=== PATIENT | female | born 1960 | race Caucasian/White ===

== ENCOUNTER 2020-03-12 07:46 | Inpatient (IN) | payer MEDICARE, MEDICAID, SELFPAY ==
[2020-03-12 07:52] VITALS: BP 150/82; PULSE 88; RESP 20; TEMP 37.2; O2SAT 95; BMI 36.9
--- NOTE | 2020-03-12 08:11 | ECG_ITS ---
Test Reason : SOB Blood Pressure : / mmHG Vent. Rate : 088 BPM Atrial Rate : 088 BPM P-R Int : 124 ms QRS Dur : 078 ms QT Int : 388 ms P-R-T Axes : 073 013 034 degrees QTc Int : 469 ms Normal sinus rhythm Normal ECG When compared with ECG of 09-MAR-2019 10:46, No significant change was found Referred By: Ria Acevedo Electronically Signed By:ALEIDA GILLETTE MD
--- NOTE | 2020-03-12 08:29 | XR_ITS ---
EXAMINATION: XR CHEST CLINICAL INFORMATION: SOB and COPD. Suspicious for new onset CHF COMPARISON: None TECHNIQUE: Frontal view of the chest was obtained. FINDINGS: Lungs are somewhat expanded with prominent parahilar interstitial/vascular markings new since the previous CT chest exam 04/10/2019. There is platelike atelectasis in the lingula. The heart size and pulmonary vascularity is normal. There is moderate spondylosis dorsal spine. No lytic process. XR/XR chest 1V IMPRESSION: Increased bilateral parahilar interstitial/vascular markings most suggestive of mild CHF.
[2020-03-12 08:33] LABS: MANUAL DIFF FLAG NO
--- NOTE | 2020-03-12 08:33 | ED.GENADULT ---
HPI - General Adult General Chief complaint: Dyspnea Stated complaint: swollen legs, sob Time Seen by Provider: 03/12/20 08:15 Source: patient Mode of arrival: ambulatory Limitations: no limitations History of Present Illness HPI narrative: Patient comes to the emergency room complaining of worsening shortness of breath for 4 months, increased leg swelling bilaterally for about 4 months. Patient denies chest pain. Patient states she was recently seen by her promotions assistant, states her COPD is at baseline. Patient complaining of bilateral lower extremity pain, states her skin is very tight and hurting her legs. Over the last 4-6 months, patient states that she has been unable to go shopping, or do any activities that requires exertion because she gets short of breath, no chest pain. Patient states over the last year, she has gained approximately 60 lb, patient believes it is secondary to using prednisone. Last dose of prednisone was approximately 6 months ago per patient. Related Data Home Medications Medication Instructions Recorded Confirmed amlodipine 10 mg tablet 10 mg PO DAILY 02/13/20 buprenorphine 8 mg-naloxone 2 mg 0 film SUBLINGUAL 02/13/20 sublingual film buspirone 10 mg tablet mg PO 02/13/20 duloxetine 60 mg capsule,delayed mg PO 02/13/20 release famotidine 20 mg tablet mg PO 02/13/20 fluticasone propionate 50 INTRANASAL 02/13/20 mcg/actuation nasal spray,suspension furosemide 40 mg tablet 40 mg PO DAILY 02/13/20 gabapentin 300 mg capsule mg PO 02/13/20 levalbuterol tartrate 45 INHALATION 02/13/20 mcg/actuation aerosol inhaler levothyroxine 25 mcg tablet 25 mcg PO DAILY 02/13/20 losartan 25 mg tablet 25 mg PO DAILY 02/13/20 omeprazole 40 mg capsule,delayed 40 mg PO DAILY 02/13/20 release tizanidine 4 mg tablet 4 mg PO BID 02/13/20 fluticasone 500 mcg-salmeterol 50 1 inh INHALATION BID 03/09/20 03/09/20 mcg/dose blistr powdr for inhalation Previous Rx's Medication Instructions Recorded montelukast 10 mg tablet 10 mg PO DAILY 90 Days #90 tab 03/04/20 miscellaneous medical supply 1 ea MISCELLANEOUS DAILY 99 Days 03/11/20 #1 ea Allergies Allergy/AdvReac Type Severity Reaction Status Date / Time doxycycline [Doxycycline] Allergy Intermediate RASH, Verified 03/09/20 11:23 vomiting Review of Systems Review of Systems: Constitutional : Complaining of 60 lb weight gain in 1 year, No Fever, No Chills, No Night Sweats, No Fatigue, No Malaise ENT/Mouth : No Hearing loss, No Ear Pain, No Nasal Congestion, No Sinus Pain, No Hoarseness, No sore throat, No Rhinorrhea, No Swallowing Difficulty Eyes: No Eye Pain, No Swelling, No Redness, No Foreign Body, No Discharge, No Vision Changes Cardiovascular : No Chest Pain, complaining of shortness of breath with exertion, worsening orthopnea over the last few weeks, worsening lower extremity edema over the last 4 months Respiratory : chronic cough, no increased sputum production, chronic wheezing Gastrointestinal : No Nausea, No Vomiting, No Diarrhea, No Constipation, No abdominal Pain, No Hematochezia, No Melena Genitourinary : no irregular bleeding, No Dysuria, No Urinary Frequency, No Hematuria, No Urinary Incontinence, No Urgency, No Flank Pain, No Urinary Flow Changes, No Hesitancy Musculoskeletal : No joint pain, No Myalgias, No Joint Swelling Skin : No Skin Lesions, No rash, complaining increased skin tightness around the legs Neuro : No Weakness, No Numbness, No Paresthesias, No Loss of Consciousness, No Dizziness, No Headache Psych : No Anxiety/Panic, No Depression, No SI/HI/AH/VH, No Social Issues, Heme/Lymph: No Bruising, No Bleeding,No Lymphadenopathy Endocrine : No Polyuria, No Polydipsia, No Temperature Intolerance [facility] Past Medical History Medical History Anxiety COPD (chronic obstructive pulmonary disease) Depression Hepatitis C Heroin abuse Hypothyroidism Obesity (BMI 30-39.9) Smoker Social History Social History Smoking Status: Current every day smoker Tobacco Type: Cigarette Packs Per Day: 1 Cigarettes Per Day: 20.0 Years Smoked: 47 Second Hand Smoke Exposure: No Use of substances other than those prescribed or required for medical reasons: No Advance Directives: No Advance Directives Information Provided: No Physical Exam Vital Signs: Vital Signs: Vital Signs Temp Pulse Resp BP Pulse Ox 03/12/20 09:56 153/71 H 03/12/20 09:20 98.4 F 89 12 103/63 95 03/12/20 07:52 99.0 F 88 20 150/82 H 95 Body Mass Index 36.9 Appearance: Alert. Oriented X3. No acute distress. Eyes: Pupils equal, round and reactive to light. ENT: Pharynx normal. Neck: Normal inspection. Neck supple. No lymph nodes noted. No crepitus CVS: Normal heart rate and rhythm. Pulses normal. Normal S1 and S2 Respiratory: no respiratory distress, seems mildly short of breath, oxygen saturation 95% on room air Abdomen: Soft and nontender. No rigidity. No distention. good BS x4 Skin: Skin warm and dry. Normal skin color. Normal skin turgor. Extremities: +2 bilateral lower extremity edema, No Rash Neuro: Oriented X 3. No motor deficit. No sensory deficit. Moving all extermities. No slurred speech. Course Course Course Narrative: patient states that to her knowledge she does not have congestive heart failure. I asked patient to walk around the ED, her oxygen saturation dropped to 8889 while walking, patient became very short of breath and diaphoretic. Patient recuperated as she go to bed. I discussed with the hospitalist the patient's presentation and labs/ imaging, patient admitted for new onset CHF. Medical Decision Making Lab Data Result diagrams: 03/12/20 08:22 03/12/20 08:59 Labs: Lab Results 03/12/20 03/12/20 03/12/20 Range/Units 08:22 08:22 08:22 WBC 5.3 (4.8-10.8) X10*3/uL RBC 3.45 L (4.20-5.50) X10*6/uL Hgb 9.9 L (12.0-16.0) g/dl Hct 31.1 L (37-47) % MCV 90.1 (80-98) fL MCH 28.7 (27.0-33.0) pg MCHC 31.8 (31.0-35.0) g/dl RDW 16.9 H (11.0-16.0) % Plt Count 143 L (160-400) X10*3/uL MPV 11.1 (9.4-12.3) fL Immature Gran % (Auto) 0.4 (0.0-0.4) % Neut % (Auto) 63.8 (45-73) % Lymph % (Auto) 14.4 L (20-40) % [place] % (Auto) 16.6 H (2-11) % Eos % (Auto) 4.0 (0-4) % Baso % (Auto) 0.8 (0-2) % Lymph # (Auto) 0.8 L (1.2-4.9) X10*3/uL [place] # (Auto) 0.9 (0.1-1.2) X10*3/uL Eos # (Auto) 0.2 (0.0-0.4) X10*3/uL Baso # (Auto) 0.0 (0.0-0.2) X10*3/uL Abs Immat Gran (auto) 0.02 (0.00-0.03) X10*3/uL Absolute Neuts (auto) 3.4 (2.0-8.3) X10*3/uL Absolute Nucleated RBC 0.000 (0.0-0.012) X10*3/uL Nucleated RBC % (auto) 0.0 (0.0-0.2) /100WBC Hold Blue Top SEE NOTE Sodium Potassium Chloride Carbon Dioxide Anion Gap BUN Creatinine Estim Creat Clear Calc Estimated GFR Random Glucose Lactic Acid (0.5-2.0) mmol/L Calcium Total Bilirubin (0.0-1.0) mg/dL Direct Bilirubin (0.0-0.5) mg/dL AST (5-31) U/L ALT (0-31) U/L Alkaline Phosphatase (39-117) U/L Troponin I High Sens < 3.5 (<3.5-17.0) ng/L B-Natriuretic Peptide 59 (<100) pg/mL Total Protein (6.5-8.0) g/dL Albumin (3.5-5.0) g/dL 03/12/20 03/12/20 03/12/20 Range/Units 08:23 08:59 09:01 WBC (4.8-10.8) X10*3/uL RBC (4.20-5.50) X10*6/uL Hgb (12.0-16.0) g/dl Hct (37-47) % MCV (80-98) fL MCH (27.0-33.0) pg MCHC (31.0-35.0) g/dl RDW (11.0-16.0) % Plt Count (160-400) X10*3/uL MPV (9.4-12.3) fL Immature Gran % (Auto) (0.0-0.4) % Neut % (Auto) (45-73) % Lymph % (Auto) (20-40) % [place] % (Auto) (2-11) % Eos % (Auto) (0-4) % Baso % (Auto) (0-2) % Lymph # (Auto) (1.2-4.9) X10*3/uL [place] # (Auto) (0.1-1.2) X10*3/uL Eos # (Auto) (0.0-0.4) X10*3/uL Baso # (Auto) (0.0-0.2) X10*3/uL Abs Immat Gran (auto) (0.00-0.03) X10*3/uL Absolute Neuts (auto) (2.0-8.3) X10*3/uL Absolute Nucleated RBC (0.0-0.012) X10*3/uL Nucleated RBC % (auto) (0.0-0.2) /100WBC Hold Blue Top Sodium Cancelled 135 Potassium Cancelled 3.8 Chloride Cancelled 98 Carbon Dioxide Cancelled 29 Anion Gap Cancelled 12 BUN Cancelled 12 Creatinine Cancelled 0.63 Estim Creat Clear Calc Cancelled 100.0 Estimated GFR Cancelled > 60 Random Glucose Cancelled 115 Lactic Acid 1.1 (0.5-2.0) mmol/L Calcium Cancelled 8.0 L Total Bilirubin 0.7 (0.0-1.0) mg/dL Direct Bilirubin 0.4 (0.0-0.5) mg/dL AST 69 H (5-31) U/L ALT 29 (0-31) U/L Alkaline Phosphatase 155 H (39-117) U/L Troponin I High Sens (<3.5-17.0) ng/L B-Natriuretic Peptide (<100) pg/mL Total Protein 7.2 (6.5-8.0) g/dL Albumin 3.5 (3.5-5.0) g/dL Imaging Data Chest x-ray: Radiologist's impression: Lungs are somewhat expanded with prominent parahilar interstitial/vascular markings new since the previous CT chest exam 04/10/2019. There is platelike atelectasis in the lingula. The heart size and pulmonary vascularity is normal. There is moderate spondylosis dorsal spine. No lytic process. ECG Data Attestation: I personally reviewed and interpreted this ECG as follows: ( sinus rhythm, heart rate 88, no ST segment depressions or elevations, no T-wave inversions, QTC 469) Discharge Plan Discharge Clinical Impression: Congestive heart failure Qualifiers: Heart failure type: unspecified Heart failure chronicity: acute Qualified Code(s): I50.9 - Heart failure, unspecified Patient Disposition: Admitted As Inpatient Prescriptions: No Action montelukast 10 mg tablet 10 mg PO DAILY 90 Days Qty: 90 RF: 0 miscellaneous medical supply Misc 1 ea miscellaneous DAILY 99 Days Qty: 1 RF: 0 fluticasone propion-salmeterol [Advair Diskus] 500-50 mcg/dose blister with device 1 inh inhalation BID RF: 0 buprenorphine-naloxone 8-2 mg film 0 film sublingual RF: 0 fluticasone propionate 50 mcg/actuation spray,suspension intranasal RF: 0 amlodipine 10 mg tablet 10 mg PO DAILY RF: 0 famotidine 20 mg tablet PO RF: 0 levothyroxine 25 mcg tablet 25 mcg PO DAILY RF: 0 omeprazole 40 mg capsule,delayed release(DR/EC) 40 mg PO DAILY RF: 0 tizanidine 4 mg tablet 4 mg PO BID RF: 0 gabapentin 300 mg capsule PO RF: 0 duloxetine 60 mg capsule,delayed release(DR/EC) PO RF: 0 buspirone 10 mg tablet PO RF: 0 levalbuterol tartrate 45 mcg/actuation HFA aerosol inhaler inhalation RF: 0 losartan 25 mg tablet 25 mg PO DAILY RF: 0 furosemide 40 mg tablet 40 mg PO DAILY RF: 0
[2020-03-12 08:42] LABS: Basophils Percent Auto 0.8 % (0-2); Eosinophils Absolute Auto 0.2 X10*3/uL (0.0-0.4); Hematocrit 31.1 % (37-47); Hemoglobin 9.9 g/dl (12.0-16.0); Imm Gran Abs Auto 0.02 X10*3/uL (0.00-0.03); Imm Gran Pct Auto 0.4 % (0.0-0.4); Lymphocytes Absolute Auto 0.8 X10*3/uL (1.2-4.9); Lymphocytes Percent Auto 14.4 % (20-40); Mean Corpuscular HGB Conc 31.8 g/dl (31.0-35.0); Mean Corpuscular Hemoglobin 28.7 pg (27.0-33.0); Mean Corpuscular Volume 90.1 fL (80-98); Mean Platelet Volume 11.1 fL (9.4-12.3); Monocytes Absolute Auto 0.9 X10*3/uL (0.1-1.2); Monocytes Percent Auto 16.6 % (2-11); Neutrophils Absolute Auto 3.4 X10*3/uL (2.0-8.3); Neutrophils Percent Auto 63.8 % (45-73); Platelet Count 143 X10*3/uL (160-400); Red Blood Count 3.45 X10*6/uL (4.20-5.50); Red Cell Distribution Width 16.9 % (11.0-16.0); White Blood Count 5.3 X10*3/uL (4.8-10.8)
[2020-03-12 09:01] LABS: B Type Natriuretic Peptide 59 pg/mL (<100); Troponin-I High Sensitivity < 3.5 ng/L (<3.5-17.0)
[2020-03-12 09:20] VITALS: BP 103/63; PULSE 89; RESP 12; TEMP 36.9; O2SAT 95
[2020-03-12 09:43] LABS: Lactic Acid 1.1 mmol/L (0.5-2.0)
[2020-03-12 09:45] LABS: Alanine Aminotransferase 29 U/L (0-31); Albumin Level 3.5 g/dL (3.5-5.0); Alkaline Phosphatase 155 U/L (39-117); Anion Gap 12 (12-20); Aspartate Amino Transferase 69 U/L (5-31); Bilirubin Direct 0.4 mg/dL (0.0-0.5); Bilirubin Total 0.7 mg/dL (0.0-1.0); Blood Urea Nitrogen 12 mg/dL (9-16); Carbon Dioxide 29 mmol/L (22-29); Chloride 98 mmol/L (96-108); Estimated Glomerular Filt Rate > 60; Glucose Random 115 mg/dL (60-115); Potassium 3.8 mmol/l (3.3-5.1); Sodium 135 mmol/L (135-145); Total Protein 7.2 g/dL (6.5-8.0)
[2020-03-12 09:56] VITALS: BP 153/71
--- NOTE | 2020-03-12 09:56 | PC.NURSE ---
pt ambulated in [place] with RN. pt o2 dropped to 89% while ambulating on room air. MD aware and discussed admission with patient.
[2020-03-12] MEDS: Furosemide 40 MG/4 ML VIAL IVPUSH ×2 (10:00→18:24)
[2020-03-12 10:06] LABS: TSH reflex Free T4 2.24 mIU/mL (0.32-4.0)
[2020-03-12 10:12] LABS: Glucose Urine UA NEG (NEG); Leukocyte Esterase Urine NEG (NEG); Nitrite Urine NEG (NEG); PH 6.5 (5.0-8.0); Urine Blood NEG (NEG); Urine Ketones NEG (NEG); Urine Protein NEG (NEG-TRACE)
[2020-03-12 10:14] LABS: Appearance Urine CLEAR; Color Urine YELLOW
[2020-03-12 10:39] LABS: Amphetamine Screen Urine Not Detected (Not Detect); Barbiturates, Urine Not Detected (Not Detect); Benzodiazepines Screen Urine Not Detected (Not Detect); Cannabinoid Screen Urine Not Detected (Not Detect); Cocaine Screen Urine Not Detected (Not Detect); Opiate Screen Urine Not Detected (Not Detect); Phencyclidine Screen Urine Not Detected (Not Detect)
[2020-03-12 10:47] VITALS: BP 141/59; PULSE 76; RESP 12; TEMP 37.1
[2020-03-12 10:56] LABS: SARS COV2 PCR INHOUSE NEGATIVE (Negative)
--- NOTE | 2020-03-12 13:14 | PM.IMHP ---
History of Present Illness Date of Service: 03/12/20 <ITZEL Hernandez - Last Filed: 03/12/20 13:52> Chief Complaint: shortness of breath <ITZEL Hernandez - Last Filed: 03/12/20 13:52> this is a 59-year-old female with a history of COPD/asthma, ? interstitial lung disease who presents to the emergency department with shortness of breath. Patient reports progressive dyspnea with exertion over the past few months. She also reports increased or lower extremity edema which has been going on for several months. She has been taking Lasix since at least May for the same. She has mild intermittent cough which she reports is chronic. She denies any associated fever or chills. her shortness of breath seems to be worse with exertion and when lying flat. She denies having a diagnosis of heart failure. In the emergency department her troponin and BNP were both unremarkable chest x-ray showed possible interstitial edema. She was afebrile with no white count and chest x-ray showed with no evidence of pneumonia. while in the emergency department from her oxygen saturation dropped to 88% with ambulation. she was given a dose of IV Lasix due and the decision was made to admit her for further management of dyspnea. <ITZEL Hernandez - Last Filed: 03/12/20 13:52> Review of Systems Review of Systems: Yes all other systems are reviewed and are negative <ITZEL Hernandez Last Filed: 03/12/20 13:52> Cardiovascular: Cardiovascular: Denies chest pain, Reports leg edema, Denies palpitations and Reports dyspnea on exertion <ITZEL Hernandez Last Filed: 03/12/20 13:52> Respiratory: Respiratory: Reports dyspnea on exertion <ITZEL Hernandez Last Filed: 03/12/20 13:52> Gastrointestinal: Gastrointestinal: Denies abdominal pain, Denies diarrhea, Denies nausea and Denies vomiting <ITZEL Hernandez Last Filed: 03/12/20 13:52> Endocrine: Endocrine: Denies palpitations <ITZEL Hernandez Last Filed: 03/12/20 13:52> [facility] Medical History: Medical History Anxiety Asthma COPD (chronic obstructive pulmonary disease) Depression Hepatitis C Heroin abuse HTN (hypertension) Hypothyroidism Myofascial pain syndrome Obesity (BMI 30-39.9) Obstructive sleep apnea Smoker <ITZEL Hernandez - Last Filed: 03/12/20 13:52> Functional capacity: independent ambulation <ITZEL Hernandez - Last Filed: 03/12/20 13:52> Pertinent family history: mother had a history of lung cancer father had history of esophageal cancer <ITZEL Hernandez - Last Filed: 03/12/20 13:52> Social History: Social History (Updated 03/12/20 @ 13:24 by ITZEL Hernandez) Household Members: Other Household Members Other:: lives alone Housing: House Do you presently have visiting nurse or other home services: No Alcohol intake: current Alcohol intake frequency: 3 or more drinks per day Alcohol type: beer and hard liquor Smoking Status: Current every day smoker Tobacco Type: Cigarette Packs Per Day: 1 Cigarettes Per Day: 20.0 Years Smoked: 47 Smoked in Last 30 Days: Yes Patient Interested in Nicotine Replacement: Yes Patient Given Instructions on How to Stop Smoking: Yes Date Education Initiated: 03/12/20 Second Hand Smoke Exposure: No Use of substances other than those prescribed or required for medical reasons: No Substance Use Type: Heroin Substance Use Type Other:: clean for 30 years. Takes suboxone. Currently Displaying Signs/Symptoms of Drug Intoxication Withdrawal: No Other Past Substance Use Problem:: h/o opiate abuse, on suboxone for 15 years Any prior treatment program specific to substance use: Yes (suboxone) Have you been hit, kicked, punched, or otherwise hurt by someone within the past year? If so, by whom?: No Do you feel safe in your current relationship?: No Is there a partner from a previous relationship who is making you feel unsafe now?: No Are you made to feel afraid or neglected: No Advance Directives: No Advance Directives Information Provided: No Advance Directives on File: No Do you have thoughts of harming others: None Do you have a plan to hurt others: No Plan Recently lost weight without trying: No <ITZEL Hernandez - Last Filed: 03/12/20 13:52> Meds Allergies/Adverse reactions: Allergies Allergy/AdvReac Type Severity Reaction Status Date / Time doxycycline [Doxycycline] Allergy Intermediate RASH, Verified 03/09/20 11:23 vomiting <ITZEL Hernandez - Last Filed: 03/12/20 13:52> Home medications: Home Medications Medication Instructions Recorded Confirmed Type amlodipine 10 mg tablet 10 mg PO DAILY 02/13/20 03/12/20 History buprenorphine 8 mg-naloxone 2 mg 2 film SUBLINGUAL DAILY 02/13/20 03/12/20 History sublingual film buspirone 10 mg tablet 10 mg PO TID 02/13/20 03/12/20 History duloxetine 60 mg capsule,delayed 120 mg PO DAILY 02/13/20 03/12/20 History release famotidine 20 mg tablet 20 mg PO DAILY 02/13/20 03/12/20 History furosemide 40 mg tablet 40 mg PO DAILY 02/13/20 03/12/20 History gabapentin 300 mg capsule 300 mg PO BID 02/13/20 03/12/20 History levothyroxine 25 mcg tablet 25 mcg PO DAILY 02/13/20 03/12/20 History losartan 25 mg tablet 25 mg PO DAILY 02/13/20 03/12/20 History omeprazole 40 mg capsule,delayed 40 mg PO DAILY 02/13/20 03/12/20 History release tizanidine 4 mg tablet 4 mg PO BID PRN 02/13/20 03/12/20 History fluticasone 500 mcg-salmeterol 50 1 inh INHALATION BID 03/09/20 03/12/20 History mcg/dose blistr powdr for inhalation fluticasone propionate [Flonase] 1 spray INTRANASAL DAILY 03/12/20 03/12/20 History levalbuterol tartrate [Xopenex HFA] 1 puff INHALATION Q4H PRN 03/12/20 03/12/20 History mirtazapine 15 mg PO BEDTIME 03/12/20 03/12/20 History montelukast 10 mg PO BEDTIME 03/12/20 03/12/20 History <ITZEL Hernandez - Last Filed: 03/12/20 13:52> Physical Exam Vital Signs and Narrative: Vital Signs: Last Vital Signs Temp 98.8 F 03/12/20 10:47 Pulse 76 03/12/20 10:47 Resp 12 03/12/20 10:47 BP 141/59 H 03/12/20 10:47 Pulse Ox 95 03/12/20 09:20 Body Mass Index 36.9 <ITZEL Hernandez - Last Filed: 03/12/20 13:52> Const: Nutritional Appearance: well nourished <ITZEL Hernandez - Last Filed: 03/12/20 13:52> Orientation/consciousness: patient oriented x3 <ITZEL Hernandez - Last Filed: 03/12/20 13:52> HENMT: Head: Yes normocephalic and Yes atraumatic <ITZEL Hernandez - Last Filed: 03/12/20 13:52> Eyes: Sclerae: sclerae normal <ITZEL Hernandez - Last Filed: 03/12/20 13:52> Chest: Chest palpation & inspection: normal inspection of the chest <ITZEL Hernandez - Last Filed: 03/12/20 13:52> Resp: Effort & Inspection: decreased respiratory effort <ITZEL Hernandez - Last Filed: 03/12/20 13:52> Auscultation: clear to auscultation bilaterally <ITZEL Hernandez - Last Filed: 03/12/20 13:52> Cardio: Rate: regular rate <ITZEL Hernandez - Last Filed: 03/12/20 13:52> Rhythm: regular rhythm <ITZEL Hernandez - Last Filed: 03/12/20 13:52> GI: Palpation (GI): Soft to palpation and nontender <ITZEL Hernandez - Last Filed: 03/12/20 13:52> Skin: General skin exam: no rashes or lesions noted <ITZEL Hernandez - Last Filed: 03/12/20 13:52> Neuro: General: patient oriented x3 <ITZEL Hernandez - Last Filed: 03/12/20 13:52> Cranial nerves: Yes CN's II-XII intact bilaterally and Yes Bilaterally intact EOM present <ITZEL Hernandez - Last Filed: 03/12/20 13:52> Extrem: General: Yes normal to inspection and Yes pedal edema <ITZEL Hernandez - Last Filed: 03/12/20 13:52> Results Labs Labs: Laboratory Tests 03/12/20 03/12/20 03/12/20 08:22 08:22 08:22 WBC 5.3 RBC 3.45 L Hgb 9.9 L Hct 31.1 L MCV 90.1 MCH 28.7 MCHC 31.8 RDW 16.9 H Plt Count 143 L MPV 11.1 Immature Gran % (Auto) 0.4 Neut % (Auto) 63.8 Lymph % (Auto) 14.4 L [place] % (Auto) 16.6 H Eos % (Auto) 4.0 Baso % (Auto) 0.8 Lymph # (Auto) 0.8 L [place] # (Auto) 0.9 Eos # (Auto) 0.2 Baso # (Auto) 0.0 Abs Immat Gran (auto) 0.02 Absolute Neuts (auto) 3.4 Absolute Nucleated RBC 0.000 Nucleated RBC % (auto) 0.0 Hold Blue Top SEE NOTE Sodium Potassium Chloride Carbon Dioxide Anion Gap BUN Creatinine Estim Creat Clear Calc Estimated GFR Random Glucose Lactic Acid Calcium Total Bilirubin Direct Bilirubin AST ALT Alkaline Phosphatase Troponin I High Sens < 3.5 B-Natriuretic Peptide 59 Total Protein Albumin TSH Urine Color Urine Appearance Urine pH Ur Specific [place] Urine Protein Urine Glucose (UA) Urine Ketones Urine Blood Urine Nitrite Ur Leukocyte Esterase Urine Opiates Screen Ur Barbiturates Screen Ur Phencyclidine Scrn Ur Amphetamines Screen U Benzodiazepines Scrn Urine Cocaine Screen U Marijuana (THC) Screen Coronavirus (PCR) 03/12/20 03/12/20 03/12/20 08:23 08:59 08:59 WBC RBC Hgb Hct MCV MCH MCHC RDW Plt Count MPV Immature Gran % (Auto) Neut % (Auto) Lymph % (Auto) [place] % (Auto) Eos % (Auto) Baso % (Auto) Lymph # (Auto) [place] # (Auto) Eos # (Auto) Baso # (Auto) Abs Immat Gran (auto) Absolute Neuts (auto) Absolute Nucleated RBC Nucleated RBC % (auto) Hold Blue Top Sodium Cancelled 135 Potassium Cancelled 3.8 Chloride Cancelled 98 Carbon Dioxide Cancelled 29 Anion Gap Cancelled 12 BUN Cancelled 12 Creatinine Cancelled 0.63 Estim Creat Clear Calc Cancelled 100.0 Estimated GFR Cancelled > 60 Random Glucose Cancelled 115 Lactic Acid Calcium Cancelled 8.0 L Total Bilirubin 0.7 Direct Bilirubin 0.4 AST 69 H ALT 29 Alkaline Phosphatase 155 H Troponin I High Sens B-Natriuretic Peptide Total Protein 7.2 Albumin 3.5 TSH 2.24 Urine Color Urine Appearance Urine pH Ur Specific [place] Urine Protein Urine Glucose (UA) Urine Ketones Urine Blood Urine Nitrite Ur Leukocyte Esterase Urine Opiates Screen Ur Barbiturates Screen Ur Phencyclidine Scrn Ur Amphetamines Screen U Benzodiazepines Scrn Urine Cocaine Screen U Marijuana (THC) Screen Coronavirus (PCR) 03/12/20 03/12/20 03/12/20 09:01 09:24 10:04 WBC RBC Hgb Hct MCV MCH MCHC RDW Plt Count MPV Immature Gran % (Auto) Neut % (Auto) Lymph % (Auto) [place] % (Auto) Eos % (Auto) Baso % (Auto) Lymph # (Auto) [place] # (Auto) Eos # (Auto) Baso # (Auto) Abs Immat Gran (auto) Absolute Neuts (auto) Absolute Nucleated RBC Nucleated RBC % (auto) Hold Blue Top Sodium Potassium Chloride Carbon Dioxide Anion Gap BUN Creatinine Estim Creat Clear Calc Estimated GFR Random Glucose Lactic Acid 1.1 Calcium Total Bilirubin Direct Bilirubin AST ALT Alkaline Phosphatase Troponin I High Sens B-Natriuretic Peptide Total Protein Albumin TSH Urine Color YELLOW Urine Appearance CLEAR Urine pH 6.5 Ur Specific [place] 1.020 Urine Protein NEG Urine Glucose (UA) NEG Urine Ketones NEG Urine Blood NEG Urine Nitrite NEG Ur Leukocyte Esterase NEG Urine Opiates Screen Ur Barbiturates Screen Ur Phencyclidine Scrn Ur Amphetamines Screen U Benzodiazepines Scrn Urine Cocaine Screen U Marijuana (THC) Screen Coronavirus (PCR) NEGATIVE 03/12/20 10:04 WBC RBC Hgb Hct MCV MCH MCHC RDW Plt Count MPV Immature Gran % (Auto) Neut % (Auto) Lymph % (Auto) [place] % (Auto) Eos % (Auto) Baso % (Auto) Lymph # (Auto) [place] # (Auto) Eos # (Auto) Baso # (Auto) Abs Immat Gran (auto) Absolute Neuts (auto) Absolute Nucleated RBC Nucleated RBC % (auto) Hold Blue Top Sodium Potassium Chloride Carbon Dioxide Anion Gap BUN Creatinine Estim Creat Clear Calc Estimated GFR Random Glucose Lactic Acid Calcium Total Bilirubin Direct Bilirubin AST ALT Alkaline Phosphatase Troponin I High Sens B-Natriuretic Peptide Total Protein Albumin TSH Urine Color Urine Appearance Urine pH Ur Specific [place] Urine Protein Urine Glucose (UA) Urine Ketones Urine Blood Urine Nitrite Ur Leukocyte Esterase Urine Opiates Screen Not Detected Ur Barbiturates Screen Not Detected Ur Phencyclidine Scrn Not Detected Ur Amphetamines Screen Not Detected U Benzodiazepines Scrn Not Detected Urine Cocaine Screen Not Detected U Marijuana (THC) Screen Not Detected Coronavirus (PCR) <ITZEL Hernandez - Last Filed: 03/12/20 13:52> Assessment and Plan (1) Dyspnea: Status: Acute <ITZEL Hernandez - Last Filed: 03/12/20 13:52> this is a 67-year-old female with multiple medical problems who presents to the emergency department with worsening shortness of breath acute respiratory failure with hypoxia/dyspnea oxygen saturation dropped to 88% with ambulation likely multifactorial r/t COPD/asthma, ?ILD, obesity, KEV and possible new onset CHF -will continue gentle diuresis, obtain echo -consult pulmonology, consider chest CT -continue supplemental O2 alcohol dependence no evidence of alcohol withdrawal at this time - start phenobarbital - tele monitoring - check magnesium - thiamine, folate supplementation tobacco dependence smoking cessation advised - NRT history of opiate abuse - continue Suboxone anemia -check iron studies, b12, folate - trend CBC thrombocytopenia -trend CBC Mild transaminitis r/t HCV/obesity KEV - continue 2 L oxygen at night HTN - continue Norvasc, losartan hypothyroidism - continue hypothyroidism depression - continue Cymbalta myofascial pain syndrome - continue gabapentin, tizanidine GERD - continue omeprazole, famotidine obesity BMI 36.9 likely contributing to respiratory symptoms. reports 60 lb weight gain over the past 2 years weight loss was discussed and encouraged DVT prophylaxis- Lovenox code status- full code this case was discussed with Dr. Desouza <ITZEL Hernandez - Last Filed: 03/12/20 13:52>
[2020-03-12 14:01] LABS: Iron 46 mcg/dL (30-160); Percent Iron Saturation 10 % (15-50); Total Iron Binding Capacity 477 mcg/dL (228-428); Unsaturated Iron Binding 431 ug/dL
[2020-03-12 14:21] LABS: Ferritin 33 ng/mL (10-250)
[2020-03-12] MEDS: Nicotine 14 MG PATCH.TD24 TRANSDERMA (14:29)
[2020-03-12] MEDS: PHENobarbitaL sodium 130 MG/ML VIAL 160 MG IM (14:30)
[2020-03-12 14:43] LABS: Folate 9.5 ng/mL (> or = 4.0); Vitamin B12 244 pg/mL (200-900)
[2020-03-12] MEDS: Flu Vacc QS2020-21(6mos up)/PF 0.5 ML SYRINGE IM (15:07)
[2020-03-12] MEDS: Enoxaparin Sodium 40 MG/0.4 ML SYRINGE SUBCUT (15:07)
[2020-03-12 15:40] VITALS: BP 164/80; PULSE 92; RESP 20; TEMP 36.4; O2SAT 95
[2020-03-12] MEDS: 0.9 % Sodium Chloride Flush 3 ML SYRINGE IVFLUSH (16:17)
[2020-03-12] MEDS: busPIRone HCl 10 MG TABLET PO ×2 (16:17→20:37)
[2020-03-12 17:30] VITALS: BP 174/89; PULSE 89
[2020-03-12] MEDS: PHENobarbitaL sodium 130 MG/ML VIAL 120 MG IM ×2 (17:38→20:35)
--- NOTE | 2020-03-12 18:05 | P.EN_ITS ---
Event Note Event Note: patient seen examined case discussed with APC 59-year-old female with past medical history of COPD/ asthma question interstitial lung disease presented with symptoms of shortness of breath progressing over last couple months with worsening lower extremity edema patient denies any associated fever chills has chronic intermittent dry cough, patient with no prior history of heart failure in the emergency room BNP was unremarkable chest x-ray was concerning for fluid overload patient in the ER was noted to have hypoxia with finger oximetry 88% with ambulation patient is now being admitted for further treatment of her progressive shortness of breath. 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 Thao.
[2020-03-12] MEDS: TiZANidine HCL 4 MG TABLET PO (20:37)
[2020-03-12] MEDS: Montelukast Sodium 10 MG TABLET PO (20:37)
[2020-03-12] MEDS: Mirtazapine 15 MG TABLET PO (20:37)
[2020-03-12] MEDS: Gabapentin 300 MG CAPSULE PO (20:37)
[2020-03-13] VITALS (8 sets, daily range): BP systolic 100–142; BP diastolic 57–77; PULSE 73–84; RESP 18–20; TEMP 36.1–36.9; O2SAT 94–99; BMI 36.9
[2020-03-13] MEDS: 0.9 % Sodium Chloride Flush 3 ML SYRINGE IVFLUSH ×3 (00:04→16:26)
[2020-03-13 06:37] LABS: Imm Gran Abs Auto 0.01 X10*3/uL (0.00-0.03); Imm Gran Pct Auto 0.2 % (0.0-0.4); MANUAL DIFF FLAG SCAN; Mean Platelet Volume 11.2 fL (9.4-12.3); Monocytes Absolute Auto 0.7 X10*3/uL (0.1-1.2); PLT CLUMP 1; SCAN SMEAR FLAG 1
[2020-03-13 06:39] LABS: Basophils Percent Auto 0.9 % (0-2); Eosinophils Absolute Auto 0.2 X10*3/uL (0.0-0.4); Eosinophils Percent Auto 5.3 % (0-4); Hematocrit 31.9 % (37-47); Hemoglobin 10.1 g/dl (12.0-16.0); Lymphocytes Absolute Auto 0.7 X10*3/uL (1.2-4.9); Lymphocytes Percent Auto 16.2 % (20-40); Mean Corpuscular HGB Conc 31.7 g/dl (31.0-35.0); Mean Corpuscular Hemoglobin 28.6 pg (27.0-33.0); Mean Corpuscular Volume 90.4 fL (80-98); Monocytes Percent Auto 16.2 % (2-11); Neutrophils Absolute Auto 2.6 X10*3/uL (2.0-8.3); Neutrophils Percent Auto 61.2 % (45-73); Platelet Count 126 X10*3/uL (160-400); Red Blood Count 3.53 X10*6/uL (4.20-5.50); Red Cell Distribution Width 16.8 % (11.0-16.0); White Blood Count 4.3 X10*3/uL (4.8-10.8)
[2020-03-13 06:57] LABS: Alanine Aminotransferase 27 U/L (0-31); Albumin Level 3.5 g/dL (3.5-5.0); Alkaline Phosphatase 149 U/L (39-117); Anion Gap 13 (12-20); Aspartate Amino Transferase 66 U/L (5-31); Bilirubin Direct 0.5 mg/dL (0.0-0.5); Bilirubin Total 1.2 mg/dL (0.0-1.0); Blood Urea Nitrogen 12 mg/dL (9-16); Carbon Dioxide 31 mmol/L (22-29); Chloride 97 mmol/L (96-108); Creatinine Clr Calc Pharmacy 98.4; Estimated Glomerular Filt Rate > 60; Glucose Random 113 mg/dL (60-115); Potassium 3.7 mmol/l (3.3-5.1); Sodium 137 mmol/L (135-145); Total Protein 7.4 g/dL (6.5-8.0)
[2020-03-13 07:09] LABS: SLIDE REVIEW VERIFIED
[2020-03-13] MEDS: Fluticasone/Vilanterol 200/25 BLST.W.DEV 1 PUFF INHALE (07:44)
[2020-03-13] MEDS: Nicotine 14 MG PATCH.TD24 TRANSDERMA (08:19)
[2020-03-13] MEDS: Buprenorphine/Naloxone 8/2 mg FILM 2 FILM SUBLINGUAL (08:20)
[2020-03-13] MEDS: DULoxetine HCl 30 MG CAPSULE.DR 120 MG PO (08:20)
[2020-03-13] MEDS: Losartan Potassium 25 MG TABLET PO (08:21)
[2020-03-13] MEDS: Levothyroxine Sodium 25 MCG TABLET PO (08:21)
[2020-03-13] MEDS: Famotidine 20 MG TABLET PO (08:21)
[2020-03-13] MEDS: amLODIPine Besylate 5 MG TABLET PO (08:21)
[2020-03-13] MEDS: Omeprazole 40 MG CAPSULE.DR PO (08:21)
[2020-03-13] MEDS: Thiamine HCL 100 MG TABLET PO (08:22)
[2020-03-13] MEDS: busPIRone HCl 10 MG TABLET PO ×3 (08:22→21:30)
[2020-03-13] MEDS: Gabapentin 300 MG CAPSULE PO ×2 (08:22→21:30)
[2020-03-13] MEDS: Folic Acid 1 MG TABLET PO (08:22)
[2020-03-13] MEDS: PHENobarbitaL 15 MG TABLET 45 MG PO ×2 (08:22→21:30)
[2020-03-13] MEDS: Fluticasone Propionate Nasal 16 GM SPRAY 1 SPRAY NOSTRIL-B (08:22)
--- NOTE | 2020-03-13 09:55 | PM.EVENT ---
Event Note Event Note: This patient is well-known to me and was seen in the office only 4 days ago. I have seen her today evaluated the lap findings and chest x-ray and talked to her in detail. Full note is dictated. Impression: Long-time smoker COPD.with Chronic Resp. failure CHF , sec to Cor-Pulmonale . Recc : Treat with Breo-200 one inh daily , Duo Neb UDs qid , O2 to keep O2 sat above 90 % . ABGs on room air Cardiac Eval. Echo , cont. diuresis . Smoking cessation .
--- NOTE | 2020-03-13 10:11 | HO.PM.IMPN ---
Subjective Subjective Date of Service: 03/13/20 Interval History: reports improvement in breathing, Although has only ambulated to the bathroom. Still with significant leg edema. Review of Systems Review of Systems: Yes all other systems are reviewed and are negative Constitutional Constitutional: Denies chills and Denies fever(s) Cardiovascular Cardiovascular: Denies chest pain Gastrointestinal Gastrointestinal: Denies abdominal pain Physical Exam Vital Signs: Vital Signs: Vital Signs Temp Pulse Resp BP Pulse Ox 03/13/20 08:00 98.3 F 80 20 137/73 94 03/13/20 04:00 98.4 F 83 18 130/66 94 03/13/20 00:00 97.5 F 80 18 112/57 L 96 03/12/20 17:30 89 174/89 H 03/12/20 15:40 97.6 F 92 20 164/80 H 95 03/12/20 10:47 98.8 F 76 12 141/59 H Body Mass Index 36.9 Const: Nutritional Appearance: well nourished and obese Orientation/consciousness: patient oriented x3 HENMT: Head: Yes normocephalic and Yes atraumatic Eyes: Sclerae: sclerae normal Chest: Chest palpation & inspection: normal inspection of the chest Resp: Effort & Inspection: normal respiratory effort and no respiratory distress Auscultation: clear to auscultation bilaterally Cardio: Rate: regular rate Rhythm: regular rhythm GI: Palpation (GI): Soft to palpation and nontender Skin: General skin exam: no rashes or lesions noted Neuro: General: patient oriented x3 Cranial nerves: Yes CN's II-XII intact bilaterally and Yes Bilaterally intact EOM present Extrem: Right lower extremity: edema Left lower extremity: edema Objective Data Current Medications Generic Name Dose Route Start Last Admin Trade Name Freq PRN Reason Stop Dose Admin Acetaminophen 650 mg 03/12/20 14:21 Acetaminophen 325 Mg Tablet PO Q6H PRN Pain, Mild (Pain Scale 1-3) Albuterol Sulfate 2.5 mg 03/12/20 14:21 Albuterol Sulfate (0.083%) 2.5 Mg/3 Ml Vial.Neb INHALE RQ4H PRN Shortness of Breath Amlodipine Besylate 5 mg 03/13/20 09:00 03/13/20 08:21 Amlodipine Besylate 5 Mg Tablet PO 5 mg DAILY SERG Administration Protocol Buprenorphine/Naloxone 2 film 03/13/20 09:00 03/13/20 08:20 Buprenorphine/Naloxone 8/2 Mg Film SUBLINGUAL 2 film DAILY SERG Administration Buspirone HCl 10 mg 03/12/20 15:00 03/13/20 08:22 Buspirone Hcl 10 Mg Tablet PO 10 mg TID SERG Administration Docusate Sodium 100 mg 03/12/20 14:21 Docusate Sodium 100 Mg Capsule PO DAILY PRN Constipation Duloxetine HCl 120 mg 03/13/20 09:00 03/13/20 08:20 Duloxetine Hcl 30 Mg Capsule.Dr PO 120 mg DAILY SERG Administration Enoxaparin Sodium 40 mg 03/12/20 15:00 03/12/20 15:07 Enoxaparin Sodium 40 Mg/0.4 Ml Syringe SUBCUT 40 mg Q24H SERG Administration Famotidine 20 mg 03/13/20 09:00 03/13/20 08:21 Famotidine 20 Mg Tablet PO 20 mg DAILY SERG Administration Fluticasone Propionate 1 spray 03/13/20 09:00 03/13/20 08:22 Fluticasone Propionate Nasal 16 Gm [place] NOSTRIL-B 1 spray DAILY SERG Administration Fluticasone/Vilanterol 1 puff 03/13/20 08:00 03/13/20 07:44 Fluticasone/Vilanterol 200/25 Blst.W.Dev INHALE 1 puff RDAILY SERG Administration Folic Acid 1 mg 03/13/20 09:00 03/13/20 08:22 Folic Acid 1 Mg Tablet PO 1 mg DAILY SERG Administration Furosemide 40 mg 03/13/20 08:00 Furosemide 40 Mg/4 Ml Vial IVPUSH 0800,1400 SERG Protocol Gabapentin 300 mg 03/12/20 21:00 03/13/20 08:22 Gabapentin 300 Mg Capsule PO 300 mg BID SERG Administration Levothyroxine Sodium 25 mcg 03/13/20 09:00 03/13/20 08:21 Levothyroxine Sodium 25 Mcg Tablet PO 25 mcg DAILY SERG Administration Losartan Potassium 25 mg 03/13/20 09:00 03/13/20 08:21 Losartan Potassium 25 Mg Tablet PO 25 mg DAILY SERG Administration Protocol Medication 1 each 03/13/20 09:00 No Benzodiazepines MISCELLANE DAILY SERG Mirtazapine 15 mg 03/12/20 21:00 03/12/20 20:37 Mirtazapine 15 Mg Tablet PO 15 mg BEDTIME SERG Administration Montelukast Sodium 10 mg 03/12/20 21:00 03/12/20 20:37 Montelukast Sodium 10 Mg Tablet PO 10 mg BEDTIME SERG Administration Nicotine 14 mg 03/12/20 13:35 03/13/20 08:19 Nicotine 14 Mg Patch.Td24 TRANSDERMA 14 mg DAILY SERG Administration Omeprazole 40 mg 03/13/20 09:00 03/13/20 08:21 Omeprazole 40 Mg Capsule.Dr PO 40 mg DAILY SERG Administration Ondansetron HCl 4 mg 03/12/20 14:21 Ondansetron Hcl 4 Mg/2 Ml Vial IVPUSH Q8H PRN Nausea and Vomiting Pharmacy Consult 1 each 03/12/20 10:54 Consult Rx Perform Med Rec MISCELLANE ONCE PRN Consult order Phenobarbital 45 mg 03/13/20 09:00 03/13/20 08:22 Phenobarbital 15 Mg Tablet PO 03/14/20 21:01 45 mg BID SERG Administration Protocol Phenobarbital 30 mg 03/15/20 09:00 Phenobarbital 30 Mg Tablet PO 03/16/20 21:01 BID SERG Protocol Phenobarbital 30 mg 03/17/20 09:00 Phenobarbital 30 Mg Tablet PO 03/18/20 09:01 DAILY SERG Protocol Sodium Chloride 3 ml 03/12/20 16:00 03/13/20 00:04 0.9 % Sodium Chloride Flush 3 Ml Syringe IVFLUSH 3 ml QSHIFT SERG Administration Thiamine HCl 100 mg 03/13/20 09:00 03/13/20 08:22 Thiamine Hcl 100 Mg Tablet PO 100 mg DAILY SERG Administration Tizanidine HCl 4 mg 03/12/20 14:21 03/12/20 20:37 Tizanidine Hcl 4 Mg Tablet PO 4 mg BID PRN Administration Spasms Labs CBC & Chem 7: 03/13/20 05:23 03/13/20 05:23 Assessment and Plan (1) Dyspnea: Status: Acute Assessment and Plan: this is a 67-year-old female with multiple medical problems who presents to the emergency department with worsening shortness of breath acute respiratory failure with hypoxia/dyspnea oxygen saturation dropped to 88% with ambulation likely multifactorial r/t COPD/asthma, ?ILD, obesity, KEV and possible new onset CHF -will continue gentle diuresis, echo pending -pulonary consult pending -continue supplemental O2 alcohol dependence no evidence of alcohol withdrawal - continue phenobarbital - tele monitoring - mag wnl - thiamine, folate supplementation tobacco dependence smoking cessation advised - NRT history of opiate abuse - continue Suboxone anemia -H/H stable. B12, folate wnl. c/w iron Deficiency - start iron supplementation - outpatient GI workup thrombocytopenia -trend CBC Mild transaminitis r/t HCV/obesity KEV - continue 2 L oxygen at night HTN. BP controlled. - continue Norvasc, losartan hypothyroidism - continue hypothyroidism depression - continue Cymbalta myofascial pain syndrome - continue gabapentin, tizanidine GERD - continue omeprazole, famotidine obesity BMI 36.9 weight loss was discussed and encouraged DVT prophylaxis- Lovenox code status- full code this case was discussed with Dr. Desouza
--- NOTE | 2020-03-13 10:59 | MHC.CM.PN ---
CM met with patient at the bedside who reports she is independent, has home O2 from [facility] and lives alone. Patient does have a HCP brother Gab [phone], requested a copy. Discussed discharge plan, home no services. States her girl friend Sirena will provide transport. CM will continue to follow patient for discharge needs.
[2020-03-13 11:46] LABS: Pt Ventilation O2% 2 L
[2020-03-13 11:56] LABS: ABG PCO2 45 mmhg (32-45); Base Excess ABG 4.2; HCO3 ABG 29 mmol/l (22-26); Oxygen Saturation ABG 95.9 %; PO2 ABG 84 mmhg (83-108); pH ABG 7.43 (7.35-7.45)
[2020-03-13 11:57] LABS: Blood Gas Serial # 5414
[2020-03-13] MEDS: Enoxaparin Sodium 40 MG/0.4 ML SYRINGE SUBCUT (13:14)
[2020-03-13] MEDS: Furosemide 40 MG/4 ML VIAL IVPUSH (13:14)
[2020-03-13] MEDS: Acetaminophen 325 MG TABLET 650 MG PO (13:22)
--- NOTE | 2020-03-13 14:21 | CA_ITS ---
Transthoracic Echocardiogram Patient (Last, First, Middle): Amelia Tran J Gender: Female Date of : 1960 Age: 59 Procedure Date: 03/13/2020 Procedure Type: Transthoracic Echocardiogram Location: [facility] [place] Height: 157.48 cm Weight: 91.06 kg BSA: 1.91 m2 Heart Rate: bpm BP: 112 / 57 mmHg Toe Former: ДМИТРИЙ Melendez MD: Lissa ROBBINS Nursing Staff Development Coordinator: Iglesia Garces MD Symptoms: dyspnea Study Quality: Fair ECG Rhythm: Sinus Conclusions: - 1. Normal LV systolic and diastolic function noted on this study 2. Normal cardiac valvular Doppler 3. Normal measured RV systolic pressure 4. No gross pericardial effusion Findings Procedure Information Contrast agent, definity, is being given per protocol without apparent complications. Left Ventricle Normal left ventricular size, thickness, and systolic function. The visually estimated ejection fraction is between 60-65%. Diastolic function is normal for age. Right Ventricle Normal right ventricular cavity size and systolic function. Atria The left atrium is likely dilated. Interatrial shunt cannot be excluded. The right atrium was not well visualized. Aortic Valve The aortic valve was not well visualized. There is no aortic valve stenosis. There is no aortic valve regurgitation. Mitral Valve Likely normal mitral valve structure and function. There is trace mitral valve regurgitation. There is no mitral valve stenosis. Pulmonic Valve The pulmonic valve was not well visualized. Tricuspid Valve Likely normal tricuspid valve structure and function. There is mild tricuspid valve regurgitation. The right ventricular systolic pressure is normal. The right ventricular systolic pressure is 31 mmHg. There is no evidence of pulmonary hypertension. Great Vessels All visible segments of the aorta are normal in size. The pulmonary artery was not well visualized. Venous The inferior vena cava is normal in size and collapses greater than 50% with inspiration. Pericardium/Pleural There is no evidence of pericardial effusion. Prior Study Comparison Changes noted compared to prior study dated: 10/09/2018. RV systolic pressure measured to be within normal limits on this study Measurements 2D Linear Measurements RVIDd: 3.29 RVIDd Index: 1.72 IVSd: 1.06 0.6-0.9/0.6-1.0 cm LVIDd: 5.22 3.9-5.3/4.2-5.9 cm LVIDd Index: 2.73 2.4-3.2/2.2-3.1 cm/m2 LVIDs: 3.17 2.0-3.6 cm LVPWd: 1.06 0.7-1.1 cm Ao Root: 2.30 2.1-3.5 cm LA Diam: 4.10 2.7-3.8/3.0-4.0 cm LAIDs Index: 2.15 1.5-2.3 cm/m2 LV Mass: 263.34 67-162/88-224 g LV Mass Index: 137.87 43-95/49-115 g/m2 LVOT Diam: 2.00 3.0+(-)1.3 cm 2D Systolic Function EF 4C: 53.20 >55% EF 2C: 76.90 >55% EF BiP: 65.30 >55% Mitral Valve MV Pk E: 1.07 MV PK A: 0.73 MV Decel Time: 187.00 E/A: 1.50 E'Lateral: 7.74 E'Medial: 6.29 E/E' Med: 17.00 E/E' Lat: 13.80 Aortic Valve AoV Pk Jonnie: 1.97 AoV Mn Jonnie: 1.30 AoV VTI: 0.38 AoV Pk Grad: 16.00 Aov Mn Grad: 8.00 GLORIA Cont.VTI: 2.10 LVOT LVOT Pk Jonnie: 1.37 LVOT Mn Jonnie: 0.92 LVOT VTI: 0.26 LVOT Pk Grad: 8.00 LVOT Mn Grad: 4.00 LVOT Diam: 2.00 LVOT Area: 3.14 Diastolic Function MV Pk E: 1.07 MV Pk A: 0.73 E/A: 1.50 E'Medial: 6.29 E/E' Med: 17.00 E' Laterial: 7.74 E/E' Lat: 13.80 Tricuspid Valve TR Pk Jonnie: 2.65 TR Pk Grad: 28.00 RA Press: 3.00 RVSP: 31.00 Great Vessels Aorta Ao Root-2D: 2.30 2.0-3.7 cm Ao Asc: 2.70 2.1-3.4 cm Ao Arch: 2.70 Updated in Other Vendor System with Status of Final Iglesia Garces MD electronically signed on 03/13/2020 4:21:08 PM with status of Final
[2020-03-13] MEDS: Ferrous Sulfate 324 MG TABLET.DR PO (16:25)
--- NOTE | 2020-03-13 17:17 | CONS_ITS ---
DATE OF SERVICE: 03/13/2020 HISTORY OF PRESENT ILLNESS: This patient is a 59-year-old female, a long-time smoker and long history of chronic obstructive pulmonary disease. She was seen by me in the office only 4 days ago with increased shortness of breath. She had no sign of any respiratory infection. She has had no sick contacts recently. In spite of her COPD, she has continued to smoke 1 pack a day. In the office, she was noted to have lot of fluid retention with weight gaining and from the pulmonary point of view, she was felt to be as stable as expected. She was advised to continue diuresis with Lasix 40 mg a day and continue to use Advair 500/50 b.i.d. along with montelukast 10 mg daily and albuterol 2 puffs q.4 hours p.r.n. PAST MEDICAL HISTORY: Includes advanced chronic obstructive pulmonary disease and continued smoking. She also has hypothyroidism, hypertension, GERD symptoms, and chronic anxiety and pain syndrome. The patient has past history of opioid abuse. Currently, she is on Suboxone. REVIEW OF SYSTEMS: As included in the history and physical. Mainly, she has the respiratory symptoms of getting short of breath on minimal effort with intermittent cough. She denies chest pain or palpitations. She has GERD symptoms, which are under control. No abdominal pain. She has had increasing amount of leg edema in the past several weeks. PHYSICAL EXAMINATION: GENERAL: 59-year-old female, is moderately obese with a round face, seems to have a puffy face. EAR, NOSE, THROAT: Examination not remarkable. NECK: No visible jugular venous distention. Trachea in midline. CHEST: Chest wall is obese. Percussion note resonant. Breath sounds are distant and no audible wheezes or crepitations are heard. CARDIAC: Sounds are distant. PMI not palpable. No murmur or gallop. ABDOMEN: Moderately obese and protuberant. Bowel sounds are normal. EXTREMITIES: 2+ pitting edema is noted. LABORATORY DATA: Her CBC shows white cell count 4.3, hemoglobin 10.1, hematocrit is 31.9. Blood gas not performed. Electrolytes show pCO2 of 31, sodium and potassium are normal. Chest x-ray shows small lung volumes with increased bilateral perihilar interstitial vascular markings suggesting mild congestive heart failure. IMPRESSION: Chronic obstructive pulmonary disease, severe, but stable. The patient may have had ongoing low-grade hypoxemia, especially at night. Congestive heart failure, probably due to right-sided failure as part of cor pulmonale. Hypothyroidism, treated. Active smoker. RECOMMENDATIONS: Continue her regular medical regimen including Advair 500/50 one inhalation b.i.d., which may be replaced with Breo 200 mg 1 inhalation daily. Diuresis to decrease the fluid overload. Check the thyroid function status. Arterial blood gases 1 time to make sure that she does not have CO2 retention. She may need a cardiac evaluation with echocardiogram. She is instructed to do deep breathing exercises. Thank you very much for asking me to see this patient. I will be glad to follow her along with you. ADDITIONAL NOTE: The patient definitely needs to stop smoking and she should be started on nicotine patch with appropriate education. MD KEYONNA Lugo/KYLEE / [phone]
--- NOTE | 2020-03-13 18:23 | MHC.CARE ---
CARE Team meets with patient after receiving a consult, siting that pt is struggling with alcohol use. Pt is sitting up in bed, watching TV when CARE Team social science instructor enters the room. She is pleasant and well engaged. She reports drinking approx three beers daily. She identifies that she would like to cut back on her alcohol consumption, lose weight, and stop smoking. CARE Team supports pt is setting realistic goals, and explored a number of harm reduction strategies with pt. CARE Team utilizes principals of motivational interviewing during this assessment; pt appears motivated to make changes at this time. Pt reported a hx of heroin use when she was in her 30s which she was able to overcome. Pt identifies that quitting smoking is harder then quitting heroin. She reports that she has a therapist at [facility], as well as a psychiatrist. She reports that she takes medications as prescribed, and identified being diagnosed with some form of anxiety and depression. Pt reports that she has been speaking with her long time therapist about harm reduction and smoking cessation for some time now. She identifies that she has tried acupuncture in the past, but this was not effective. She identifies having trouble breathing while during everyday tasks, such as grocery shopping. Pt historically has participated in mindfulness groups, and some of these skills are reviewed with pt. PHP program is discussed with pt, but she does not feel that this is a good fit at this time. CARE Team offers to provide additional resources for smoking cessation treatment, however, pt identifies that she would like to continue working on this with her therapist. CARE Team is happy to return and provide more support and/or resources as needed, please reconsult.
[2020-03-13] MEDS: Docusate Sodium 100 MG CAPSULE PO (21:30)
[2020-03-13] MEDS: Mirtazapine 15 MG TABLET PO (21:30)
[2020-03-13] MEDS: Montelukast Sodium 10 MG TABLET PO (21:30)
[2020-03-13] MEDS: TiZANidine HCL 4 MG TABLET PO (21:30)
[2020-03-14] MEDS: 0.9 % Sodium Chloride Flush 3 ML SYRINGE IVFLUSH ×2 (00:57→08:52)
[2020-03-14 03:23] VITALS: BP 117/61; PULSE 67; RESP 22; TEMP 36.1; O2SAT 97
[2020-03-14] MEDS: Fluticasone/Vilanterol 200/25 BLST.W.DEV 1 PUFF INHALE (07:38)
[2020-03-14 07:56] VITALS: BP 132/62; PULSE 82; RESP 18; TEMP 36.2; O2SAT 93
[2020-03-14] MEDS: Nicotine 14 MG PATCH.TD24 TRANSDERMA (08:49)
[2020-03-14] MEDS: Buprenorphine/Naloxone 8/2 mg FILM 2 FILM SUBLINGUAL (08:49)
[2020-03-14] MEDS: PHENobarbitaL 15 MG TABLET 45 MG PO (08:49)
[2020-03-14 08:50] VITALS: BP 132/62; PULSE 82
[2020-03-14] MEDS: Losartan Potassium 25 MG TABLET PO (08:50)
[2020-03-14] MEDS: DULoxetine HCl 30 MG CAPSULE.DR 120 MG PO (08:50)
[2020-03-14] MEDS: Ferrous Sulfate 324 MG TABLET.DR PO (08:51)
[2020-03-14] MEDS: Levothyroxine Sodium 25 MCG TABLET PO (08:51)
[2020-03-14] MEDS: busPIRone HCl 10 MG TABLET PO (08:51)
[2020-03-14] MEDS: Folic Acid 1 MG TABLET PO (08:51)
[2020-03-14] MEDS: Omeprazole 40 MG CAPSULE.DR PO (08:51)
[2020-03-14] MEDS: Gabapentin 300 MG CAPSULE PO (08:51)
[2020-03-14] MEDS: Thiamine HCL 100 MG TABLET PO (08:52)
[2020-03-14] MEDS: Famotidine 20 MG TABLET PO (08:52)
[2020-03-14 08:54] VITALS: BP 132/62; PULSE 82
[2020-03-14] MEDS: amLODIPine Besylate 5 MG TABLET PO (08:54)
[2020-03-14] MEDS: Furosemide 40 MG/4 ML VIAL IVPUSH (08:54)
--- NOTE | 2020-03-14 11:16 | P.PNPL_ITS ---
Subjective Subjective Interval history: pulmonary F U . patient , clams to be less SOB , Does not feel as bloated as before . anxious to go home today. slept well at night. has had no fever or chills. she is diuresing slowly. does not have any urge to smoke at this time and promises that she is not going to smoke at home. Objective Data Labs CBC & Chem 7: 03/13/20 05:23 03/13/20 05:23 Labs: Laboratory Results - last 24 hr 03/13/20 11:35 ABG pH 7.43 ABG pCO2 45 ABG pO2 84 ABG HCO3 29 H ABG O2 Saturation 95.9 ABG Base Excess 4.2 Oxygen Given 2 L Microbiology Microbiology Results: Microbiology 03/12/20 09:01 Blood - Venous Blood Culture - Preliminary No growth after 48 hours. 03/12/20 09:02 Blood - Venous Blood Culture - Preliminary No growth after 24 hours. Review of Systems Constitutional: Denies body ache(s), Denies chills, Reports fatigue, Reports fever(s) and Denies headache(s) Eyes: Denies blurry vision, Denies irritation, Denies itchy eyes and Denies loss of vision Denies dysphagia, Denies vertigo, Denies headache(s), Denies epistaxis, Denies nasal congestion, Denies nasal discharge, Denies nasal obstruction and Denies si nus pain Cardiovascular: Denies chest pain, Denies rapid heart rate, Denies irregular heart rhythm, Reports dyspnea on exertion and Denies slow heart rate Respiratory: Reports as per HPI and Reports dyspnea on exertion Gastrointestinal: Denies bloating, Denies change in bowel habits, Denies change in stool character, Denies dysphagia, Denies heartburn, Denies nausea and Denies vomiting Genitourinary: Reports difficulty voiding and Reports urinary incontinence Musculoskeletal: Denies abnormal gait, Reports back pain, Reports myalgias, Reports arthralgias, Reports muscle weakness and Reports stiffness Denies abnormal gait, Denies vertigo, Denies headache(s), Denies loss of vision, Denies memory loss, Denies restless legs and Denies tremor(s) Psychiatric: Denies anxiety, Denies depression, Denies difficulty concentrating, Denies irritability, Denies memory loss and Denies mood swings Endocrine: Reports no additional endocrine complaints and Reports fatigue Hematologic/Lymphatic: Reports no additional hematologic/lymphatic complaints Allergic/Immunologic: Reports no additional allergic/immunologic complaints and Denies itchy eyes Physical Exam Vital Signs: Vital Signs: Vital Signs Temp Pulse Resp BP Pulse Ox 03/14/20 08:54 82 132/62 03/14/20 08:50 82 132/62 03/14/20 07:56 97.1 F 82 18 132/62 93 03/14/20 03:23 97 F 67 22 H 117/61 97 03/13/20 23:37 98 F 73 18 100/62 99 03/13/20 20:14 98 F 81 18 138/60 98 03/13/20 15:52 97.0 F 80 20 142/62 H 98 03/13/20 11:28 98.3 F 84 20 140/77 H 96 Body Mass Index 36.9 Const: General: comfortable, no acute distress, alert and awake Orientation/consciousness: patient oriented x3 HENMT: Head: Yes normal to inspection General nose exam: No nasal polyps present and No nasal discharge present Face and sinus: Yes sinuses nontender Mouth: oropharynx normal Throat: Yes posterior oropharynx normal Eyes: General: appearance normal, both eyes and all related structures Neck: Neck: Yes normal visual inspection, Yes no lymphadenopathy, Yes trachea midline and Yes no JVD Thyroid: Thyroid normal Chest: Chest palpation & inspection: normal inspection of the chest Resp: Other: Breath sounds are distant on both sides, decreased over the basilar areas, no wheezes crepitations or rhonchi are heard. Cardio: Palpation: normal PMI (not palpable) Rate: regular rate Rhythm: regular rhythm Heart sounds: no gallops and no murmurs Peripheral pulses: Peripheral pulses 2+ throughout GI: Palpation (GI): Soft to palpation, nontender, No hepatosplenomegaly present and no masses Auscultation: normal bowel sounds Back/Spine/Pelvis: Thoracic/Lumbar Spine: thoracic and lumbar spine normal to inspection Skin: General skin exam: no rashes or lesions noted Neuro: General: patient oriented x3 and no focal motor deficits Cranial nerves: Yes CN's II-XII intact bilaterally Extrem: General: Yes normal to inspection, Yes no calf tenderness, Yes edema (1+ edema of legs present) and Yes venous stasis dermatitis Psych: Speech and movement: Normal speech and movement present Assessment and Plan Assessment and plan (1) Dyspnea: Problem details: Her increased dyspnea was secondary to mild congestive heart failure on top of COPD, it is partially improved at this time. Status: Acute (2) Congestive heart failure: Problem details: she would need to have complete evaluation with echocardiogram which can be done as outpatient, she has features of cor pulmonale, currently improving with gentle diuresis. Status: Acute (3) Obesity (BMI 30-39.9): Problem details: will continue to talk to her about diet and exercise as outpatient Status: Acute (4) Smoker: Problem details: she is the advised to quit completely, continue nicotine patch 14 mg daily Status: Acute (5) COPD (chronic obstructive pulmonary disease): Problem details: will continue her regular treatment for COPD which includes Advair 500-51 inhalation b.i.d. albuterol HFA 2 puffs q.4 hours p.r.n. montelukast 10 mg daily she has been on oxygen 2 L/minute for nocturnal hypoxemia, this will continue but she may also use oxygen p.r.n. during the daytime Status: Acute Time Spent With Patient Time: Total time spent is greater than 50% in coordination of care (as documented) at patient's floor/unit and/or counseling patient: Time with patient: 15 - 24 minutes
--- NOTE | 2020-03-14 11:50 | P.CONCA_ITS ---
History of Present Illness History of Present Illness Date of Consult: March 14, 2020 Requesting physician: Beryl Desouza Consult reason: shortness of breath Chief complaint: Dyspnea Narrative: Thank you for inviting us on consultation for Amelia for shortness of breath and possible CHF. She is 59-year-old woman with prior history of advanced COPD requiring home oxygen at nighttime as well as interstitial lung di sease possibly, obesity and continued smoking. She also is hypertensive. No prior clear diagnosis of congestive heart failure as per her, however 2 years ago she had elevated BNP. She is admitted this time with progressive shortness of breath as well as leg edema for the last 10 months. She has been on oral diuretic with Lasix. She had more progressive below knee edema with the last few weeks with exertional shortness of breath. She denies any clear orthopnea, PND. She uses oxygen at nighttime. She had no associated chest discomfort. She came to the hospital. Her initial BNP was within normal limits, however she responded to Lasix therapy with improvement in leg edema and her symptoms. She is not walking the hallways without significant trouble breathing. Echocardiogram done during this hospitalization showed normal biventricular function did not show any significant elevation of right atrial pressure, however this was performed after diuresis. Her BNP has remained within normal limits. She was seen by Pulmonary. Review of Systems Constitutional: Constitutional: Denies chills, Denies fever(s), Denies headache(s), Denies poor appetite and Denies weight gain Eyes: Eyes: Denies loss of vision and Denies other visual disturbances ENT: Denies vertigo and Denies headache(s) Cardiovascular: Cardiovascular: Denies chest pain, Denies chest pain with activity, Denies rapid heart rate, Denies claudication, Reports dyspnea on exertion and Denies orthopnea Respiratory: Respiratory: Denies change in phlegm color, Reports cough, Denies excessive phlegm production and Reports dyspnea on exertion Gastrointestinal: Gastrointestinal: Denies abdominal pain, Denies diarrhea, Denies nausea and Denies vomiting Musculoskeletal: Musculoskeletal: Denies abnormal gait Neurologic: Denies abnormal gait, Denies vertigo, Denies headache(s), Denies loss of vision, Denies memory loss, Denies restless legs and Denies tremor(s) Psychiatric: Psychiatric: Denies memory loss Hematologic/Lymphatic: Hematologic/Lymphatic: Reports no additional hematologic/lymphatic complaints Allergic/Immunologic: Allergic/Immunologic: Reports no additional allergic/immunologic complaints PMFSH Past Medical History Medical History Anxiety Asthma COPD (chronic obstructive pulmonary disease) Depression Hepatitis C Heroin abuse HTN (hypertension) Hypothyroidism Myofascial pain syndrome Obesity (BMI 30-39.9) Obstructive sleep apnea Smoker Functional capacity: independent ambulation Social History Social History Household Members: Other Household Members Other:: lives alone Housing: House Do you presently have visiting nurse or other home services: No Alcohol intake: current Alcohol intake frequency: 3 or more drinks per day Alcohol type: beer and hard liquor Smoking Status: Current every day smoker Tobacco Type: Cigarette Packs Per Day: 1 Cigarettes Per Day: 20.0 Years Smoked: 47 Smoked in Last 30 Days: Yes Patient Interested in Nicotine Replacement: Yes Patient Given Instructions on How to Stop Smoking: Yes Date Education Initiated: 03/12/20 Second Hand Smoke Exposure: No Use of substances other than those prescribed or required for medical reasons: No Substance Use Type: Heroin Substance Use Type Other:: clean for 30 years. Takes suboxone. Currently Displaying Signs/Symptoms of Drug Intoxication Withdrawal: No Other Past Substance Use Problem:: h/o opiate abuse, on suboxone for 15 years Any prior treatment program specific to substance use: Yes (suboxone) Have you been hit, kicked, punched, or otherwise hurt by someone within the past year? If so, by whom?: No Do you feel safe in your current relationship?: No Is there a partner from a previous relationship who is making you feel unsafe now?: No Are you made to feel afraid or neglected: No Advance Directives: No Advance Directives Information Provided: No Advance Directives on File: No Do you have thoughts of harming others: None Do you have a plan to hurt others: No Plan Recently lost weight without trying: No service: No Current occupational status: disabled Meds Allergies Allergy/AdvReac Type Severity Reaction Status Date / Time doxycycline [Doxycycline] Allergy Intermediate RASH, Verified 03/09/20 11:23 vomiting Home Medications Medication Instructions Recorded Confirmed Type amlodipine 10 mg tablet 10 mg PO DAILY 02/13/20 03/12/20 History buprenorphine 8 mg-naloxone 2 mg 2 film SUBLINGUAL DAILY 02/13/20 03/12/20 History sublingual film buspirone 10 mg tablet 10 mg PO TID 10/01/20 10/29/20 History duloxetine 60 mg capsule,delayed 120 mg PO DAILY 02/13/20 03/12/20 History release famotidine 20 mg tablet 20 mg PO DAILY 02/13/20 03/12/20 History furosemide 40 mg tablet 40 mg PO DAILY 02/13/20 03/12/20 History gabapentin 300 mg capsule 300 mg PO BID 02/13/20 03/12/20 History levothyroxine 25 mcg tablet 25 mcg PO DAILY 02/13/20 03/12/20 History losartan 25 mg tablet 25 mg PO DAILY 02/13/20 03/12/20 History omeprazole 40 mg capsule,delayed 40 mg PO DAILY 02/13/20 03/12/20 History release tizanidine 4 mg tablet 4 mg PO BID PRN 02/13/20 03/12/20 History fluticasone 500 mcg-salmeterol 50 1 inh INHALATION BID 03/09/20 03/12/20 History mcg/dose blistr powdr for inhalation fluticasone propionate [Flonase] 1 spray INTRANASAL DAILY 03/12/20 03/12/20 History levalbuterol tartrate [Xopenex HFA] 1 puff INHALATION Q4H PRN 03/12/20 03/12/20 History mirtazapine 15 mg PO BEDTIME 03/12/20 03/12/20 History montelukast 10 mg PO BEDTIME 03/12/20 03/12/20 History Physical Exam Vital Signs: Vital Signs: Vital Signs Temp Pulse Resp BP Pulse Ox 03/14/20 08:54 82 132/62 03/14/20 08:50 82 132/62 03/14/20 07:56 97.1 F 82 18 132/62 93 03/14/20 03:23 97 F 67 22 H 117/61 97 03/13/20 23:37 98 F 73 18 100/62 99 03/13/20 20:14 98 F 81 18 138/60 98 03/13/20 15:52 97.0 F 80 20 142/62 H 98 Body Mass Index 36.9 Const: General: cooperative, no acute distress and alert Nutritional Appearance: obese Orientation/consciousness: patient oriented x3 Limitati ons: no limitations HENMT: Head: Yes normocephalic and Yes atraumatic Eyes: General: appearance normal, both eyes and all related structures Neck: Neck: Yes trachea midline and Yes no JVD Chest: Chest palpation & inspection: normal inspection of the chest Resp: Effort & Inspection: normal respiratory effort Auscultation: no crackles, no rales, no wheezes and diminished lung sounds Cardio: Jugular venous distension: no JVD Rate: regular rate Heart sounds: S1 normal heart sound present and S2 normal heart sound present GI: Auscultation: normal bowel sounds Skin: General skin exam: no rashes or lesions noted, elasticity normal and turgor normal Neuro: General: patient oriented x3 and no focal motor deficits Extrem: General: Yes edema ( Below knee, mild bilaterally) Psych: Appearance: grossly normal Results Labs and Meds Result diagrams: 03/13/20 05:23 03/13/20 05:23 Lab results: Laboratory Results - last 24 hr 03/13/20 11:35 ABG pH 7.43 ABG pCO2 45 ABG pO2 84 ABG HCO3 29 H ABG O2 Saturation 95.9 ABG Base Excess 4.2 echocardiogram Conclusions: - 1. Normal LV systolic and diastolic function noted on this study 2. Normal cardiac valvular Doppler 3. Normal measured RV systolic pressure 4. No gross pericardial effusion EKG shows normal sinus rhythm with normal EKG Laboratory Tests 03/09/19 03/12/20 10:42 08:22 B-Natriuretic Peptide 93 59 Assessment and Plan (1) Dyspnea: Problem details: Her increased dyspnea was secondary to mild congestive heart failure on top of COPD, it is partially improved at this time. Status: Acute recently increasing shortness of breath and exertion with increased leg edema is all the suggestive of right heart failure, her echocardiogram does not suggest any significant RV enlargement or evidence of pulmonary hypertension. She did respond to diuretic regimen with IV Lasix. Her breathing also has improved as per her. Her not sure if this is related to change in pulmonary th erapy as well. BNP has remained within normal limits again suggesting that overall syndrome is questionable for congestive heart failure. Progressive pulmonary parenchymal disease given her continued smoking cannot be entirely ruled out. She has been seen by Pulmonary and recommended using oxygen at home with activity including her nighttime oxygen therapy. Continue pulmonary therapy aggressively. Given that she was not responding to oral Lasix therapy as outpatient with progressive leg edema agree with switching to Bumex 1 mg daily. Also cutting down her Norvasc therapy to improve leg edema can be considered. In the long run continue participate in aggressive weight loss program. Given her multiple risk factors, stress test can be also considered to rule out ischemia as a cause of her dyspnea on exertion. Will follow as outpatient (2) COPD (chronic obstructive pulmonary disease): Problem details: will continue her regular treatment for COPD which includes Advair 500-51 inhalation b.i.d. albuterol HFA 2 puffs q.4 hours p.r.n. montelukast 10 mg daily she has been on oxygen 2 L/minute for nocturnal hypoxemia, this will continue but she may also use oxygen p.r.n. during the daytime Status: Acute (3) Obesity (BMI 30-39.9): Problem details: will continue to talk to her about diet and exercise as outpatient Status: Acute
[2020-03-14 11:52] LABS: Anion Gap 12 (12-20); Blood Urea Nitrogen 12 mg/dL (9-16); Calcium 8.2 mg/dL (8.4-10.2); Carbon Dioxide 32 mmol/L (22-29); Chloride 97 mmol/L (96-108); Estimated Glomerular Filt Rate > 60; Glucose Random 113 mg/dL (60-115); Potassium 3.6 mmol/l (3.3-5.1); Sodium 137 mmol/L (135-145)
[2020-03-14 12:00] VITALS: BP 144/58; PULSE 84; RESP 20; TEMP 36.2; O2SAT 94
--- NOTE | 2020-03-14 12:38 | PM.DS ---
DS: Providers Provider Date of admission: 03/12/20 11:58 Primary care physician: REGINA Chambers Consults: 03/12/20 14:21 Consult to Physician Routine Consulting Provider: Alexandra Thao Reason for consultation: dyspnea Has provider been notified: No 03/12/20 14:46 Consult Respiratory Therapy Routine Reason for consultation: smoker 03/13/20 14:43 Consult to Cardiology Routine Consulting Provider: Iglesia Garces Reason for consultation: chf Has provider been notified: No 03/13/20 15:21 Consult to Care Team Routine Comment: Reason for consultation: etoh DS: Diagnosis Discharge Diagnosis (1) Dyspnea: Status: Acute Problem details: Her increased dyspnea was secondary to mild congestive heart failure on top of COPD, it is partially improved at this time. (2) COPD (chronic obstructive pulmonary disease): Status: Acute Problem details: will continue her regular treatment for COPD which includes Advair 500-51 inhalation b.i.d. albuterol HFA 2 puffs q.4 hours p.r.n. montelukast 10 mg daily she has been on oxygen 2 L/minute for nocturnal hypoxemia, this will continue but she may also use oxygen p.r.n. during the daytime (3) Obesity (BMI 30-39.9): Status: Acute Problem details: will continue to talk to her about diet and exercise as outpatient DS: Summary Hospital Course Hospital Course: Chief Complaint: Shortness of breath 59-year-old female with a history of COPD/asthma, ? interstitial lung disease who presents to the emergency department with shortness of breath. Patient reports progressive dyspnea with exertion over the past few months. She also reports increased or lower extremity edema which has been going on for several months. She has been taking Lasix since at least May for the same. She has mild intermittent cough which she reports is chronic. She denies any associated fever or chills. her shortness of breath seems to be worse with exertion and when lying flat. She denies having a diagnosis of heart failure. In the emergency department her troponin and BNP were both unremarkable chest x-ray showed possible interstitial edema. She was afebrile with no white count and chest x-ray showed with no evidence of pneumonia. while in the emergency department from her oxygen saturation dropped to 88% with ambulation. she was given a dose of IV Lasix due and the decision was made to admit her for further management of dyspnea. Hospital course 67-year-old female patient with past medical history significant for tobacco dependence, alcohol dependence history of opiate abuse on Suboxone history of COPD presented to [facility] due to shortness of breath and diagnosed to have acute hypoxic respiratory failure patient treated with IV Lasix with concern for right-sided heart failure patient responded well with the arm diuretic treatment her oxygenation improved currently she is on room air with finger oximetry 93-94 % however echocardiogram revealed preserved EF as well as no evidence of right-sided heart failure had BNP is in normal range likely patient hypoxia was multifactorial with underlying COPD worsening with continued smoking history of alcohol use in likely hypoxia playing a role patient has been strongly recommended to abstain from smoking lose weight exercise and also to get back on alcohol consumption since patient responded well to diuretics Dr. Ramírez suggest patient to be discharged home on Bumex will follow BMP in 1 week time patient has been instructed to continue home inhalers and to have outpatient follow-up with Cardiology, pulmonology and primary care physician her dose of Norvasc has been reduced to 5 mg since a high dose of Norvasc might also be contributing to leg edema. also anemia might be playing a role patient placed on iron and recommended to have outpatient follow-up with primary care physician for further workup for cause of anemia. Tobacco use disorder patient is being discharged home on nicotine Alcohol dependence patient treated with phenobarb protocol and has been recommended to completely abstain from drinking iron deficiency anemia patient is being discharged home on iron suppllement. hypothyroidism stable TSH continue Synthroid obesity weight reduction recommended Time Spent with Patient Time attestation: Total time spent providing and/or coordinating discharge services: Physical Exam Vital Signs: Vital Signs: Vital Signs Temp Pulse Resp BP Pulse Ox 03/14/20 08:54 82 132/62 03/14/20 08:50 82 132/62 03/14/20 07:56 97.1 F 82 18 132/62 93 03/14/20 03:23 97 F 67 22 H 117/61 97 03/13/20 23:37 98 F 73 18 100/62 99 03/13/20 20:14 98 F 81 18 138/60 98 03/13/20 15:52 97.0 F 80 20 142/62 H 98 Body Mass Index 36.9 General patient resting comfortably in no acute distress. Neck is supple no JVD. CVS regular rate rhythm, Respiratory lungs clear to auscultation, no respiratory distress, no wheeze, no rhonchi. Gastrointestinal abdomen soft, nontender, bowel sounds audible, no guarding , no rigidity. Extremities b/l pitting edema. Neuro nonfocal patient moving all 4 extremity speech clear. Skin no rash DS: Data Data Completed and Pending Labs on day of discharge: Labs from last 24 hours 03/14/20 10:49 Sodium 137 Potassium 3.6 Chloride 97 Carbon Dioxide 32 H Anion Gap 12 BUN 12 Creatinine 0.67 Estim Creat Clear Calc 94.0 Estimated GFR > 60 Random Glucose 113 Calcium 8.2 L Preliminary micro results at discharge 03/12/20 09:02 Blood Culture - Preliminary Blood - Venous No growth after 48 hours. 03/12/20 09:01 Blood Culture - Preliminary Blood - Venous No growth after 48 hours. Discharge Plan Discharge Patient Disposition: Home, Self-Care Referrals: James Pompa FNP-KATI [Primary Care Provider] - Discharge Medications: New nicotine 14 mg/24 hr Patch 24 Hour 14 mg transdermal DAILY Qty: 28 RF: 0 amlodipine 5 mg Tablet 5 mg PO DAILY Qty: 30 RF: 0 bumetanide 1 mg Tablet 1 mg PO DAILY Qty: 30 RF: 0 Continued miscellaneous medical supply Misc 1 ea miscellaneous DAILY 99 Days Qty: 1 RF: 0 mirtazapine 15 mg Tablet 15 mg PO BEDTIME RF: 0 levalbuterol tartrate [Xopenex HFA] 45 mcg/actuation Hfa Aerosol Inhaler 1 puff INHALATION Q4H PRN (Reason: Shortness Of Breath) RF: 0 montelukast 10 mg tablet 10 mg PO BEDTIME RF: 0 fluticasone propionate 50 mcg/actuation [place],Suspension 1 spray INTRANASAL DAILY RF: 0 fluticasone propion-salmeterol [Advair Diskus] 500-50 mcg/dose blister with device 1 inh inhalation BID RF: 0 buprenorphine-naloxone 8-2 mg film 2 film sublingual DAILY RF: 0 famotidine 20 mg tablet 20 mg PO DAILY RF: 0 levothyroxine 25 mcg tablet 25 mcg PO DAILY RF: 0 omeprazole 40 mg capsule,delayed release(DR/EC) 40 mg PO DAILY RF: 0 tizanidine 4 mg tablet 4 mg PO BID PRN (Reason: Spasms) RF: 0 gabapentin 300 mg capsule 300 mg PO BID RF: 0 duloxetine 60 mg capsule,delayed release(DR/EC) 120 mg PO DAILY RF: 0 buspirone 10 mg tablet 10 mg PO TID RF: 0 losartan 25 mg tablet 25 mg PO DAILY RF: 0 Discontinued amlodipine 10 mg tablet 10 mg PO DAILY RF: 0 furosemide 40 mg tablet 40 mg PO DAILY RF: 0 Diet: low fat, low cholesterol Activity on Discharge: As tolerated Other Ambulatory Orders: Basic Metabolic Panel (Routine) Timeframe: 1 Week Facility: [facility] - Location: Laboratory Ordered By: Beryl Desouza Visit Report Forms: Patient Portal Discharge page Care Plan Goals: outpatient follow-up with primary care physician, pulmonology , Cardiology and check BMP next week Health Concerns: strongly advised to abstain from smoking and alcohol, recommended weight reduction. Plan of Treatment: Take medications as prescribed and follow-up with Dr. Thao, Dr. Ramírez and PCP
== END 2020-03-14 14:25 | disposition home or self-care (01) | DRG 291 ==
LOC: HO.ED 10:06 → HO.IMC 12:31
PROVIDERS: Internal Medicine; Physician Assistant Medical; Admitting Provider Hospitalist; Emergency Provider Emergency Medicine; PCP Nurse Practitioner Family; Visit Provider Hospitalist
DX: I50.811 Acute right heart failure (principal); J96.21 Acute and chronic respiratory failure with hypoxia; F11.20 Opioid dependence, uncomplicated; J44.9 Chronic obstructive pulmonary disease, unspecified; F41.9 Anxiety disorder, unspecified; F32.9 Major depressive disorder, single episode, unspecified; F17.210 Nicotine dependence, cigarettes, uncomplicated; Z71.6 Tobacco abuse counseling; G47.33 Obstructive sleep apnea (adult) (pediatric); Z23 Encounter for immunization; Z20.828 Contact with and (suspected) exposure to other viral communicable diseases; E03.9 Hypothyroidism, unspecified; E66.9 Obesity, unspecified; Z68.36 Body mass index [BMI] 36.0-36.9, adult; F10.20 Alcohol dependence, uncomplicated; D64.9 Anemia, unspecified; I27.81 Cor pulmonale (chronic); K21.9 Gastro-esophageal reflux disease without esophagitis; D69.6 Thrombocytopenia, unspecified; R74.01 Elevation of levels of liver transaminase levels; M79.18 Myalgia, other site; Z99.81 Dependence on supplemental oxygen; Z79.51 Long term (current) use of inhaled steroids; Z79.890 Hormone replacement therapy; Z79.899 Other long term (current) drug therapy
CPT/HCPCS: 36415; 36600; 71045; 80048; 80076; 80307; 81003; 82607; 82728; 82746; 82803; 83540; 83605; 83735; 83880; 84443; 84484; 85025; 87040; 87635; 90686; 93005; 93306; 96374; 99213; 99285; J0574; J1650; J1940; J2560; Q9957

== ENCOUNTER 2020-03-30 08:29 | Emergency (ER) | payer MEDICARE, MEDICAID, SELFPAY ==
--- NOTE | 2020-03-30 08:31 | ED.ABDPAIN ---
HPI - Abdominal Pain General Chief Complaint: General Medical Stated Complaint: lower quad pain Time Seen by Provider: 03/30/20 08:31 Source: patient Mode of arrival: other (wheel chair was due for stress test today but given lower abdominal pain test canceled) Limitations: no limitations History of Present Illness MD elicited complaint: abdominal pain Onset (ago): day(s) (2) Pain Consistency: constant Location: RUQ and R flank Severity: moderate Quality: aching Radiation: none Migration to: no migration Exacerbating factors: movement Relieving factors: nothing Associated symptoms: denies other symptoms Related Data Home Medications Medication Instructions Recorded Confirmed buprenorphine 8 mg-naloxone 2 mg 2 film SUBLINGUAL DAILY 02/13/20 03/12/20 sublingual film buspirone 10 mg tablet 10 mg PO TID 02/13/20 03/12/20 duloxetine 60 mg capsule,delayed 120 mg PO DAILY 02/13/20 03/12/20 release levothyroxine 25 mcg tablet 25 mcg PO DAILY 02/13/20 03/12/20 losartan 25 mg tablet 25 mg PO DAILY 02/13/20 03/12/20 omeprazole 40 mg capsule,delayed 40 mg PO DAILY 02/13/20 03/12/20 release fluticasone 500 mcg-salmeterol 50 1 inh INHALATION BID 03/09/20 03/12/20 mcg/dose blistr powdr for inhalation fluticasone propionate 1 spray INTRANASAL DAILY 03/12/20 03/12/20 mirtazapine 15 mg PO BEDTIME 03/12/20 03/12/20 montelukast 10 mg PO BEDTIME 03/12/20 03/12/20 Previous Rx's Medication Instructions Recorded miscellaneous medical supply 1 ea MISCELLANEOUS DAILY 99 Days 03/11/20 #1 ea amlodipine 5 mg PO DAILY #30 tab 03/14/20 bumetanide 1 mg PO DAILY #30 tab 03/14/20 ferrous sulfate 324 mg PO BIDWM #60 tab 03/14/20 nicotine 14 mg TRANSDERMAL DAILY #28 ea 03/14/20 famotidine 20 mg tablet 20 mg PO BEDTIME 30 Days #30 tab 03/19/20 gabapentin 300 mg capsule 300 mg PO BID 30 Days #60 cap 03/19/20 ibuprofen 600 mg tablet 600 mg PO Q8H PRN 30 Days #90 tab 03/19/20 levalbuterol tartrate 45 1 puff INHALATION Q4H PRN 30 Days 03/19/20 mcg/actuation aerosol inhaler #15 g tizanidine 4 mg tablet 4 mg PO BID PRN 30 Days #60 tab 03/19/20 albuterol sulfate 2.5 mg INHALATION Q4H PRN #180 ml 03/30/20 azithromycin [Zithromax Z-El] See Rx Instructions .ROUTE 03/30/20 .COMPLEX #6 tab hydrocodone-homatropine 5 ml PO Q6H PRN #60 ml 03/30/20 nystatin 100,000 unit/mL oral 5 ml PO TID #180 ml 03/30/20 suspension prednisone 40 mg PO DAILY 5 Days #10 tab 03/30/20 Allergies Allergy/AdvReac Type Severity Reaction Status Date / Time doxycycline [Doxycycline] Allergy Intermediate RASH, Verified 03/09/20 11:23 vomiting Review of Systems Review of Systems Constitutional : No Weight loss, No Fever, No Chills ENT/Mouth : No sore throat, No Rhinorrhea Eyes: No Swelling, No Redness Cardiovascular : No Chest Pain, No SOB, NoEdema, Pos R rib pain Respiratory : pos chronic Cough, No Sputum, No Wheezing Gastrointestinal : no Nausea, no Vomiting,no Diarrhea, positive abdominal Pain, No Hematochezia, No Melena Genitourinary : No Dysuria, No Urinary Frequency, No Hematuria, No Urgency Musculoskeletal : No joint pain, No Myalgias, No Joint Swelling Skin : No Skin Lesions, No rash Neuro : No Weakness, No Numbness, No Dizziness, No Headache Psych : No Anxiety/Panic, No Depression Heme/Lymph: No Bruising, No Lymphadenopathy Endocrine : No Polyuria, No Polydipsia All other systems reviewed and are negative. Physical Exam Vital Signs: Vital Signs: Last Vital Signs Temp 98.1 F 03/30/20 11:24 Pulse 79 03/30/20 12:23 Resp 20 03/30/20 11:24 BP 145/73 H 03/30/20 11:24 Pulse Ox 89 L 03/30/20 11:24 Body Mass Index 34.7 Appearance: Alert. Oriented X3. No acute distress. Eyes: Pupils equal, round and reactive to light. ENT: Pharynx normal. Neck: Normal inspection. Neck supple. CVS: Normal heart rate and rhythm. Pulses normal. Chest: R anterior lower rib ttp Respiratory: No respiratory distress. Breath sounds diminished throughout. Abdomen: Soft and mild RUQ ttp, no rebound or guarding Skin: Skin warm and dry. Normal skin color. Normal skin turgor. Extremities: No lower extremity edema. No calf ttp Neuro: Oriented X 3. No motor deficit. No sensory deficit. Course Course Course Narrative: ddimer elevated PE study ordered at this time possible infection suspected lactic acid and cultures ordered pending COVID swab 1130AM negative COVID feels much better after repeat neb, states she feels fine and would prefer to go home, reliable, feels much better MDM - Abdominal Pain MDM Narrative Medical decision making narrative: 59 yo female with hx of COPD multiple medical problems was due for outpatient stress test today canceled due to complaints or RUQ and R rib pain worse with cough at this time will need labs, ddimer, EKG, troponin possible CT scan of chest and abdomen depending on ddimer, seems mostly MSK in nature, neb ordered as well Lab Data Result diagrams: 03/30/20 09:00 03/30/20 09:00 Labs: Lab Results 03/30/20 03/30/20 03/30/20 Range/Units 09:00 09:00 09:00 WBC 6.1 (4.8-10.8) X10*3/uL RBC 3.67 L (4.20-5.50) X10*6/uL Hgb 11.0 L (12.0-16.0) g/dl Hct 34.3 L (37-47) % MCV 93.5 (80-98) fL MCH 30.0 (27.0-33.0) pg MCHC 32.1 (31.0-35.0) g/dl RDW 18.6 H (11.0-16.0) % Plt Count 142 L (160-400) X10*3/uL MPV 10.6 (9.4-12.3) fL Immature Gran % (Auto) 0.5 H (0.0-0.4) % Neut % (Auto) 67.5 (45-73) % Lymph % (Auto) 15.9 L (20-40) % [place] % (Auto) 12.9 H (2-11) % Eos % (Auto) 2.5 (0-4) % Baso % (Auto) 0.7 (0-2) % Lymph # (Auto) 1.0 L (1.2-4.9) X10*3/uL [place] # (Auto) 0.8 (0.1-1.2) X10*3/uL Eos # (Auto) 0.2 (0.0-0.4) X10*3/uL Baso # (Auto) 0.0 (0.0-0.2) X10*3/uL Abs Immat Gran (auto) 0.03 (0.00-0.03) X10*3/uL Absolute Neuts (auto) 4.1 (2.0-8.3) X10*3/uL Absolute Nucleated RBC 0.000 (0.0-0.012) X10*3/uL Nucleated RBC % (auto) 0.0 (0.0-0.2) /100WBC D-Dimer 1389 NG/ML Sodium 136 (135-145) mmol/L Potassium 4.1 (3.3-5.1) mmol/l Chloride 99 (96-108) mmol/L Carbon Dioxide 30 H (22-29) mmol/L Anion Gap 11 L (12-20) BUN 9 (9-16) mg/dL Creatinine 0.65 (0.5-1.4) mg/dL Estim Creat Clear Calc 93.8 Estimated GFR > 60 Random Glucose 134 H (60-115) mg/dL Calcium 8.4 (8.4-10.2) mg/dL Magnesium (1.6-2.6) mg/dL Total Bilirubin (0.0-1.0) mg/dL Direct Bilirubin (0.0-0.5) mg/dL AST (5-31) U/L ALT (0-31) U/L Alkaline Phosphatase (39-117) U/L Troponin I High Sens (<3.5-17.0) ng/L Total Protein (6.5-8.0) g/dL Albumin (3.5-5.0) g/dL Lipase (8-78) U/L Urine Color Urine Appearance Urine pH (5.0-8.0) Ur Specific [place] (1.005-1.025) Urine Protein (NEG-TRACE) MG/DL Urine Glucose (UA) (NEG) MG/DL Urine Ketones (NEG) MG/DL Urine Blood (NEG) Urine Nitrite (NEG) Ur Leukocyte Esterase (NEG) Coronavirus (PCR) (Negative) Influenza Type A (PCR) (Negative) Influenza Type B (PCR) (Negative) RSV RNA Qual (PCR) (Negative) 03/30/20 03/30/20 03/30/20 Range/Units 09:00 09:00 11:18 WBC (4.8-10.8) X10*3/uL RBC (4.20-5.50) X10*6/uL Hgb (12.0-16.0) g/dl Hct (37-47) % MCV (80-98) fL MCH (27.0-33.0) pg MCHC (31.0-35.0) g/dl RDW (11.0-16.0) % Plt Count (160-400) X10*3/uL MPV (9.4-12.3) fL Immature Gran % (Auto) (0.0-0.4) % Neut % (Auto) (45-73) % Lymph % (Auto) (20-40) % [place] % (Auto) (2-11) % Eos % (Auto) (0-4) % Baso % (Auto) (0-2) % Lymph # (Auto) (1.2-4.9) X10*3/uL [place] # (Auto) (0.1-1.2) X10*3/uL Eos # (Auto) (0.0-0.4) X10*3/uL Baso # (Auto) (0.0-0.2) X10*3/uL Abs Immat Gran (auto) (0.00-0.03) X10*3/uL Absolute Neuts (auto) (2.0-8.3) X10*3/uL Absolute Nucleated RBC (0.0-0.012) X10*3/uL Nucleated RBC % (auto) (0.0-0.2) /100WBC D-Dimer NG/ML Sodium (135-145) mmol/L Potassium (3.3-5.1) mmol/l Chloride (96-108) mmol/L Carbon Dioxide (22-29) mmol/L Anion Gap (12-20) BUN (9-16) mg/dL Creatinine (0.5-1.4) mg/dL Estim Creat Clear Calc Estimated GFR Random Glucose (60-115) mg/dL Calcium (8.4-10.2) mg/dL Magnesium 1.9 (1.6-2.6) mg/dL Total Bilirubin 0.9 (0.0-1.0) mg/dL Direct Bilirubin 0.6 H (0.0-0.5) mg/dL AST 46 H (5-31) U/L ALT 26 (0-31) U/L Alkaline Phosphatase 139 H (39-117) U/L Troponin I High Sens < 3.5 (<3.5-17.0) ng/L Total Protein 7.5 (6.5-8.0) g/dL Albumin 3.5 (3.5-5.0) g/dL Lipase 35 (8-78) U/L Urine Color Urine Appearance Urine pH (5.0-8.0) Ur Specific [place] (1.005-1.025) Urine Protein (NEG-TRACE) MG/DL Urine Glucose (UA) (NEG) MG/DL Urine Ketones (NEG) MG/DL Urine Blood (NEG) Urine Nitrite (NEG) Ur Leukocyte Esterase (NEG) Coronavirus (PCR) NEGATIVE (Negative) Influenza Type A (PCR) NEGATIVE (Negative) Influenza Type B (PCR) NEGATIVE (Negative) RSV RNA Qual (PCR) NEGATIVE (Negative) 03/30/20 Range/Units 11:23 WBC (4.8-10.8) X10*3/uL RBC (4.20-5.50) X10*6/uL Hgb (12.0-16.0) g/dl Hct (37-47) % MCV (80-98) fL MCH (27.0-33.0) pg MCHC (31.0-35.0) g/dl RDW (11.0-16.0) % Plt Count (160-400) X10*3/uL MPV (9.4-12.3) fL Immature Gran % (Auto) (0.0-0.4) % Neut % (Auto) (45-73) % Lymph % (Auto) (20-40) % [place] % (Auto) (2-11) % Eos % (Auto) (0-4) % Baso % (Auto) (0-2) % Lymph # (Auto) (1.2-4.9) X10*3/uL [place] # (Auto) (0.1-1.2) X10*3/uL Eos # (Auto) (0.0-0.4) X10*3/uL Baso # (Auto) (0.0-0.2) X10*3/uL Abs Immat Gran (auto) (0.00-0.03) X10*3/uL Absolute Neuts (auto) (2.0-8.3) X10*3/uL Absolute Nucleated RBC (0.0-0.012) X10*3/uL Nucleated RBC % (auto) (0.0-0.2) /100WBC D-Dimer NG/ML Sodium (135-145) mmol/L Potassium (3.3-5.1) mmol/l Chloride (96-108) mmol/L Carbon Dioxide (22-29) mmol/L Anion Gap (12-20) BUN (9-16) mg/dL Creatinine (0.5-1.4) mg/dL Estim Creat Clear Calc Estimated GFR Random Glucose (60-115) mg/dL Calcium (8.4-10.2) mg/dL Magnesium (1.6-2.6) mg/dL Total Bilirubin (0.0-1.0) mg/dL Direct Bilirubin (0.0-0.5) mg/dL AST (5-31) U/L ALT (0-31) U/L Alkaline Phosphatase (39-117) U/L Troponin I High Sens (<3.5-17.0) ng/L Total Protein (6.5-8.0) g/dL Albumin (3.5-5.0) g/dL Lipase (8-78) U/L Urine Color YELLOW Urine Appearance HAZY Urine pH 6.5 (5.0-8.0) Ur Specific [place] 1.025 (1.005-1.025) Urine Protein NEG (NEG-TRACE) MG/DL Urine Glucose (UA) NEG (NEG) MG/DL Urine Ketones NEG (NEG) MG/DL Urine Blood NEG (NEG) Urine Nitrite NEG (NEG) Ur Leukocyte Esterase NEG (NEG) Coronavirus (PCR) (Negative) Influenza Type A (PCR) (Negative) Influenza Type B (PCR) (Negative) RSV RNA Qual (PCR) (Negative) ECG Data Attestation: I personally reviewed and interpreted this ECG as follows: ECG interpretation date: 03/30/20 ECG interpretation time: 08:56 Interpretation: Rate: 74 Rhythm: NSR [place]: left Normal P waves. Normal BERTHA. Normal QRS complex. ST T wave : normal qTC:normal prior studies: no acute ischemia The study has been interpreted contemporaneously by me. . Discharge Plan Discharge Clinical Impression: Bronchitis COPD (chronic obstructive pulmonary disease) Qualifiers: COPD type: COPD with acute exacerbation Qualified Code(s): J44.1 - Chronic obstructive pulmonary disease with (acute) exacerbation Patient Disposition: Home, Self-Care Instructions: COPD (Chronic Obstructive Pulmonary Disease) (ED), Chronic Bronchitis (ED) Additional Instructions: return to ED for any worsening symptoms or concerns Prescriptions: New hydrocodone-homatropine 5-1.5 mg/5 mL (5 mL) syrup 5 ml PO Q6H PRN (Reason: cough) Qty: 60 RF: 0 prednisone 20 mg tablet 40 mg PO DAILY 5 Days Qty: 10 RF: 0 azithromycin [Zithromax Z-El] 250 mg tablet See Rx Instructions .ROUTE .COMPLEX Qty: 6 RF: 0 No Action miscellaneous medical supply Misc 1 ea miscellaneous DAILY 99 Days Qty: 1 RF: 0 famotidine 20 mg tablet 20 mg PO BEDTIME 30 Days Qty: 30 RF: 3 tizanidine 4 mg tablet 4 mg PO BID PRN (Reason: Spasms) 30 Days Qty: 60 RF: 1 levalbuterol tartrate [Xopenex HFA] 45 mcg/actuation HFA aerosol inhaler 1 puff INHALATION Q4H PRN (Reason: Shortness Of Breath) 30 Days Qty: 15 RF: 1 gabapentin 300 mg capsule 300 mg PO BID 30 Days Qty: 60 RF: 1 ibuprofen 600 mg tablet 600 mg PO Q8H PRN (Reason: pain) 30 Days Qty: 90 RF: 0 albuterol sulfate 2.5 mg /3 mL (0.083 %) solution for nebulization 2.5 mg inhalation Q4H PRN (Reason: shortness of breath or wheezing) Qty: 180 RF: 3 nystatin 100,000 unit/mL suspension 5 ml PO TID Qty: 180 RF: 0 mirtazapine 15 mg Tablet 15 mg PO BEDTIME RF: 0 montelukast 10 mg tablet 10 mg PO BEDTIME RF: 0 fluticasone propionate 50 mcg/actuation [place],Suspension 1 spray INTRANASAL DAILY RF: 0 nicotine 14 mg/24 hr Patch 24 Hour 14 mg transdermal DAILY Qty: 28 RF: 0 amlodipine 5 mg Tablet 5 mg PO DAILY Qty: 30 RF: 0 bumetanide 1 mg Tablet 1 mg PO DAILY Qty: 30 RF: 0 ferrous sulfate 324 mg (65 mg iron) Tablet,Delayed Release (Dr/Ec) 324 mg PO BIDWM Qty: 60 RF: 0 fluticasone propion-salmeterol [Advair Diskus] 500-50 mcg/dose blister with device 1 inh inhalation BID RF: 0 buprenorphine-naloxone 8-2 mg film 2 film sublingual DAILY RF: 0 levothyroxine 25 mcg tablet 25 mcg PO DAILY RF: 0 omeprazole 40 mg capsule,delayed release(DR/EC) 40 mg PO DAILY RF: 0 duloxetine 60 mg capsule,delayed release(DR/EC) 120 mg PO DAILY RF: 0 buspirone 10 mg tablet 10 mg PO TID RF: 0 losartan 25 mg tablet 25 mg PO DAILY RF: 0 Referrals: James Pompa FNP- [Primary Care Provider] - 2 days (if not better) [facility] Past Medical History Attestation statement: The following information was validated with the patient. Medical History Anxiety Asthma COPD (chronic obstructive pulmonary disease) Depression Hepatitis C Heroin abuse HTN (hypertension) Hypothyroidism Myofascial pain syndrome Obesity (BMI 30-39.9) Obstructive sleep apnea Smoker Family History Family History (Updated 03/27/20 @ 08:30 by REBECCA MartinsA, OFFICE MESSENGER HELPER) Father CVD (cardiovascular disease) Mother Lung cancer Social History Social History Household Members: Other Housing: House Alcohol intake: current Alcohol intake frequency: 0-2 drinks per day Alcohol type: beer Smoking Status: Current every day smoker Tobacco Type: Cigarette Packs Per Day: 1 Cigarettes Per Day: 20.0 Years Smoked: 47 Second Hand Smoke Exposure: No Use of substances other than those prescribed or required for medical reasons: No Substance Use Type: Heroin Advance Directives: No Advance Directives Information Provided: Yes service: No Current occupational status: disabled
[2020-03-30 08:44] VITALS: BP 157/87; PULSE 80; RESP 20; TEMP 36.8; O2SAT 94; BMI 34.7
--- NOTE | 2020-03-30 08:47 | ECG_ITS ---
Test Reason : ABD PAIN Blood Pressure : / mmHG Vent. Rate : 074 BPM Atrial Rate : 074 BPM P-R Int : 126 ms QRS Dur : 082 ms QT Int : 398 ms P-R-T Axes : 018 -04 005 degrees QTc Int : 441 ms Normal sinus rhythm with sinus arrhythmia Normal ECG When compared with ECG of 12-MAR-2020 08:26, No significant change was found Referred By: Azalea Pedroza Electronically Signed By:ALEIDA GILLETTE MD
[2020-03-30] MEDS: Albuterol Sulfate (0.083%) 2.5 MG/3 ML VIAL.NEB INHALE ×2 (09:04→12:22)
[2020-03-30] MEDS: Morphine Sulfate 4 MG/ML CARTRIDGE IVPUSH (09:09)
[2020-03-30] MEDS: ondansetron HCL 4 MG/2 ML VIAL IVPUSH (09:09)
[2020-03-30 09:10] LABS: Basophils Percent Auto 0.7 % (0-2); Eosinophils Absolute Auto 0.2 X10*3/uL (0.0-0.4); Eosinophils Percent Auto 2.5 % (0-4); Hematocrit 34.3 % (37-47); Imm Gran Abs Auto 0.03 X10*3/uL (0.00-0.03); Imm Gran Pct Auto 0.5 % (0.0-0.4); Lymphocytes Percent Auto 15.9 % (20-40); MANUAL DIFF FLAG NO; Mean Corpuscular HGB Conc 32.1 g/dl (31.0-35.0); Mean Corpuscular Volume 93.5 fL (80-98); Mean Platelet Volume 10.6 fL (9.4-12.3); Monocytes Absolute Auto 0.8 X10*3/uL (0.1-1.2); Monocytes Percent Auto 12.9 % (2-11); Neutrophils Absolute Auto 4.1 X10*3/uL (2.0-8.3); Neutrophils Percent Auto 67.5 % (45-73); Platelet Count 142 X10*3/uL (160-400); Red Blood Count 3.67 X10*6/uL (4.20-5.50); Red Cell Distribution Width 18.6 % (11.0-16.0); White Blood Count 6.1 X10*3/uL (4.8-10.8)
--- NOTE | 2020-03-30 09:11 | PC.NURSE ---
pt medicated per md orders pt alert and oriented, skin pwd, respirations even and unlabored, pt reports right sided rib pain worse with cough/movement. pt is a smoker, ls clear but does have a course cough, denies chest pain/sob
[2020-03-30 09:28] LABS: D Dimer 1389 NG/ML
[2020-03-30 09:34] LABS: Anion Gap 11 (12-20); Blood Urea Nitrogen 9 mg/dL (9-16); Calcium 8.4 mg/dL (8.4-10.2); Carbon Dioxide 30 mmol/L (22-29); Chloride 99 mmol/L (96-108); Creatinine Clr Calc Pharmacy 93.8; Estimated Glomerular Filt Rate > 60; Glucose Random 134 mg/dL (60-115); Potassium 4.1 mmol/l (3.3-5.1); Sodium 136 mmol/L (135-145)
[2020-03-30 09:35] LABS: Alanine Aminotransferase 26 U/L (0-31); Albumin Level 3.5 g/dL (3.5-5.0); Alkaline Phosphatase 139 U/L (39-117); Aspartate Amino Transferase 46 U/L (5-31); Bilirubin Direct 0.6 mg/dL (0.0-0.5); Bilirubin Total 0.9 mg/dL (0.0-1.0); Lipase 35 U/L (8-78); Magnesium 1.9 mg/dL (1.6-2.6); Total Protein 7.5 g/dL (6.5-8.0)
--- NOTE | 2020-03-30 09:36 | CT_ITS ---
EXAMINATION: CT ANGIOGRAM OF THE CHEST WITH AND WITHOUT CONTRAST (CT PULMONARY ANGIOGRAM FOR PE) CLINICAL INFORMATION: Right-sided abdominal pain. Elevated d-dimer. COMPARISON: CT from 04/10/2019. TECHNIQUE: Prior to contrast administration, noncontrast localization images were obtained. Subsequently, multidetector volumetric imaging was performed from the thoracic inlet to below the diaphragms following the administration of 65 mLOmnipaque 350 intravenous contrast. No contrast reaction reported Sagittal, coronal, and MIP oblique sagittal reformatted images were obtained on the CT workstation, uploaded to PACS, and reviewed. This CT examination was performed using dose optimization techniques as appropriate, variously including the following: *Automated exposure control *Adjustment of mA and/or kV according to patient size (this includes techniques or standardized protocols for targeted exams where dose is matched to indication/reason for exam; i.e. extremities or head) *Use of iterative reconstruction technique Total exam dose-length product 384 mGy-cm FINDINGS: QUALITY OF STUDY/CONTRAST BOLUS: Satisfactory. PULMONARY ARTERIES: No central or segmental pulmonary emboli. THORACIC AORTA: No aneurysm or dissection. LUNG: The central airways are patent. There is mild centrilobular and paraseptal emphysema. Patchy groundglass opacity in the right upper lobe suprahilar region. There is minimal bibasilar lower lobe consolidation with air bronchograms. This has somewhat bandlike appearance in the right lower lobe. Linear atelectasis of the lingula. Of note, the previous left upper lobe pulmonary nodule is no longer visualized. There are no new pulmonary nodules seen. PLEURA: No pleural effusion or pneumothorax. MEDIASTINUM: Normal heart size. No pericardial effusion. Mildly prominent mediastinal lymph nodes are again noted, similar to prior.. No evidence of septal bowing or right heart strain. CHEST WALL/AXILLA: No axillary or internal mammary lymphadenopathy. OSSEOUS STRUCTURES: No acute or suspicious osseous abnormality. Degenerative changes noted in the spine. UPPER ABDOMEN: Unremarkable. No reflux of contrast into the hepatic veins to suggest elevated right heart pressures. CT/CT angio chest PE protocol IMPRESSION: 1. No pulmonary embolism. 2. Mild emphysema. Right upper lobe groundglass opacities are noted which could be infectious or inflammatory. Additional bilateral lower lobe consolidation with air bronchograms. This appearance favors atelectasis, although pneumonia is possible. VTE: negative
[2020-03-30 09:43] LABS: Troponin-I High Sensitivity < 3.5 ng/L (<3.5-17.0)
--- NOTE | 2020-03-30 10:09 | PC.NURSE ---
pt reports feeling a little better pain at 5/10 at this time back from ct
[2020-03-30] MEDS: iohexoL 350 MG/ML 100 ML INFUS..BTL 65 ML IV (10:23)
[2020-03-30 11:24] VITALS: BP 145/73; PULSE 86; RESP 20; TEMP 36.7; O2SAT 89
--- NOTE | 2020-03-30 11:25 | PC.NURSE ---
pt was ambulating around the room, after exertion sating at 89-91% ON ROOM AIR AT THIS TIME, PT STATES FEELING BETTER AFTER THE BREATHING TREATMENT
[2020-03-30 11:47] LABS: Glucose Urine UA NEG (NEG); Leukocyte Esterase Urine NEG (NEG); Nitrite Urine NEG (NEG); PH 6.5 (5.0-8.0); Specific Gravity - Urine 1.025 (1.005-1.025); Urine Blood NEG (NEG); Urine Ketones NEG (NEG); Urine Protein NEG (NEG-TRACE)
[2020-03-30 11:49] LABS: Appearance Urine HAZY; Color Urine YELLOW; UACC Culture Trigger NO
[2020-03-30 12:00] VITALS: BP 149/83; PULSE 80; RESP 20
[2020-03-30 12:15] LABS: Influenza A PCR NEGATIVE (Negative); Influenza B PCR NEGATIVE (Negative); Resp Syncy Virus RNA Qual PCR NEGATIVE (Negative); SARS COV2 PCR INHOUSE NEGATIVE (Negative)
[2020-03-30] MEDS: methylPREDNISolone Sod Succ/PF 125 MG/2 ML VIAL IVPUSH (12:17)
[2020-03-30 12:23] VITALS: PULSE 79; O2SAT 97
[2020-03-30 13:02] VITALS: PULSE 97; RESP 18; O2SAT 95
--- NOTE | 2020-03-30 13:16 | PC.NURSE ---
Physician aware that blood cultures and lactic were not drawn as well as antibiotics not administered, plan remains for patient to be discharged r/t covid negative and maintaining o2 sat at 95% on room air
== END 2020-03-30 13:10 | disposition home or self-care (01) ==
PROVIDERS: Emergency Provider Emergency Medicine; PCP Nurse Practitioner Family
DX: J20.9 Acute bronchitis, unspecified (principal); J44.0 Chronic obstructive pulmonary disease with (acute) lower respiratory infection; R10.32 Left lower quadrant pain; I10 Essential (primary) hypertension; F17.210 Nicotine dependence, cigarettes, uncomplicated; F11.90 Opioid use, unspecified, uncomplicated; Z20.828 Contact with and (suspected) exposure to other viral communicable diseases; Z71.6 Tobacco abuse counseling
CPT/HCPCS: 0241U; 36415; 71275; 80048; 80076; 81003; 83690; 83735; 84484; 85025; 85379; 93005; 94640; 96365; 96375; 99284; J2270; J2405; J2930; Q9967

== ENCOUNTER 2020-04-14 08:57 | Outpatient (REF) | payer MEDICARE, MEDICAID, SELFPAY | END 2020-04-14 08:58 | disposition home or self-care (01) | LOC: HO.CT 08:57 | PROVIDERS: Visit Provider Physician Assistant Medical | DX: Z12.2 Encounter for screening for malignant neoplasm of respiratory organs (principal); F17.210 Nicotine dependence, cigarettes, uncomplicated; J44.1 Chronic obstructive pulmonary disease with (acute) exacerbation; E66.9 Obesity, unspecified; I50.9 Heart failure, unspecified; R06.00 Dyspnea, unspecified | CPT/HCPCS: 99212 ==

== ENCOUNTER → 2020-04-15 13:13 | Outpatient (BNVA) | payer MEDICARE, MEDICAID, SELFPAY | PROVIDERS: PCP Nurse Practitioner Family; Visit Provider Internal Medicine Cardiovascular Disease | DX: I50.9 Heart failure, unspecified (principal); R06.00 Dyspnea, unspecified | CPT/HCPCS: 99202 ==

== ENCOUNTER → 2020-04-16 07:56 | Outpatient (REF) | payer MEDICARE, MEDICAID, SELFPAY ==
--- NOTE | 2020-04-16 | NM_ITS ---
Myocardial perfusion study Indication: Heart failure to evaluate for myocardial ischemia Technique: The patient was brought in for a Lexiscan perfusion study on 04/16/2020. Patient performed low-level exercise and was injected 0.4 mg of Lexiscan intravenously. Within a minute of injection, 30 mCi of sestamibi was given intravenously. Images were obtained using the SPECT gamma camera interlaced with the gating device. Images were obtained in supine position. Resting perfusion study was performed on 04/20/2020. Patient was administered 30 mCi of sestamibi intravenously at rest. Images were then obtained in supine position. Images obtained with and without CT attenuation. Total DLP 88 mGy-cm. Images were processed with the software and compared side to side in short axis, horizontal long axis and vertical long axis views. Findings: The stress perfusion study showed both attenuated and not attenuated images show mildly reduced uptake in the apex of the LV myocardium There is suggestion of left ventricle hypertrophy.. The gated study shows normal LV systolic function with calculated LVEF of 57%. LV cavity is normal in size. The gated study shows normal systolic wall thickening and contraction of segments. Resting study shows both attenuated and not attenuated images show moderately reduced uptake in the apex of the LV myocardium. Gating at rest reveals normal systolic wall motion with ejection fraction at 67%. The findings are consistent with normal myocardial perfusion. NM/NM camila perf SPECT rest & str Impression: 1. Myocardial perfusion imaging study shows normal myocardial perfusion 2. Gated LVEF is 57% 3. Transient ischemic dilatation not present EKG is nondiagnostic for ischemia
--- NOTE | 2020-04-16 10:00 | CA_ITS ---
Acquisition Time: 2020-04-16 08:09:13 Total Exercise Time: 00:02:00 Test Indications: Dyspnea Medications: SUBOXONE NICOTINE PATCH AMLODIPINE BUMETANIDE XOPENEX LEVOTHYROXINE OMEPRAZOLE Protocol: LEXISCAN Max HR: 100 BPM 62% of Pred: 160 BPM Max BP: 126/068 mmHG Max Work Load: 1.0 METS Pharmacological stress test using Lexiscan while sitting and kicking her feet. Pt tolerated well, denies any anginal sx. EKG without arrhythmias, non-diagnostic for ischemia. Nuclear images to follow. Normotensive response to test. Test reviewed with Dr. Garces. Referred By: Iglesia Garces Overread By: Carmina Nash
== END ==
LOC: HO.CARD 07:56
PROVIDERS: Visit Provider Internal Medicine Cardiovascular Disease
DX: I50.9 Heart failure, unspecified (principal); R06.00 Dyspnea, unspecified; J44.9 Chronic obstructive pulmonary disease, unspecified
CPT/HCPCS: 78452; 93017; A9500; J0280; J2785

== ENCOUNTER → 2020-06-08 12:23 | Outpatient (BNVA) | payer MEDICARE, MEDICAID, SELFPAY | PROVIDERS: PCP Nurse Practitioner Family; Visit Provider Physician Assistant | DX: M17.11 Unilateral primary osteoarthritis, right knee (principal); F17.200 Nicotine dependence, unspecified, uncomplicated | CPT/HCPCS: 20610; 99212; J1040 ==

== ENCOUNTER → 2020-07-16 10:02 | Outpatient (BNVA) | payer MEDICARE, MEDICAID, SELFPAY | PROVIDERS: PCP Nurse Practitioner Family; Visit Provider Internal Medicine Cardiovascular Disease | DX: R06.00 Dyspnea, unspecified (principal); I50.9 Heart failure, unspecified; J44.1 Chronic obstructive pulmonary disease with (acute) exacerbation | CPT/HCPCS: 99212 ==

== ENCOUNTER → 2020-07-29 09:32 | Outpatient (BNVA) | payer MEDICARE, MEDICAID, SELFPAY | PROVIDERS: PCP Nurse Practitioner Family; Visit Provider Internal Medicine Gastroenterology | DX: K21.9 Gastro-esophageal reflux disease without esophagitis (principal); E66.9 Obesity, unspecified; J44.1 Chronic obstructive pulmonary disease with (acute) exacerbation; F10.10 Alcohol abuse, uncomplicated | CPT/HCPCS: Q3014 ==

== ENCOUNTER 2020-08-01 13:33 | Emergency (ER) | payer MEDICARE, MEDICAID, SELFPAY ==
[2020-08-01] VITALS (7 sets, daily range): BP systolic 134–168; BP diastolic 71–94; PULSE 89–104; RESP 14–20; TEMP 36.9–37.3; O2SAT 93–100; BMI 35.7
--- NOTE | ~2020-08-01 | XR_ITS ---
EXAMINATION: XR CHEST CLINICAL INFORMATION: Patient with shortness of breath, abdominal pain COMPARISON: Chest radiograph from 03/12/2020 TECHNIQUE: Frontal view of the chest was obtained. FINDINGS: Bilateral low lung volumes. Mild prominence of the pulmonary vasculature. Bibasilar atelectasis. There is no pneumothorax. The trachea is midline. The cardiac mediastinal silhouette is stable. There is no pleural effusions. Osseous structures are intact. Soft tissues are unremarkable. XR/XR chest 1V IMPRESSION: 1. Bilateral low lung volumes. 2. Mild prominence of the pulmonary vasculature. 3. Bibasilar atelectasis.
--- NOTE | ~2020-08-01 | CT_ITS ---
EXAMINATION: CT ABDOMEN AND PELVIS WITH CONTRAST CLINICAL INFORMATION: Right flank pain. Shortness of breath. COMPARISON: Most recent CT abdomen/pelvis dated 02/05/2019. TECHNIQUE: Multidetector volumetric images were obtained from the superior aspect of the liver through the pubic symphysis following administration 85 mL of Omnipaque 350 intravenous contrast. Sagittal and coronal reformatted images were obtained on the technologist's workstation. Oral Contrast: No. This CT examination was performed using dose optimization techniques as appropriate, variously including the following: *Automated exposure control. *Adjustment of mA and/or kV according to patient size (this includes techniques or standardized protocols for targeted exams where dose is matched to indication/reason for exam; i.e. extremities or head). *Use of iterative reconstruction technique. DLP: 704.04 mGy-cm FINDINGS: LUNG BASES: Evaluate on the concurrent CTA chest. LIVER, GALLBLADDER, AND BILIARY TREE: Hepatomegaly with diffuse hepatic parenchymal hypoattenuation is redemonstrated. There is slightly lobular hepatic contour, increased when compared to the prior examination and consistent with cirrhosis. No discrete hepatic parenchymal lesion. No intrahepatic or extrahepatic biliary ductal dilatation. No cholelithiasis. No significant gallbladder wall thickening or inflammatory change. PANCREAS: Atrophic. SPLEEN: Enlarged measuring up to 16.4 cm in greatest axial dimension, increased when compared to the prior examination (previously 11.1 cm). No splenic parenchymal lesion. ADRENAL GLANDS: Unremarkable. KIDNEYS AND URETERS: The kidneys are normal in size, shape, and attenuation. No hydronephrosis, hydroureter, or calculi seen. Right lower pole renal hypodensity, unchanged and likely representing a cyst. No new renal parenchymal lesion. No perinephric stranding. BLADDER: Unremarkable. GASTROINTESTINAL TRACT: No bowel wall thickening or associated inflammatory change. No small or large bowel obstruction. Unremarkable appendix. PERITONEAL CAVITY: Trace perihepatic and right upper quadrant ascites extending into the right paracolic gutter, new when compared to the prior CT. No intra-abdominal free air. No intra-abdominal mass or organized fluid collection/abscess formation. ABDOMINAL WALL: No significant hernia is appreciated. LYMPH NODES: Mildly prominent central mesenteric lymph nodes, mildly increased in size when compared to the prior examination. The largest is interposed between the abdominal aorta and IVC measuring 1.1 x 1.4 cm (previously 0.6 x 0.9 cm). VASCULAR: No abdominal aortic dilatation or dissection. Scattered atherosclerotic calcifications. PELVIC VISCERA: Redemonstration of a calcified fibroid. OSSEOUS STRUCTURES: Unremarkable. CT/CT abdomen pelvis w con IMPRESSION: 1. Mild hepatomegaly, slightly increased when compared to the prior examination. Increasing lobular contour of the liver, consistent with cirrhosis. Minimal perihepatic and right paracolic gutter ascites, new when compared to the prior examination. No focal hepatic parenchymal lesion or biliary ductal dilatation. 2. Splenomegaly, new when compared to the prior examination. No splenic parenchymal lesion. 3. No hydronephrosis or nephrolithiasis. Stable right renal cysts. Unremarkable urinary bladder. 4. Mildly prominent central mesenteric lymph nodes, new/increased when compared to the prior examination.
--- NOTE | ~2020-08-01 | CT_ITS ---
EXAMINATION: CT ANGIOGRAM CHEST WITH AND WITHOUT CONTRAST (CT PULMONARY ANGIOGRAM FOR PE) CLINICAL INFORMATION: Shortness of breath. Question pulmonary embolism. COMPARISON: Chest radiograph done earlier the same day. CTA chest dated 03/30/2020. TECHNIQUE: Prior to contrast administration, noncontrast localization images were obtained. Subsequently, multidetector volumetric imaging was performed from the thoracic inlet to below the diaphragms following the administration of 85 mL Omnipaque 350 intravenous contrast. No contrast reaction reported. Sagittal, coronal, and MIP oblique sagittal reformatted images were obtained on the CT workstation, uploaded to PACS, and reviewed. This CT examination was performed using dose optimization techniques as appropriate, variously including the following: *Automated exposure control. *Adjustment of mA and/or kV according to patient size (this includes techniques or standardized protocols for targeted exams where dose is matched to indication/reason for exam; i.e. extremities or head). *Use of iterative reconstruction technique. Total exam dose-length product 355.40 mGy-cm. FINDINGS: QUALITY OF STUDY/CONTRAST BOLUS: Satisfactory. PULMONARY ARTERIES: No central or segmental pulmonary emboli. THORACIC AORTA: No aneurysm or dissection. LUNG: Mild emphysematous changes are redemonstrated. Mild bibasilar dependent atelectatic changes. Previously seen bibasilar airspace opacities have slightly decreased when compared to the prior examination with residual ground-glass airspace opacity in the posterior right lung base. No new or increasing airspace consolidation. No large pulmonary mass or significant pulmonary nodule. The central airways are patent. PLEURA: No pleural effusion or pneumothorax. MEDIASTINUM: Normal heart size. No pericardial effusion. Prominent superior mediastinal lymph nodes, significantly within the precarinal region are unchanged. No new or increasing lymphadenopathy. No evidence of septal bowing or right heart strain. CHEST WALL/AXILLA: No axillary or internal mammary lymphadenopathy. OSSEOUS STRUCTURES: No acute or suspicious osseous abnormality. UPPER ABDOMEN: The liver is again noted to be enlarged and hypodense with lobular contour, consistent with cirrhosis. Upper abdominal structures better evaluated on the concurrent CT abdomen/pelvis. No reflux of contrast into the hepatic veins to suggest elevated right heart pressures. CT/CT angio chest PE protocol IMPRESSION: 1. No CT angiographic evidence of acute pulmonary embolism. 2. Redemonstration of mild emphysematous changes. Interval decrease in previously seen bibasilar atelectasis versus infiltrates with persistent right lower lobe ground-glass airspace opacities. No new or increasing airspace consolidation. 3. Prominent mediastinal lymph nodes, unchanged when compared to the prior examination. No new or increasing lymphadenopathy. VTE: Negative.
--- NOTE | 2020-08-01 14:12 | ECG_ITS ---
Test Reason : DIFFICULTY BREATHING Blood Pressure : / mmHG Vent. Rate : 090 BPM Atrial Rate : 090 BPM P-R Int : 120 ms QRS Dur : 082 ms QT Int : 364 ms P-R-T Axes : 072 002 032 degrees QTc Int : 445 ms Normal sinus rhythm Possible Inferior infarct , age undetermined Abnormal ECG When compared with ECG of 30-MAR-2020 08:54, No significant change was found Referred By: Kerri Pedro Electronically Signed By:OH ELY MD
--- NOTE | 2020-08-01 14:35 | ED.GENADULT ---
HPI - General Adult General Chief complaint: Abdominal Pain Stated complaint: abd pain, sob x2days Time Seen by Provider: 08/01/20 14:11 Source: patient and EMS Mode of arrival: EMS Limitations: no limitations History of Present Illness HPI narrative: 59-year-old female with a past medical history of asthma/COPD who uses home O2 oxygen only at night at approximately 2 L, CHF, hypertension, hypothyroidism, obesity, hepatitis-C, heroin abuse, alcohol abuse, anxiety, depression, GERD, chronic lower back pain and osteoarthritis presenting to the ED with complaints of shortness of breath for the past 2 days with associated orthopnea and dyspnea on exertion and productive intermittent cough. Patient also reports right-sided abdominal pain with associated nausea. Reports she is using 2 different inhalers along with nebulizer treatments at home and no symptomatic relief. Reports that at nighttime she has been having to increase her home O2 oxygen a little bit more than usual. Denies any dizziness, changes in vision, vomiting, chest pain, palpitations, diarrhea, constipation, black or bloody stools, vaginal discharge, dysuria, hematuria or any other symptoms complaints or concerns at this time. Denies recent travel or sick contacts that she is aware about. MD complaint: Shortness of breath and abdominal pain Onset (ago): day(s) (Two days worse today) Location: chest and abdomen Radiation: non-radiation Severity: severe Quality: aching Pain Consistency: constant Relieving factors: none Exacerbating factors: movement Associated symptoms: cough, nausea/vomiting and shortness of breath Treatments prior to arrival: other (See above) Related Data Home Medications Medication Instructions Recorded Confirmed buprenorphine 8 mg-naloxone 2 mg 2 film SUBLINGUAL DAILY 02/13/20 07/29/20 sublingual film duloxetine 60 mg capsule,delayed 120 mg PO DAILY 02/13/20 07/29/20 release fluticasone 500 mcg-salmeterol 50 1 inh INHALATION BID 03/09/20 07/29/20 mcg/dose blistr powdr for inhalation mirtazapine 15 mg PO BEDTIME 03/12/20 07/08/20 montelukast 10 mg PO BEDTIME 03/12/20 07/29/20 famotidine 20 mg tablet mg PO 07/08/20 07/29/20 Previous Rx's Medication Instructions Recorded nicotine 14 mg TRANSDERMAL DAILY #28 ea 03/14/20 levalbuterol tartrate 45 1 puff INHALATION Q4H PRN 30 Days 03/19/20 mcg/actuation aerosol inhaler #15 g albuterol sulfate 2.5 mg INHALATION Q4H PRN #180 ml 03/30/20 nystatin 100,000 unit/mL oral 5 ml PO TID #180 ml 03/30/20 suspension amlodipine 5 mg tablet 5 mg PO DAILY #30 tab 04/14/20 ferrous gluconate 324 mg (38 mg 324 mg PO BID #60 tab 04/14/20 iron) tablet bumetanide 1 mg tablet 1 mg PO DIRECTED #90 tab 04/15/20 omeprazole 40 mg capsule,delayed 40 mg PO DAILY #90 cap 05/05/20 release fluticasone propionate 50 1 spray INTRANASAL DAILY #16 g 05/06/20 mcg/actuation nasal spray,suspension levothyroxine 25 mcg tablet 25 mcg PO DAILY 30 Days #30 tab 05/06/20 tizanidine 4 mg tablet 4 mg PO BID PRN 30 Days #60 tab 05/06/20 losartan 25 mg tablet 25 mg PO DAILY #28 tab 06/15/20 gabapentin 300 mg capsule 300 mg PO BID #56 cap 07/28/20 albuterol sulfate 0.63 mg INHALATION QID PRN #75 ml 08/01/20 albuterol sulfate 1 inh INHALATION QID PRN #8.5 g 08/01/20 codeine-guaifenesin [Guaifenesin 5 ml PO Q6H PRN #120 ml 08/01/20 AC] ketorolac 10 mg PO Q8H PRN #10 tab 08/01/20 levofloxacin 750 mg PO DAILY 5 Days #5 tab 08/01/20 ondansetron HCl [Zofran] 4 mg PO Q8H PRN #14 tab 08/01/20 prednisone 40 mg PO DAILY 5 Days #10 tab 08/01/20 Allergies Allergy/AdvReac Type Severity Reaction Status Date / Time doxycycline [Doxycycline] Allergy Intermediate RASH, Verified 08/01/20 13:57 vomiting Review of Systems Review of Systems: Constitutional : No Weight loss, No Fever, No Chills, No Night Sweats, No Fatigue, No Malaise ENT/Mouth : No Hearing loss, No Ear Pain, No Nasal Congestion, No Sinus Pain, No Hoarseness, No sore throat, No Rhinorrhea, No Swallowing Difficulty Eyes: No Eye Pain, No Swelling, No Redness, No Foreign Body, No Discharge, No Vision Changes Cardiovascular : +SOB/SANCHEZ/Orthopnea, No Chest Pain, No Palpitations Respiratory : + Cough, + Sputum, + Wheezing, + Dyspnea Gastrointestinal : + Nausea, + Abdominal pain, No Vomiting, No Diarrhea, No Constipation, No abdominal Pain, No Hematochezia, No Melena Genitourinary : no irregular bleeding, No Dysuria, No Urinary Frequency, No Hematuria, No Urinary Incontinence, No Urgency, No Flank Pain, No Urinary Flow Changes, No Hesitancy Musculoskeletal : + Lower extremity edema, No joint pain, No Myalgias Skin : No Skin Lesions, No rash Neuro : No Weakness, No Numbness, No Paresthesias, No Loss of Consciousness, No Dizziness, No Headache Psych : No Anxiety/Panic, No Depression, No SI/HI/AH/VH, No Social Issues, Heme/Lymph: No Bruising, No Bleeding,No Lymphadenopathy Endocrine : No Polyuria, No Polydipsia, No Temperature Intolerance Yes all other systems are reviewed and are negative [facility] Past Medical History Attestation statement: The following information was validated with the patient. Medical History Alcohol abuse Anxiety Asthma Chronic lower back pain COPD (chronic obstructive pulmonary disease) Depression GERD (gastroesophageal reflux disease) Hepatitis C Heroin abuse HTN (hypertension) Hypothyroidism Myofascial pain syndrome Obesity (BMI 30-39.9) Obstructive sleep apnea Smoker Smoker Surgical History H/O colonoscopy H/O esophagogastroduodenoscopy Family History Family History Father CVD (cardiovascular disease) Mother Lung cancer Social History Social History Household Members: None Housing: House Alcohol intake: current Alcohol intake frequency: 3 or more drinks per day Alcohol type: beer Smoking Status: Current some day smoker Tobacco Type: Cigarette Packs Per Day: 1 Cigarettes Per Day: 20.0 Years Smoked: 47 Smoked in Last 30 Days: Yes Second Hand Smoke Exposure: No Use of substances other than those prescribed or required for medical reasons: No Substance Use Type: Marijuana Advance Directives: No Advance Directives Information Provided: No service: No Current occupational status: disabled Physical Exam Vital Signs: Vital Signs: Last Vital Signs Temp 98.4 F 08/01/20 18: Pulse 94 08/01/20 18:01 Resp 14 08/01/20 18: BP 150/74 H 08/01/20 18:01 Pulse Ox 93 08/01/20 18: Body Mass Index 35.7 vital signs have been reviewed as normal and appeared to be correct. Blood pressure hypertensive at 150/86. Heart rate tachycardic at 98. Respiration rate normal. Temperature normal. Oxygen saturation normal. Appearance: Alert. Oriented X3. No acute distress. Head: Normal external exam. Normocephalic. Eyes: PERRLA. EOMI. Conjunctiva and sclera normal. Eyelids normal. ENT: Pharynx normal. Uvula midline. Moist mucous membranes. No trismus noted. No drooling noted. No muffled voice noted. Neck: Normal inspection. Neck supple. FROM. No adenopathy. No meningeal signs. CVS: Normal heart rate and rhythm. Heart sound normal. No murmurs noted. Pulses normal throughout. Respiratory: No respiratory distress. Painless inspiration. Decreased breath sounds with expiratory wheezing throughout. No rales/rhonchi noted. Chest nontender. No accessory muscle usage noted. Abdomen: Soft and mild tenderness to right abdomen/right flank. Nondistended. No guarding. No rigidity. Bowel sounds normal in all 4 quadrants. No distention noted. No organomegaly noted. No visible injury noted. No rebound tenderness. Negative Rovsing sign. Negative obturator's sign. Negative psoas sign. Negative Ballard sign. Back: No CVA tenderness. Full range of motion noted. Skin: Skin warm and dry. Normal skin color. Normal skin turgor. No rashes/lesions/lacerations noted. Extremities: Bilateral lower extremity with +2 pitting edema. No calf tenderness noted. Extremities exhibit normal range of motion. Extremities nontender. Neuro: Oriented X 3. No motor deficit. No sensory deficit. Reflexes normal. Course Course Course Narrative: 14:10pm - 59-year-old female with a past medical history of asthma/COPD who uses home O2 oxygen only at night at approximately 2 L, CHF, hypertension, hypothyroidism, obesity, hepatitis-C, heroin abuse, alcohol abuse, anxiety, depression, GERD, chronic lower back pain and osteoarthritis presenting to the ED with complaints of shortness of breath, dyspnea on exertion, orthopnea, productive cough and a separate complaint of right-sided abdominal pain with associated nausea for the past 2 days worse today. - on exam patient is alert and oriented x3. Not in any acute distress. Mildly hypertensive at 150/86 and tachycardic at 98 otherwise all other vitals are within normal limits oxygen saturations 95% on room air and patient is afebrile. No trismus or drooling noted. Mild expiratory wheezing and decreased breath sounds noted. No retractions or accessory muscle usage noted. CV RRR. Patient mild tenderness to right abdomen/right flank. Not consistent with acute abdomen. No CVA tenderness noted. Patient with bilateral lower extremity pitting edema. No calf tenderness noted. - Concern for PE vs ACS vs pneumonia vs CHF vs intra-abdominal process vs COVID vs Asthma/COPD exacerbation - Plan: Labs, CT angio chest for PE, CT scan of abdomen pelvis with IV contrast, UA, COVID/RSV/flu swab, EKG, chest x-ray, blood cultures and lactic acid. Provide an hour long breathing treatment, 10 mg of IV Decadron, 30 mg of IV Toradol, 4 mg of Zofran, 2 mg of IV magnesium then re-evaluate. Reevaluation(s) Reevaluation #1: - patient mild baseline anemia similar compared to prior. Mild elevation in total bilirubin at 1.3. Direct bilirubin 0.7. AST 44. Alkaline phosphate 147. Similar compared to prior. BNP 138. Otherwise all other labs are within normal limits. UA within normal limits no evidence of UTI. COVID/RSV/flu negative. - chest x-ray within normal limits no acute processes noted. - EKG normal sinus rhythm with ventricular rate of [address] wave abnormalities no acute ischemic changes noted. Similar compared to prior EKG 03/30/2020. - CT angio chest PE protocol negative for acute pulmonary embolism and revealed Redemonstration of mild emphysematous changes. Interval decrease in previously seen bibasilar atelectasis versus infiltrates with persistent right lower lobe ground-glass airspace opacities. No new or increasing airspace consolidation. And other chronic changes no acute processes noted. - CT scan of abdomen and pelvis with IV contrast revealed mild hepatomegaly, cirrhosis, splenomegaly, renal cyst, and mildly prominent central mesenteric lymph nodes otherwise no other acute processes noted only chronic changes. - I discussed this with the patient and I explained to her that she needs to stop drinking she reports she has been drinking a lot more lately so that she does not need a liver transplant later on she understands that she will follow-up with Dr. Kelley is her GI doctor I gave her a copy of the CT scan results. - at this time will DC home with antibiotics and symptomatic treatment for her COPD/wheezing and instructions to return if any new or worsening symptoms to follow up with her PCP as well. Patient understands agrees with this plan. Time: 18:45 Medical Decision Making Medical Records Medical records reviewed: Yes I reviewed the patient's medical records. Lab Data Lab results reviewed: Yes I reviewed the patient's lab results. Result diagrams: 08/01/20 14:58 08/01/20 14:58 Labs: Lab Results 08/01/20 08/01/20 08/01/20 Range/Units 14:43 14:44 14:45 WBC (4.8-10.8) X10*3/uL RBC (4.20-5.50) X10*6/uL Hgb (12.0-16.0) g/dl Hct (37-47) % MCV (80-98) fL MCH (27.0-33.0) pg MCHC (31.0-35.0) g/dl RDW (11.0-16.0) % Plt Count (160-400) X10*3/uL MPV (9.4-12.3) fL Immature Gran % (Auto) (0.0-0.4) % Neut % (Auto) (45-73) % Lymph % (Auto) (20-40) % [place] % (Auto) (2-11) % Eos % (Auto) (0-4) % Baso % (Auto) (0-2) % Lymph # (Auto) (1.2-4.9) X10*3/uL [place] # (Auto) (0.1-1.2) X10*3/uL Eos # (Auto) (0.0-0.4) X10*3/uL Baso # (Auto) (0.0-0.2) X10*3/uL Abs Immat Gran (auto) (0.00-0.03) X10*3/uL Absolute Neuts (auto) (2.0-8.3) X10*3/uL Absolute Nucleated RBC (0.0-0.012) X10*3/uL Nucleated RBC % (auto) (0.0-0.2) /100WBC Smear Tech's Comments PT (10.8-13.0) SEC INR (0.9-1.1) Sodium Cancelled Potassium Cancelled Chloride Cancelled Carbon Dioxide Cancelled Anion Gap Cancelled BUN Cancelled Creatinine Cancelled Estim Creat Clear Calc Cancelled Estimated GFR Cancelled Random Glucose Cancelled Lactic Acid 1.0 (0.5-2.0) mmol/L Calcium Cancelled Magnesium Cancelled Total Bilirubin Cancelled Direct Bilirubin Cancelled AST Cancelled ALT Cancelled Alkaline Phosphatase Cancelled Troponin I High Sens (<3.5-17.0) ng/L B-Natriuretic Peptide (<100) pg/mL Total Protein Cancelled Albumin Cancelled Lipase (8-78) U/L Urine Color Urine Appearance Urine pH (5.0-8.0) Ur Specific [place] (1.005-1.025) Urine Protein (NEG-TRACE) MG/DL Urine Glucose (UA) (NEG) MG/DL Urine Ketones (NEG) MG/DL Urine Blood (NEG) Urine Nitrite (NEG) Ur Leukocyte Esterase (NEG) Urine RBC (0) /HPF Urine WBC (0-4) /HPF Ur Squamous Epith Cells /LPF Urine Bacteria /LPF Coronavirus (PCR) NEGATIVE (Negative) Influenza Type A (PCR) NEGATIVE (Negative) Influenza Type B (PCR) NEGATIVE (Negative) RSV RNA Qual (PCR) NEGATIVE (Negative) 08/01/20 08/01/20 08/01/20 Range/Units 14:58 14:58 14:58 WBC 5.0 (4.8-10.8) X10*3/uL RBC 3.56 L (4.20-5.50) X10*6/uL Hgb 11.6 L (12.0-16.0) g/dl Hct 34.2 L (37-47) % MCV 96.1 (80-98) fL MCH 32.6 (27.0-33.0) pg MCHC 33.9 (31.0-35.0) g/dl RDW 15.6 (11.0-16.0) % Plt Count 77 L D (160-400) X10*3/uL MPV 10.5 (9.4-12.3) fL Immature Gran % (Auto) 0.6 H (0.0-0.4) % Neut % (Auto) 65.8 (45-73) % Lymph % (Auto) 17.6 L (20-40) % [place] % (Auto) 12.8 H (2-11) % Eos % (Auto) 2.8 (0-4) % Baso % (Auto) 0.4 (0-2) % Lymph # (Auto) 0.9 L (1.2-4.9) X10*3/uL [place] # (Auto) 0.6 (0.1-1.2) X10*3/uL Eos # (Auto) 0.1 (0.0-0.4) X10*3/uL Baso # (Auto) 0.0 (0.0-0.2) X10*3/uL Abs Immat Gran (auto) 0.03 (0.00-0.03) X10*3/uL Absolute Neuts (auto) 3.3 (2.0-8.3) X10*3/uL Absolute Nucleated RBC 0.000 (0.0-0.012) X10*3/uL Nucleated RBC % (auto) 0.0 (0.0-0.2) /100WBC Smear Tech's Comments VERIFIED PT 13.4 H (10.8-13.0) SEC INR 1.1 (0.9-1.1) Sodium Potassium Chloride Carbon Dioxide Anion Gap BUN Creatinine Estim Creat Clear Calc Estimated GFR Random Glucose Lactic Acid (0.5-2.0) mmol/L Calcium Magnesium Total Bilirubin Direct Bilirubin AST ALT Alkaline Phosphatase Troponin I High Sens < 3.5 (<3.5-17.0) ng/L B-Natriuretic Peptide 138 H (<100) pg/mL Total Protein Albumin Lipase (8-78) U/L Urine Color Urine Appearance Urine pH (5.0-8.0) Ur Specific [place] (1.005-1.025) Urine Protein (NEG-TRACE) MG/DL Urine Glucose (UA) (NEG) MG/DL Urine Ketones (NEG) MG/DL Urine Blood (NEG) Urine Nitrite (NEG) Ur Leukocyte Esterase (NEG) Urine RBC (0) /HPF Urine WBC (0-4) /HPF Ur Squamous Epith Cells /LPF Urine Bacteria /LPF Coronavirus (PCR) (Negative) Influenza Type A (PCR) (Negative) Influenza Type B (PCR) (Negative) RSV RNA Qual (PCR) (Negative) 08/01/20 08/01/20 Range/Units 14:58 15:14 WBC (4.8-10.8) X10*3/uL RBC (4.20-5.50) X10*6/uL Hgb (12.0-16.0) g/dl Hct (37-47) % MCV (80-98) fL MCH (27.0-33.0) pg MCHC (31.0-35.0) g/dl RDW (11.0-16.0) % Plt Count (160-400) X10*3/uL MPV (9.4-12.3) fL Immature Gran % (Auto) (0.0-0.4) % Neut % (Auto) (45-73) % Lymph % (Auto) (20-40) % [place] % (Auto) (2-11) % Eos % (Auto) (0-4) % Baso % (Auto) (0-2) % Lymph # (Auto) (1.2-4.9) X10*3/uL [place] # (Auto) (0.1-1.2) X10*3/uL Eos # (Auto) (0.0-0.4) X10*3/uL Baso # (Auto) (0.0-0.2) X10*3/uL Abs Immat Gran (auto) (0.00-0.03) X10*3/uL Absolute Neuts (auto) (2.0-8.3) X10*3/uL Absolute Nucleated RBC (0.0-0.012) X10*3/uL Nucleated RBC % (auto) (0.0-0.2) /100WBC Smear Tech's Comments PT (10.8-13.0) SEC INR (0.9-1.1) Sodium 139 Potassium 3.9 Chloride 104 Carbon Dioxide 27 Anion Gap 12 BUN 9 Creatinine 0.66 Estim Creat Clear Calc 93.8 Estimated GFR > 60 Random Glucose 104 Lactic Acid (0.5-2.0) mmol/L Calcium 8.6 Magnesium 2.0 Total Bilirubin 1.3 H Direct Bilirubin 0.7 H AST 44 H ALT 25 Alkaline Phosphatase 147 H Troponin I High Sens (<3.5-17.0) ng/L B-Natriuretic Peptide (<100) pg/mL Total Protein 7.3 Albumin 3.7 Lipase 25 (8-78) U/L Urine Color YELLOW Urine Appearance CLEAR Urine pH 6.0 (5.0-8.0) Ur Specific [place] 1.020 (1.005-1.025) Urine Protein NEG (NEG-TRACE) MG/DL Urine Glucose (UA) NEG (NEG) MG/DL Urine Ketones NEG (NEG) MG/DL Urine Blood TRACE (NEG) Urine Nitrite NEG (NEG) Ur Leukocyte Esterase NEG (NEG) Urine RBC 0-2 (0) /HPF Urine WBC 0-2 (0-4) /HPF Ur Squamous Epith Cells TRACE /LPF Urine Bacteria NONE /LPF Coronavirus (PCR) (Negative) Influenza Type A (PCR) (Negative) Influenza Type B (PCR) (Negative) RSV RNA Qual (PCR) (Negative) Imaging Data Chest x-ray: Attestation: I personally reviewed and interpreted this imaging study as follows: Radiologist's impression: FINDINGS: Bilateral low lung volumes. Mild prominence of the pulmonary vasculature. Bibasilar atelectasis. There is no pneumothorax. The trachea is midline. The cardiac mediastinal silhouette is stable. There is no pleural effusions. Osseous structures are intact. Soft tissues are unremarkable. XR/XR chest 1V IMPRESSION: 1. Bilateral low lung volumes. 2. Mild prominence of the pulmonary vasculature. 3. Bibasilar atelectasis. CT angio of chest for PE: Attestation: I personally reviewed and interpreted this imaging study as follows: Radiologist's impression: FINDINGS: QUALITY OF STUDY/CONTRAST BOLUS: Satisfactory. PULMONARY ARTERIES: No central or segmental pulmonary emboli. THORACIC AORTA: No aneurysm or dissection. LUNG: Mild emphysematous changes are redemonstrated. Mild bibasilar dependent atelectatic changes. Previously seen bibasilar airspace opacities have slightly decreased when compared to the prior examination with residual ground-glass airspace opacity in the posterior right lung base. No new or increasing airspace consolidation. No large pulmonary mass or significant pulmonary nodule. The central airways are patent. PLEURA: No pleural effusion or pneumothorax. MEDIASTINUM: Normal heart size. No pericardial effusion. Prominent superior mediastinal lymph nodes, significantly within the precarinal region are unchanged. No new or increasing lymphadenopathy. No evidence of septal bowing or right heart strain. CHEST WALL/AXILLA: No axillary or internal mammary lymphadenopathy. OSSEOUS STRUCTURES: No acute or suspicious osseous abnormality. UPPER ABDOMEN: The liver is again noted to be enlarged and hypodense with lobular contour, consistent with cirrhosis. Upper abdominal structures better evaluated on the concurrent CT abdomen/pelvis. No reflux of contrast into the hepatic veins to suggest elevated right heart pressures. CT/CT angio chest PE protocol IMPRESSION: 1. No CT angiographic evidence of acute pulmonary embolism. 2. Redemonstration of mild emphysematous changes. Interval decrease in previously seen bibasilar atelectasis versus infiltrates with persistent right lower lobe ground-glass airspace opacities. No new or increasing airspace consolidation. 3. Prominent mediastinal lymph nodes, unchanged when compared to the prior examination. No new or increasing lymphadenopathy. VTE: Negative. CT scan of abdomen and pelvis with IV contrast: Attestation: I personally reviewed and interpreted this imaging study as follows: Radiologist's impression: FINDINGS: LUNG BASES: Evaluate on the concurrent CTA chest. LIVER, GALLBLADDER, AND BILIARY TREE: Hepatomegaly with diffuse hepatic parenchymal hypoattenuation is redemonstrated. There is slightly lobular hepatic contour, increased when compared to the prior examination and consistent with cirrhosis. No discrete hepatic parenchymal lesion. No intrahepatic or extrahepatic biliary ductal dilatation. No cholelithiasis. No significant gallbladder wall thickening or inflammatory change. PANCREAS: Atrophic. SPLEEN: Enlarged measuring up to 16.4 cm in greatest axial dimension, increased when compared to the prior examination (previously 11.1 cm). No splenic parenchymal lesion. ADRENAL GLANDS: Unremarkable. KIDNEYS AND URETERS: The kidneys are normal in size, shape, and attenuation. No hydronephrosis, hydroureter, or calculi seen. Right lower pole renal hypodensity, unchanged and likely representing a cyst. No new renal parenchymal lesion. No perinephric stranding. BLADDER: Unremarkable. GASTROINTESTINAL TRACT: No bowel wall thickening or associated inflammatory change. No small or large bowel obstruction. Unremarkable appendix. PERITONEAL CAVITY: Trace perihepatic and right upper quadrant ascites extending into the right paracolic gutter, new when compared to the prior CT. No intra-abdominal free air. No intra-abdominal mass or organized fluid collection/abscess formation. ABDOMINAL WALL: No significant hernia is appreciated. LYMPH NODES: Mildly prominent central mesenteric lymph nodes, mildly increased in size when compared to the prior examination. The largest is interposed between the abdominal aorta and IVC measuring 1.1 x 1.4 cm (previously 0.6 x 0.9 cm). VASCULAR: No abdominal aortic dilatation or dissection. Scattered atherosclerotic calcifications. PELVIC VISCERA: Redemonstration of a calcified fibroid. OSSEOUS STRUCTURES: Unremarkable. CT/CT abdomen pelvis w con IMPRESSION: 1. Mild hepatomegaly, slightly increased when compared to the prior examination. Increasing lobular contour of the liver, consistent with cirrhosis. Minimal perihepatic and right paracolic gutter ascites, new when compared to the prior examination. No focal hepatic parenchymal lesion or biliary ductal dilatation. 2. Splenomegaly, new when compared to the prior examination. No splenic parenchymal lesion. 3. No hydronephrosis or nephrolithiasis. Stable right renal cysts. Unremarkable urinary bladder. 4. Mildly prominent central mesenteric lymph nodes, new/increased when compared to the prior examination. ECG Data Attestation: I personally reviewed and interpreted this ECG as follows: Interpretation: Normal sinus rhythm and circular rate of [address] wave abnormalities no acute ischemic changes noted. Similar when compared to prior EKG 03/30/2020 Critical Care Time Critical Care Time Critical Care Time: Yes Total Critical Care Time: 60 Attestation: I personally attest to this time spent taking care of the patient Discharge Plan Discharge Clinical Impression: Bronchitis, COPD (chronic obstructive pulmonary disease), Emphysema of lung, Hepatosplenomegaly, Abdominal ascites Patient Disposition: Home, Self-Care Instructions: Acute Bronchitis (ED), COPD (Chronic Obstructive Pulmonary Disease) (ED), Ascites (ED), Bronchospasm (ED) Prescriptions: New levofloxacin 750 mg tablet 750 mg PO DAILY 5 Days Qty: 5 RF: 0 albuterol sulfate 0.63 mg/3 mL solution for nebulization 0.63 mg inhalation QID PRN (Reason: shortness of breath or wheezing) Qty: 75 RF: 0 albuterol sulfate 90 mcg/actuation HFA aerosol inhaler 1 inh inhalation QID PRN (Reason: shortness of breath or wheezing) Qty: 8.5 RF: 0 prednisone 20 mg tablet 40 mg PO DAILY 5 Days Qty: 10 RF: 0 ketorolac 10 mg tablet 10 mg PO Q8H PRN (Reason: pain) Qty: 10 RF: 0 ondansetron HCl [Zofran] 4 mg tablet 4 mg PO Q8H PRN (Reason: nausea and vomiting) Qty: 14 RF: 0 codeine-guaifenesin [Guaifenesin AC] 10-100 mg/5 mL liquid 5 ml PO Q6H PRN (Reason: cold symptoms) Qty: 120 RF: 0 No Action levalbuterol tartrate [Xopenex HFA] 45 mcg/actuation HFA aerosol inhaler 1 puff INHALATION Q4H PRN (Reason: Shortness Of Breath) 30 Days Qty: 15 RF: 1 albuterol sulfate 2.5 mg /3 mL (0.083 %) solution for nebulization 2.5 mg inhalation Q4H PRN (Reason: shortness of breath or wheezing) Qty: 180 RF: 3 nystatin 100,000 unit/mL suspension 5 ml PO TID Qty: 180 RF: 0 amlodipine 5 mg tablet 5 mg PO DAILY Qty: 30 RF: 3 ferrous gluconate 324 mg (38 mg iron) tablet 324 mg PO BID Qty: 60 RF: 3 omeprazole 40 mg capsule,delayed release(DR/EC) 40 mg PO DAILY Qty: 90 RF: 1 losartan 25 mg tablet 25 mg PO DAILY Qty: 28 RF: 0 gabapentin 300 mg capsule 300 mg PO BID Qty: 56 RF: 3 mirtazapine 15 mg Tablet 15 mg PO BEDTIME RF: 0 montelukast 10 mg tablet 10 mg PO BEDTIME RF: 0 nicotine 14 mg/24 hr Patch 24 Hour 14 mg transdermal DAILY Qty: 28 RF: 0 famotidine 20 mg tablet PO RF: 0 fluticasone propionate 50 mcg/actuation spray,suspension 1 spray intranasal DAILY Qty: 16 RF: 3 levothyroxine 25 mcg tablet 25 mcg PO DAILY 30 Days Qty: 30 RF: 2 tizanidine 4 mg tablet 4 mg PO BID PRN (Reason: Spasms) 30 Days Qty: 60 RF: 1 fluticasone propion-salmeterol [Advair Diskus] 500-50 mcg/dose blister with device 1 inh inhalation BID RF: 0 bumetanide 1 mg tablet 1 mg PO DIRECTED Qty: 90 RF: 3 buprenorphine-naloxone 8-2 mg film 2 film sublingual DAILY RF: 0 duloxetine 60 mg capsule,delayed release(DR/EC) 120 mg PO DAILY RF: 0 Referrals: James Pompa FNP-KATI [Primary Care Provider] - 2 days Chastity Kelley MD [Physician] - 2 days Print Language: Bangladeshi
[2020-08-01 15:07] LABS: MANUAL DIFF FLAG SCAN; PLT CLUMP 1; SCAN SMEAR FLAG 1
[2020-08-01 15:12] LABS: INTERNATIONAL NORM RATIO 1.1 (0.9-1.1); Prothrombin Time 13.4 SEC (10.8-13.0)
[2020-08-01 15:14] LABS: Hemoglobin 11.6 g/dl (12.0-16.0); Imm Gran Abs Auto 0.03 X10*3/uL (0.00-0.03); Imm Gran Pct Auto 0.6 % (0.0-0.4); Mean Corpuscular Volume 96.1 fL (80-98); Red Cell Distribution Width 15.6 % (11.0-16.0)
[2020-08-01 15:16] LABS: Basophils Percent Auto 0.4 % (0-2); Eosinophils Absolute Auto 0.1 X10*3/uL (0.0-0.4); Eosinophils Percent Auto 2.8 % (0-4); Hematocrit 34.2 % (37-47); Lymphocytes Absolute Auto 0.9 X10*3/uL (1.2-4.9); Lymphocytes Percent Auto 17.6 % (20-40); Mean Corpuscular HGB Conc 33.9 g/dl (31.0-35.0); Mean Corpuscular Hemoglobin 32.6 pg (27.0-33.0); Mean Platelet Volume 10.5 fL (9.4-12.3); Monocytes Absolute Auto 0.6 X10*3/uL (0.1-1.2); Monocytes Percent Auto 12.8 % (2-11); Neutrophils Absolute Auto 3.3 X10*3/uL (2.0-8.3); Neutrophils Percent Auto 65.8 % (45-73); Platelet Count 77 X10*3/uL (160-400); Red Blood Count 3.56 X10*6/uL (4.20-5.50)
[2020-08-01 15:25] LABS: Appearance Urine CLEAR; Color Urine YELLOW; Glucose Urine UA NEG (NEG); Leukocyte Esterase Urine NEG (NEG); Nitrite Urine NEG (NEG); Urine Blood TRACE (NEG); Urine Ketones NEG (NEG); Urine Protein NEG (NEG-TRACE)
[2020-08-01 15:36] LABS: SLIDE REVIEW VERIFIED
[2020-08-01] MEDS: Ketorolac Tromethamine 30 MG/ML VIAL IVPUSH (15:37)
[2020-08-01] MEDS: ondansetron HCL 4 MG/2 ML VIAL IVPUSH (15:37)
[2020-08-01] MEDS: Magnesium Sulfate/H2O 2 GM/50 ML PIGGYBACK IV (15:38)
[2020-08-01 15:39] LABS: B Type Natriuretic Peptide 138 pg/mL (<100); Troponin-I High Sensitivity < 3.5 ng/L (<3.5-17.0)
--- NOTE | 2020-08-01 15:51 | PC.NURSE ---
Pt ambulates with steady and lyon gait to bathroom. RT called for updraft. Pending results/ ct
[2020-08-01 15:54] LABS: Influenza A PCR NEGATIVE (Negative); Influenza B PCR NEGATIVE (Negative); Resp Syncy Virus RNA Qual PCR NEGATIVE (Negative); SARS COV2 PCR INHOUSE NEGATIVE (Negative)
[2020-08-01 16:13] LABS: Alanine Aminotransferase 25 U/L (0-31); Albumin Level 3.7 g/dL (3.5-5.0); Alkaline Phosphatase 147 U/L (39-117); Anion Gap 12 (12-20); Aspartate Amino Transferase 44 U/L (5-31); Bilirubin Direct 0.7 mg/dL (0.0-0.5); Bilirubin Total 1.3 mg/dL (0.0-1.0); Blood Urea Nitrogen 9 mg/dL (9-16); Calcium 8.6 mg/dL (8.4-10.2); Carbon Dioxide 27 mmol/L (22-29); Chloride 104 mmol/L (96-108); Creatinine Clr Calc Pharmacy 93.8; Estimated Glomerular Filt Rate > 60; Glucose Random 104 mg/dL (60-115); Lipase 25 U/L (8-78); Potassium 3.9 mmol/L (3.3-5.1); Sodium 139 mmol/L (135-145); Total Protein 7.3 g/dL (6.5-8.0)
[2020-08-01] MEDS: Albuterol Sulfate (0.083%) 2.5 MG/3 ML VIAL.NEB 10 MG INHALE (16:32)
[2020-08-01 17:14] LABS: RBC Urine 0-2 /HPF (0); Squamous Epithelial Cell Urine TRACE /LPF; WBC Urine 0-2 /HPF (0-4)
== END 2020-08-01 19:53 | disposition home or self-care (01) ==
PROVIDERS: Physician Assistant Medical; Emergency Provider Emergency Medicine; PCP Nurse Practitioner Family
DX: J20.9 Acute bronchitis, unspecified (principal); J44.0 Chronic obstructive pulmonary disease with (acute) lower respiratory infection; R18.8 Other ascites; Z99.81 Dependence on supplemental oxygen; Q61.01 Congenital single renal cyst; R16.2 Hepatomegaly with splenomegaly, not elsewhere classified; I11.0 Hypertensive heart disease with heart failure; I50.9 Heart failure, unspecified; F11.10 Opioid abuse, uncomplicated; F10.10 Alcohol abuse, uncomplicated; F12.90 Cannabis use, unspecified, uncomplicated; F41.9 Anxiety disorder, unspecified; F17.210 Nicotine dependence, cigarettes, uncomplicated; Z86.19 Personal history of other infectious and parasitic diseases; Z20.822 Contact with and (suspected) exposure to COVID-19
CPT/HCPCS: 0241U; 36415; 71045; 71275; 74177; 80048; 80076; 81001; 83605; 83690; 83735; 83880; 84484; 85025; 85610; 87040; 93005; 94640; 94644; 94664; 96365; 96366; 96374; 96375; 99284; 99291; J1100; J1885; J2405; J3475; Q9967

== ENCOUNTER → 2020-09-09 09:36 | Outpatient (BNVA) | payer MEDICARE, MEDICAID, SELFPAY | PROVIDERS: PCP Nurse Practitioner Family; Visit Provider Physician Assistant | DX: K74.60 Unspecified cirrhosis of liver (principal); M17.11 Unilateral primary osteoarthritis, right knee; F17.200 Nicotine dependence, unspecified, uncomplicated | CPT/HCPCS: 20610; 99212; J1040 ==

== ENCOUNTER 2020-10-23 18:15 | Emergency (ER) | payer MEDICARE, MEDICAID, SELFPAY ==
--- NOTE | ~2020-10-23 | XR_ITS ---
EXAMINATION: XR RIBS, RIGHT CLINICAL INFORMATION: Fall with right-sided pain and ecchymoses COMPARISON: CT angiogram chest 08/01/2020 TECHNIQUE: Single view chest with 4 additional views right RIBS FINDINGS: Heart size is normal. Some mild emphysematous changes are seen with bibasilar increased reticular nodular markings similar to that which was seen on the recent CT scan. Degenerative changes are present spine. No displaced rib fractures are seen. XR/XR ribs RT min 3V w CXR1V IMPRESSION: No rib fractures are identified. Chronic bibasilar increased markings.
[2020-10-23 18:24] VITALS: BP 135/110; BP 146/93; PULSE 93; PULSE 94; RESP 17; TEMP 36.9; O2SAT 94; O2SAT 95; BMI 32.7
--- NOTE | 2020-10-23 18:31 | ECG_ITS ---
Test Reason : CHEST PAIN Blood Pressure : / mmHG Vent. Rate : 087 BPM Atrial Rate : 087 BPM P-R Int : 130 ms QRS Dur : 076 ms QT Int : 398 ms P-R-T Axes : 056 -07 031 degrees QTc Int : 478 ms Normal sinus rhythm Normal ECG When compared with ECG of 01-AUG-2020 15:21, Borderline criteria for Inferior infarct are no longer Present Referred By: Amrita Wong Electronically Signed By:OH ELY MD
--- NOTE | 2020-10-23 18:34 | ED.CHESTPAIN ---
HPI - Chest Pain General Chief Complaint: Chest Pain Stated Complaint: r sided chest pain Time Seen by Provider: 10/23/20 18:23 Source: patient and EMS Mode of arrival: EMS Limitations: no limitations History of Present Illness HPI narrative: 59-year-old female with a past medical history of asthma/COPD who uses home O2 oxygen only at night at approximately 2 L, CHF, hypertension, hypothyroidism, obesity, hepatitis-C, heroin abuse, alcohol abuse, anxiety, depression, GERD, chronic lower back pain and osteoarthritis presenting to the ED with complaints of shortness of breath for the past 2 days with associated orthopnea and dyspnea on exertion and productive intermittent cough. She tells me that she does have chronic shortness of breath in and a cough but this seems worsen. She is also complaining of some right-sided chest wall pain. She is unsure if she may have fallen as she has been partying recently with her friend who came to visit. She tells me her friend came with a sleeve of nips and so she has been drinking and access the last 4-5 days. She denies any head injury or loss of consciousness. No headache, nausea, vomiting, dizziness. She drinks daily beer and hard alcohol (fireball). Normally ingests 6 drinks per day and her last drink was just prior to arrival. She does smoke cigarettes but denies current substance use. No leg swelling or pain. No weight gain. Related Data Home Medications Medication Instructions Recorded Confirmed buprenorphine 8 mg-naloxone 2 mg 2 film SUBLINGUAL DAILY 02/13/20 08/17/20 sublingual film duloxetine 60 mg capsule,delayed 120 mg PO DAILY 02/13/20 08/17/20 release fluticasone 500 mcg-salmeterol 50 1 inh INHALATION BID 03/09/20 08/17/20 mcg/dose blistr powdr for inhalation mirtazapine 15 mg PO BEDTIME 03/12/20 08/17/20 Previous Rx's Medication Instructions Recorded nicotine 14 mg TRANSDERMAL DAILY #28 ea 03/14/20 albuterol sulfate 2.5 mg INHALATION Q4H PRN #180 ml 03/30/20 amlodipine 5 mg tablet 5 mg PO DAILY #30 tab 04/14/20 ferrous gluconate 324 mg (38 mg 324 mg PO BID #60 tab 04/14/20 iron) tablet bumetanide 1 mg tablet 1 mg PO DIRECTED #90 tab 04/15/20 omeprazole 40 mg capsule,delayed 40 mg PO DAILY #90 cap 05/05/20 release fluticasone propionate 50 1 spray INTRANASAL DAILY #16 g 05/06/20 mcg/actuation nasal spray,suspension gabapentin 300 mg capsule 300 mg PO BID #56 cap 07/28/20 albuterol sulfate 1 inh INHALATION QID PRN #8.5 g 08/01/20 ketorolac 10 mg PO Q8H PRN #10 tab 08/01/20 levofloxacin 750 mg PO DAILY 5 Days #5 tab 08/01/20 tizanidine 4 mg tablet 4 mg PO BID PRN 30 Days #60 tab 08/16/20 levothyroxine 25 mcg tablet 25 mcg PO DAILY #30 tab 08/24/20 albuterol sulfate 2.5 mg INHALATION QID PRN #180 ml 08/25/20 nystatin 100,000 unit/mL oral 5 ml PO TID #120 ml 08/25/20 suspension cholecalciferol (vitamin D3) 50 50 mcg PO DAILY #30 cap 09/10/20 mcg (2,000 unit) capsule levalbuterol tartrate 45 1 puff INHALATION Q4H PRN 30 Days 09/21/20 mcg/actuation aerosol inhaler #15 g famotidine 20 mg tablet 20 mg PO BEDTIME #30 tab 09/22/20 losartan 25 mg tablet 25 mg PO DAILY #28 tab 09/22/20 montelukast 10 mg tablet 10 mg PO BEDTIME 30 Days #30 tab 09/22/20 ondansetron HCl 4 mg tablet 4 mg PO Q8H PRN #14 tab 10/08/20 albuterol sulfate 5 mg INHALATION Q6H PRN #30 ea 10/23/20 prednisone 40 mg PO DAILY #8 tab 10/23/20 Allergies Allergy/AdvReac Type Severity Reaction Status Date / Time doxycycline [Doxycycline] Allergy Intermediate RASH, Verified 08/17/20 11:04 vomiting Review of Systems Review of Systems: Yes all other systems are reviewed and are negative Constitutional: Constitutional: Reports no additional constitutional complaints, Denies body ache(s), Denies chills, Denies fever(s), Denies headache(s) and Denies weakness Eyes: Eyes: Reports no additional eye complaints and Denies change in vision ENT: Reports system reviewed and no additional complaints, except as documented, Denies dizziness, Denies headache(s), Denies nasal congestion, Denies nasal discharge and Denies neck pain Cardiovascular: Cardiovascular: Reports no additional cardiovascular complaints, Reports chest pain, Denies leg edema and Reports dyspnea Respiratory: Respiratory: Reports no additional respiratory complaints, Reports cough and Reports dyspnea Gastrointestinal: Gastrointestinal: Reports no additional gastrointestinal complaints, Denies abdominal pain, Denies diarrhea, Denies nausea and Denies vomiting Genitourinary: Genitourinary: Reports no additional female genitourinary complaints and Denies urinary incontinence Musculoskeletal: Musculoskeletal: Reports no additional musculoskeletal complaints, Denies back pain, Denies arthralgias, Denies joint swelling, Denies neck pain, Denies numbness and Denies tingling Integumentary/Breasts: Skin/Breast: Reports system reviewed and no additional complaints, except as docu and Denies rash Neurologic: Reports system reviewed and no additional complaints, except as documented, Denies Abnormal speech present, Denies dizziness, Denies headache(s), Denies numbness, Denies tingling and Denies weakness PMFSH Past Medical History Attestation statement: The following information was validated with the patient. Source: old records reviewed and nursing notes reviewed Medical History Alcohol abuse Anxiety Asthma Chronic lower back pain COPD (chronic obstructive pulmonary disease) Depression GERD (gastroesophageal reflux disease) Hepatitis C Heroin abuse HTN (hypertension) Hypothyroidism Myofascial pain syndrome Obesity (BMI 30-39.9) Obstructive sleep apnea Smoker Smoker Surgical History H/O colonoscopy H/O esophagogastroduodenoscopy Family History Family History Father CVD (cardiovascular disease) Mother Lung cancer Social History Social History Household Members: None Household Members Other:: lives alone Housing: House Do you presently have visiting nurse or other home services: No Alcohol intake: current Alcohol intake frequency: 3 or more drinks per day Alcohol type: beer and hard liquor Patient Tobacco Use Status: Current everyday Tobacco user Cigarette Packs Per Day: 1 Cigarettes Per Day: 20.0 Years Smoked: 47 Second Hand Smoke Exposure: No Use of substances other than those prescribed or required for medical reasons: No Substance Use Type: Marijuana Advance Directives: No Advance Directives Information Provided: Yes service: No Current occupational status: disabled Physical Exam Vital Signs: Vital Signs: Last Vital Signs Temp 97.4 F 10/23/20 20:00 Pulse 93 10/23/20 20:00 Resp 16 10/23/20 20:00 BP 119/56 L 10/23/20 20:00 Pulse Ox 91 L 10/23/20 20:00 Body Mass Index 32.7 Const: Other: disheveled, +alcohol on breath General: awake Orientation/consciousness: patient oriented x3 Limitations: no limitations HENMT: Head: Yes normal to inspection Ears: hearing grossly normal bilaterally General nose exam: Normal external nose present Face and sinus: Yes normal facial exam Mouth: Normal oral and palatal mucosa present Throat: Yes posterior oropharynx normal Eyes: General: appearance normal, both eyes and all related structures Pupils: Equal, round and reactive pupils present Neck: Neck: Yes normal visual inspection Chest: Other: To the right anterior chest there is a small area of ecchymosis with no crepitus or deformity noted. There is mild tenderness over the site Chest palpation & inspection: normal inspection of the chest Resp: Other: Mild expiratory wheezing, speaking short phrases Effort & Inspection: normal respiratory effort Cardio: Rate: regular rate Rhythm: regular rhythm Peripheral pulses: Peripheral pulses 2+ throughout GI: Inspection: Yes normal to inspection Palpation (GI): Soft to palpation and nontender Auscultation: normal bowel sounds Back/Spine/Pelvis: Thoracic/Lumbar Spine: thoracic and lumbar spine normal to inspection Skin: General skin exam: no rashes or lesions noted Neuro: General: patient oriented x3, moves all extremities and normal sensation to monofilament Cranial nerves: Yes Equal, round and reactive pupils present, Yes Normal facial strength present and Yes Midline tongue present Cognition (Neuro): normal cognition Speech: No Abnormal speech present Motor exam (neuro): 5/5 motor strength present throughout Sensory Exam: Normal double simultaneous stimulation for sensation Extrem: General: Yes normal to inspection, Yes no pedal edema and Yes no calf tenderness Course Course Course Narrative: 59-year-old female with a past medical history of asthma/COPD who uses home O2 oxygen only at night at approximately 2 L, CHF, hypertension, hypothyroidism, obesity, hepatitis-C, heroin abuse, alcohol abuse, anxiety, depression, GERD, chronic lower back pain and osteoarthritis presenting to the ED with complaints of shortness of breath, dyspnea on exertion, orthopnea, productive cough, right sided chest wall pain ?fall x 2-3 days. on exam patient is alert and oriented x3. Mild expiratory wheezing and decreased breath sounds noted. Small area of ecchymosis noted of the right anterior chest wall with no crepitus or deformity. No abdominal pain. No neurological deficits. Patient will require labs, chest x-ray, EKG. 1950-labs are consistent with chronic liver disease and appear to be at baseline per the patient. Her troponin is negative. Her EKG shows no ischemic changes. Her x-ray shows no rib fracture and is consistent with COPD. She is feeling improved after her receiving a DuoNeb here. Ambulated with pulse oximeter to determine disposition. 2030-Patient ambulated with oxygen saturation 91 a 2% with no reports of tachypnea. Patient also this is what her normal oxygen is because of her COPD. She feels well and like to be discharged home. Likely COPD exacerbation. Will give p.o. prednisone and sent home with course. Ambulated with steady gait and she has a sober ride for discharge home. We discussed she needs to stop drinking as she has liver cirrhosis and this will only worsen her diagnosis. Offered detox but declined. Reviewed worrisome signs and symptoms and when to return to the emergency department. Comfortable with discharge home. MDM - Chest Pain MDM Narrative Medical decision making narrative: ACS, CHF exacerbation, COPD exacerbation, rib fracture Less likely ACS with negative troponin and EKG and symptoms greater than 2 days. Less likely CHF with no clinical findings for CHF, negative BNP and chest x-ray which does not support this. Less likely PE with no clinical findings of DVT, no tachycardia or hypoxia with recent negative CTA Medical Records Data Attestation: I reviewed the patient's medical records. Lab Data Attestation: I reviewed the patient's lab results. Result diagrams: 10/23/20 19:03 10/23/20 19:03 Labs: Lab Results 10/23/20 10/23/20 10/23/20 Range/Units 19:03 19:03 19:03 WBC 4.3 L (4.8-10.8) X10*3/uL RBC 3.83 L (4.20-5.50) X10*6/uL Hgb 12.1 (12.0-16.0) g/dl Hct 36.6 L (37-47) % MCV 95.6 (80-98) fL MCH 31.6 (27.0-33.0) pg MCHC 33.1 (31.0-35.0) g/dl RDW 15.1 (11.0-16.0) % Plt Count 103 L D (160-400) X10*3/uL MPV 10.4 (9.4-12.3) fL Immature Gran % (Auto) 0.2 (0.0-0.4) % Neut % (Auto) 60.9 (45-73) % Lymph % (Auto) 24.0 (20-40) % [place] % (Auto) 11.8 H (2-11) % Eos % (Auto) 2.6 (0-4) % Baso % (Auto) 0.5 (0-2) % Lymph # (Auto) 1.0 L (1.2-4.9) X10*3/uL [place] # (Auto) 0.5 (0.1-1.2) X10*3/uL Eos # (Auto) 0.1 (0.0-0.4) X10*3/uL Baso # (Auto) 0.0 (0.0-0.2) X10*3/uL Abs Immat Gran (auto) 0.01 (0.00-0.03) X10*3/uL Absolute Neuts (auto) 2.6 (2.0-8.3) X10*3/uL Absolute Nucleated RBC 0.000 (0.0-0.012) X10*3/uL Nucleated RBC % (auto) 0.0 (0.0-0.2) /100WBC PT 13.2 H (10.8-13.0) SEC INR 1.1 (0.9-1.1) Sodium 142 (135-145) mmol/L Potassium 3.9 (3.3-5.1) mmol/L Chloride 107 (96-108) mmol/L Carbon Dioxide 26 (22-29) mmol/L Anion Gap 13 (12-20) BUN 6 L (9-16) mg/dL Creatinine 0.68 (0.5-1.4) mg/dL Estim Creat Clear Calc 86.8 Estimated GFR > 60 Random Glucose 100 (60-115) mg/dL Calcium 8.5 (8.4-10.2) mg/dL Magnesium 2.0 (1.6-2.6) mg/dL Total Bilirubin 0.6 (0.0-1.0) mg/dL Direct Bilirubin 0.3 (0.0-0.5) mg/dL AST 51 H (5-31) U/L ALT 25 (0-31) U/L Alkaline Phosphatase 146 H (39-117) U/L Troponin I High Sens (<3.5-17.0) ng/L B-Natriuretic Peptide (<100) pg/mL Total Protein 7.2 (6.5-8.0) g/dL Albumin 3.7 (3.5-5.0) g/dL Ethyl Alcohol mg/dL 10/23/20 10/23/20 Range/Units 19:03 19:03 WBC (4.8-10.8) X10*3/uL RBC (4.20-5.50) X10*6/uL Hgb (12.0-16.0) g/dl Hct (37-47) % MCV (80-98) fL MCH (27.0-33.0) pg MCHC (31.0-35.0) g/dl RDW (11.0-16.0) % Plt Count (160-400) X10*3/uL MPV (9.4-12.3) fL Immature Gran % (Auto) (0.0-0.4) % Neut % (Auto) (45-73) % Lymph % (Auto) (20-40) % [place] % (Auto) (2-11) % Eos % (Auto) (0-4) % Baso % (Auto) (0-2) % Lymph # (Auto) (1.2-4.9) X10*3/uL [place] # (Auto) (0.1-1.2) X10*3/uL Eos # (Auto) (0.0-0.4) X10*3/uL Baso # (Auto) (0.0-0.2) X10*3/uL Abs Immat Gran (auto) (0.00-0.03) X10*3/uL Absolute Neuts (auto) (2.0-8.3) X10*3/uL Absolute Nucleated RBC (0.0-0.012) X10*3/uL Nucleated RBC % (auto) (0.0-0.2) /100WBC PT (10.8-13.0) SEC INR (0.9-1.1) Sodium (135-145) mmol/L Potassium (3.3-5.1) mmol/L Chloride (96-108) mmol/L Carbon Dioxide (22-29) mmol/L Anion Gap (12-20) BUN (9-16) mg/dL Creatinine (0.5-1.4) mg/dL Estim Creat Clear Calc Estimated GFR Random Glucose (60-115) mg/dL Calcium (8.4-10.2) mg/dL Magnesium (1.6-2.6) mg/dL Total Bilirubin (0.0-1.0) mg/dL Direct Bilirubin (0.0-0.5) mg/dL AST (5-31) U/L ALT (0-31) U/L Alkaline Phosphatase (39-117) U/L Troponin I High Sens < 3.5 (<3.5-17.0) ng/L B-Natriuretic Peptide 100 (<100) pg/mL Total Protein (6.5-8.0) g/dL Albumin (3.5-5.0) g/dL Ethyl Alcohol 129 mg/dL Imaging Data rib/chest xray: Attestation: I personally reviewed and interpreted this imaging study as follows: Radiologist's impression: EXAMINATION: XR RIBS, RIGHT CLINICAL INFORMATION: Fall with right-sided pain and ecchymoses COMPARISON: CT angiogram chest 08/01/2020 TECHNIQUE: Single view chest with 4 additional views right RIBS FINDINGS: Heart size is normal. Some mild emphysematous changes are seen with bibasilar increased reticular nodular markings similar to that which was seen on the recent CT scan. Degenerative changes are present spine. No displaced rib fractures are seen. XR/XR ribs RT min 3V w CXR1V IMPRESSION: No rib fractures are identified. Chronic bibasilar increased markings. Discharge Plan Discharge Clinical Impression: Alcohol abuse, Cirrhosis of liver COPD (chronic obstructive pulmonary disease) Qualifiers: COPD type: COPD with acute exacerbation Qualified Code(s): J44.1 - Chronic obstructive pulmonary disease with (acute) exacerbation Patient Disposition: Home, Self-Care Instructions: Cirrhosis (ED), COPD (Chronic Obstructive Pulmonary Disease) (ED), Abuse of Alcohol (ED) Additional Instructions: Start prednisone tomorrow Follow-up with your PCP and respiratory therapist assistant Stop drinking alcohol Prescriptions: New prednisone 20 mg tablet 40 mg PO DAILY Qty: 8 RF: 0 albuterol sulfate 2.5 mg/0.5 mL solution for nebulization 5 mg inhalation Q6H PRN (Reason: shortness of breath or wheezing) Qty: 30 RF: 0 No Action albuterol sulfate 2.5 mg /3 mL (0.083 %) solution for nebulization 2.5 mg inhalation Q4H PRN (Reason: shortness of breath or wheezing) Qty: 180 RF: 3 amlodipine 5 mg tablet 5 mg PO DAILY Qty: 30 RF: 3 ferrous gluconate 324 mg (38 mg iron) tablet 324 mg PO BID Qty: 60 RF: 3 omeprazole 40 mg capsule,delayed release(DR/EC) 40 mg PO DAILY Qty: 90 RF: 1 gabapentin 300 mg capsule 300 mg PO BID Qty: 56 RF: 3 tizanidine 4 mg tablet 4 mg PO BID PRN (Reason: Spasms) 30 Days Qty: 60 RF: 1 levothyroxine 25 mcg tablet 25 mcg PO DAILY Qty: 30 RF: 4 albuterol sulfate 2.5 mg /3 mL (0.083 %) solution for nebulization 2.5 mg inhalation QID PRN (Reason: shortness of breath or wheezing) Qty: 180 RF: 0 nystatin 100,000 unit/mL suspension 5 ml PO TID Qty: 120 RF: 1 cholecalciferol (vitamin D3) 50 mcg (2,000 unit) capsule 50 mcg PO DAILY Qty: 30 RF: 5 levalbuterol tartrate [Xopenex HFA] 45 mcg/actuation HFA aerosol inhaler 1 puff INHALATION Q4H PRN (Reason: Shortness Of Breath) 30 Days Qty: 15 RF: 1 famotidine 20 mg tablet 20 mg PO BEDTIME Qty: 30 RF: 3 losartan 25 mg tablet 25 mg PO DAILY Qty: 28 RF: 3 montelukast 10 mg tablet 10 mg PO BEDTIME 30 Days Qty: 30 RF: 3 ondansetron HCl 4 mg tablet 4 mg PO Q8H PRN (Reason: for nausea/vomiting) Qty: 14 RF: 0 levofloxacin 750 mg tablet 750 mg PO DAILY 5 Days Qty: 5 RF: 0 albuterol sulfate 90 mcg/actuation HFA aerosol inhaler 1 inh inhalation QID PRN (Reason: shortness of breath or wheezing) Qty: 8.5 RF: 0 ketorolac 10 mg tablet 10 mg PO Q8H PRN (Reason: pain) Qty: 10 RF: 0 mirtazapine 15 mg Tablet 15 mg PO BEDTIME RF: 0 nicotine 14 mg/24 hr Patch 24 Hour 14 mg transdermal DAILY Qty: 28 RF: 0 fluticasone propionate 50 mcg/actuation spray,suspension 1 spray intranasal DAILY Qty: 16 RF: 3 fluticasone propion-salmeterol [Advair Diskus] 500-50 mcg/dose blister with device 1 inh inhalation BID RF: 0 bumetanide 1 mg tablet 1 mg PO DIRECTED Qty: 90 RF: 3 buprenorphine-naloxone 8-2 mg film 2 film sublingual DAILY RF: 0 duloxetine 60 mg capsule,delayed release(DR/EC) 120 mg PO DAILY RF: 0 Referrals: James Pompa, ACCOUNT COORDINATOR-BC [Primary Care Provider] - 2 days Interventions: ED Discharge Assessment Last Done: 10/23/20 20:39 Discharge Date/Time: 10/23/20 20:40
[2020-10-23 19:06] VITALS: PULSE 83; O2SAT 93
[2020-10-23] MEDS: Albuterol/Iprat 2.5/0.5MG 3 ML AMPUL.NEB INHALE (19:08)
[2020-10-23 19:10] LABS: MANUAL DIFF FLAG NO
[2020-10-23 19:11] LABS: Basophils Percent Auto 0.5 % (0-2); Eosinophils Absolute Auto 0.1 X10*3/uL (0.0-0.4); Eosinophils Percent Auto 2.6 % (0-4); Hematocrit 36.6 % (37-47); Hemoglobin 12.1 g/dl (12.0-16.0); Imm Gran Abs Auto 0.01 X10*3/uL (0.00-0.03); Imm Gran Pct Auto 0.2 % (0.0-0.4); Mean Corpuscular HGB Conc 33.1 g/dl (31.0-35.0); Mean Corpuscular Hemoglobin 31.6 pg (27.0-33.0); Mean Corpuscular Volume 95.6 fL (80-98); Mean Platelet Volume 10.4 fL (9.4-12.3); Monocytes Absolute Auto 0.5 X10*3/uL (0.1-1.2); Monocytes Percent Auto 11.8 % (2-11); Neutrophils Absolute Auto 2.6 X10*3/uL (2.0-8.3); Neutrophils Percent Auto 60.9 % (45-73); Platelet Count 103 X10*3/uL (160-400); Red Blood Count 3.83 X10*6/uL (4.20-5.50); Red Cell Distribution Width 15.1 % (11.0-16.0); White Blood Count 4.3 X10*3/uL (4.8-10.8)
[2020-10-23 19:16] LABS: INTERNATIONAL NORM RATIO 1.1 (0.9-1.1); Prothrombin Time 13.2 SEC (10.8-13.0)
[2020-10-23 19:33] LABS: Ethanol 129 mg/dL
[2020-10-23 19:37] LABS: Alanine Aminotransferase 25 U/L (0-31); Albumin Level 3.7 g/dL (3.5-5.0); Alkaline Phosphatase 146 U/L (39-117); Anion Gap 13 (12-20); Aspartate Amino Transferase 51 U/L (5-31); Bilirubin Direct 0.3 mg/dL (0.0-0.5); Bilirubin Total 0.6 mg/dL (0.0-1.0); Blood Urea Nitrogen 6 mg/dL (9-16); Calcium 8.5 mg/dL (8.4-10.2); Carbon Dioxide 26 mmol/L (22-29); Chloride 107 mmol/L (96-108); Creatinine Clr Calc Pharmacy 86.8; Estimated Glomerular Filt Rate > 60; Glucose Random 100 mg/dL (60-115); Potassium 3.9 mmol/L (3.3-5.1); Sodium 142 mmol/L (135-145); Total Protein 7.2 g/dL (6.5-8.0)
[2020-10-23 19:39] LABS: B Type Natriuretic Peptide 100 pg/mL (<100); Troponin-I High Sensitivity < 3.5 ng/L (<3.5-17.0)
[2020-10-23 20:00] VITALS: BP 119/56; PULSE 93; RESP 16; TEMP 36.3; O2SAT 91
--- NOTE | 2020-10-23 20:13 | PC.NURSE ---
PATIENT WENT FOR A WALK ,WITH O2 SAT READING AT 91 % ON ROOM AIR ,PATIENT DID WELL DURING WALK ,STATED SHE DOES NOT FEEL SOB .ITZEL CARTER AND RN JERSEY AWARE .
--- NOTE | 2020-10-23 20:19 | PC.NURSE ---
Plan for discharge home. Ambulated with steady gait with pulse oximetry. Denies complaints. MICAH Wong aware.
[2020-10-23] MEDS: predniSONE 20 MG TABLET 60 MG PO (20:33)
== END 2020-10-23 20:40 | disposition home or self-care (01) ==
PROVIDERS: Nurse Practitioner Family; Emergency Provider Internal Medicine; PCP Nurse Practitioner Family
DX: J44.1 Chronic obstructive pulmonary disease with (acute) exacerbation (principal); R06.02 Shortness of breath; F10.10 Alcohol abuse, uncomplicated; K74.60 Unspecified cirrhosis of liver; I11.0 Hypertensive heart disease with heart failure; I50.9 Heart failure, unspecified; Z99.81 Dependence on supplemental oxygen
CPT/HCPCS: 36415; 71101; 80048; 80076; 82077; 83735; 83880; 84484; 85025; 85610; 93005; 94640; 99284

== ENCOUNTER → 2020-12-17 13:14 | Outpatient (BNVA) | payer MEDICARE, MEDICAID, SELFPAY | PROVIDERS: PCP Nurse Practitioner Family; Visit Provider Physician Assistant | DX: M17.11 Unilateral primary osteoarthritis, right knee (principal) | CPT/HCPCS: 20610; 99212; J1040 ==

== ENCOUNTER → 2021-01-07 09:28 | Outpatient (BNVA) | payer MEDICARE, MEDICAID, SELFPAY | PROVIDERS: PCP Nurse Practitioner Family; Visit Provider Internal Medicine | DX: J44.1 Chronic obstructive pulmonary disease with (acute) exacerbation (principal); J40 Bronchitis, not specified as acute or chronic; J30.9 Allergic rhinitis, unspecified; F17.200 Nicotine dependence, unspecified, uncomplicated; Z71.6 Tobacco abuse counseling; Z79.899 Other long term (current) drug therapy | CPT/HCPCS: 99212 ==

== ENCOUNTER → 2021-04-13 14:09 | Outpatient (BNVA) | payer MEDICARE, MEDICAID, SELFPAY | PROVIDERS: PCP Nurse Practitioner Family; Visit Provider Internal Medicine | DX: J44.9 Chronic obstructive pulmonary disease, unspecified (principal); J40 Bronchitis, not specified as acute or chronic; J44.1 Chronic obstructive pulmonary disease with (acute) exacerbation; J30.9 Allergic rhinitis, unspecified; I10 Essential (primary) hypertension; F17.200 Nicotine dependence, unspecified, uncomplicated; F11.20 Opioid dependence, uncomplicated; F10.20 Alcohol dependence, uncomplicated; Z88.1 Allergy status to other antibiotic agents; Z79.899 Other long term (current) drug therapy | CPT/HCPCS: 99212 ==

== ENCOUNTER → 2021-06-04 09:31 | Outpatient (BNVA) | payer MEDICARE, MEDICAID, SELFPAY | PROVIDERS: Visit Provider Physician Assistant | DX: M17.11 Unilateral primary osteoarthritis, right knee (principal) | CPT/HCPCS: 20610; 99212; J1040 ==

== ENCOUNTER 2021-07-07 13:39 | Outpatient (REF) | payer MEDICARE, MEDICAID, SELFPAY ==
[2021-07-07 16:33] LABS: MANUAL DIFF FLAG NO
[2021-07-07 16:39] LABS: Basophils Percent Auto 0.7 % (0-2); Hemoglobin 13.9 g/dl (12.0-16.0); Imm Gran Abs Auto 0.01 X10*3/uL (0.00-0.03); Imm Gran Pct Auto 0.2 % (0.0-0.4); Lymphocytes Absolute Auto 1.2 X10*3/uL (1.2-4.9); PLT CLUMP 1; SCAN SMEAR FLAG 1
[2021-07-07 16:41] LABS: Eosinophils Absolute Auto 0.1 X10*3/uL (0.0-0.4); Eosinophils Percent Auto 2.8 % (0-4); Hematocrit 41.5 % (37.0-47.0); Lymphocytes Percent Auto 27.3 % (20-40); Mean Corpuscular HGB Conc 33.5 g/dl (31.0-35.0); Mean Corpuscular Hemoglobin 31.2 pg (27.0-33.0); Mean Corpuscular Volume 93.3 fL (80.0-98.0); Mean Platelet Volume 12.1 fL (9.4-12.3); Monocytes Absolute Auto 0.5 X10*3/uL (0.1-1.2); Monocytes Percent Auto 10.9 % (2-11); Neutrophils Absolute Auto 2.5 x10*3/uL (2.0-8.3); Neutrophils Percent Auto 58.1 % (45-73); Red Blood Count 4.45 X10*6/uL (4.20-5.50); Red Cell Distribution Width 14.7 % (11.0-16.0)
[2021-07-07 16:52] LABS: Alanine Aminotransferase 33 U/L (0-31); Albumin Level 4.2 g/dL (3.5-5.0); Alkaline Phosphatase 109 U/L (39-117); Anion Gap 14 (12-20); Aspartate Amino Transferase 50 U/L (5-31); Blood Urea Nitrogen 12 mg/dL (9-16); Calcium 9.8 mg/dL (8.4-10.2); Carbon Dioxide 30 mmol/L (22-29); Chloride 98 mmol/L (96-108); Estimated Glomerular Filt Rate > 60; Glucose Random 102 mg/dL (60-115); Sodium 138 mmol/L (135-145); Total Protein 8.2 g/dL (6.5-8.0)
[2021-07-07 16:59] LABS: Platelet Count 98 X10*3/uL (160-400); White Blood Count 4.3 X10*3/uL (4.8-10.8)
[2021-07-07 17:14] LABS: Ferritin 103 ng/mL (10-250)
== END 2021-07-07 13:40 | disposition home or self-care (01) ==
LOC: HO.HMGCLDS 13:39
PROVIDERS: Visit Provider Nurse Practitioner Family
DX: F10.10 Alcohol abuse, uncomplicated (principal)
CPT/HCPCS: 36415; 80053; 82728; 85025

== ENCOUNTER → 2021-09-20 09:18 | Outpatient (BNVA) | payer MEDICARE, MEDICAID, SELFPAY | PROVIDERS: PCP Nurse Practitioner Family; Visit Provider Physician Assistant | DX: M17.11 Unilateral primary osteoarthritis, right knee (principal) | CPT/HCPCS: 20610; 99212; J1040 ==

== ENCOUNTER 2021-10-05 11:35 | Outpatient (REF) | payer MEDICARE, MEDICAID, SELFPAY ==
[2021-10-05 13:43] LABS: MANUAL DIFF FLAG NO
[2021-10-05 13:52] LABS: Basophils Percent Auto 0.7 % (0-2); Eosinophils Absolute Auto 0.2 X10*3/uL (0.0-0.4); Eosinophils Percent Auto 3.5 % (0-4); Hematocrit 39.1 % (37.0-47.0); Hemoglobin 13.1 g/dl (12.0-16.0); Imm Gran Abs Auto 0.01 X10*3/uL (0.00-0.03); Imm Gran Pct Auto 0.2 % (0.0-0.4); Lymphocytes Absolute Auto 1.1 X10*3/uL (1.2-4.9); Lymphocytes Percent Auto 24.5 % (20-40); Mean Corpuscular HGB Conc 33.5 g/dl (31.0-35.0); Mean Corpuscular Hemoglobin 32.1 pg (27.0-33.0); Mean Corpuscular Volume 95.8 fL (80.0-98.0); Mean Platelet Volume 11.2 fL (9.4-12.3); Monocytes Absolute Auto 0.6 X10*3/uL (0.1-1.2); Monocytes Percent Auto 13.1 % (2-11); Neutrophils Absolute Auto 2.7 x10*3/uL (2.0-8.3); Platelet Count 103 X10*3/uL (160-400); Red Blood Count 4.08 X10*6/uL (4.20-5.50); Red Cell Distribution Width 14.5 % (11.0-16.0); White Blood Count 4.6 X10*3/uL (4.8-10.8)
[2021-10-05 14:02] LABS: Alanine Aminotransferase 29 U/L (0-31); Albumin Level 3.8 g/dL (3.5-5.0); Alkaline Phosphatase 114 U/L (39-117); Anion Gap 10 (12-20); Aspartate Amino Transferase 38 U/L (5-31); Bilirubin Total 0.7 mg/dL (0.0-1.0); Blood Urea Nitrogen 10 mg/dL (9-16); Carbon Dioxide 30 mmol/L (22-29); Chloride 101 mmol/L (96-108); Estimated Glomerular Filt Rate > 60; Glucose Random 108 mg/dL (60-115); Potassium 4.2 mmol/L (3.3-5.1); Sodium 137 mmol/L (135-145); Total Protein 7.7 g/dL (6.5-8.0)
[2021-10-05 14:58] LABS: Folate 12.4 ng/mL (> or = 4.0); Vitamin B12 164 pg/mL (200-900)
[2021-10-09 12:46] LABS: Vitamin B6 8.6 ng/mL (2.1-21.7)
== END 2021-10-05 11:36 | disposition home or self-care (01) ==
LOC: HO.HMGCLDS 11:35
PROVIDERS: PCP Nurse Practitioner Family; Visit Provider Nurse Practitioner Family
DX: L65.9 Nonscarring hair loss, unspecified (principal)
CPT/HCPCS: 36415; 80053; 82607; 82746; 84207; 84443; 85025

== ENCOUNTER → 2021-10-22 14:43 | Outpatient (BNVA) | payer MEDICARE, MEDICAID, SELFPAY | PROVIDERS: PCP Nurse Practitioner Family; Visit Provider Nurse Practitioner Family | DX: M17.11 Unilateral primary osteoarthritis, right knee (principal); G89.29 Other chronic pain; M25.561 Pain in right knee; M54.50 Low back pain, unspecified; M47.816 Spondylosis without myelopathy or radiculopathy, lumbar region | CPT/HCPCS: 99212 ==

== ENCOUNTER 2021-11-09 10:57 | Outpatient (REF) | payer MEDICARE, MEDICAID, SELFPAY | END 2021-11-09 10:58 | disposition home or self-care (01) | LOC: HO.XRAY 10:57 | PROVIDERS: PCP Nurse Practitioner Family; Visit Provider Nurse Practitioner Family | DX: Z13.89 Encounter for screening for other disorder (principal) ==

== ENCOUNTER 2021-12-21 06:07 | Outpatient (REF) | payer MEDICARE, MEDICAID, SELFPAY ==
--- NOTE | ~2021-12-21 | FL_ITS ---
EXAMINATION: XR FLUOROSCOPY WITH IMAGES CLINICAL INFORMATION: M25.561 - Pain in right knee COMPARISON: Radiographs right knee 09/12/2019 TECHNIQUE: Fluoroscopy performed by Dr. Zhou Sullivan. Fluoroscopy time: 0.2 minutes. Cumulative Dose: 2.21 mGy. DAP: 0.604 Gy-cm2. Images: 2. FINDINGS: There are spinal needles adjacent to the distal femoral shaft, medial and lateral sides, mid depth. There is a spinal needle adjacent to the proximal tibia on medial side mid depth. There are again degenerative changes present with narrowing medial knee joint compartment and mild spurring. There is spurring at the quadriceps insertion patella. FL/FL guidance in treatment room IMPRESSION: Fluoroscopy for pain management procedures.
== END 2021-12-21 06:08 | disposition home or self-care (01) ==
LOC: HO.RADIR 06:07
PROVIDERS: Visit Provider Anesthesiology
DX: M25.561 Pain in right knee (principal); G89.29 Other chronic pain; M17.11 Unilateral primary osteoarthritis, right knee; M47.816 Spondylosis without myelopathy or radiculopathy, lumbar region; M54.50 Low back pain, unspecified
CPT/HCPCS: 64454; J3300

== ENCOUNTER → 2021-12-24 10:25 | Outpatient (BNVA) | payer MEDICARE, MEDICAID, SELFPAY | PROVIDERS: PCP Nurse Practitioner Family; Visit Provider Nurse Practitioner Family | DX: M17.11 Unilateral primary osteoarthritis, right knee (principal) | CPT/HCPCS: Q3014 ==

== ENCOUNTER → 2022-04-29 11:07 | Outpatient (BNVA) | payer MEDICARE, MEDICAID, SELFPAY | PROVIDERS: PCP Nurse Practitioner Family; Visit Provider Physician Assistant | DX: M17.11 Unilateral primary osteoarthritis, right knee (principal); F17.210 Nicotine dependence, cigarettes, uncomplicated | CPT/HCPCS: 20610; 99212; J7318 ==

== ENCOUNTER 2022-05-30 12:41 | Outpatient (REF) | payer MEDICARE, MEDICAID, SELFPAY ==
--- NOTE | ~2022-05-30 | MM_ITS ---
EXAMINATION: MM SCREENING DIGITAL BREAST TOMOSYNTHESIS, BILATERAL CLINICAL INFORMATION: Screening. Asymptomatic. The lifetime risk of breast cancer based on the Tyrer-Cuzick Model is 6%. COMPARISON: Outside mammography: 06/13/2018, 05/24/2017, 05/20/2016 ([facility]) TECHNIQUE: Digital breast tomosynthesis is performed in both the craniocaudal and mediolateral oblique views along with computer-aided detection (CAD). Synthesized 2D images are generated from the tomosynthesis. FINDINGS: There are scattered areas of fibroglandular density (ACR BI-RADS breast composition Category b). Parenchymal pattern is similar to prior outside studies. Fibronodular pattern outer quadrants and central upper right breast on MLO view are similar to prior exams. No developing density or architectural abnormality. No abnormal calcifications. The axilla and skin contours are unremarkable. No significant changes. MM/MM tomosynthesis screening BI IMPRESSION: No significant changes from prior outside studies. ASSESSMENT: BI-RADS 2: Benign RECOMMENDATION: Routine annual mammography screening. This patient's information was entered into a reminder system with a target due date for their next mammogram.
== END 2022-05-30 12:42 | disposition home or self-care (01) ==
LOC: HO.MAMMO 12:41
PROVIDERS: PCP Nurse Practitioner Family; Visit Provider Nurse Practitioner Family
DX: Z12.31 Encounter for screening mammogram for malignant neoplasm of breast (principal)
CPT/HCPCS: 77063; 77067

== ENCOUNTER → 2022-07-28 11:38 | Outpatient (BNVA) | payer MEDICARE, MEDICAID, SELFPAY | PROVIDERS: PCP Nurse Practitioner Family; Visit Provider Internal Medicine | DX: J44.1 Chronic obstructive pulmonary disease with (acute) exacerbation (principal); J30.9 Allergic rhinitis, unspecified; G47.34 Idiopathic sleep related nonobstructive alveolar hypoventilation; Z79.899 Other long term (current) drug therapy; Z87.891 Personal history of nicotine dependence | CPT/HCPCS: 99212 ==

== ENCOUNTER → 2022-08-05 13:10 | Outpatient (BNVA) | payer MEDICARE, MEDICAID, SELFPAY | PROVIDERS: PCP Nurse Practitioner Family; Visit Provider Physician Assistant | DX: M17.11 Unilateral primary osteoarthritis, right knee (principal) | CPT/HCPCS: 20610; 99212; J1040 ==

== ENCOUNTER 2022-08-19 13:20 | Outpatient (REF) | payer MEDICARE, MEDICAID, SELFPAY ==
--- NOTE | ~2022-08-19 | CT_ITS ---
EXAMINATION: CT CHEST SCREENING CLINICAL INFORMATION: Current smoker. 50 pack year history. COMPARISON: Previous chest x-ray October 2020 and chest CTA July 2020 TECHNIQUE: Multidetector volumetric CT imaging of the chest is performed without contrast using low dose technique. Additional 2D coronal and sagittal reformatted images and axial 3D maximum intensity projection (MIP) images are generated on the CT workstation. This CT examination was performed using dose optimization techniques as appropriate, variously including the following: *Automated exposure control *Adjustment of mA and/or kV according to patient size (this includes techniques or standardized protocols for targeted exams where dose is matched to indication/reason for exam; i.e. extremities or head) *Use of iterative reconstruction technique DLP: 51 mGy-cm FINDINGS: LUNGS: Mild paraseptal emphysema. 3 mm peripheral or subpleural nodule along the minor fissure axial image 250 series 5. Subsegmental atelectasis at the lung bases. MEDIASTINUM: Upper normal mediastinal lymph nodes. Largest lymph node is a precarinal lymph node measuring 1 cm. This is similar to slightly decreased compared to previous CTA. Evaluation for hilar adenopathy is limited without contrast. Heart size. No pericardial. Normal caliber thoracic aorta. CORONARY ARTERY CALCIFICATION: Mild PLEURA: There is no pleural effusion. No pleural mass or thickening. AXILLA: No lymphadenopathy. UPPER ABDOMEN: mild cirrhotic changes of the liver. OSSEOUS STRUCTURES: Degenerative changes of the spine. CT/CT lung screening IMPRESSION: Paraseptal emphysema. Small 3 mm nodule along the minor fissure probably representing a subpleural lymph node. Upper normal-size mediastinal lymph nodes. Mild cirrhotic changes. ASSESSMENT: Lung-RADS category 2: Benign RECOMMENDATION: Annual low-dose chest CT follow-up recommended.
== END 2022-08-19 13:21 | disposition home or self-care (01) ==
LOC: HO.CT 13:20
PROVIDERS: PCP Nurse Practitioner Family; Visit Provider Physician Assistant Medical
DX: Z12.2 Encounter for screening for malignant neoplasm of respiratory organs (principal); F17.210 Nicotine dependence, cigarettes, uncomplicated
CPT/HCPCS: 71271

== ENCOUNTER 2022-10-28 08:55 | Outpatient (REF) | payer MEDICARE, MEDICAID, SELFPAY ==
[2022-10-28 11:17] LABS: MANUAL DIFF FLAG NO
[2022-10-28 11:31] LABS: Appearance Urine Clear; Color Urine Dark Yellow; Glucose Urine UA Negative (Negative); Leukocyte Esterase Urine Trace (Negative); Nitrite Urine Negative (Negative); Specific Gravity - Urine 1.015 (1.005-1.025); UMIC TRIGGER UACC YES; Urine Blood Negative (Negative); Urine Ketones Negative (Negative); Urine Protein Trace mg/dL (Neg-Trace)
[2022-10-28 11:37] LABS: Basophils Percent Auto 0.9 % (0-2); Eosinophils Absolute Auto 0.1 X10*3/uL (0.0-0.4); Hematocrit 39.1 % (37.0-47.0); Hemoglobin 13.1 g/dl (12.0-16.0); Lymphocytes Absolute Auto 0.9 X10*3/uL (1.2-4.9); Lymphocytes Percent Auto 26.6 % (20-40); Mean Corpuscular HGB Conc 33.5 g/dl (31.0-35.0); Mean Corpuscular Hemoglobin 31.5 pg (27.0-33.0); Mean Platelet Volume 11.7 fL (9.4-12.3); Monocytes Absolute Auto 0.5 X10*3/uL (0.1-1.2); Monocytes Percent Auto 13.9 % (2-11); Neutrophils Absolute Auto 1.8 x10*3/uL (2.0-8.3); Neutrophils Percent Auto 54.6 % (45-73); Platelet Count 88 X10*3/uL (160-400); Red Blood Count 4.16 X10*6/uL (4.20-5.50); Red Cell Distribution Width 14.7 % (11.0-16.0); White Blood Count 3.2 X10*3/uL (4.8-10.8)
[2022-10-28 11:42] LABS: Bacteria Urine None Seen (None Seen); Hyaline Casts Urine 0-2 /LPF (0-2); RBC Urine 0-2 /HPF (0-2); WBC Urine 0-5 /HPF (0-5)
[2022-10-28 12:05] LABS: Alanine Aminotransferase 23 U/L (0-31); Albumin Level 3.5 g/dL (3.5-5.0); Alkaline Phosphatase 127 U/L (39-117); Anion Gap 12 (12-20); Aspartate Amino Transferase 44 U/L (5-31); Blood Urea Nitrogen 11 mg/dL (9-16); Calcium 9.6 mg/dL (8.4-10.2); Carbon Dioxide 28 mmol/L (22-29); Chloride 101 mmol/L (96-108); Cholesterol 160 mg/dL; Estimated Glomerular Filt Rate > 60; Glucose Fasting 97 mg/dL (60-99); HDL Cholesterol 71 mg/dL; LDL Cholesterol Calculated 78 mg/dl; Potassium 3.8 mmol/L (3.3-5.1); Sodium 137 mmol/L (135-145); Total Protein 7.9 g/dL (6.5-8.0); Triglycerides 55 mg/dL
[2022-10-28 12:07] LABS: TSH reflex Free T4 3.44 uIU/mL (0.32-4.0); Vitamin D 25-OH Total 9.2 ng/mL (>30)
[2022-10-28 12:37] LABS: Folate 14.4 ng/mL (> or = 4.0); Vitamin B12 305 pg/mL (200-900)
== END 2022-10-28 08:56 | disposition home or self-care (01) ==
LOC: HO.HMGCLDS 08:55
PROVIDERS: PCP Nurse Practitioner Family; Visit Provider Nurse Practitioner Family
DX: Z00.00 Encounter for general adult medical examination without abnormal findings (principal); E53.8 Deficiency of other specified B group vitamins; Z78.0 Asymptomatic menopausal state; E55.9 Vitamin D deficiency, unspecified; E78.5 Hyperlipidemia, unspecified; E03.9 Hypothyroidism, unspecified
CPT/HCPCS: 36415; 80053; 80061; 81001; 82306; 82607; 82746; 84443; 85025

== ENCOUNTER 2022-12-26 10:00 | Outpatient (AMB) | payer MEDICARE, MEDICAID, SELFPAY ==
--- NOTE | 2022-12-26 10:22 | MHC.PC.OV ---
Vital Signs 12/26/22 10:23 Height 5 ft 2 in Weight 164 lb 6 oz BMI 30.1 BP 136/88 Blood Pressure Location Lt brachial Position Sitting Pulse 68 Pulse Source Pulse Oximeter Pulse Oximetry (%) 97 Oxygen Delivery Method Room Air Intake Visit Reasons: 4 Month follow up Allergies doxycycline [Doxycycline] Allergy (Intermediate, Verified 12/26/22 10:25) RASH, vomiting Tobacco use date assessed: 12/26/22 Dental Screening Dental Screen Date: 12/26/22 Did you have a dental visit in the last 12 months?: No Did you have a dental problem in the last 6 months where you did not have access to dental care?: No Was dental information given to patient?: No HPI 4 Month follow up HPI Details HTN: Blood pressure is stable, managed with amlodipine 10mg. Denies chest pain, shortness of breath, headache, dizziness, and blurred vision. Hx of B12 deficiency, will order labs. Hx of leukopenia, will order labs. Pt continues to smoke. COUNTS INCLUDE 234 BEDS AT THE [facility] Medical History Alcohol abuse Allergic rhinitis Anxiety CHF (congestive heart failure) Chronic lower back pain COPD (chronic obstructive pulmonary disease) Depression GERD (gastroesophageal reflux disease) Hepatitis C History of acute respiratory failure (~03/2018) History of substance abuse HTN (hypertension) Hypothyroidism Myofascial pain syndrome Nicotine dependence, cigarettes, uncomplicated Nocturnal hypoxemia Obesity (BMI 30-39.9) Obstructive sleep apnea (~2003) Personal history of nicotine dependence Tubular adenoma of colon (~2006) Surgical History History of colonoscopy History of esophagogastroduodenoscopy (EGD) History of myringotomy Family History Father CVD (cardiovascular disease) Mother Lung cancer Social History Household Members: None Household Members Other:: lives alone Housing: House Do you presently have visiting nurse or other home services: No Alcohol intake: current Alcohol intake frequency: 3 or more drinks per day Alcohol type: beer and hard liquor Patient Tobacco Use Status: Current everyday Tobacco user Cigarette Packs Per Day: 0.5 Cigarettes Per Day: 10 Years Smoked: 47 e-Cigarette/Vaping Use: Never Used Second Hand Smoke Exposure: Yes Substance Use Type: Marijuana service: No Current occupational status: disabled Current occupation: rt handed Cognitive needs: No Hearing needs: No Vision needs: No Questionnaire Thrive Questionnaire Date Thrive assessed: 04/20/22 NAYE-7 AMB Questionnaire NAYE-7 Date NAYE - 7 assessed: 04/20/22 Source: Developed by Drs. Taras Carney, Deyanira Raygoza, Monty Stephens and colleagues, with an educational mitch from [employer]. Review of Systems Const Reports as per HPI Physical exam (Primary Care) Vital Signs: Last Vital Signs Pulse 68 12/26/22 10:23 BP 136/88 12/26/22 10:23 Pulse Ox 97 12/26/22 10:23 Oxygen Delivery Method Room Air 12/26/22 10:23 BMI result Body Mass Index 30.1 Tobacco/Smoking Status: Tobacco use Status Tobacco use date assessed 12/26/22 12/26/22 10:30 Patient Tobacco Use Status Current everyday Tobacco 12/26/22 10:30 e-Cigarette/Vaping Use Never Used 12/26/22 10:30 Thrive Assessment: Date of Thrive Assessment Date Thrive assessed 04/20/22 12/26/22 10:30 Const General: cooperative Nutritional Appearance: obese Orientation/consciousness: patient oriented x3 Resp Other: coarse wheezes noted bilat Cardio Rate: regular rate Rhythm: regular rhythm Heart sounds: S1 normal heart sound present and S2 normal heart sound present Neuro General: patient oriented x3 Psych Appearance: grossly normal Mental Status: mental status grossly normal Speech and movement: Normal speech and movement present Affect: normal affect Attitude: cooperative Thought process: Normal thought process present Thought content: Normal thought content present Insight: Good insight present (Psych) Judgement: Good judgement present (Psych) Assessment and Plan Assessment & Plan (1) Leukopenia: Code(s): D72.819 - Decreased white blood cell count, unspecified Plan: Labs ordered (2) HTN (hypertension): Code(s): I10 - Essential (primary) hypertension Plan: Labs ordered (3) B12 deficiency: Code(s): E53.8 - Deficiency of other specified B group vitamins Plan: Labs ordered Plan The patient agreed to the use of a medical records tech for this encounter. Scribed for James Pompa, [facility]- by Elda Herrera, medical records tech, on 12/26/2022 at 10:50 EST. Orders: Orders Comprehensive [place]. Panel Fast Today D72.819 - Decreased white blood cell count, unspecified, E53.8 - Deficiency of other specified B group vitamins, I10 - Essential (primary) hypertension Lipid Panel Today D72.819 - Decreased white blood cell count, unspecified, E53.8 - Deficiency of other specified B group vitamins, I10 - Essential (primary) hypertension TSH reflex Free T4 Today D72.819 - Decreased white blood cell count, unspecified, E53.8 - Deficiency of other specified B group vitamins, I10 - Essential (primary) hypertension Complete Blood Count Auto Diff Today D72.819 - Decreased white blood cell count, unspecified, E53.8 - Deficiency of other specified B group vitamins, I10 - Essential (primary) hypertension UA CC w/rflx Micro + Cult Today D72.819 - Decreased white blood cell count, unspecified, E53.8 - Deficiency of other specified B group vitamins, I10 - Essential (primary) hypertension Vitamin B12 and Folate Today E53.8 - Deficiency of other specified B group vitamins Medications: Refilled ondansetron HCl 4 mg PO Q8H PRN 90 tabs 0RF for nausea/vomiting 30 days Coding Level of Care Code Est Pt Level 3 (08420) Diagnoses Leukopenia D72.819 HTN (hypertension) I10 B12 deficiency E53.8
[2022-12-26 10:23] VITALS: BP 136/88; PULSE 68; O2SAT 97; BMI 30.1
== END 2022-12-26 15:41 | disposition home or self-care (01) ==
PROVIDERS: Visit Provider Nurse Practitioner Family
DX: D72.819 Decreased white blood cell count, unspecified (principal); I10 Essential (primary) hypertension; E53.8 Deficiency of other specified B group vitamins
CPT/HCPCS: 99213

== ENCOUNTER 2023-01-09 10:35 | Outpatient (AMB) | payer MEDICARE, MEDICAID, SELFPAY ==
--- NOTE | 2023-01-09 10:43 | MHC.OFFVIS ---
Intake Vital Signs 01/09/23 10:46 Height 5 ft 2 in Weight 164 lb BMI 30.0 Intake Visit Reasons: OV-Right Knee OA, last inj 08/05/22 Intake Note: Amelia 62 yr old female presents today for a repeat injection for her right knee. Last injection from 08/05/22 lasted until recently. patient is having pain and is requesting injection today. Allergies doxycycline [Doxycycline] Allergy (Intermediate, Verified 01/09/23 10:45) RASH, vomiting HPI OV-Right Knee OA, last inj 08/05/22 HPI Details 62-year-old female who returns to the office today for a follow-up of right knee pain. She had her last injection on 08/05/22 which provided her relief until recently. She states she has pain and would like to have a repeat injection today. [facility] Medical History Alcohol abuse Allergic rhinitis Anxiety CHF (congestive heart failure) Chronic lower back pain COPD (chronic obstructive pulmonary disease) Depression GERD (gastroesophageal reflux disease) Hepatitis C History of acute respiratory failure (~03/2018) History of substance abuse HTN (hypertension) Hypothyroidism Myofascial pain syndrome Nicotine dependence, cigarettes, uncomplicated Nocturnal hypoxemia Obesity (BMI 30-39.9) Obstructive sleep apnea (~2003) Personal history of nicotine dependence Tubular adenoma of colon (~2006) Surgical History History of colonoscopy History of esophagogastroduodenoscopy (EGD) History of myringotomy Family History Father CVD (cardiovascular disease) Mother Lung cancer Social History Household Members: None Household Members Other:: lives alone Housing: House Do you presently have visiting nurse or other home services: No Alcohol intake: current Alcohol intake frequency: 3 or more drinks per day Alcohol type: beer and hard liquor Patient Tobacco Use Status: Current everyday Tobacco user Cigarette Packs Per Day: 0.5 Cigarettes Per Day: 10 Years Smoked: 47 e-Cigarette/Vaping Use: Never Used Second Hand Smoke Exposure: Yes Substance Use Type: Marijuana service: No Current occupational status: disabled Current occupation: rt handed Cognitive needs: No Hearing needs: No Vision needs: No Review of Systems Const All systems reviewed & are unremarkable except as noted in HPI and below Physical Exam Vital Signs: BMI result Body Mass Index 30.0 Extrem Other: Right knee skin intact, no erythema or joint effusion. Tenderness along the medial joint line. Full ROM with crepitus. Negative steinmans. No ligamentous laxity. NVI. Office Procedures Joint Injection/Drain Joint Injection/Drain Primary Site: right knee Prep: site was prepped using aseptic technique, ethochloride spray was applied and injection warnings given Injected: 80 mg of, DepoMedrol, with 8 mL of, 1% plain lidocaine and in the joint Approach Used: anterolateral Procedure: The patient tolerated the procedure well and there was some relief with the local anesthesia Coding 04474 - Glenohumeral/Tronchanteric Bursa/Intraarticular Procedure code (CPT) selection complete Results Reviewed Results Reviewed: 01/09/23 10:45 Lidocaine HCl 2 % MPF [Xylocaine 2 % MPF] 5 ml .ROUTE .STK-MED ONE methylPREDNISolone acetate [DEPO-MedroL] 80 mg .ROUTE .STK-MED ONE Assessment & Plan Assessment & Plan (1) Osteoarthritis of right knee: Code(s): M17.11 - Unilateral primary osteoarthritis, right knee Plan We discussed options today which include steroid injection. They did consent to move forward with the right knee injection, which was tolerated well. I recommended rest, ice and elevation and OTC anti-inflammatories PRN for discomfort. If symptoms persist or worsens over the next 6-8 weeks, patient will contact the office, otherwise follow-up as needed. Patient Instructions: Scribed for Marissa Barros PA-C, by Osvaldo Martinez nurses medical assistants phlebotomists, on 01/09/2023 at 11:15 AM TYLER. Marissa Shultz PA-C, have personally reviewed and agree with the information entered by the scribe. Coding Level of Care Code Est Pt Level 3 (57757) Diagnoses Osteoarthritis of right knee M17.11 CPT Codes Coding - Joint 7: 19390 - Glenohumeral/Tronchanteric Bursa/Intraarticular ([id number])
== END 2023-01-09 11:05 | disposition home or self-care (01) ==
PROVIDERS: PCP Nurse Practitioner Family; Visit Provider Physician Assistant
DX: M17.11 Unilateral primary osteoarthritis, right knee (principal)
CPT/HCPCS: 20610

== ENCOUNTER → 2023-01-09 10:35 | Outpatient (BNVA) | payer MEDICARE, MEDICAID, SELFPAY | PROVIDERS: PCP Nurse Practitioner Family; Visit Provider Physician Assistant | DX: M17.11 Unilateral primary osteoarthritis, right knee (principal) | CPT/HCPCS: 20610; J1040 ==

== ENCOUNTER → 2023-01-18 14:48 | Outpatient (BNV) | payer MEDICARE, MEDICAID, SELFPAY | PROVIDERS: PCP Nurse Practitioner Family; Visit Provider Internal Medicine Medical Oncology | DX: D61.818 Other pancytopenia (principal) | CPT/HCPCS: 99204; 99212; 99214 ==

== ENCOUNTER 2023-02-07 10:57 | Outpatient (AMB) | payer MEDICARE, MEDICAID, SELFPAY ==
--- NOTE | 2023-02-07 11:02 | MHC.OFFVIS ---
Intake Vital Signs 02/07/23 11:03 Height 5 ft 2 in Weight 160 lb 14.999 oz BMI 29.4 BP 157/68 H Blood Pressure Location Lt brachial Position Sitting Pulse 70 Intake Visit Reasons: EGD/Colonoscopy Liver disease Intake Note: Amelia presents in the office as a follow up egd and colo. CC: Has issues with her swallowing, states that she has a BM once a week. She will get pains in her stomach and will not feel well. Clinical Informatics Specialist Required: No Allergies doxycycline [Doxycycline] Allergy (Intermediate, Verified 02/07/23 11:09) RASH, vomiting HPI HPI Comments History of Present Illness Details This is a 62y.o F with PMH of HCV 1b (s/p Justin with SVR), etOH use disorder, tobacco use disorder, COPD, who is here to re-establish care. Pt was previously being seen by Dr Kelley. Has not been to our office in 2 years. Was recently seen by Hematology for leukopenia and thrombocytopenia where she was noted to have progression of her liver disease and hence referred here. Pt reports remote hx of IVDU and has been sober for many years per her report. Contracted HCV as a result which has since been treated however continues to drink heavily which has led to progression to liver disease. Also continues to smoke 1PPD. Reports significant fatigue and intermittent RUQ discomfort. Appetite is good but over the last few years has noted some weight loss. Most recent EGD was in 2019 (Dr Kelley) and no PHG or varices were noted at that time. Most recent colo was in 2016 (Dr Kelley). Had excellent prep, no polyps. Labs reviewed which were ordered by the good Dr Hess which shows negative HBV serology. Thrombocytopenia to 101 without elevated INR. Transaminases up with AST>ALT. AFP normal. An ultrasound has also been ordered and toby for this week per pt. [facility] Medical History Nicotine dependence, cigarettes, uncomplicated Nocturnal hypoxemia Tubular adenoma of colon (~2006) Personal history of nicotine dependence History of substance abuse History of acute respiratory failure (~03/2018) Allergic rhinitis Alcohol abuse GERD (gastroesophageal reflux disease) Chronic lower back pain CHF (congestive heart failure) HTN (hypertension) Myofascial pain syndrome Obstructive sleep apnea (~2003) Hepatitis C Depression Anxiety Hypothyroidism Obesity (BMI 30-39.9) COPD (chronic obstructive pulmonary disease) Surgical History History of myringotomy History of colonoscopy History of esophagogastroduodenoscopy (EGD) Family History Father CVD (cardiovascular disease) Mother Lung cancer Social History Household Members: None Household Members Other:: lives alone Housing: House Do you presently have visiting nurse or other home services: No Alcohol intake: current Alcohol intake frequency: 3 or more drinks per day Alcohol type: beer and hard liquor Patient Tobacco Use Status: Current everyday Tobacco user Cigarette Packs Per Day: 0.5 Years Smoked: 47 e-Cigarette/Vaping Use: Never Used Second Hand Smoke Exposure: Yes Substance Use Type: Marijuana service: No Current occupational status: disabled Current occupation: rt handed Cognitive needs: No Hearing needs: No Vision needs: No Review of Systems Const All systems reviewed & are unremarkable except as noted in HPI and below Physical Exam Vital Signs: Last Vital Signs Pulse 70 02/07/23 11:03 BP 157/68 H 02/07/23 11:03 BMI result Body Mass Index 29.4 Assessment & Plan Assessment & Plan (1) Cirrhosis: Code(s): K74.60 - Unspecified cirrhosis of liver (2) Hepatitis C: Comment: (s/p Harvoni treatment with sustained viral response) Code(s): B19.20 - Unspecified viral hepatitis C without hepatic coma (3) Alcohol abuse: Code(s): F10.10 - Alcohol abuse, uncomplicated (4) Nicotine dependence, cigarettes, uncomplicated: Comment: (current smoker - using pipe tobacco) Code(s): F17.210 - Nicotine dependence, cigarettes, uncomplicated (5) Sarcopenia: Code(s): M62.84 - Sarcopenia Plan HCV and etOH related cirrhosis - MELD-Na 7 Reviewed with the pt that clinical presentation concerning for progression of liver disease to cirrhosis with suspicion of CSPH based on CT imaging with trace ascites from 2020. Most likely 2/2 ongoing heavy etOH use. No overt decompensation at this time however. Discussed in detail with the pt the natural progression of liver disease and morbidity and mortality associated with cirrhosis noemy decompensated cirrhosis. - Strict etOH abstinence advised to avoid further worsening of liver function and progression to decompensated cirrhosis. - We will also check HCV RNA to ensure no re-infection/relapse. - US Abd already ordered by Dr Hess. - She will also need EGD for variceal screening which will be set up within 4-6 weeks. - Significant muscle wasting and sarcopenia noted. Advised frequent meals noemy with high protein. Will also Rx protein shakes to be taken BID. - She was also counseled for smoking cessation. In terms of CRC screening, last colo was in 2016 - so not due till 2026. Follow up after endoscopy. Orders: Orders HCV RNA QN PROG TO GENOTYPE Today K74.60 - Unspecified cirrhosis of liver HIV Ab/Ag Today K74.60 - Unspecified cirrhosis of liver Complete Blood Count no Diff Today K74.60 - Unspecified cirrhosis of liver Comprehensive Met. Panel Today K74.60 - Unspecified cirrhosis of liver Medications: New food supplemt, lactose-reduced (Ensure High Protein oral liquid) 1 ea PO BID 30 days 14,220 mL 1RF Coding Level of Care Code New Pt Level 5 (65583) Diagnoses Cirrhosis K74.60 Hepatitis C B19.20 Alcohol abuse F10.10 Nicotine dependence, cigarettes, uncomplicated F17.210 Sarcopenia M62.84
[2023-02-07 11:03] VITALS: BP 157/68; PULSE 70; BMI 29.4
== END 2023-02-07 12:57 | disposition home or self-care (01) ==
PROVIDERS: PCP Nurse Practitioner Family; Visit Provider Internal Medicine
DX: K74.60 Unspecified cirrhosis of liver (principal); B19.20 Unspecified viral hepatitis C without hepatic coma; F10.10 Alcohol abuse, uncomplicated; F17.210 Nicotine dependence, cigarettes, uncomplicated; M62.84 Sarcopenia
CPT/HCPCS: 99214

== ENCOUNTER 2023-02-07 10:57 | Outpatient (REF) | payer MEDICARE, MEDICAID, SELFPAY | END 2023-02-07 10:58 | disposition home or self-care (01) | LOC: HO.LAB 10:57 | PROVIDERS: PCP Nurse Practitioner Family; Visit Provider Internal Medicine | DX: K74.60 Unspecified cirrhosis of liver (principal); M62.84 Sarcopenia; F10.10 Alcohol abuse, uncomplicated; B19.20 Unspecified viral hepatitis C without hepatic coma; F17.210 Nicotine dependence, cigarettes, uncomplicated | CPT/HCPCS: 99212 ==

== ENCOUNTER 2023-02-10 09:18 | Outpatient (REF) | payer MEDICARE, MEDICAID, SELFPAY ==
--- NOTE | ~2023-02-10 | US_ITS ---
EXAMINATION: US ABDOMEN COMPLETE CLINICAL INFORMATION: Elevated LFTs. COMPARISON: CT abdomen and pelvis 08/01/2020. Ultrasound abdomen 03/08/2016. Renal ultrasound 09/11/2009. TECHNIQUE: Real-time imaging of the abdominal viscera. FINDINGS: PANCREAS: Echogenic. No discrete mass or ductal dilatation. ABDOMINAL AORTA: The proximal, mid, and distal segments are normal in caliber. INFERIOR VENA CAVA: Visualized portions are normal. LIVER: The liver is normal in size measuring 17 cm. Nodular contour. There is diffuse increased liver parenchymal echogenicity, consistent with infiltrative hepatocellular disease. No focal hepatic lesion. There is no intrahepatic biliary duct dilatation seen. GALLBLADDER: No cholelithiasis or evidence of cholecystitis. COMMON BILE DUCT: The common bile duct is smoothly dilated measuring 1.2 cm which is similar to the prior CT scan. No discrete obstruction or choledocholithiasis is seen. RIGHT KIDNEY: Normal. No hydronephrosis. No renal calculi or focal parenchymal lesions. The kidney measures 11.4 cm in maximum dimension. LEFT KIDNEY: Normal. No hydronephrosis. No renal calculi or focal parenchymal lesions. The kidney measures 11.6 cm in maximum dimension. SPLEEN: The spleen measures 13.3 cm in maximum dimension. FREE FLUID: None. US/US abdomen complete IMPRESSION: Cirrhosis. Splenomegaly measuring 13 cm. Stable dilated common bile duct measuring 1.2 cm. Correlate with pattern of elevated LFTs. If there is an obstructive pattern, MRCP versus ERCP is recommended.
== END 2023-02-10 09:19 | disposition home or self-care (01) ==
LOC: HO.US 09:18
PROVIDERS: PCP Nurse Practitioner Family; Visit Provider Internal Medicine Medical Oncology
DX: R79.89 Other specified abnormal findings of blood chemistry (principal)
CPT/HCPCS: 76700

== ENCOUNTER 2023-02-13 10:39 | Outpatient (REF) | payer MEDICARE, MEDICAID, SELFPAY ==
[2023-02-13 12:04] LABS: Hematocrit 38.3 % (37.0-47.0); Hemoglobin 12.7 g/dl (12.0-16.0); Mean Corpuscular HGB Conc 33.2 g/dl (31.0-35.0); Mean Corpuscular Hemoglobin 31.4 pg (27.0-33.0); Mean Corpuscular Volume 94.8 fL (80.0-98.0); Mean Platelet Volume 11.7 fL (9.4-12.3); Red Blood Count 4.04 X10*6/uL (4.20-5.50); Red Cell Distribution Width 14.1 % (11.0-16.0); White Blood Count 2.6 X10*3/uL (4.8-10.8)
[2023-02-13 12:05] LABS: Platelet Count 77 X10*3/uL (160-400)
[2023-02-13 12:07] LABS: MANUAL DIFF FLAG NO
[2023-02-13 12:08] LABS: Basophils Percent Auto 0.8 % (0-2); Eosinophils Absolute Auto 0.2 X10*3/uL (0.0-0.4); Eosinophils Percent Auto 5.9 % (0-4); Imm Gran Abs Auto 0.01 X10*3/uL (0.00-0.03); Imm Gran Pct Auto 0.4 % (0.0-0.4); Lymphocytes Absolute Auto 0.8 X10*3/uL (1.2-4.9); Lymphocytes Percent Auto 32.4 % (20-40); Monocytes Absolute Auto 0.4 X10*3/uL (0.1-1.2); Monocytes Percent Auto 17.2 % (2-11); Neutrophils Absolute Auto 1.1 x10*3/uL (2.0-8.3); Neutrophils Percent Auto 43.3 % (45-73)
[2023-02-13 12:51] LABS: HIV AB/AG Nonreactive (Nonreactive); HIV Num 1 0.06 S/CO (0.00-0.99)
[2023-02-13 12:52] LABS: Alanine Aminotransferase 22 U/L (0-31); Albumin Level 3.6 g/dL (3.5-5.0); Alkaline Phosphatase 110 U/L (39-117); Anion Gap 12 (12-20); Aspartate Amino Transferase 36 U/L (5-31); Bilirubin Total 0.7 mg/dL (0.0-1.0); Blood Urea Nitrogen 7 mg/dL (9-16); Calcium 9.1 mg/dL (8.4-10.2); Carbon Dioxide 29 mmol/L (22-29); Chloride 102 mmol/L (96-108); Cholesterol 151 mg/dL (<200); Estimated Glomerular Filt Rate > 60; Glucose Fasting 125 mg/dL (60-99); Glucose Random 124 mg/dL (60-115); HDL Cholesterol 66 mg/dL (>40); LDL Cholesterol Calculated 74 mg/dL (<100); Potassium 3.7 mmol/L (3.3-5.1); Sodium 139 mmol/L (135-145); Total Protein 7.3 g/dL (6.5-8.0); Triglycerides 56 mg/dL (<150)
[2023-02-13 13:05] LABS: Folate 11.5 ng/mL (> or = 4.0); Vitamin B12 422 pg/mL (200-900)
[2023-02-13 13:12] LABS: TSH reflex Free T4 2.82 uIU/mL (0.32-4.0)
[2023-02-13 13:31] LABS: Appearance Urine Clear; Color Urine Dark Yellow; Glucose Urine UA Negative (Negative); Leukocyte Esterase Urine Small (1+) (Negative); Nitrite Urine Negative (Negative); Specific Gravity - Urine 1.015 (1.005-1.025); UMIC TRIGGER UACC YES; Urine Blood Negative (Negative); Urine Ketones Negative (Negative); Urine Protein Negative (Neg-Trace)
[2023-02-13 13:36] LABS: Bacteria Urine Trace (None Seen); Hyaline Casts Urine 0-2 /LPF (0-2); RBC Urine 0-2 /HPF (0-2); UACC Culture Trigger YES
[2023-02-15 15:18] LABS: HCV RNA PCR Qn <1.18 NOT DETECTED Log IU/mL (NOT DETECTED); HCV RNA PCR Qn <15 NOT DETECTED IU/mL (NOT DETECTED)
== END 2023-02-13 10:40 | disposition home or self-care (01) ==
LOC: HO.LAB 10:39
PROVIDERS: PCP Nurse Practitioner Family; Visit Provider Internal Medicine
DX: Z11.4 Encounter for screening for human immunodeficiency virus [HIV] (principal); K74.60 Unspecified cirrhosis of liver; D72.819 Decreased white blood cell count, unspecified; E53.8 Deficiency of other specified B group vitamins; I10 Essential (primary) hypertension; R82.90 Unspecified abnormal findings in urine
CPT/HCPCS: 36415; 80053; 80061; 81001; 81003; 82247; 82607; 82746; 84443; 85025; 85027; 87086; 87389; 87522

== ENCOUNTER 2023-02-23 13:17 | Outpatient (AMB) | payer MEDICARE, MEDICAID, SELFPAY ==
--- NOTE | 2023-02-23 13:30 | A.OFFVIS_ITS ---
Intake Vital Signs 02/23/23 13:31 Height 5 ft 2 in Weight 156 lb 8.451 oz BMI 28.6 BP 119/67 Blood Pressure Location Lt brachial Position Sitting Pulse 83 Pulse Source Doppler Pulse Oximetry (%) 97 Oxygen Delivery Method Room Air Intake Visit Reasons: copd Intake Note: Patient is here to follow up on COPD, patient stated she was recently diagnosed with Cirrhosis. Breathing is the same Allergies doxycycline [Doxycycline] Allergy (Intermediate, Verified 02/23/23 13:57) RASH, vomiting Medication List - Last Reconciled 02/23/23 by Alexandra Thao MD Advair Diskus 500-50 mcg/dose (fluticasone propion-salmeterol) 1 inh inhalation BID 30 days NS albuterol sulfate 2.5 mg (3 mL) inhalation QID PRN amlodipine 10 mg PO DAILY 30 days buprenorphine-naloxone 8-2 mg (Suboxone) 25 mg sublingual DAILY cholecalciferol (vitamin D3) 50 mcg PO DAILY duloxetine 60 mg PO DAILY famotidine 20 mg PO BEDTIME fluticasone propionate 50 mcg/actuation 1 spray intranasal DAILY food supplemt, lactose-reduced (Ensure High Protein oral liquid) 1 ea PO BID 30 days gabapentin 300 mg PO BID hydroxyzine HCl 10 mg PO BEDTIME levothyroxine 25 mcg PO DAILY montelukast 10 mg PO DAILY nicotine 1 patch topical DAILY omeprazole 40 mg PO DAILY ondansetron HCl 4 mg PO Q8H PRN 30 days Oxygen Home Use As directed Ventolin HFA 90 mcg/actuation (albuterol sulfate) 2 puffs inhalation Q4-6H PRN NS Do you need a note to return to daycare/school/sports/work: No HPI copd HPI Details MARTIN IS 62 YEARS OLD FEMALE A CASE OF CHRONIC OBSTRUCTIVE PULMONARY DISEASE DUE TO LIFELONG SMOKING. ACCORDING TO HER IT IS RELATIVELY STABLE WITH HER USUAL INTERMITTENT COUGH. SHE GETS SHORT OF BREATH IF SHE HAS TO WALK OUTDOORS OR CLIMBS STAIRS. DOES NOT HAVE ANY SUSTAINED BOUTS OF WHEEZING. SHE HAS NOCTURNAL HYPOXEMIA CORRECTED BY OXYGEN 2 L/MINUTE AT NIGHT. UNFORTUNATELY STILL SMOKES 10 CIGARETTES A DAY, WANTS TO USE NICOTINE PATCH. PATIENT RECENTLY DIAGNOSED TO HAVE CIRRHOSIS OF THE LIVER, THIS IS DUE TO HER DRINKING ALCOHOL. SHE IS UNDER CARE OF GASTROENTEROLOGY SERVICE. [facility] Medical History Nicotine dependence, cigarettes, uncomplicated Nocturnal hypoxemia Tubular adenoma of colon (~2006) Personal history of nicotine dependence History of substance abuse History of acute respiratory failure (~03/2018) Allergic rhinitis Alcohol abuse GERD (gastroesophageal reflux disease) Chronic lower back pain CHF (congestive heart failure) HTN (hypertension) Myofascial pain syndrome Obstructive sleep apnea (~2003) Hepatitis C Depression Anxiety Hypothyroidism Obesity (BMI 30-39.9) COPD (chronic obstructive pulmonary disease) Surgical History History of myringotomy History of colonoscopy History of esophagogastroduodenoscopy (EGD) Family History Father CVD (cardiovascular disease) Mother Lung cancer Social History Household Members: None Household Members Other:: lives alone Housing: House Do you presently have visiting nurse or other home services: No Alcohol intake: current Alcohol intake frequency: 3 or more drinks per day [place] type: beer and hard liquor Patient Tobacco Use Status: Current everyday Tobacco user Cigarette Packs Per Day: 0.5 Years Smoked: 47 e-Cigarette/Vaping Use: Never Used Second Hand Smoke Exposure: Yes Substance Use Type: Marijuana service: No Current occupational status: disabled Current occupation: rt handed Cognitive needs: No Hearing needs: No Vision needs: No Review of Systems Const All systems reviewed & are unremarkable except as noted in HPI and below Eyes Reports no additional complaints ENT Reports nasal congestion (Intermittent) Card Denies chest pain, Denies irregular heart rhythm, Denies leg edema and Reports dyspnea on exertion Resp Reports as per HPI, Reports cough (Frequent) and Reports dyspnea on exertion GI Reports heartburn (Controlled with famotidine) Reports no additional complaints Musc Reports back pain and Reports myalgias Skin/Breast Reports system reviewed and no additional complaints, except as documented Neuro Reports no additional complaints Psych Reports anxiety Endo Reports no additional complaints Physical Exam Vital Signs: Last Vital Signs Pulse 83 02/23/23 13:31 BP 119/67 02/23/23 13:31 Pulse Ox 97 02/23/23 13:31 Oxygen Delivery Method Room Air 02/23/23 13:31 BMI result Body Mass Index 28.6 Const General: comfortable, no acute distress, alert and awake Orientation/consciousness: patient oriented x3 HEENT Head: Yes normal to inspection General nose exam: No nasal polyps present, No nasal discharge present and Other nasal findings present (Mild nasal congestion especially on the right side) Face and sinus: Yes sinuses nontender Mouth: oropharynx normal Throat: Yes posterior oropharynx normal Eyes General: appearance normal, both eyes and all related structures Neck Neck: Yes normal visual inspection, Yes no lymphadenopathy, Yes trachea midline and Yes no JVD Thyroid: Thyroid normal Chest Chest palpation & inspection: normal inspection of the chest, normal palpation of entire chest wall and no tenderness Resp Other: Percussion note is resonant, breath sounds are equal on both sides, distant with prolonged expiratory phase. No wheezes or rhonchi are heard today. But she does get cough on taking deep breath. Cardio Palpation: normal PMI Rate: regular rate Rhythm: regular rhythm Heart sounds: no gallops and no murmurs Peripheral pulses: Peripheral pulses 2+ throughout GI Palpation (GI): Soft to palpation, nontender, No hepatosplenomegaly present and no masses Auscultation: normal bowel sounds Back/Spine/Pelvis Thoracic/Lumbar Spine: thoracic and lumbar spine normal to inspection, thoraco- lumbar ROM limited and thoraco-lumbar spasm Skin General skin exam: no rashes or lesions noted Neuro General: patient oriented x3 and no focal motor deficits Cranial nerves: Yes CN's II-XII intact bilaterally Extrem General: Yes normal to inspection, Yes no clubbing, cyanosis or edema and Yes no calf tenderness Psych Appearance: grossly normal and well kempt Speech and movement: Normal speech and movement present Assessment & Plan Assessment & Plan (1) COPD (chronic obstructive pulmonary disease): Comment: (COPD, stable, secondary to chronic bronchitis and smoking) Advised to continue using her current regimen : Advair 500-50 1 inhalation b.i.d. Proair HFA 2 puffs q 4-6 Hrs PRN . She also has the nebulizer at home . Advised to use the albuterol in nebulizer only for acute emergencies wheezing and distress Code(s): J44.9 - Chronic obstructive pulmonary disease, unspecified Qualifiers: COPD type: COPD with acute exacerbation Qualified Code(s): J44.1 - Chronic obstructive pulmonary disease with (acute) exacerbation (2) Allergic rhinitis: Comment: Mild, intermittent, well controlled with the use of current meds : Montelukast 10 mg daily Also use fluticasone-50 2 sprays each nostril daily. Code(s): J30.9 - Allergic rhinitis, unspecified (3) Nocturnal hypoxemia: Comment: Patient is a known case of nocturnal hypoxemia which is corrected by using oxygen 2 L/minute Code(s): G47.34 - Idiopathic sleep related nonobstructive alveolar hypoventilation (4) Nicotine dependence, cigarettes, uncomplicated: Comment: (current smoker - using pipe tobacco) 10 cigarettes a day . Counselled to quit . Nicotine patch 14 mg ordered . Also referred for Annual Lung screening program . Code(s): F17.210 - Nicotine dependence, cigarettes, uncomplicated Orders: Referrals Thoracic Surgery Referral F17.210 - Nicotine dependence, cigarettes, uncomplicated, J44.9 - Chronic obstructive pulmonary disease, unspecified Medications: New nicotine 1 patch transdermal DAILY 28 ea 2RF smoking 28 days Coding Level of Care Code Est Pt Level 3 (64029) Diagnoses COPD (chronic obstructive pulmonary disease) J44.1 COPD type: COPD with acute exacerbation Allergic rhinitis J30.9 Nocturnal hypoxemia G47.34 Nicotine dependence, cigarettes, uncomplicated F17.210
[2023-02-23 13:31] VITALS: BP 119/67; PULSE 83; O2SAT 97; BMI 28.6
== END 2023-02-23 13:59 | disposition home or self-care (01) ==
PROVIDERS: PCP Nurse Practitioner Family; Visit Provider Internal Medicine
DX: J44.1 Chronic obstructive pulmonary disease with (acute) exacerbation (principal); J30.9 Allergic rhinitis, unspecified; G47.34 Idiopathic sleep related nonobstructive alveolar hypoventilation; F17.210 Nicotine dependence, cigarettes, uncomplicated
CPT/HCPCS: 99213

== ENCOUNTER → 2023-02-23 13:17 | Outpatient (BNVA) | payer MEDICARE, MEDICAID, SELFPAY | PROVIDERS: PCP Nurse Practitioner Family; Visit Provider Internal Medicine | DX: J44.9 Chronic obstructive pulmonary disease, unspecified (principal); J30.9 Allergic rhinitis, unspecified; G47.34 Idiopathic sleep related nonobstructive alveolar hypoventilation; F17.210 Nicotine dependence, cigarettes, uncomplicated | CPT/HCPCS: 99212 ==

== ENCOUNTER 2023-03-03 14:20 | Outpatient (AMB) | payer MEDICARE, MEDICAID, SELFPAY ==
--- NOTE | 2023-03-03 14:25 | A.OFFVIS_ITS ---
Intake Vital Signs 03/03/23 14:27 Height 5 ft 2 in Weight 156 lb 8.451 oz BMI 28.6 BP 171/77 H Blood Pressure Location Lt brachial Position Sitting Pulse 70 Intake Visit Reasons: Follow Up Ultrasound Intake Note: Treva presents in the office as a follow up to her ultrasound. CC: would like results - she states that she is having nausea all the time. Allergies doxycycline [Doxycycline] Allergy (Intermediate, Verified 03/03/23 14:35) RASH, vomiting HPI HPI Comments History of Present Illness Details This is a 62y.o F with PMH of HCV 1b (s/p Justin with SVR), etOH use disorder, tobacco use disorder, COPD, who is here for follow up. 02/07/23: Pt was previously being seen by Dr Kelley. Has not been to our office in 2 years. Was recently seen by Hematology for leukopenia and thrombocytopenia where she was noted to have progression of her liver disease and hence referred here. Pt reports remote hx of IVDU and has been sober for many years per her report. Contracted HCV as a result which has since been treated however continues to dr alex little which has led to progression to liver disease. Also continues to smoke 1PPD. Reports significant fatigue and intermittent RUQ discomfort. Appetite is good but over the last few years has noted some weight loss. Most recent EGD was in 2019 (Dr Kelley) and no PHG or varices were noted at that time. Most recent colo was in 2017 (Dr Kelley). Had excellent prep, no polyps. Labs reviewed which were ordered by the good Dr Hess which shows negative HBV serology. Thrombocytopenia to 101 without elevated INR. Transaminases up with AST>ALT. AFP normal. An ultrasound has also been ordered and toby for this week per pt. 03/03/23: Pt being seen at her request, brings brother along. Main issues are occ fatigue and nausea but otherwise no complaints including abd pain, vomiting, unintentional weight loss. Pt also reports difficulty sleeping at night and that feels slow during day time but no obvious confusional spells, memory issues. US Abd reviewed with the pt which shows cirrhosis and chronically dilated CBD. Reports has cut down etOH significantly but still has 2-3 beers occasionally. Also continues to smoke. [facility] Medical History Nicotine dependence, cigarettes, uncomplicated Nocturnal hypoxemia Tubular adenoma of colon (~2006) Personal history of nicotine dependence History of substance abuse History of acute respiratory failure (~03/2018) Allergic rhinitis Alcohol abuse GERD (gastroesophageal reflux disease) Chronic lower back pain CHF (congestive heart failure) HTN (hypertension) Myofascial pain syndrome Obstructive sleep apnea (~2003) Hepatitis C Depression Anxiety Hypothyroidism Obesity (BMI 30-39.9) COPD (chronic obstructive pulmonary disease) Surgical History History of myringotomy History of colonoscopy History of esophagogastroduodenoscopy (EGD) Family History Father CVD (cardiovascular disease) Mother Lung cancer Social History Household Members: None Household Members Other:: lives alone Housing: House Do you presently have visiting nurse or other home services: No Alcohol intake: current Alcohol intake frequency: 3 or more drinks per day Alcohol type: beer and hard liquor Patient Tobacco Use Status: Current everyday Tobacco user Cigarette Packs Per Day: 0.5 Years Smoked: 47 e-Cigarette/Vaping Use: Never Used Second Hand Smoke Exposure: Yes Substance Use Type: Marijuana service: No Current occupational status: disabled Current occupation: rt handed Cognitive needs: No Hearing needs: No Vision needs: No Review of Systems Const All systems reviewed & are unremarkable except as noted in HPI and below Physical Exam Vital Signs: Last Vital Signs Pulse 70 03/03/23 14:27 BP 171/77 H 03/03/23 14:27 BMI result Body Mass Index 28.6 Gen Appear: NAD, undernourished HEENT: No scleral icterus, bitemporal wasting noted Chest: CTA CVS: Regular S1/S2 no murmurs Abd: soft, nontender, nondistended, no shifting dullness to percussion, bowel sounds active Ext: No peripheral edema bilaterally Neuro: A/Ox3, no asterixis Assessment & Plan Assessment & Plan (1) Cirrhosis: Code(s): K74.60 - Unspecified cirrhosis of liver (2) Hepatitis C: Code(s): B19.20 - Unspecified viral hepatitis C without hepatic coma (3) Alcohol abuse: Code(s): F10.10 - Alcohol abuse, uncomplicated (4) Nicotine dependence, cigarettes, uncomplicated: Code(s): F17.210 - Nicotine dependence, cigarettes, uncomplicated (5) Sarcopenia: Code(s): M62.84 - Sarcopenia Plan HCV and etOH related cirrhosis - MELD-Na 7 Reviewed with the pt and her brother that clinically suspected, ongoing etOH use has led to progression of liver disease to cirrhosis despite eradication of HCV. 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 Pt already booked for EGD next month. Discussed in detail with the pt the natural progression of liver disease and morbidity and mortality associated with cirrhosis noemy decompensated cirrhosis. Again, strong counseling was done for ZERO alcohol use and to work on smoking cessation as well. - Strict etOH abstinence advised to avoid further worsening of liver function and progression to decompensated cirrhosis. - She was also counseled for smoking cessation. - Agreeable to comprehensive care referral which will be requested today - EGD for variceal screening as planned - Based on hx ?? covert HE. Trial of lactulose will be Rxed, pt to report if fogginess gets better with this. - Significant muscle wasting and sarcopenia noted. Advised frequent meals noemy with high protein. Protein shakes Rxed - Transplant candidacy to be determined depending on liver function with at least 3-6 months of sobriety In terms of CRC screening, last colo was in 2017 - so not due till 2026. Follow up after endoscopy. Orders: Referrals Addiction Medicine Referral F17.210 - Nicotine dependence, cigarettes, uncomplicated, F10.10 - Alcohol abuse, uncomplicated Medications: New lactulose For goal 2-3 BMs per day 20 grams (30 mL) PO TID 3,000 mL 1RF Coding Level of Care Code Est Pt Level 5 (20316) Diagnoses Cirrhosis K74.60 Hepatitis C B19.20 Alcohol abuse F10.10 Nicotine dependence, cigarettes, uncomplicated F17.210 Sarcopenia M62.84
[2023-03-03 14:27] VITALS: BP 171/77; PULSE 70; BMI 28.6
== END 2023-03-03 15:04 | disposition home or self-care (01) ==
PROVIDERS: PCP Nurse Practitioner Family; Visit Provider Internal Medicine
DX: K74.60 Unspecified cirrhosis of liver (principal); B19.20 Unspecified viral hepatitis C without hepatic coma; F10.10 Alcohol abuse, uncomplicated; F17.210 Nicotine dependence, cigarettes, uncomplicated; M62.84 Sarcopenia
CPT/HCPCS: 99214

== ENCOUNTER → 2023-03-03 14:20 | Outpatient (BNVA) | payer MEDICARE, MEDICAID, SELFPAY | PROVIDERS: PCP Nurse Practitioner Family; Visit Provider Internal Medicine | DX: K74.60 Unspecified cirrhosis of liver (principal); M62.84 Sarcopenia; B19.20 Unspecified viral hepatitis C without hepatic coma; F17.210 Nicotine dependence, cigarettes, uncomplicated; F10.10 Alcohol abuse, uncomplicated; Z79.899 Other long term (current) drug therapy | CPT/HCPCS: 99212 ==

== ENCOUNTER → 2023-03-23 | Day surgery (SDC) | payer MEDICARE, MEDICAID, SELFPAY ==
--- NOTE | 2023-03-22 12:09 | HO.ANESPROP2 ---
HPI - Anesthesia Eval Consult details Narrative: 62yo F for Upper Endoscopy ETOH cirrhosis Smoker Suboxone daily PMFSH Active Problems Active Problems: All Active Problems (Updated 03/20/23 @ 10:46 by Asha David MD) Sarcopenia (Acute) Bicytopenia (Acute) Elevated bilirubin (Acute) Leukopenia (Acute) Thrombopenia (Acute) Callus between toes (Acute) Nicotine dependence, cigarettes, uncomplicated (Acute) Nocturnal hypoxemia (Acute) Post-menopausal (Acute) Physical exam (Acute) Lumbar spondylosis (Acute) Right knee pain (Acute) B12 deficiency (Acute) Hair loss (Acute) CHF (congestive heart failure) (Acute) HTN (hypertension) (Acute) COPD (chronic obstructive pulmonary disease) (Acute) Bronchitis (Acute) Hypothyroidism (Acute) Hepatitis C (Acute) Cirrhosis (Acute) Alcohol abuse (Acute) Constipation (Acute) GERD (gastroesophageal reflux disease) (Acute) Depression (Acute) Anxiety (Acute) Chronic lower back pain (Acute) Osteoarthritis of right knee (Acute) Allergic rhinitis (Acute) Obesity (BMI 30-39.9) (Acute) Breast pain, right (Acute) Chest skin lesion (Acute) Past Medical History Medical History Nicotine dependence, cigarettes, uncomplicated Nocturnal hypoxemia Tubular adenoma of colon (~2006) Personal history of nicotine dependence History of substance abuse History of acute respiratory failure (~03/2018) Allergic rhinitis Alcohol abuse GERD (gastroesophageal reflux disease) Chronic lower back pain CHF (congestive heart failure) HTN (hypertension) Myofascial pain syndrome Obstructive sleep apnea (~2003) Hepatitis C Depression Anxiety Hypothyroidism Obesity (BMI 30-39.9) COPD (chronic obstructive pulmonary disease) Family History Family History Father CVD (cardiovascular disease) Mother Lung cancer Surgical History Surgical History History of myringotomy History of colonoscopy History of esophagogastroduodenoscopy (EGD) Social History Social History Household Members: None Household Members Other:: lives alone Housing: House Do you presently have visiting nurse or other home services: No Alcohol intake: current Alcohol intake frequency: 3 or more drinks per day Alcohol type: beer and hard liquor Patient Tobacco Use Status: Current everyday Tobacco user Cigarette Packs Per Day: 0.5 Years Smoked: 47 e-Cigarette/Vaping Use: Never Used Second Hand Smoke Exposure: Yes Substance Use Type: Marijuana service: No Current occupational status: disabled Current occupation: rt handed Cognitive needs: No Hearing needs: No Vision needs: No Meds Allergies Allergy/AdvReac Type Severity Reaction Status Date / Time doxycycline [Doxycycline] Allergy Intermediate RASH, Verified 03/03/23 14:35 vomiting Home Medications Medication Instructions Recorded Confirmed Last Taken Type buprenorphine 8 mg-naloxone 2 mg 25 mg sublingual DAILY 04/13/21 01/18/23 Unknown History sublingual film (Suboxone) duloxetine 60 mg capsule,delayed 60 mg PO DAILY 07/28/22 01/18/23 Unknown History release Oxygen Home Use 02/07/23 Unknown History hydroxyzine HCl 10 mg tablet 10 mg PO BEDTIME 02/07/23 Unknown History Exam Exam Date and Time: March 22, 2023 1209 Pertinent Lab Results Pertinent Lab Results: Laboratory Tests 02/13/23 11:13 WBC 2.6 L Hgb 12.7 Hct 38.3 Plt Count 77 L Sodium 139 Potassium 3.7 Chloride 102 Carbon Dioxide 29 BUN 7 L Creatinine 0.64 Narrative Narrative: US abdomen complete 01/2023 IMPRESSION: Cirrhosis. Splenomegaly measuring 13 cm. Stable dilated common bile duct measuring 1.2 cm. Correlate with pattern of elevated LFTs. If there is an obstructive pattern, MRCP versus ERCP is recommended. ECHO 2019 Conclusions: - 1. Normal LV systolic and diastolic function noted on this study 2. Normal cardiac valvular Doppler 3. Normal measured RV systolic pressure 4. No gross pericardial effusion NM camila perf SPECT rest & str 2019 Impression: 1. Myocardial perfusion imaging study shows normal myocardial perfusion 2. Gated LVEF is 57% 3. Transient ischemic dilatation not present EKG is nondiagnostic for ischemia Assessment and Plan Assessment Anesthesia Assessment: Chart Reviewed
[2023-03-23 10:33] VITALS: BMI 28.5
--- NOTE | 2023-03-23 13:13 | MHC.SHP ---
Pre-Procedural Eval Section A Date of Service: 03/23/23 Section B Chief Complaint: Unspecified cirrhosis of liver Relevant Social History: Alcohol Use Present Medications: see Short Stay Collaborative assessment Medical History: Significant History (Nicotine dependence, cigarettes, uncomplicated Nocturnal hypoxemia Tubular adenoma of colon (~2006) Personal history of nicotine dependence History of substance abuse History of acute respiratory failure (~03/2018) Allergic rhinitis Alcohol abuse GERD (gastroesophageal reflux disease) Chronic lower ) History of Previous Operations: Relevant previous surgery/procedure and date(s) Allergies: Allergies Allergy/AdvReac Type Severity Reaction Status Date / Time doxycycline [Doxycycline] Allergy Intermediate RASH, Verified 03/03/23 14:35 vomiting Review of Systems Sugical H&P ROS: Negative: Constitution, Cardiovascular, Respiratory, Neurological, Psychiatric, Hem-Onc, Allergic/Immunologic, Gastrointestinal, Genitourinary, Musculoskeletal, Integumentary, Endocrine and Eyes/Ears/Nose/Throat Exam Surgical H&P Exam: Normal: HEENT, Normal: Heart, Normal: Lungs, Normal: Extremities, Normal: Abdomen, Normal: Skin and Normal: Neurological Plan Diagnosis/Plan: Unchanged I have reviewed the history and physical and performed a pertinent physical examination on my patient. No changes have occurred unless specified. Time Spent With Patient Time: Total time managing care of this patient today ____ minutes.
== END ==
PROVIDERS: PCP Nurse Practitioner Family; Visit Provider Internal Medicine Gastroenterology
DX: K74.60 Unspecified cirrhosis of liver (principal); Z53.8 Procedure and treatment not carried out for other reasons

== ENCOUNTER → 2023-03-29 12:03 | Day surgery (SDC) | payer MEDICARE, MEDICAID, SELFPAY ==
--- NOTE | 2023-03-28 13:18 | P.CONAN_ITS ---
Documented by User: Aissatou Lunsford NP 03/28/23 13:21 HPI - Anesthesia Eval Consult details Narrative: 62yo F for Upper Endoscopy ETOH cirrhosis Suboxone daily Smoker/COPD CHF KEV Not seen in [facility] Active Problems Active Problems: All Active Problems (Updated 03/20/23 @ 10:46 by Asha David MD) Sarcopenia (Acute) Bicytopenia (Acute) Elevated bilirubin (Acute) Leukopenia (Acute) Thrombopenia (Acute) Callus between toes (Acute) Nicotine dependence, cigarettes, uncomplicated (Acute) Nocturnal hypoxemia (Acute) Post-menopausal (Acute) Physical exam (Acute) Lumbar spondylosis (Acute) Right knee pain (Acute) B12 deficiency (Acute) Hair loss (Acute) CHF (congestive heart failure) (Acute) HTN (hypertension) (Acute) COPD (chronic obstructive pulmonary disease) (Acute) Bronchitis (Acute) Hypothyroidism (Acute) Hepatitis C (Acute) Cirrhosis (Acute) Alcohol abuse (Acute) Constipation (Acute) GERD (gastroesophageal reflux disease) (Acute) Depression (Acute) Anxiety (Acute) Chronic lower back pain (Acute) Osteoarthritis of right knee (Acute) Allergic rhinitis (Acute) Obesity (BMI 30-39.9) (Acute) Breast pain, right (Acute) Chest skin lesion (Acute) Past Medical History Medical History Nicotine dependence, cigarettes, uncomplicated Nocturnal hypoxemia Tubular adenoma of colon (~2006) Personal history of nicotine dependence History of substance abuse History of acute respiratory failure (~03/2018) Allergic rhinitis Alcohol abuse GERD (gastroesophageal reflux disease) Chronic lower back pain CHF (congestive heart failure) HTN (hypertension) Myofascial pain syndrome Obstructive sleep apnea (~2003) Hepatitis C Depression Anxiety Hypothyroidism Obesity (BMI 30-39.9) COPD (chronic obstructive pulmonary disease) Family History Family History Father CVD (cardiovascular disease) Mother Lung cancer Surgical History Surgical History History of myringotomy History of colonoscopy History of esophagogastroduodenoscopy (EGD) Social History Household Members: None Household Members Other:: lives alone Housing: House Do you presently have visiting nurse or other home services: No Alcohol intake: current Alcohol intake frequency: 3 or more drinks per day Alcohol type: beer and hard liquor Patient Tobacco Use Status: Current everyday Tobacco user Cigarette Packs Per Day: 1 Cigarettes Per Day: 20.0 Years Smoked: 50 e-Cigarette/Vaping Use: Never Used Second Hand Smoke Exposure: Yes Substance Use Type: Marijuana service: No Current occupational status: disabled Current occupation: rt handed Cognitive needs: No Hearing needs: No Vision needs: No Meds Allergies Allergy/AdvReac Type Severity Reaction Status Date / Time doxycycline [Doxycycline] Allergy Intermediate RASH, Verified 03/03/23 14:35 vomiting Home Medications Medication Instructions Recorded Confirmed Last Taken Type buprenorphine 8 mg-naloxone 2 mg 25 mg sublingual DAILY 04/13/21 01/18/23 Unknown History sublingual film (Suboxone) duloxetine 60 mg capsule,delayed 60 mg PO DAILY 07/28/22 01/18/23 Unknown History release Oxygen Home Use 02/07/23 Unknown History hydroxyzine HCl 10 mg tablet 10 mg PO BEDTIME 02/07/23 Unknown History Exam Exam Date and Time: March 28, 2023 1318 Pertinent Lab Results Pertinent Lab Results: Laboratory Tests 02/13/23 11:13 WBC 2.6 L Hgb 12.7 Hct 38.3 Plt Count 77 L Sodium 139 Potassium 3.7 Chloride 102 Carbon Dioxide 29 BUN 7 L Creatinine 0.64 Narrative Narrative: US abdomen complete 01/2023 IMPRESSION: Cirrhosis. Splenomegaly measuring 13 cm. Stable dilated common bile duct measuring 1.2 cm. Correlate with pattern of elevated LFTs. If there is an obstructive pattern, MRCP versus ERCP is recommended. ECHO 2019 Conclusions: - 1. Normal LV systolic and diastolic function noted on this study 2. Normal cardiac valvular Doppler 3. Normal measured RV systolic pressure 4. No gross pericardial effusion NM camila perf SPECT rest & str 2019 Impression: 1. Myocardial perfusion imaging study shows normal myocardial perfusion 2. Gated LVEF is 57% 3. Transient ischemic dilatation not present EKG is nondiagnostic for ischemia Assessment and Plan Assessment Anesthesia Assessment: Chart Reviewed Documented by User: Rodolfo Fajardo MD 04/06/23 17:02 HPI - Anesthesia Eval Consult details Narrative: 62yo F for Upper Endoscopy ETOH cirrhosis Suboxone daily Smoker/COPD CHF KEV Not seen in PAT Patient admitted to using cocaine , discussed with Dr Odonnell in detail ,procedure cancelled by him . Patient advised about the risks of using drugs and she should seek rehab. Patient alert and oriented and at this time wants to go home with brother .She would consider rehab. Further support and planning as per GI . [facility] Past Medical History Medical History Nicotine dependence, cigarettes, uncomplicated Nocturnal hypoxemia Tubular adenoma of colon (~2006) Personal history of nicotine dependence History of substance abuse History of acute respiratory failure (~03/2018) Allergic rhinitis Alcohol abuse GERD (gastroesophageal reflux disease) Chronic lower back pain CHF (congestive heart failure) HTN (hypertension) Myofascial pain syndrome Obstructive sleep apnea (~2003) Hepatitis C Depression Anxiety Hypothyroidism Obesity (BMI 30-39.9) COPD (chronic obstructive pulmonary disease) Family History Family History Father CVD (cardiovascular disease) Mother Lung cancer Family history of problems with anesthesia: No Surgical History Surgical History History of myringotomy History of colonoscopy History of esophagogastroduodenoscopy (EGD) History of Problems with Anesthesia: No Social History Household Members: None Household Members Other:: lives alone Housing: House Do you presently have visiting nurse or other home services: No Alcohol intake: current Alcohol intake frequency: 3 or more drinks per day Alcohol type: beer and hard liquor Patient Tobacco Use Status: Current everyday Tobacco user Cigarette Packs Per Day: 1 Cigarettes Per Day: 20.0 Years Smoked: 50 e-Cigarette/Vaping Use: Never Used Second Hand Smoke Exposure: Yes Substance Use Type: Marijuana service: No Current occupational status: disabled Current occupation: rt handed Cognitive needs: No Hearing needs: No Vision needs: No Meds Allergies Allergy/AdvReac Type Severity Reaction Status Date / Time doxycycline [Doxycycline] Allergy Intermediate RASH, Verified 03/03/23 14:35 vomiting Home Medications Medication Instructions Recorded Confirmed Last Taken Type buprenorphine 8 mg-naloxone 2 mg 25 mg sublingual DAILY 04/13/21 01/18/23 Unknown History sublingual film (Suboxone) duloxetine 60 mg capsule,delayed 60 mg PO DAILY 07/28/22 01/18/23 Unknown History release Oxygen Home Use 02/07/23 Unknown History hydroxyzine HCl 10 mg tablet 10 mg PO BEDTIME 02/07/23 Unknown History Assessment and Plan Final Anesthetic Review Family History of Problems with Anesthesia: No History of Problems with Anesthesia: No
--- NOTE | 2023-03-29 12:59 | P.HPSUR_ITS ---
Pre-Procedural Eval Section A Date of Service: 03/29/23 Section B Chief Complaint: Unspecified cirrhosis of liver Relevant Family History (Specify if Yes): No Relevant Social History: Alcohol Use Present Medications: see Short Stay Collaborative assessment Medical History: Significant History (Nicotine dependence, cigarettes, uncomplicated Nocturnal hypoxemia Tubular adenoma of colon (~2006) Personal h istory of nicotine dependence History of substance abuse History of acute respiratory failure (~03/2018) Allergic rhinitis Alcohol abuse GERD (gastroesophageal reflux disease) Chronic lower ) History of Previous Operations: Relevant previous surgery/procedure and date(s) (History of myringotomy History of colonoscopy History of esophagogastroduodenoscopy (EGD)) Allergies: Allergies Allergy/AdvReac Type Severity Reaction Status Date / Time doxycycline [Doxycycline] Allergy Intermediate RASH, Verified 03/03/23 14:35 vomiting Review of Systems Sugical H&P ROS: Negative: Constitution, Cardiovascular, Respiratory, Neurological, Psychiatric, Hem-Onc, Allergic/Immunologic, Gastrointestinal, Genitourinary, Musculoskeletal, Integumentary, Endocrine and Eyes/Ears/Nose/Throat Exam Surgical H&P Exam: Normal: HEENT, Normal: Heart, Normal: Lungs, Normal: Extremities, Normal: Abdomen, Normal: Skin and Normal: Neurological Plan Diagnosis/Plan: Unchanged I have reviewed the history and physical and performed a pertinent physical examination on my patient. No changes have occurred unless specified. Time Spent With Patient Time: Total time managing care of this patient today ____ minutes.
[2023-03-29 13:00] VITALS: BMI 28.3
[2023-03-29 13:01] VITALS: BP 124/54; PULSE 78; RESP 18; TEMP 36.7; O2SAT 94
[2023-03-29] MEDS: Lactated Ringers 1,000 ML 50 ML IVCONT (13:28)
--- NOTE | 2023-03-29 13:49 | W.PM.OPN ---
Operative Note Operative Note Date of Service: 03/29/23 Narrative: Procedure Description: EGD Indication: variceal screening Anesthesia: MAC FLEXIBLE TRANSORAL UPPER GASTROINTESTINAL ENDOSCOPY UPPER ENDOSCOPY Consent: Indications for the procedure and potential complications of bleeding, perforation, reaction to medications and missed diagnosis were discussed with the patient and informed consent was obtained. Instrument: Olympus GIF H 190 J mid size upper endoscope Monitoring: Vital signs and clinical assessment, continuous EKG monitoring, Pulse oximetry, Carbon Dioxide monitoring and blood pressure monitoring were done throughout the procedure. Procedure: The patient was placed in the left lateral decubitis position and pre-procedure medications were administered and a bite block was placed. The endoscope was inserted into the mouth and advanced under direct vision to the third part of duodenum. A careful inspection was made as the upper endoscope was withdrawn including a retroflexed examination of the proximal stomach; Findings and interventions are described below. Findings: Larynx:normal Esophagus: GE junction at 38 cm, diaphragm hiatus at 38 cm, no varices or esophagitis. Stomach: Patchy gastric erythema. Biopsies were obtained. Grade 2 flap valve on retroflexed examination of the cardia. Duodenum: Normal bulb and descending duodenum, bx taken Intervention: Biopsies as noted above Impression/Findings: [] PLAN: []
--- NOTE | 2023-03-29 14:40 | PC.NURSE ---
Patient seen and evaluated by dr. Tan from anesthesia and admitted to using crack cocaine today. Procedure canceled, IV removed, patient dressed, advised to seek rehab and then discharged home.
== END ==
PROVIDERS: PCP Nurse Practitioner Family; Visit Provider Internal Medicine Gastroenterology
DX: K74.60 Unspecified cirrhosis of liver (principal); Z53.09 Procedure and treatment not carried out because of other contraindication; F14.10 Cocaine abuse, uncomplicated; F11.20 Opioid dependence, uncomplicated; I11.0 Hypertensive heart disease with heart failure; I50.9 Heart failure, unspecified; J44.9 Chronic obstructive pulmonary disease, unspecified; Z99.81 Dependence on supplemental oxygen; Z79.899 Other long term (current) drug therapy; Z88.1 Allergy status to other antibiotic agents; F17.210 Nicotine dependence, cigarettes, uncomplicated
CPT/HCPCS: J3010

== ENCOUNTER 2023-05-04 15:21 | Outpatient (AMB) | payer MEDICARE, MEDICAID, SELFPAY ==
--- NOTE | 2023-05-04 15:28 | A.OFFVIS_ITS ---
Intake Vital Signs 05/04/23 15:29 Height 5 ft 2 in Weight 155 lb BMI 28.3 Intake Visit Reasons: OV-Right Knee OA, last inj 01/09/23 Intake Note: Amelia cordero 62 year old female presents today for a for a follow up of right knee OA, last injection 01/09/23. Patient reports last injection provided her relief for about 2 months. She is requesting to repeat injection. Allergies doxycycline [Doxycycline] Allergy (Intermediate, Verified 05/04/23 15:38) RASH, vomiting Medication List - Last Reconciled 05/05/23 by Marissa Barros PA-C Advair Diskus 500-50 mcg/dose (fluticasone propion-salmeterol) 1 inh inhalation BID 30 days NS albuterol sulfate 2.5 mg (3 mL) inhalation QID PRN amlodipine 10 mg PO DAILY 30 days buprenorphine-naloxone 8-2 mg (Suboxone) 25 mg sublingual DAILY cholecalciferol (vitamin D3) 50 mcg PO DAILY duloxetine 60 mg PO DAILY famotidine 20 mg PO BEDTIME fluticasone propionate 50 mcg/actuation 1 spray intranasal DAILY food supplemt, lactose-reduced (Ensure High Protein oral liquid) 1 ea PO BID 30 days gabapentin 300 mg PO BID hydroxyzine HCl 10 mg PO BEDTIME lactulose 20 grams (30 mL) PO TID levothyroxine 25 mcg PO DAILY montelukast 10 mg PO DAILY nicotine 1 patch transdermal DAILY 28 days omeprazole 40 mg PO DAILY ondansetron HCl 4 mg PO Q8H PRN 30 days Oxygen Home Use As directed Ventolin HFA 90 mcg/actuation (albuterol sulfate) 2 puffs inhalation Q4-6H PRN 30 days NS HPI OV-Right Knee OA, last inj 01/09/23 HPI Details 62-year-old female who returns to the [facility] today for a follow-up of right knee pain. She had her last injection on 01/09/23 which provided her relief for about 2 months. She would like to repeat the injection. [facility] Medical History Nicotine dependence, cigarettes, uncomplicated Nocturnal hypoxemia Tubular adenoma of colon (~2006) Personal history of nicotine dependence History of substance abuse History of acute respiratory failure (~03/2018) Allergic rhinitis Alcohol abuse GERD (gastroesophageal reflux disease) Chronic lower back pain CHF (congestive heart failure) HTN (hypertension) Myofascial pain syndrome Obstructive sleep apnea (~2003) Hepatitis C Depression Anxiety Hypothyroidism Obesity (BMI 30-39.9) COPD (chronic obstructive pulmonary disease) Surgical History History of myringotomy History of colonoscopy History of esophagogastroduodenoscopy (EGD) Family History Father CVD (cardiovascular disease) Mother Lung cancer Social History Household Members: None Household Members Other:: lives alone Housing: House Do you presently have visiting nurse or other home services: No Alcohol intake: current Alcohol intake frequency: 3 or more drinks per day Alcohol type: beer and hard liquor Comment: pt refusing bed alarm Patient Tobacco Use Status: Current everyday Tobacco user Cigarette Packs Per Day: 1 Cigarettes Per Day: 20.0 Years Smoked: 50 e-Cigarette/Vaping Use: Never Used Second Hand Smoke Exposure: Yes Substance Use Type: Marijuana service: No Current occupational status: disabled Current occupation: rt handed Cognitive needs: No Hearing needs: No Vision needs: No Review of Systems Const All systems reviewed & are unremarkable except as noted in HPI and below Physical Exam Vital Signs: BMI result Body Mass Index 28.3 Extrem Other: Right knee skin intact, no erythema or joint effusion. Tenderness along the medial joint line. Full ROM with crepitus. Negative steinmans. No ligamentous laxity. NVI. Office Procedures Joint Injection/Drain Joint Injection/Drain Primary Site: right shoulder Prep: site was prepped using aseptic technique, ethochloride spray was applied and injection warnings given Injected: 80 mg of, DepoMedrol, with 8 mL of, 1% plain lidocaine and in the joint Approach Used: anterolateral Procedure: The patient tolerated the procedure well and there was some relief with the local anesthesia Coding 15040 - Glenohumeral/Tronchanteric Bursa/Intraarticular Procedure code (CPT) selection complete Assessment & Plan Assessment & Plan (1) Osteoarthritis of right knee: Code(s): M17.11 - Unilateral primary osteoarthritis, right knee Qualifiers: Osteoarthritis type: primary Qualified Code(s): M17.11 - Unilateral primary osteoarthritis, right knee Plan We discussed options today which include steroid injection. They did consent to move forward with the right knee injection, which was tolerated well. I recommended rest, ice and elevation and OTC anti-inflammatories PRN for discomfort. If symptoms persist or worsens over the next 6-8 weeks, patient will contact the office, otherwise follow-up as needed. Patient Instructions: Scribed for Marissa Barros PA-C, by Osvaldo Martinez medical technical writer, on 05/04/2023 at 3:15 PM EST. Carrington, Marissa Barros PA-C, have personally reviewed and agree with the information entered by the scribe. Coding Level of Care Code Est Pt Level 3 (51247) Diagnoses Primary osteoarthritis of right knee M17.11 Osteoarthritis type: primary CPT Codes Coding - Joint 7: 49246 - Glenohumeral/Tronchanteric Bursa/Intraarticular ([id number])
[2023-05-04 15:29] VITALS: BMI 28.3
== END 2023-05-04 15:50 | disposition home or self-care (01) ==
PROVIDERS: PCP Nurse Practitioner Family; Visit Provider Physician Assistant
DX: M17.11 Unilateral primary osteoarthritis, right knee (principal)
CPT/HCPCS: 20610

== ENCOUNTER → 2023-05-04 15:21 | Outpatient (BNVA) | payer MEDICARE, MEDICAID, SELFPAY | PROVIDERS: PCP Nurse Practitioner Family; Visit Provider Physician Assistant | DX: M17.11 Unilateral primary osteoarthritis, right knee (principal) | CPT/HCPCS: 20610; J1040 ==

== ENCOUNTER 2023-05-18 10:34 | Outpatient (AMB) | payer MEDICARE, MEDICAID, SELFPAY ==
--- NOTE | 2023-05-18 10:41 | MHC.OFFVIS ---
Intake Vital Signs 05/18/23 10:44 Height 5 ft 2 in Weight 155 lb BMI 28.3 BP 130/61 Blood Pressure Location Lt brachial Position Sitting Pulse 62 Intake Visit Reasons: r/s from 04/17 Intake Note: Amelia presents in the office today as a follow up. CC: She states that she has not received the protein drink yet - it needs to be BOOST not ensure. She states that nothing has changed she is still having the same times and she is very fatigued and all she wants to do is sleep. 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 She did no t have EGD She is smoking at least a ppd She cut back on etoh- says she drank a beer a cou ple days ago- she says she loves dri nking beer- is dif ficult for her to stop she does not sleep at night- sl eeps all day causi ng her to be tired throughout the da y Appetite is good - taking lactulose maybe 2 x a day- BM some times QOD or QD- She is royal ing 2 1/2 films QD She has no nause a, vomiting, diarr hea, abdominal irina n, hematemesis, he mat[place]zia fever o r chills In summ marcial, reviewed Dr. David last visit in its entirety patie nt 03/03/23: Pt eliu garcia seen at her [facility], brings bro ther along. Main i ssues are occ fati rony and nausea but otherwise no comp laints including a bd pain, vomiting, unintentional romeo ght loss. Pt also reports difficulty sleeping at night and that feels s low during day ti me but no obvious confusional spells , memory issues. US Abd reviewed wi th the pt which sh ows cirrhosis and chronically dilate d CBD. Reports van s cut down etoh si gnificantly but st ill has 2-3 beers occasionally. Also continues to smok e. Plan HCV and etOH related cirrhosis - MELD- Na 7 Reviewed wi th the pt and her brother that clini gibran suspected, o ngoing etOH use van s led to progressi on of liver diseas e to cirrhosis rosie pite eradication o f HCV. Strongly deluca spect CSPH based o n thrombocytopenia and enlarged sple en. Pt already rodríguez ked for EGD next m onth. Discussed in detail with the pt the natural pr ogression of liver disease and morbi dity and mortality associated with c irrhosis noemy decom pensated cirrhosis . Again, strong co unseling was done for ZERO alcohol u se and to work on smoking cessation as well. - Stri ct etOH abstinence advised to avoid further worsening of liver function and progression to decompensated cir rhosis. - She wa s also counseled f or smoking cessati on. - Agreeable to comprehensive c are referral which will be requested today - EGD for variceal screening as planned - Bas ed on hx ?? covert HE. Trial of lact ulose will be Rxed , pt to report if fogginess gets b chalres with this. - Significant mus valery wasting and sa rcopenia noted. Ad vised frequent lorrie ls noemy with high p rotein. Protein sh akes Rxed - Roberto splant candidacy t o be determined de pending on liver f unction with at le ast 3-6 months of sobriety In term s of CRC screening , last colo was in 2016 - so not due till 2026. Foll ow up after endosc opy. [facility] Medical History Nicotine dependence, cigarettes, uncomplicated Nocturnal hypoxemia Tubular adenoma of colon (~2006) Personal history of nicotine dependence History of substance abuse History of acute respiratory failure (~03/2018) Allergic rhinitis Alcohol abuse GERD (gastroesophageal reflux disease) Chronic lower back pain CHF (congestive heart failure) HTN (hypertension) Myofascial pain syndrome Obstructive sleep apnea (~2003) Hepatitis C Depression Anxiety Hypothyroidism Obesity (BMI 30-39.9) COPD (chronic obstructive pulmonary disease) Surgical History History of myringotomy History of colonoscopy History of esophagogastroduodenoscopy (EGD) Family History Father CVD (cardiovascular disease) Mother Lung cancer Social History Household Members: None Household Members Other:: lives alone Housing: House Do you presently have visiting nurse or other home services: No Alcohol intake: current Alcohol intake frequency: 3 or more drinks per day Alcohol type: beer and hard liquor Comment: pt refusing bed alarm Patient Tobacco Use Status: Current everyday Tobacco user Cigarette Packs Per Day: 1 Cigarettes Per Day: 20.0 Years Smoked: 50 e-Cigarette/Vaping Use: Never Used Second Hand Smoke Exposure: Yes Substance Use Type: Marijuana service: No Current occupational status: disabled Current occupation: rt handed Cognitive needs: No Hearing needs: No Vision needs: No Review of Systems Card Denies chest pain and Denies dyspnea Resp Denies dyspnea GI Denies abdominal pain, Reports constipation, Denies nausea and Denies vomiting Neuro Denies confusion Psych Reports abnormal sleep pattern, Reports anxiety, Denies change in appetite, Denies confusion, Reports depression, Denies homicidal ideation and Denies suicidal ideation Physical Exam Vital Signs: Last Vital Signs Pulse 62 05/18/23 10:44 BP 130/61 05/18/23 10:44 BMI result Body Mass Index 28.3 Strong tob odor Const General: intoxicated appearing; No confusion Orientation/consciousness: No confusion Neuro General: No confusion Psych Speech and movement: Slurred speech present Affect: Labile affect present Attitude: cooperative Thought content: suicidality and no homicidality Assessment & Plan Assessment & Plan (1) Cirrhosis: Comment: Alcohol use, history HCV Code(s): K74.60 - Unspecified cirrhosis of liver Plan: REVIEWED with pt- Reviewed with the pt and her brother that clinically suspected, ongoing etOH use has led to progression of liver disease to cirrhosis despite eradication of HCV. 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 Pt already booked for EGD next month. Discussed in detail with the pt the natural progression of liver disease and morbidity and mortality associated with cirrhosis noemy decompensated cirrhosis. Again, strong counseling was done for ZERO alcohol use and to work on smoking cessation as well. - Strict etOH abstinence advised to avoid further worsening of liver function and progression to decompensated cirrhosis. - She was also counseled for smoking cessation. - Agreeable to comprehensive care referral which will be requested today - EGD for variceal screening as planned - Based on hx ?? covert HE. Trial of lactulose will be Rxed, pt to report if fogginess gets better with this. - Significant muscle wasting and sarcopenia noted. Advised frequent meals noemy with high protein. Protein shakes Rxed - Transplant candidacy to be determined depending on liver function with at least 3-6 months of sobriety In terms of CRC screening, last colo was in 2016 - so not due till 2026. Follow up after endoscopy. (2) Alcohol abuse: Comment: Reports she has reduced alcohol intake, however I am not certain that this is the case EGD with Dr. David, reviewed procedure, indication, need for escort-importance of no alcohol or recreational drug use Code(s): F10.10 - Alcohol abuse, uncomplicated Plan: Abstain from alcohol, reinforce risks she undertake Reviewed and reinforced plan from Plan EGD with Dr. CHEO burton- pt needs to be texted [id number] Abstain from alcohol Smoking cessation Lactulose Patient Instructions: EGD with Dr. CHEO burton- pt needs to be texted [id number] Abstain from alcohol-recreational drugs Smoking cessation Continue lactulose as prescribed No major barriers to understanding were attempt Coding Level of Care Code Est Pt Level 4 (68458) Diagnoses Cirrhosis K74.60 Alcohol abuse F10.10 Time Spent (min) 40
[2023-05-18 10:44] VITALS: BP 130/61; PULSE 62; BMI 28.3
== END 2023-05-18 12:45 | disposition home or self-care (01) ==
PROVIDERS: PCP Nurse Practitioner Family; Visit Provider Physician Assistant
DX: K74.60 Unspecified cirrhosis of liver (principal); F10.10 Alcohol abuse, uncomplicated
CPT/HCPCS: 99214

== ENCOUNTER → 2023-05-18 10:34 | Outpatient (BNVA) | payer MEDICARE, MEDICAID, SELFPAY | PROVIDERS: PCP Nurse Practitioner Family; Visit Provider Physician Assistant | DX: K74.60 Unspecified cirrhosis of liver (principal); F10.10 Alcohol abuse, uncomplicated | CPT/HCPCS: 99212 ==

== ENCOUNTER 2023-07-04 09:32 | Outpatient (REF) | payer MEDICARE, MEDICAID, SELFPAY ==
--- NOTE | ~2023-07-04 | US_ITS ---
EXAMINATION: US ABDOMEN LIMITED CLINICAL INFORMATION: Alcohol abuse, uncomplicated. COMPARISON: Abdominal ultrasound 02/10/2023 TECHNIQUE: Real-time imaging of the 4 quadrants of the abdomen FINDINGS: Ultrasound of the right upper quadrant, right lower quadrant, left upper quadrant and left lower quadrant demonstrates no evidence of ascites. US/US abdomen limited IMPRESSION: No ascites is demonstrated within the 4 quadrants of the abdomen.
== END 2023-07-04 09:33 | disposition home or self-care (01) ==
LOC: HO.HMGCX 09:32
PROVIDERS: PCP Nurse Practitioner Family; Visit Provider Nurse Practitioner Family
DX: F10.10 Alcohol abuse, uncomplicated (principal); K74.60 Unspecified cirrhosis of liver
CPT/HCPCS: 76705

== ENCOUNTER 2023-07-12 11:34 | Outpatient (AMB) | payer MEDICARE, MEDICAID, SELFPAY ==
--- NOTE | 2023-07-12 12:10 | AM.OFFWIN_ITS ---
Intake Vital Signs 07/12/23 12:11 Height 5 ft 2 in Weight 163 lb 2 oz BMI 29.8 BP 148/68 H Blood Pressure Location Lt brachial Position Sitting Pulse 72 Pulse Source Pulse Oximeter Temp 98.1 F Temp Source Oral Pulse Oximetry (%) 98 Oxygen Delivery Method Room Air Intake Visit Reasons: EP LFT eye swollen [phone] Patient Tobacco Use Status: Current everyday Tobacco user Allergies doxycycline [Doxycycline] Allergy (Intermediate, Verified 07/12/23 12:10) RASH, vomiting Medication List - Last Reconciled 07/12/23 by Daniel Bernard MD Advair Diskus 500-50 mcg/dose (fluticasone propion-salmeterol) 1 inh inhalation BID 30 days NS albuterol sulfate 2.5 mg (3 mL) inhalation QID PRN amlodipine 10 mg PO DAILY 30 days buprenorphine-naloxone 8-2 mg (Suboxone) 25 mg sublingual DAILY cholecalciferol (vitamin D3) 50 mcg PO DAILY duloxetine 60 mg PO DAILY famotidine 20 mg PO BEDTIME fluticasone propionate 50 mcg/actuation 1 spray intranasal DAILY food supplemt, lactose-reduced (Ensure High Protein oral liquid) 1 ea PO BID 30 days hydroxyzine HCl 10 mg PO BEDTIME lactulose (Enulose) PO levothyroxine 25 mcg PO DAILY montelukast 10 mg PO DAILY nicotine 1 patch transdermal DAILY 28 days omeprazole 40 mg PO DAILY ondansetron HCl 4 mg PO Q8H PRN 30 days Oxygen Home Use As directed Ventolin HFA 90 mcg/actuation (albuterol sulfate) 2 puffs inhalation Q4-6H PRN 30 days NS HPI EP LFT eye swollen [id number] HPI Details Patient is 62-year-old female came in today due to having inflamed left eye Patient says that 3 days ago she used out dated mascara and after that she started having swelling a itching on her upper eyelid Which is not getting better. On examination she does have inflamed eyelid left side, conjunctiva is also slightly injected Cornea is clear, pupils reactive to light, no photophobia She said she will not use anymore I makeup. I have sent Polytrim eyedrops for the patient Patient need to follow up with primary care [facility] Medical History Nicotine dependence, cigarettes, uncomplicated Nocturnal hypoxemia Tubular adenoma of colon (~2006) Personal history of nicotine dependence History of substance abuse History of acute respiratory failure (~03/2018) Allergic rhinitis Alcohol abuse GERD (gastroesophageal reflux disease) Chronic lower back pain CHF (congestive heart failure) HTN (hypertension) Myofascial pain syndrome Obstructive sleep apnea (~2003) Hepatitis C Depression Anxiety Hypothyroidism Obesity (BMI 30-39.9) COPD (chronic obstructive pulmonary disease) Surgical History History of myringotomy History of colonoscopy History of esophagogastroduodenoscopy (EGD) Family History Father CVD (cardiovascular disease) Mother Lung cancer Social History Household Members: None Household Members Other:: lives alone Housing: House Do you presently have visiting nurse or other home services: No Alcohol intake: current Alcohol intake frequency: 3 or more drinks per day Alcohol type: beer and hard liquor Comment: pt refusing bed alarm Patient Tobacco Use Status: Current everyday Tobacco user Cigarette Packs Per Day: 1 Cigarettes Per Day: 20.0 Years Smoked: 50 e-Cigarette/Vaping Use: Never Used Second Hand Smoke Exposure: Yes Substance Use Type: Marijuana service: No Current occupational status: disabled Current occupation: rt handed Cognitive needs: No Hearing needs: No Vision needs: No Review of Systems Const All systems reviewed & are unremarkable except as noted in HPI and below Physical Exam Vital Signs: Last Vital Signs Temp 98.1 F 07/12/23 12:11 Pulse 72 07/12/23 12:11 BP 148/68 H 07/12/23 12:11 Pulse Ox 98 07/12/23 12:11 Oxygen Delivery Method Room Air 07/12/23 12:11 BMI result Body Mass Index 29.8 Const General: no acute distress Orientation/consciousness: patient oriented x3 Eyes Other: Left upper eyelid swollen, conjunctiva clear with slight injection medially, no discharge noticed, cornea clear, pupils reactive to light, no pain with palpation Resp Effort & Inspection: normal respiratory effort and able to speak in complete sentences Auscultation: clear to auscultation bilaterally Neuro General: patient oriented x3 Psych Mental Status: mental status grossly normal Assessment & Plan Assessment & Plan (1) Acute blepharitis: Code(s): H01.009 - Unspecified blepharitis unspecified eye, unspecified eyelid Plan Patient is 62-year-old female came in today due to having inflamed left eye Patient says that 3 days ago she used out dated mascara and after that she started having swelling a itching on her upper eyelid Which is not getting better. On examination she does have inflamed eyelid left side, conjunctiva is also slightly injected Cornea is clear, pupils reactive to light, no photophobia She said she will not use anymore I makeup. I have sent Polytrim eyedrops for the patient Patient need to follow up with primary care Medications: New polymyxin B sulf-trimethoprim 10,000 unit- 1 mg/mL while awake; do not exceed 6 doses in 24 hours 1 drp ophthalmic (eye) QID 5 days 10 mL 0RF Coding Level of Care Code Est Pt Level 3 (45078) Diagnoses Acute blepharitis H01.009
--- NOTE | 2023-07-12 12:10 | MHC.OFFWIV ---
Intake Vital Signs 07/12/23 12:11 Height 5 ft 2 in Weight 163 lb 2 oz BMI 29.8 BP 148/68 H Blood Pressure Location Lt brachial Position Sitting Pulse 72 Pulse Source Pulse Oximeter Temp 98.1 F Temp Source Oral Pulse Oximetry (%) 98 Oxygen Delivery Method Room Air Intake Visit Reasons: EP LFT eye swollen [id number] Patient Tobacco Use Status: Current everyday Tobacco user Allergies doxycycline [Doxycycline] Allergy (Intermediate, Verified 07/12/23 12:10) RASH, vomiting Do you need a note to return to daycare/school/sports/work: No PFSH Medical History Nicotine dependence, cigarettes, uncomplicated Nocturnal hypoxemia Tubular adenoma of colon (~2006) Personal history of nicotine dependence History of substance abuse History of acute respiratory failure (~03/2018) Allergic rhinitis Alcohol abuse GERD (gastroesophageal reflux disease) Chronic lower back pain CHF (congestive heart failure) HTN (hypertension) Myofascial pain syndrome Obstructive sleep apnea (~2003) Hepatitis C Depression Anxiety Hypothyroidism Obesity (BMI 30-39.9) COPD (chronic obstructive pulmonary disease) Surgical History History of myringotomy History of colonoscopy History of esophagogastroduodenoscopy (EGD) Family History Father CVD (cardiovascular disease) Mother Lung cancer Social History Household Members: None Household Members Other:: lives alone Housing: House Do you presently have visiting nurse or other home services: No Alcohol intake: current Alcohol intake frequency: 3 or more drinks per day Alcohol type: beer and hard liquor Comment: pt refusing bed alarm Patient Tobacco Use Status: Current everyday Tobacco user Cigarette Packs Per Day: 1 Cigarettes Per Day: 20.0 Years Smoked: 50 e-Cigarette/Vaping Use: Never Used Second Hand Smoke Exposure: Yes Substance Use Type: Marijuana service: No Current occupational status: disabled Current occupation: rt handed Cognitive needs: No Hearing needs: No Vision needs: No Coding
[2023-07-12 12:11] VITALS: BP 148/68; PULSE 72; TEMP 36.7; O2SAT 98; BMI 29.8
== END 2023-07-12 13:14 | disposition home or self-care (01) ==
PROVIDERS: PCP Nurse Practitioner Family; Visit Provider Internal Medicine
DX: H01.004 Unspecified blepharitis left upper eyelid (principal)
CPT/HCPCS: 99213

== ENCOUNTER → 2023-07-21 14:45 | Outpatient (REF) | payer MEDICARE, MEDICAID, SELFPAY ==
--- NOTE | 2023-07-21 14:48 | CA_ITS ---
Transthoracic Echocardiogram Patient (Last, First, Middle): Amelia Tran J Gender: Female Date of : 1960 Age: 62 Procedure Date: 07/21/2023 Procedure Type: Transthoracic Echocardiogram Location: OP Height: 157.48 cm Weight: 77.11 kg BSA: 1.78 m2 Heart Rate: 78 bpm Online Content Developer: DARYL Referring MD: James Pompa [facility]- Symptoms: I50.9 - Heart failure, unspecified Study Quality: Fair/No definity due to transportation waiting ECG Rhythm: Sinus Conclusions: - Normal left ventricular size and systolic function. There is mildly increased left ventricular wall thickness. The visually estimated ejection fraction is between 60-65%. - Spectral Doppler is indicative of an impaired relaxation filling pattern. Elevated filling pressures. - Normal right ventricular cavity size and systolic function. - The left atrium is likely dilated. The right atrium is mildly dilated. Findings Procedure Information The quality of the study was technically difficult. The study quality is limited by lung artifact. Left Ventricle Normal left ventricular size and systolic function. There is mildly increased left ventricular wall thickness. The visually estimated ejection fraction is between 60-65%. There is no evidence of regional wall motion abnormalities. Abnormal diastolic function is noted. Spectral Doppler is indicative of an impaired relaxation filling pattern. Elevated filling pressures. Right Ventricle Normal right ventricular cavity size and systolic function. Atria The left atrium is likely dilated. The right atrium is mildly dilated. Aortic Valve Normal aortic valve structure and function. There is no aortic valve stenosis. There is no aortic valve regurgitation. Mitral Valve The mitral valve appears normal. There is trace mitral valve regurgitation. There is no mitral valve stenosis. Pulmonic Valve The pulmonic valve is likely normal. Tricuspid Valve Likely normal tricuspid valve structure and function. Tricuspid regurgitation envelope is inadequate for calculation of right ventricular systolic pressure. Normal right atrial pressure. Great Vessels All visible segments of the aorta are normal in size. The visualized portions of the pulmonary artery and branches are normal. Venous The inferior vena cava is normal in size and collapses greater than 50% with inspiration. Pericardium/Pleural There is no evidence of pericardial effusion. Prior Study Comparison Changes noted compared to prior study dated: 03/13/2020. Elevated filling pressures Measurements 2D Linear Measurements IVSd: 0.98 0.6-0.9/0.6-1.0 cm LVIDd: 5.09 3.9-5.3/4.2-5.9 cm LVIDd Index: 2.86 2.4-3.2/2.2-3.1 cm/m2 LVIDs: 2.98 2.0-3.6 cm LVPWd: 0.97 0.7-1.1 cm LA Diam: 4.40 2.7-3.8/3.0-4.0 cm LAIDs Index: 2.47 1.5-2.3 cm/m2 LV Mass: 226.19 67-162/88-224 g LV Mass Index: 127.07 43-95/49-115 g/m2 LVOT Diam: 1.70 3.0+(-)1.3 cm Mitral Valve MV Pk E: 0.98 MV PK A: 0.59 MV Decel Time: 206.00 E/A: 1.70 E'Lateral: 4.90 E'Medial: 5.33 E/E' Med: 18.40 E/E' Lat: 20.00 PHT: 60.00 MVA PHT: 3.67 Decel Cloud: 4.76 MR VTI: 1.72 Aortic Valve AoV Pk Jonnie: 1.70 AoV Mn Jonnie: 1.17 AoV VTI: 0.36 AoV Pk Grad: 12.00 Aov Mn Grad: 6.00 GLORIA Cont.VTI: 2.12 GLORIA: 2.49 LVOT LVOT Pk Jonnie: 1.65 LVOT Mn Jonnie: 1.14 LVOT VTI: 0.33 LVOT Pk Grad: 11.00 LVOT Mn Grad: 6.00 LVOT Diam: 1.70 LVOT Area: 2.27 Diastolic Function MV Pk E: 0.98 MV Pk A: 0.59 E/A: 1.70 E'Medial: 5.33 E/E' Med: 18.40 E' Laterial: 4.90 E/E' Lat: 20.00 Right Ventricle TAPSE (mm): 30.40 TVS' Jonnie: 20.00 Tricuspid Valve RA Press: 3.00 Great Vessels Aorta Sinus of Valsalva: 2.50 2.0-3.5 cm Ao Asc: 2.70 2.1-3.4 cm Pulmonary Valve PV Pk Jonnie: 1.22 Peak PV Grad: 6.00 Updated in Other Vendor System with Status of Final Ramiro Dale MD electronically signed on 07/23/2023 7:49:23 PM with status of Final
== END ==
LOC: HO.CARD 14:45
PROVIDERS: PCP Nurse Practitioner Family; Visit Provider Nurse Practitioner Family
DX: I50.9 Heart failure, unspecified (principal); R01.1 Cardiac murmur, unspecified
CPT/HCPCS: 93306

== ENCOUNTER → 2023-07-21 14:48 | Outpatient (BNV) | payer MEDICARE, MEDICAID, SELFPAY | PROVIDERS: PCP Nurse Practitioner Family; Visit Provider Internal Medicine Cardiovascular Disease | DX: I50.9 Heart failure, unspecified (principal); R01.1 Cardiac murmur, unspecified | CPT/HCPCS: 93306 ==

== ENCOUNTER 2023-08-01 11:05 | Outpatient (AMB) | payer MEDICARE, MEDICAID, SELFPAY ==
[2023-08-01 11:24] VITALS: BP 120/60; PULSE 67; O2SAT 95; BMI 30.4
--- NOTE | 2023-08-01 11:24 | A.OFFVIS_ITS ---
Intake Vital Signs 08/01/23 11:24 Height 5 ft 2 in Weight 166 lb 7.184 oz BMI 30.4 BP 120/60 Blood Pressure Location Lt brachial Position Sitting Pulse 67 Pulse Source Pulse Oximeter Pulse Oximetry (%) 95 Oxygen Delivery Method Room Air Intake Visit Reasons: COPD Intake Note: pt is here for follow up and states she is short of breath with exertion, even just sitting she feels short of breath. Station Installer Required: No Allergies doxycycline [Doxycycline] Allergy (Intermediate, Verified 08/01/23 12:06) RASH, vomiting Medication List - Last Reconciled 08/01/23 by Alexandra Thao MD Advair Diskus 500-50 mcg/dose (fluticasone propion-salmeterol) 1 inh inhalation BID 30 days NS albuterol sulfate 2.5 mg (3 mL) inhalation QID PRN amlodipine 10 mg PO DAILY 30 days buprenorphine-naloxone 8-2 mg (Suboxone) 25 mg sublingual DAILY cholecalciferol (vitamin D3) 50 mcg PO DAILY duloxetine 60 mg PO DAILY famotidine 20 mg PO BEDTIME fluticasone propionate 50 mcg/actuation 1 spray intranasal DAILY food supplemt, lactose-reduced (Ensure High Protein oral liquid) 1 ea PO BID 30 days hydroxyzine HCl 10 mg PO BEDTIME lactulose (Enulose) PO levothyroxine 25 mcg PO DAILY montelukast 10 mg PO DAILY nicotine 1 patch transdermal DAILY 28 days omeprazole 40 mg PO DAILY ondansetron HCl 4 mg PO Q8H PRN 30 days Oxygen Home Use As directed polymyxin B sulf-trimethoprim 10,000 unit- 1 mg/mL 1 drp ophthalmic (eye) QID 5 days Ventolin HFA 90 mcg/actuation (albuterol sulfate) 2 puffs inhalation Q4-6H PRN 30 days NS Do you need a note to return to daycare/school/sports/work: No HPI COPD HPI Details THIS 62 YEARS OLD FEMALE LONG-TIME SMOKER, WITH DIAGNOSIS OF COPD, COMES AFTER 4 MONTHS FOR FOLLOW-UP. SHE IS TRYING TO QUIT SMOKING AND IS NOW DOWN TO 3-4 CIGARETTES A DAY. STILL CONTINUES TO HAVE INTERMITTENT COUGH AND GETS SHORT OF BREATH VERY EASILY ON WALKING. FEELS TIRED, DOES NOT SLEEP MUCH AT NIGHT, SO SLEEPS FREQUENTLY DURING THE DAYTIME. SHE DOES USE O2 2 L/MINUTE AT NIGHT. [facility] Medical History Nicotine dependence, cigarettes, uncomplicated Nocturnal hypoxemia Tubular adenoma of colon (~2006) Personal history of nicotine dependence History of substance abuse History of acute respiratory failure (~03/2018) Allergic rhinitis Alcohol abuse GERD (gastroesophageal reflux disease) Chronic lower back pain CHF (congestive heart failure) HTN (hypertension) Myofascial pain syndrome Obstructive sleep apnea (~2003) Hepatitis C Depression Anxiety Hypothyroidism Obesity (BMI 30-39.9) COPD (chronic obstructive pulmonary disease) Surgical History History of myringotomy History of colonoscopy History of esophagogastroduodenoscopy (EGD) Family History Father CVD (cardiovascular disease) Mother Lung cancer Social History Household Members: None Household Members Other:: lives alone Housing: House Do you presently have visiting nurse or other home services: No Alcohol intake: current Alcohol intake frequency: 3 or more drinks per day Alcohol type: beer and hard liquor Comment: pt refusing bed alarm Patient Tobacco Use Status: Current everyday Tobacco user Cigarette Packs Per Day: 0.5 Cigarettes Per Day: 5 Years Smoked: 50 e-Cigarette/Vaping Use: Never Used Second Hand Smoke Exposure: Yes Substance Use Type: Marijuana service: No Current occupational status: disabled Current occupation: rt handed Cognitive needs: No Hearing needs: No Vision needs: No Review of Systems Const All systems reviewed & are unremarkable except as noted in HPI and below Eyes Reports no additional complaints ENT Reports nasal congestion (Intermittent) Card Denies chest pain, Denies irregular heart rhythm, Denies leg edema and Reports dyspnea on exertion Resp Reports as per HPI, Reports cough (Frequent) and Reports dyspnea on exertion GI Reports heartburn (Controlled with famotidine) Reports no additional complaints Musc Reports back pain and Reports myalgias Skin/Breast Reports system reviewed and no additional complaints, except as documented Neuro Reports no additional complaints Psych Reports anxiety Endo Reports no additional complaints Physical Exam Vital Signs: Last Vital Signs Pulse 67 08/01/23 11:24 BP 120/60 08/01/23 11:24 Pulse Ox 95 08/01/23 11:24 Oxygen Delivery Method Room Air 08/01/23 11:24 BMI result Body Mass Index 30.4 Const General: comfortable, no acute distress, alert and awake Orientation/consciousness: patient oriented x3 HEENT Head: Yes normal to inspection General nose exam: No nasal polyps present, No nasal discharge present and Other nasal findings present (Mild nasal congestion especially on the right side) Face and sinus: Yes sinuses nontender Mouth: oropharynx normal Throat: Yes posterior oropharynx normal Eyes General: appearance normal, both eyes and all related structures Neck Neck: Yes normal visual inspection, Yes no lymphadenopathy, Yes trachea midline and Yes no JVD Thyroid: Thyroid normal Chest Chest palpation & inspection: normal inspection of the chest, normal palpation of entire chest wall and no tenderness Resp Other: Percussion note is resonant, breath sounds are equal on both sides, distant with prolonged expiratory phase. No wheezes or rhonchi are heard today. But she does get cough on taking deep breath. Cardio Palpation: normal PMI Rate: regular rate Rhythm: regular rhythm Heart sounds: no gallops and no murmurs Peripheral pulses: Peripheral pulses 2+ throughout GI Palpation (GI): Soft to palpation, nontender, No hepatosplenomegaly present and no masses Auscultation: normal bowel sounds Back/Spine/Pelvis Thoracic/Lumbar Spine: thoracic and lumbar spine normal to inspection, thoraco- lumbar ROM limited and thoraco-lumbar spasm Skin General skin exam: no rashes or lesions noted Neuro General: patient oriented x3 and no focal motor deficits Cranial nerves: Yes CN's II-XII intact bilaterally Extrem General: Yes normal to inspection, Yes no clubbing, cyanosis or edema and Yes no calf tenderness Psych Appearance: grossly normal and well kempt Speech and movement: Normal speech and movement present Assessment & Plan Assessment & Plan (1) COPD (chronic obstructive pulmonary disease): Comment: (COPD, stable, secondary to chronic bronchitis and smoking) Code(s): J44.9 - Chronic obstructive pulmonary disease, unspecified Qualifiers: COPD type: COPD with acute exacerbation Qualified Code(s): J44.1 - Chronic obstructive pulmonary disease with (acute) exacerbation Plan: Advised to continue using her current regimen : Advair 500-50 1 inhalation b.i.d. Proair HFA 2 puffs q 4-6 Hrs PRN . She also has the nebulizer at home . Advised to use the albuterol in nebulizer only for acute emergencies wheezing and distress (2) Allergic rhinitis: Comment: Mild, intermittent, well controlled with the use of current meds : Code(s): J30.9 - Allergic rhinitis, unspecified Plan: TX : Montelukast 10 mg daily Also use fluticasone-50 2 sprays each nostril daily. (3) Nocturnal hypoxemia: Comment: Patient is a known case of nocturnal hypoxemia which is corrected by using oxygen 2 L/minute Code(s): G47.34 - Idiopathic sleep related nonobstructive alveolar hypoventilation Plan: CONTINUE USING O2 2 L/MINUTE AT NIGHT (4) Nicotine dependence, cigarettes, uncomplicated: Comment: PATIENT HAS HISTORY OF HEAVY SMOKING THROUGHOUT HER ADULT LIFE. HAS USE NICOTINE PATCHES IN THE PAST SMOKING DOWN TO 3-4 CIGARETTES. A DAY AT PRESENT Code(s): F17.210 - Nicotine dependence, cigarettes, uncomplicated Plan: ENCOURAGED TO CONTINUE CUTTING DOWN THE NUMBER OF CIGARETTES WITH THE GOAL TO QUIT IN THE NEAR FUTURE. SHE IS ALSO PARTICIPATING IN ANNUAL LUNG SCREENING PROGRAM. Coding Level of Care Code Est Pt Level 3 (39307) Diagnoses COPD (chronic obstructive pulmonary disease) J44.1 COPD type: COPD with acute exacerbation Allergic rhinitis J30.9 Nocturnal hypoxemia G47.34 Nicotine dependence, cigarettes, uncomplicated F17.210
== END 2023-08-01 11:58 | disposition home or self-care (01) ==
PROVIDERS: PCP Nurse Practitioner Family; Visit Provider Internal Medicine
DX: J44.1 Chronic obstructive pulmonary disease with (acute) exacerbation (principal); J30.9 Allergic rhinitis, unspecified; G47.34 Idiopathic sleep related nonobstructive alveolar hypoventilation; F17.210 Nicotine dependence, cigarettes, uncomplicated
CPT/HCPCS: 99213

== ENCOUNTER → 2023-08-01 11:05 | Outpatient (BNVA) | payer MEDICARE, MEDICAID, SELFPAY | PROVIDERS: PCP Nurse Practitioner Family; Visit Provider Internal Medicine | DX: J44.1 Chronic obstructive pulmonary disease with (acute) exacerbation (principal); J30.9 Allergic rhinitis, unspecified; G47.34 Idiopathic sleep related nonobstructive alveolar hypoventilation; F17.210 Nicotine dependence, cigarettes, uncomplicated; Z71.6 Tobacco abuse counseling | CPT/HCPCS: 99212 ==

== ENCOUNTER 2023-08-02 05:57 | Outpatient (REF) | payer MEDICARE, MEDICAID, SELFPAY ==
--- NOTE | ~2023-08-02 | XR_ITS ---
EXAMINATION: XR KNEE, RIGHT CLINICAL INFORMATION: Knee pain COMPARISON: 09/12/2019 TECHNIQUE: Four views of the right knee. FINDINGS: On standing knee view, left knee is higher than the right. Minimal left medial knee joint narrowing. Right tricompartment sparing and moderate medial knee joint narrowing. Interval development of mixed sclerotic and lucent process tibial plateau, medial to midline. Small right suprapatellar effusion. No fracture or dislocation. Unchanged chronic appearing deformity proximal left femur. XR/XR knee RT 3V IMPRESSION: Small right suprapatellar effusion. Moderate degenerative type changes right knee and minimal degenerative changes left knee. Interval development of right tibial plateau mixed lucent and sclerotic process. Consider cross-sectional imaging.
== END 2023-08-02 05:58 | disposition home or self-care (01) ==
LOC: HO.HOSX 05:57
PROVIDERS: Visit Provider Physician Assistant
DX: M25.561 Pain in right knee (principal)
CPT/HCPCS: 73562

== ENCOUNTER 2023-08-11 09:26 | Outpatient (AMB) | payer MEDICARE, MEDICAID, SELFPAY ==
[2023-08-11 09:30] VITALS: BMI 30.4
--- NOTE | 2023-08-11 09:30 | A.OFFVIS_ITS ---
Intake Vital Signs 08/11/23 09:30 Height 5 ft 2 in Weight 166 lb BMI 30.4 Intake Visit Reasons: OV-right knee OA Intake Note: Amelia cordero 62 year old female presents today for a for a follow up of right knee OA, last injection 05/04/23 states provided relief until a few weeks ago and would like to repeat. Allergies doxycycline [Doxycycline] Allergy (Intermediate, Verified 08/11/23 09:55) RASH, vomiting HPI OV-right knee OA HPI Details 62-year-old female who returns to the [facility] today for a follow-up of right knee pain. She had her last injection on 05/04/23 which provided her relief until a few weeks ago. She would like to repeat the injection today. [facility], [facility] Medical History Nicotine dependence, cigarettes, uncomplicated Nocturnal hypoxemia Tubular adenoma of colon (~2006) Personal history of nicotine dependence History of substance abuse History of acute respiratory failure (~03/2018) Allergic rhinitis Alcohol abuse GERD (gastroesophageal reflux disease) Chronic lower back pain CHF (congestive heart failure) HTN (hypertension) Myofascial pain syndrome Obstructive sleep apnea (~2003) Hepatitis C Depression Anxiety Hypothyroidism Obesity (BMI 30-39.9) COPD (chronic obstructive pulmonary disease) Surgical History History of myringotomy History of colonoscopy History of esophagogastroduodenoscopy (EGD) Family History Father CVD (cardiovascular disease) Mother Lung cancer Social History Household Members: None Household Members Other:: lives alone Housing: House Do you presently have visiting nurse or other home services: No Alcohol intake: current Alcohol intake frequency: 3 or more drinks per day Alcohol type: beer and hard liquor Comment: pt refusing bed alarm Patient Tobacco Use Status: Current everyday Tobacco user Cigarette Packs Per Day: 0.5 Cigarettes Per Day: 5 Years Smoked: 50 e-Cigarette/Vaping Use: Never Used Second Hand Smoke Exposure: Yes Substance Use Type: Marijuana service: No Current occupational status: disabled Current occupation: rt handed Cognitive needs: No Hearing needs: No Vision needs: No Review of Systems Const All systems reviewed & are unremarkable except as noted in HPI and below Physical Exam Vital Signs: BMI result Body Mass Index 30.4 Extrem Other: Right knee: Skin intact, no erythema or joint effusion. Tenderness along the medial and lateral joint line. Full ROM with crepitus. Negative Shikha?s. No ligamentous laxity. NVI. Office Procedures Joint Injection/Drain Joint Injection/Drain Primary Site: right knee Prep: site was prepped using aseptic technique, ethochloride spray was applied and injection warnings given Injected: 80 mg of, DepoMedrol, with 8 mL of, 1% plain lidocaine and in the joint Approach Used: anterolateral Procedure: The patient tolerated the procedure well and there was some relief with the local anesthesia Coding - Glenohumeral/Tronchanteric Bursa/Intraarticular Procedure code (CPT) selection complete Assessment & Plan Assessment & Plan (1) Right knee pain: Code(s): M25.561 - Pain in right knee Qualifiers: Chronicity: chronic Qualified Code(s): M25.561 - Pain in right knee; G89.29 - Other chronic pain (2) Osteoarthritis of right knee: Code(s): M17.11 - Unilateral primary osteoarthritis, right knee Qualifiers: Osteoarthritis type: primary Qualified Code(s): M17.11 - Unilateral primary osteoarthritis, right knee Plan We discussed options today which include steroid injection. They did consent to move forward with the right knee injection, which was tolerated well. I recommended rest, ice and elevation and OTC anti-inflammatories PRN for discomfort. If symptoms persist or worsens over the next 6-8 weeks, patient will contact the office, otherwise follow-up as needed. Patient Instructions: Scribed for Marissa Barros PA-C, by Osvaldo Martinez medical device sales representative, on 08/11/2023 at 9:45 AM TYLER. Marissa Shultz PA-C, have personally reviewed and agree with the information entered by the scribe. Coding Level of Care Code Est Pt Level 3 (27990) Diagnoses Chronic pain of right knee M25.561; G89.29 Chronicity: chronic Primary osteoarthritis of right knee M17.11 Osteoarthritis type: primary CPT Codes Coding - Joint 7: 19618 - Glenohumeral/Tronchanteric Bursa/Intraarticular ([id number])
== END 2023-08-11 10:13 | disposition home or self-care (01) ==
PROVIDERS: PCP Nurse Practitioner Family; Visit Provider Physician Assistant
DX: M17.11 Unilateral primary osteoarthritis, right knee (principal); G89.29 Other chronic pain
CPT/HCPCS: 20610; 99213

== ENCOUNTER → 2023-08-11 09:26 | Outpatient (BNVA) | payer MEDICARE, MEDICAID, SELFPAY | PROVIDERS: PCP Nurse Practitioner Family; Visit Provider Physician Assistant | DX: M17.11 Unilateral primary osteoarthritis, right knee (principal) | CPT/HCPCS: 20610; 99212; J1040 ==

== ENCOUNTER 2023-08-21 15:16 | Outpatient (AMB) | payer MEDICARE, MEDICAID, SELFPAY ==
--- NOTE | 2023-08-21 15:16 | A.OFFVIS_ITS ---
Intake Vital Signs 08/21/23 15:20 Height 5 ft 2 in Weight 166 lb BMI 30.4 BP 181/81 H Blood Pressure Location Lt brachial Position Sitting Pulse 69 Intake Visit Reasons: pt req appointment Intake Note: Amelia presents in the office as a follow up. CC: wants to be put back on Vit b12 because she has a loss of energy - she states that she keeps losing her voice and at one point she was having severe itchiness for a few days. She states that she needs a refill on the boost drinks. Legal Arbitrator Required: No Allergies doxycycline [Doxycycline] Allergy (Intermediate, Verified 08/21/23 15:18) RASH, vomiting HPI HPI Comments History of Present Illness Details This is a 62y.o F with PMH of HCV 1b (s/p Justin with SVR), etOH use disorder, tobacco use disorder, COPD, who is here for follow up. 02/07/23: Pt was previously being seen by Dr Kelley. Has not been to our office in 2 years. Was recently seen by Hematology for leukopenia and thrombocytopenia where she was noted to have progression of her liver disease and hence referred here. Pt reports remote hx of IVDU and has been sober for many years per her report. Contracted HCV as a result which has since been treated however continues to drink heavily which has led to progression to liver disease. Also continues to smoke 1PPD. Reports significant fatigue and intermittent RUQ discomfort. Appetite is good but over the last few years has noted some weight loss. Most recent EGD was in 2019 (Dr Kelley) and no PHG or varices were noted at that time. Most recent colo was in 2017 (Dr Kelley). Had excellent prep, no polyps. Labs reviewed which were ordered by the anel Hess which shows negative HBV serology. Thrombocytopenia to 101 without elevated INR. Transaminases up with AST>ALT. AFP normal. An ultrasound has also been ordered and toby for this week per pt. 03/03/23: Pt being seen at her request, brings brother along. Main issues are occ fatigue and nausea but otherwise no complaints including abd pain, vomiting, unintentional weight loss. Pt also reports difficulty sleeping at night and that feels slow during day time but no obvious confusional spells, memory issues. US Abd reviewed with the pt which shows cirrhosis and chronically dilated CBD. Reports has cut down etOH significantly but still has 2-3 beers occasionally. Also continues to smoke. 08/21/23: EGD in 03/2023 was canceled due to crack use recently. Awaiting new appt. Here for routine follow up. Reports was in detox for a few weeks in Nov and since then has not had any crack cocaine. However relapsed on etOH at [facility]. Has a few beers in a week. Also continues to smoke - has cut down to 5 cigs a day but previously smoking a pack day. Reports has new hoarseness of voice for the past one month. No throat pain or swallowing difficulty. [facility] Medical History Nicotine dependence, cigarettes, uncomplicated Nocturnal hypoxemia Tubular adenoma of colon (~2006) Personal history of nicotine dependence History of substance abuse History of acute respiratory failure (~03/2018) Allergic rhinitis Alcohol abuse GERD (gastroesophageal reflux disease) Chronic lower back pain CHF (congestive heart failure) HTN (hypertension) Myofascial pain syndrome Obstructive sleep apnea (~2003) Hepatitis C Depression Anxiety Hypothyroidism Obesity (BMI 30-39.9) COPD (chronic obstructive pulmonary disease) Surgical History History of myringotomy History of colonoscopy History of esophagogastroduodenoscopy (EGD) Family History Father CVD (cardiovascular disease) Mother Lung cancer Social History Household Members: None Household Members Other:: lives alone Housing: House Do you presently have visiting nurse or other home services: No Alcohol intake: current Alcohol intake frequency: 3 or more drinks per day Alcohol type: beer and hard liquor Comment: pt refusing bed alarm Patient Tobacco Use Status: Current everyday Tobacco user Cigarette Packs Per Day: 0.5 Cigarettes Per Day: 5 Years Smoked: 50 e-Cigarette/Vaping Use: Never Used Second Hand Smoke Exposure: Yes Substance Use Type: Marijuana service: No Current occupational status: disabled Current occupation: rt handed Cognitive needs: No Hearing needs: No Vision needs: No Review of Systems Const All systems reviewed & are unremarkable except as noted in HPI and below Physical Exam Vital Signs: Last Vital Signs Pulse 69 08/21/23 15:20 BP 181/81 H 08/21/23 15:20 BMI result Body Mass Index 30.4 NAD with obesity Nonicteric Abd soft, nontender, nondistended No asterixis Assessment & Plan Assessment & Plan (1) Cirrhosis: Comment: Alcohol use, history HCV Code(s): K74.60 - Unspecified cirrhosis of liver (2) Hepatitis C: Code(s): B19.20 - Unspecified viral hepatitis C without hepatic coma (3) Alcohol abuse: Code(s): F10.10 - Alcohol abuse, uncomplicated (4) Nicotine dependence, cigarettes, uncomplicated: Comment: PATIENT HAS HISTORY OF HEAVY SMOKING THROUGHOUT HER ADULT LIFE. HAS USE NICOTINE PATCHES IN THE PAST SMOKING DOWN TO 3-4 CIGARETTES. A DAY AT PRESENT Code(s): F17.210 - Nicotine dependence, cigarettes, uncomplicated (5) Sarcopenia: Code(s): M62.84 - Sarcopenia (6) Hoarseness of voice: Code(s): R49.0 - Dysphonia (7) Elevated blood sugar: Code(s): R73.9 - Hyperglycemia, unspecified Plan HCV and etOH related cirrhosis - MELD-Na 7 Reviewed with the pt and her brother that clinically suspected, ongoing etOH use has led to progression of liver disease to cirrhosis despite eradication of HCV. 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 Pt already booked for EGD next month. Discussed in detail with the pt the natural progression of liver disease and morbidity and mortality associated with cirrhosis noemy decompensated cirrhosis. Again, strong counseling was done for ZERO alcohol use and to work on smoking cessation as well. Unfortunately pt has relapsed with etOH use, as well as continues to smoke. Her EGD for variceal screening was also canceled 03/2023 due to crack cocaine use. Pt reassures me that is determined to change her ways. Has recently established care with a monomer recovery operator who will also be ensuring her appts with counselors and AA meetings. In terms of new hoarsness of voice in the context of longstanding smoking, will refer to ENT for further eval. Plan: - Strict etOH abstinence advised to avoid further worsening of liver function and progression to decompensated cirrhosis. - She was also counseled for smoking cessation. - Check updated MELD labs - Check A1c as noted to have impaired fasting glucose and uncontrolled DM can also contribute to worsening fatty liver - US Abd for HCC screening. AFP ordered as well. - EGD for variceal screening needs to be rebooked. - Cont Lactulose syp for covert encephalopathy - Pt requests refill on protein shakes, msg sent to RN - Actively drinking and smoking and therefore transplant eval referral not generated - ENT referral placed as above In terms of CRC screening, last colo was in 2017 - so not due till 2026. Follow up after endoscopy. Orders: Orders Phosphatidylethanol, Blood 08/21/23 K74.60 - Unspecified cirrhosis of liver Prothrombin Time INR 08/21/23 K74.60 - Unspecified cirrhosis of liver Complete Blood Count no Diff 08/21/23 K74.60 - Unspecified cirrhosis of liver US abdomen complete 08/21/23 K74.60 - Unspecified cirrhosis of liver Comprehensive Met. Panel 08/21/23 K74.60 - Unspecified cirrhosis of liver Alpha Fetoprotein 08/21/23 K74.60 - Unspecified cirrhosis of liver Hemoglobin A1c 08/21/23 R73.9 - Hyperglycemia, unspecified Referrals Ear/Nose/Throat Referral F17.200 - Nicotine dependence, unspecified, uncomplicated, R49.0 - Dysphonia Coding Level of Care Code Est Pt Level 5 (19455) Diagnoses Cirrhosis K74.60 Hepatitis C B19.20 Alcohol abuse F10.10 Nicotine dependence, cigarettes, uncomplicated F17.210 Sarcopenia M62.84 Hoarseness of voice R49.0 Elevated blood sugar R73.9
[2023-08-21 15:20] VITALS: BP 181/81; PULSE 69; BMI 30.4
== END 2023-08-21 15:51 | disposition home or self-care (01) ==
PROVIDERS: PCP Nurse Practitioner Family; Visit Provider Internal Medicine
DX: K74.60 Unspecified cirrhosis of liver (principal); B19.20 Unspecified viral hepatitis C without hepatic coma; F10.10 Alcohol abuse, uncomplicated; F17.210 Nicotine dependence, cigarettes, uncomplicated; M62.84 Sarcopenia; R49.0 Dysphonia; R73.9 Hyperglycemia, unspecified
CPT/HCPCS: 99214

== ENCOUNTER → 2023-08-21 15:16 | Outpatient (BNVA) | payer MEDICARE, MEDICAID, SELFPAY | PROVIDERS: PCP Nurse Practitioner Family; Visit Provider Internal Medicine | DX: K74.60 Unspecified cirrhosis of liver (principal); B19.20 Unspecified viral hepatitis C without hepatic coma; R49.0 Dysphonia; R73.9 Hyperglycemia, unspecified; M62.84 Sarcopenia; F10.10 Alcohol abuse, uncomplicated; F17.210 Nicotine dependence, cigarettes, uncomplicated | CPT/HCPCS: 99212 ==

== ENCOUNTER 2023-08-24 11:59 | Outpatient (REF) | payer MEDICARE, MEDICAID, SELFPAY ==
[2023-08-24 13:29] LABS: Prothrombin Time 12.1 SEC (11.1-13.3)
[2023-08-24 13:30] LABS: Hematocrit 39.1 % (37.0-47.0); Hemoglobin 12.9 g/dl (12.0-16.0); Mean Corpuscular Hemoglobin 30.4 pg (27.0-33.0); Mean Corpuscular Volume 92.2 fL (80.0-98.0); Mean Platelet Volume 11.4 fL (9.4-12.3); Red Blood Count 4.24 X10*6/uL (4.20-5.50); Red Cell Distribution Width 15.3 % (11.0-16.0); White Blood Count 3.7 X10*3/uL (4.8-10.8)
[2023-08-24 13:31] LABS: Estimated Average Glucose 105 mg/dL; Hemoglobin A1c % 5.3 % (<6.0)
[2023-08-24 13:33] LABS: Platelet Count 95 X10*3/uL (160-400)
[2023-08-24 14:08] LABS: Alanine Aminotransferase 26 U/L (0-31); Albumin Level 3.8 g/dL (3.5-5.0); Anion Gap 11 (12-20); Aspartate Amino Transferase 39 U/L (5-31); Bilirubin Total 0.8 mg/dL (0.0-1.0); Blood Urea Nitrogen 8 mg/dL (9-16); Calcium 9.2 mg/dL (8.4-10.2); Carbon Dioxide 27 mmol/L (22-29); Chloride 107 mmol/L (96-108); Estimated Glomerular Filt Rate > 60; Glucose Random 114 mg/dL (60-115); Potassium 3.6 mmol/L (3.3-5.1); Sodium 141 mmol/L (135-145)
[2023-08-24 14:22] LABS: Alkaline Phosphatase 114 U/L (39-117)
[2023-08-25 12:57] LABS: Alpha Fetoprotein 6.6 ng/mL
[2023-08-30 11:52] LABS: Phosphatidylethanol 16:0-18:2 >400 (H)
== END 2023-08-24 12:00 | disposition home or self-care (01) ==
LOC: HO.HMGCLDS 11:59
PROVIDERS: PCP Nurse Practitioner Family; Visit Provider Internal Medicine
DX: K74.60 Unspecified cirrhosis of liver (principal); R73.9 Hyperglycemia, unspecified
CPT/HCPCS: 36415; 80053; 80321; 82105; 83036; 85027; 85610

== ENCOUNTER 2023-09-05 12:07 | Outpatient (AMB) | payer MEDICARE, MEDICAID, SELFPAY ==
[2023-09-05 12:06] VITALS: BP 140/80; PULSE 76; TEMP 36.4; O2SAT 96; BMI 30.7
--- NOTE | 2023-09-05 12:06 | MHC.OFFWIV ---
Intake Vital Signs 09/05/23 12:06 Height 5 ft 2 in Weight 168 lb BMI 30.7 BP 140/80 H Blood Pressure Location Lt brachial Position Sitting Pulse 76 Pulse Source Pulse Oximeter Temp 97.5 F Temp Source Temporal Artery Scan Pulse Oximetry (%) 96 Oxygen Delivery Method Room Air Intake Visit Reasons: EP coughing up blood Intake Note: pt is here today for coughing up blood started today Patient Tobacco Use Status: Current everyday Tobacco user Allergies doxycycline [Doxycycline] Allergy (Intermediate, Verified 09/05/23 12:12) RASH, vomiting Do you need a note to return to daycare/school/sports/work: No HPI HPI Comments History of Present Illness Details 62-year-old female who presents today complaining of a sore throat for for 5 days in the last 2 days she has been coughing and vomiting blood. She has a past medical history of cirrhosis of the liver. She denies any fever chills congestion. [facility] Medical History Nicotine dependence, cigarettes, uncomplicated Nocturnal hypoxemia Tubular adenoma of colon (~2006) Personal history of nicotine dependence History of substance abuse History of acute respiratory failure (~03/2018) Allergic rhinitis Alcohol abuse GERD (gastroesophageal reflux disease) Chronic lower back pain CHF (congestive heart failure) HTN (hypertension) Myofascial pain syndrome Obstructive sleep apnea (~2003) Hepatitis C Depression Anxiety Hypothyroidism Obesity (BMI 30-39.9) COPD (chronic obstructive pulmonary disease) Surgical History History of myringotomy History of colonoscopy History of esophagogastroduodenoscopy (EGD) Family History Father CVD (cardiovascular disease) Mother Lung cancer Social History Household Members: None Household Members Other:: lives alone Housing: House Do you presently have visiting nurse or other home services: No Alcohol intake: current Alcohol intake frequency: 3 or more drinks per day Alcohol type: beer and hard liquor Comment: pt refusing bed alarm Patient Tobacco Use Status: Current everyday Tobacco user Cigarette Packs Per Day: 0.5 Cigarettes Per Day: 5 Years Smoked: 50 e-Cigarette/Vaping Use: Never Used Second Hand Smoke Exposure: Yes Substance Use Type: Marijuana service: No Current occupational status: disabled Current occupation: rt handed Cognitive needs: No Hearing needs: No Vision needs: No Review of Systems Const All systems reviewed & are unremarkable except as noted in HPI and below Eyes Reports no additional complaints ENT Reports sore throat Card Reports no additional complaints Resp Reports hemoptysis GI Reports hematemesis Reports no additional complaints Physical Exam Vital Signs: Last Vital Signs Temp 97.5 F 09/05/23 12:06 Pulse 76 09/05/23 12:06 BP 140/80 H 09/05/23 12:06 Pulse Ox 96 09/05/23 12:06 Oxygen Delivery Method Room Air 09/05/23 12:06 BMI result Body Mass Index 30.7 Const General: in distress and anxious HEENT Head: Yes normal to inspection, Yes normocephalic and Yes atraumatic Ears: hearing grossly normal bilaterally General nose exam: Normal external nose present Face and sinus: Yes other (Jaundice) Eyes General: appearance normal, both eyes and all related structures Sclerae: scleral abnormal Resp Effort & Inspection: normal respiratory effort Auscultation: clear to auscultation bilaterally Cardio Rate: regular rate Rhythm: regular rhythm Heart sounds: S1 normal heart sound present and S2 normal heart sound present Assessment & Plan Assessment & Plan (1) Hematemesis of fresh blood: Code(s): K92.0 - Hematemesis Plan: The patient was instructed to go to the emergency department for workup of her hematemesis. She is going to get a ride over to [facility] Plan See plan Coding Level of Care Code Est Pt Level 3 (98993) Diagnoses Hematemesis of fresh blood K92.0
== END 2023-09-05 14:02 | disposition home or self-care (01) ==
PROVIDERS: PCP Nurse Practitioner Family; Visit Provider Physician Assistant Medical
DX: K92.0 Hematemesis (principal)
CPT/HCPCS: 99213

== ENCOUNTER 2023-09-05 15:03 | Inpatient (IN) | payer MEDICARE, MEDICAID, SELFPAY ==
--- NOTE | ~2023-09-05 | CT_ITS ---
EXAMINATION: CT ANGIOGRAM OF THE CHEST WITH AND WITHOUT CONTRAST (CT PULMONARY ANGIOGRAM FOR PE) CLINICAL INFORMATION: Hemoptysis, evaluate for PE. COMPARISON: CT chest 08/19/2022. TECHNIQUE: Prior to contrast administration, noncontrast localization images were obtained. Subsequently, multidetector volumetric imaging was performed from the thoracic inlet to below the diaphragms following the administration of 80 mL Omnipaque 350 intravenous contrast. No contrast reaction reported Sagittal, coronal, and MIP oblique sagittal reformatted images were obtained on the CT workstation, uploaded to PACS, and reviewed. This CT examination was performed using dose optimization techniques as appropriate, variously including the following: *Automated exposure control *Adjustment of mA and/or kV according to patient size (this includes techniques or standardized protocols for targeted exams where dose is matched to indication/reason for exam; i.e. extremities or head) *Use of iterative reconstruction technique Total exam dose-length product 307 mGy-cm FINDINGS: QUALITY OF STUDY/CONTRAST BOLUS: Satisfactory. PULMONARY ARTERIES: No pulmonary emboli. THORACIC AORTA: No aneurysm. LUNG: New consolidative airspace opacities in the left lower lobe. Increased bronchial wall thickening with mild mosaic attenuation of lung parenchyma. Redemonstration of background of moderate prominently paraseptal emphysema. Stable perifissural nodule along the right minor fissure (7:219) favoring to represent a lymph node, for which no imaging follow-up is recommended. PLEURA: No pleural effusion or pneumothorax. MEDIASTINUM: Stable mild cardiomegaly. No pericardial effusion. No evidence of septal bowing or right heart strain. Increased size of mediastinal lymphadenopathy, for instance a pretracheal lymph node measuring 1.5 cm in short axis (5:16) previously 1.2 cm. Diffuse circumferential esophageal wall thickening. CORONARY ARTERY CALCIFICATION: Multivessel coronary artery calcifications are present. CHEST WALL/AXILLA: No axillary or internal mammary lymphadenopathy. OSSEOUS STRUCTURES: No acute or suspicious osseous abnormality. UPPER ABDOMEN: Cirrhotic liver morphology with mild splenomegaly. Stable periportal lymphadenopathy. No reflux of contrast into the hepatic veins to suggest elevated right heart pressures. CT/CT angio chest PE protocol IMPRESSION: 1. No evidence of pulmonary embolism or increased right-sided heart pressures. 2. New consolidative airspace opacities in the left lower lobe, concerning for an infectious or inflammatory process. Recommend short-term follow-up CT chest in 3-6 months. 3. Increased bronchial wall thickening with mild mosaic attenuation of lung parenchyma, which could be related with an infectious or inflammatory process of the small airways. 4. Increased size of mediastinal lymphadenopathy, possibly reactive. Recommend attention on follow-up in future examinations. 5. Diffuse circumferential esophageal wall thickening, correlate clinically for esophagitis. 6. Cirrhotic liver morphology with mild splenomegaly and periportal lymphadenopathy. VTE: negative.
[2023-09-05 15:09] VITALS: BP 160/88; PULSE 85; O2SAT 98
[2023-09-05 15:12] VITALS: BP 121/46; PULSE 71; RESP 16; TEMP 36.8; O2SAT 98; BMI 29.3
--- NOTE | 2023-09-05 15:25 | ED_ITS ---
HPI - Nausea/Vomiting/Diarrhea General Chief complaint: Nausea/Vomiting/Diarrhea Stated complaint: COUGHING UP BLOOD X2 DAYS PER EMS Time Seen by Provider: 09/05/23 15:25 Source: patient Mode of arrival: EMS Limitations: no limitations History of Present Illness HPI Narrative: 62-year-old female with a past medical history of asthma/COPD who uses home O2 oxygen only at night at approximately 2 L, CHF, hypertension, hypothyroidism, obesity, hepatitis-C, cirrhosis, heroin abuse, alcohol abuse, anxiety, depression, GERD, chronic lower back pain and osteoarthritis presenting to the ED with complaints of coughing up bright red blood. She states that the symptoms started yesterday morning she states that she is coughed up blood multiple times and she estimates the amount as tbsp at a time. She also states that there is mucus mixed with the blood. Patient continues to smoke cigarettes. She continues to drink 2-3 alcoholic beverages per day. She used 60 dollars worth of crack cocaine over the last 2 days. The patient does have hepatitis-C and cirrhosis of an unspecified cause . In reviewing Dr. David's recent GI note from 08/21/2023, the patient EGD screen for variceal disease was canceled due to her crack cocaine use. Related Data Home Medications ?Medication ?Instructions ?Recorded ?Confirmed buprenorphine 8 mg-naloxone 2 mg 25 mg sublingual DAILY 04/13/21 08/01/23 sublingual film (Suboxone) duloxetine 60 mg capsule,delayed 60 mg PO DAILY 07/28/22 08/01/23 release Oxygen Home Use 02/07/23 08/01/23 hydroxyzine HCl 10 mg tablet 10 mg PO BEDTIME 02/07/23 08/01/23 lactulose 10 gram/15 mL oral PO 05/18/23 08/01/23 solution (Enulose) acamprosate 333 mg tablet,delayed 666 mg PO TID 08/21/23 release Previous Rx's ?Medication ?Instructions ?Recorded albuterol sulfate 2.5 mg/3 mL 2.5 mg (3 mL) inhalation QID PRN 07/28/22 (0.083 %) solution for nebulization shortness of breath or wheezing #180 mL nicotine 14 mg/24 hr daily 1 patch transdermal DAILY smoking 02/23/23 transdermal patch 28 days #28 ea Ventolin HFA 90 mcg/actuation 2 puff inhalation Q4-6H PRN for 03/02/23 aerosol inhaler (albuterol sulfate) wheezing 30 days #18 grams Advair Diskus 500 mcg-50 mcg/dose 1 inh inhalation BID copd 30 days 03/27/23 powder for inhalation (fluticasone #60 ea propion-salmeterol) ondansetron HCl 4 mg tablet 4 mg PO Q8H PRN for 07/04/23 nausea/vomiting 30 days #90 tabs polymyxin B sulfate 10,000 1 drp ophthalmic (eye) QID 5 days 07/12/23 unit-trimethoprim 1 mg/mL eye drops #10 mL cholecalciferol (vitamin D3) 50 50 mcg PO DAILY #90 caps 08/22/23 mcg (2,000 unit) capsule famotidine 20 mg tablet 20 mg PO BEDTIME #90 tabs 08/22/23 fluticasone propionate 50 1 spray intranasal DAILY #48 grams 08/22/23 mcg/actuation nasal spray,suspension levothyroxine 25 mcg tablet 25 mcg PO DAILY #90 tabs 08/22/23 omeprazole 40 mg capsule,delayed 40 mg PO DAILY #90 caps 08/22/23 release food supplemt, lactose-reduced 1 ea PO BID 30 days #14,220 mL 08/25/23 (Ensure High Protein oral liquid) Allergies Allergy/AdvReac Type Severity Reaction Status Date / Time doxycycline [Doxycycline] Allergy Intermediate RASH, Verified 09/05/23 15:20 vomiting Review of Systems 2 Review of Systems: Yes all other systems are reviewed and are negative [facility] Past Medical History [facility] Narrative: Social history: The patient does smoke cigarettes. She states she drinks 2-3 beers per day. She states that she is using crack cocaine Medical History Nicotine dependence, cigarettes, uncomplicated Nocturnal hypoxemia Tubular adenoma of colon (~2006) Personal history of nicotine dependence History of substance abuse History of acute respiratory failure (~03/2018) Allergic rhinitis Alcohol abuse GERD (gastroesophageal reflux disease) Chronic lower back pain CHF (congestive heart failure) HTN (hypertension) Myofascial pain syndrome Obstructive sleep apnea (~2003) Hepatitis C Depression Anxiety Hypothyroidism Obesity (BMI 30-39.9) COPD (chronic obstructive pulmonary disease) Surgical History History of myringotomy History of colonoscopy History of esophagogastroduodenoscopy (EGD) Family History Family History Father CVD (cardiovascular disease) Mother Lung cancer Social History Social History Household Members: None Household Members Other:: lives alone Housing: House Do you presently have visiting nurse or other home services: No Alcohol intake: current Alcohol intake frequency: 0-2 drinks per day Alcohol type: beer Comment: pt refusing bed alarm Patient Tobacco Use Status: Current everyday Tobacco user Cigarette Packs Per Day: 0.5 Cigarettes Per Day: 5 Years Smoked: 50 Smoked in Last 30 Days: Yes e-Cigarette/Vaping Use: Never Used Second Hand Smoke Exposure: Yes Use of substances other than those prescribed or required for medical reasons: Yes Substance Use Type: Crack/Cocaine Substance Use Frequency: Chronic Longstanding Advance Directives: Yes Advance Directives Information Provided: No Advance Directives on File: No Do you have a plan to hurt others: No Plan service: No Current occupational status: disabled Current occupation: rt handed Cognitive needs: No Hearing needs: No Vision needs: No Physical Exam 2 Vital Signs: Vital Signs: Last Vital Signs Temp 98.1 F 09/05/23 18:43 Pulse 82 09/05/23 21:20 Resp 14 09/05/23 21:20 BP 142/55 H 09/05/23 21:20 Pulse Ox 96 09/05/23 21:20 O2 Del Method Room Air 09/05/23 21:20 BMI result Body Mass Index 29.3 Vital signs were normal Exam: General: Awake, alert in no distress Head: Normocephalic, atraumatic EENT: PERRL, Lids normal, sclera normal, conjunctiva normal, nose normal , ears normal, throat without erythema or exudates Neck: Supple, no adenopathy Lung: breath sounds symmetric, no wheezing, rales or rhonchi Chest: symmetric movement, nontender Heart: regular rate and rhythm, normal S1, S2 no murmurs or rubs Abdomen: Obese, soft, non-tender, nondistended, normal bowel sounds Back: no vertebral tenderness, no CVAT Extremities: no deformities, moves all extremities symmetrically Neuro: Awake, alert, oriented, normal speech, cranial nerves intact, moves all extremities symmetrically Psych: Pleasant, cooperative Medications Administered Discontinued Medications Generic Name Dose Route Start Last Admin Trade Name Jennifer PRN Reason Stop Dose Admin Sodium Chloride 1,000 mls @ 999 mls/hr 09/05/23 15:55 09/05/23 17:45 Ns IV 09/05/23 16:55 Infused .Q1H1M STA Infusion Piperacillin Sod/Tazobactam 100 mls @ 200 mls/hr 09/05/23 20:49 09/05/23 21:50 Sod 4.5 gm/ Sodium Chloride IV 09/05/23 21:18 Infused ONCE ONE Infusion Iohexol 65 ml 09/05/23 18:34 09/05/23 18:35 Iohexol 350 Mg/Ml 100 Ml Infus..Btl IV 09/05/23 18:35 65 ml ONCE ONE Administration Lorazepam 1 mg 09/05/23 15:55 09/05/23 16:38 Lorazepam 2 Mg/Ml Vial IVPUSH 09/05/23 15:56 1 mg STAT STA Administration Medical Decision Making Medical Decision Making MDM Narrative: 62-year-old female with a past medical history of asthma/COPD who uses home O2 oxygen only at night at approximately 2 L, CHF, hypertension, hypothyroidism, obesity, hepatitis-C, cirrhosis, heroin abuse, alcohol abuse, anxiety, depression, GERD, chronic lower back pain and osteoarthritis presenting to the ED with complaints of coughing up bright red blood x2 days, crack cocaine use x2 days, and continued alcohol use. Vital signs were normal. Physical examination was unremarkable. Differential diagnosis: ?Includes but is not limited to pulmonary embolism, pneumonia, bronchitis, pulmonary malignancy, hemoptysis secondary to varicocele bleed, anemia, electrolyte abnormalities Following evaluation was ordered: CBC, CMP, PT/INR, PTT, D-dimer, lactic acid, lipase, drug screen urine, troponin, VBG, urinalysis, CT pulmonary angiogram PE protocol, EKG Patient was initially treated with the following: Normal saline IV x1 L, Ativan 1 mg IV Course: 17:56 My interpretation patient's laboratory evaluation as follows: WBC low 4400- chronic most likely secondary to hepatitis-C, normocytic anemia with an H&H of 12 and 35.5. Coags normal, D-dimer below detectable limits. VBG revealed a normal pH of 7.40, pCO2 normal at 43. Lactic acid was normal at 1.1. High sensitive troponin I was below detectable limits. Urinalysis was negative. Urine tox screen positive for cocaine. LFTs were normal. Lactic acid was normal. Lipase was normal. Ethanol elevated 121. Laboratory evaluation was significant for mild anemia, acute alcohol intoxication and positive for cocaine. 20:46 CT angiogram PE protocol revealed no PE. Patient has a new consolidative airspace opacity in the left lower lobe which is concerning for infectious/inflammatory process. This may explain the patient's hemoptysis. Patient was treated with Zosyn 4.5 g IV. There were other incidental findings on the CT : diffuse circumferential esophageal wall thickening consistent with esophagitis , cirrhotic liver morphology with splenomegaly, mediastinal lymphadenopathy. I did discuss admission over tiger text with the covering hospitalist, Dr. Vaca. Admission/Observation Consideration of admission/observation: Escalation of care including admission/observation considered Lab Data MDM Lab Attestation statement: I reviewed the patient's lab results. 09/05/23 16:24 09/05/23 16:26 Labs: Lab Results 09/05/23 09/05/23 09/05/23 Range/Units 16:23 16:24 16:26 WBC 4.4 L (4.8-10.8) X10*3/uL RBC 3.86 L (4.20-5.50) X10*6/uL Hgb 12.0 (12.0-16.0) g/dl Hct 35.5 L (37.0-47.0) % MCV 92.0 (80.0-98.0) fL MCH 31.1 (27.0-33.0) pg MCHC 33.8 (31.0-35.0) g/dl RDW 15.1 (11.0-16.0) % Plt Count 97 L (160-400) X10*3/uL MPV 11.4 (9.4-12.3) fL Immature Gran % (Auto) 0.5 H (0.0-0.4) % Neut % (Auto) 64.3 (45-73) % Lymph % (Auto) 19.6 L (20-40) % [place] % (Auto) 11.5 H (2-11) % Eos % (Auto) 3.6 (0-4) % Baso % (Auto) 0.5 (0-2) % Lymph # (Auto) 0.9 L (1.2-4.9) X10*3/uL [place] # (Auto) 0.5 (0.1-1.2) X10*3/uL Eos # (Auto) 0.2 (0.0-0.4) X10*3/uL Baso # (Auto) 0.0 (0.0-0.2) X10*3/uL Abs Immat Gran (auto) 0.02 (0.00-0.03) X10*3/uL Absolute Neuts (auto) 2.9 (2.0-8.3) x10*3/uL Absolute Nucleated RBC 0.000 (0.0-0.012) X10*3/uL Nucleated RBC % (auto) 0.0 (0.0-0.2) /100WBC Smear Tech's Comments VERIFIED PT (11.1-13.3) SEC INR (0.9-1.1) APTT (26.0-36.8) SEC D-Dimer High Sensitivty < 150 NG/ML VBG pH (7.32-7.43) VBG pCO2 mmHg VBG pO2 mmHg VBG HCO3 (22-26) mmol/L VBG O2 Saturation % VBG Base Excess mmol/L Sodium 142 (135-145) mmol/L Potassium 3.6 (3.3-5.1) mmol/L Chloride 109 H (96-108) mmol/L Carbon Dioxide 25 (22-29) mmol/L Anion Gap 12 (12-20) BUN 8 L (9-16) mg/dL Creatinine 0.61 (0.5-1.4) mg/dL Estim Creat Clear Calc 88.0 Estimated GFR > 60 Random Glucose 118 H (60-115) mg/dL Lactic Acid 1.1 (0.5-2.0) mmol/L Calcium 8.5 D (8.4-10.2) mg/dL Total Bilirubin 0.6 (0.0-1.0) mg/dL AST 25 (5-31) U/L ALT 20 (0-31) U/L Alkaline Phosphatase 79 (39-117) U/L Troponin I High Sens < 2.7 (<3.5-17.0) ng/L Total Protein 7.0 (6.5-8.0) g/dL Albumin 3.4 L (3.5-5.0) g/dL Lipase 16 (8-78) U/L Urine Color Urine Appearance Urine pH (5.0-9.0) Ur Specific [place] (1.005-1.025) Urine Protein (Neg-Trace) mg/dL Urine Glucose (UA) (Negative) mg/dL Urine Ketones (Negative) mg/dL Urine Blood (Negative) Urine Nitrite (Negative) Ur Leukocyte Esterase (Negative) Urine Opiates Screen (Not Detect) Ur Buprenorphine Scrn (Not Detect) ng/mL Ur Oxycodone Screen (Not Detect) ng/mL Urine Methadone Screen (Not Detect) ng/mL Urine Fentanyl Screen (Not Detect) Ur Barbiturates Screen (Not Detect) Ur Phencyclidine Scrn (Not Detect) Ur Amphetamines Screen (Not Detect) U Benzodiazepines Scrn (Not Detect) Urine Cocaine Screen (Not Detect) U Marijuana (THC) Screen (Not Detect) Ethyl Alcohol 121 mg/dL Influenza Type A (PCR) (Negative) Influenza Type B (PCR) (Negative) RSV RNA Qual (PCR) (Negative) SARS-CoV-2 RNA (RT-PCR) (Negative) Blood Type Antibody Screen 09/05/23 09/05/23 09/05/23 Range/Units 16:27 16:29 16:34 WBC (4.8-10.8) X10*3/uL RBC (4.20-5.50) X10*6/uL Hgb (12.0-16.0) g/dl Hct (37.0-47.0) % MCV (80.0-98.0) fL MCH (27.0-33.0) pg MCHC (31.0-35.0) g/dl RDW (11.0-16.0) % Plt Count (160-400) X10*3/uL MPV (9.4-12.3) fL Immature Gran % (Auto) (0.0-0.4) % Neut % (Auto) (45-73) % Lymph % (Auto) (20-40) % [place] % (Auto) (2-11) % Eos % (Auto) (0-4) % Baso % (Auto) (0-2) % Lymph # (Auto) (1.2-4.9) X10*3/uL [place] # (Auto) (0.1-1.2) X10*3/uL Eos # (Auto) (0.0-0.4) X10*3/uL Baso # (Auto) (0.0-0.2) X10*3/uL Abs Immat Gran (auto) (0.00-0.03) X10*3/uL Absolute Neuts (auto) (2.0-8.3) x10*3/uL Absolute Nucleated RBC (0.0-0.012) X10*3/uL Nucleated RBC % (auto) (0.0-0.2) /100WBC Smear Tech's Comments PT (11.1-13.3) SEC INR (0.9-1.1) APTT (26.0-36.8) SEC D-Dimer High Sensitivty NG/ML VBG pH 7.40 (7.32-7.43) VBG pCO2 43 mmHg VBG pO2 93 mmHg VBG HCO3 27 H (22-26) mmol/L VBG O2 Saturation 98.0 % VBG Base Excess 2.6 mmol/L Sodium (135-145) mmol/L Potassium (3.3-5.1) mmol/L Chloride (96-108) mmol/L Carbon Dioxide (22-29) mmol/L Anion Gap (12-20) BUN (9-16) mg/dL Creatinine (0.5-1.4) mg/dL Estim Creat Clear Calc Estimated GFR Random Glucose (60-115) mg/dL Lactic Acid (0.5-2.0) mmol/L Calcium (8.4-10.2) mg/dL Total Bilirubin (0.0-1.0) mg/dL AST (5-31) U/L ALT (0-31) U/L Alkaline Phosphatase (39-117) U/L Troponin I High Sens (<3.5-17.0) ng/L Total Protein (6.5-8.0) g/dL Albumin (3.5-5.0) g/dL Lipase (8-78) U/L Urine Color Yellow Urine Appearance Clear Urine pH 6.5 (5.0-9.0) Ur Specific [place] <= 1.005 (1.005-1.025) Urine Protein Negative (Neg-Trace) mg/dL Urine Glucose (UA) Negative (Negative) mg/dL Urine Ketones Negative (Negative) mg/dL Urine Blood Negative (Negative) Urine Nitrite Negative (Negative) Ur Leukocyte Esterase Negative (Negative) Urine Opiates Screen Not Detected (Not Detect) Ur Buprenorphine Scrn Positive (Not Detect) ng/mL Ur Oxycodone Screen Not Detected (Not Detect) ng/mL Urine Methadone Screen Not Detected (Not Detect) ng/mL Urine Fentanyl Screen Not Detected (Not Detect) Ur Barbiturates Screen Not Detected (Not Detect) Ur Phencyclidine Scrn Not Detected (Not Detect) Ur Amphetamines Screen Not Detected (Not Detect) U Benzodiazepines Scrn Not Detected (Not Detect) Urine Cocaine Screen POSITIVE H (Not Detect) U Marijuana (THC) Screen Not Detected (Not Detect) Ethyl Alcohol mg/dL Influenza Type A (PCR) NEGATIVE (Negative) Influenza Type B (PCR) NEGATIVE (Negative) RSV RNA Qual (PCR) NEGATIVE (Negative) SARS-CoV-2 RNA (RT-PCR) NEGATIVE (Negative) Blood Type Antibody Screen 09/05/23 09/05/23 Range/Units 16:50 16:55 WBC (4.8-10.8) X10*3/uL RBC (4.20-5.50) X10*6/uL Hgb (12.0-16.0) g/dl Hct (37.0-47.0) % MCV (80.0-98.0) fL MCH (27.0-33.0) pg MCHC (31.0-35.0) g/dl RDW (11.0-16.0) % Plt Count (160-400) X10*3/uL MPV (9.4-12.3) fL Immature Gran % (Auto) (0.0-0.4) % Neut % (Auto) (45-73) % Lymph % (Auto) (20-40) % [place] % (Auto) (2-11) % Eos % (Auto) (0-4) % Baso % (Auto) (0-2) % Lymph # (Auto) (1.2-4.9) X10*3/uL [place] # (Auto) (0.1-1.2) X10*3/uL Eos # (Auto) (0.0-0.4) X10*3/uL Baso # (Auto) (0.0-0.2) X10*3/uL Abs Immat Gran (auto) (0.00-0.03) X10*3/uL Absolute Neuts (auto) (2.0-8.3) x10*3/uL Absolute Nucleated RBC (0.0-0.012) X10*3/uL Nucleated RBC % (auto) (0.0-0.2) /100WBC Smear Tech's Comments PT 13.4 H (11.1-13.3) SEC INR 1.1 (0.9-1.1) APTT 35.0 (26.0-36.8) SEC D-Dimer High Sensitivty NG/ML VBG pH (7.32-7.43) VBG pCO2 mmHg VBG pO2 mmHg VBG HCO3 (22-26) mmol/L VBG O2 Saturation % VBG Base Excess mmol/L Sodium (135-145) mmol/L Potassium (3.3-5.1) mmol/L Chloride (96-108) mmol/L Carbon Dioxide (22-29) mmol/L Anion Gap (12-20) BUN (9-16) mg/dL Creatinine (0.5-1.4) mg/dL Estim Creat Clear Calc Estimated GFR Random Glucose (60-115) mg/dL Lactic Acid (0.5-2.0) mmol/L Calcium (8.4-10.2) mg/dL Total Bilirubin (0.0-1.0) mg/dL AST (5-31) U/L ALT (0-31) U/L Alkaline Phosphatase (39-117) U/L Troponin I High Sens (<3.5-17.0) ng/L Total Protein (6.5-8.0) g/dL Albumin (3.5-5.0) g/dL Lipase (8-78) U/L Urine Color Urine Appearance Urine pH (5.0-9.0) Ur Specific [place] (1.005-1.025) Urine Protein (Neg-Trace) mg/dL Urine Glucose (UA) (Negative) mg/dL Urine Ketones (Negative) mg/dL Urine Blood (Negative) Urine Nitrite (Negative) Ur Leukocyte Esterase (Negative) Urine Opiates Screen (Not Detect) Ur Buprenorphine Scrn (Not Detect) ng/mL Ur Oxycodone Screen (Not Detect) ng/mL Urine Methadone Screen (Not Detect) ng/mL Urine Fentanyl Screen (Not Detect) Ur Barbiturates Screen (Not Detect) Ur Phencyclidine Scrn (Not Detect) Ur Amphetamines Screen (Not Detect) U Benzodiazepines Scrn (Not Detect) Urine Cocaine Screen (Not Detect) U Marijuana (THC) Screen (Not Detect) Ethyl Alcohol mg/dL Influenza Type A (PCR) (Negative) Influenza Type B (PCR) (Negative) RSV RNA Qual (PCR) (Negative) SARS-CoV-2 RNA (RT-PCR) (Negative) Blood Type A Positive Antibody Screen NEGATIVE Radiology Impression Discussion of test interpretation with radiology: I have reviewed the radiologist's reading. Radiologist Impression: CT angio chest PE protocol IMPRESSION: 1. No evidence of pulmonary embolism or increased right-sided heart pressures. 2. New consolidative airspace opacities in the left lower lobe, concerning for an infectious or inflammatory process. Recommend short-term follow-up CT chest in 3-6 months. 3. Increased bronchial wall thickening with mild mosaic attenuation of lung parenchyma, which could be related with an infectious or inflammatory process of the small airways. 4. Increased size of mediastinal lymphadenopathy, possibly reactive. Recommend attention on follow-up in future examinations. 5. Diffuse circumferential esophageal wall thickening, correlate clinically for esophagitis. 6. Cirrhotic liver morphology with mild splenomegaly and periportal lymphadenopathy. VTE: negative. Dictated By: Sarah Romero Critical Care Time Critical Care Time Critical Care Time: Yes Total Critical Care Time: 45 Attestation: Critical Care: The patient was critically ill with a high probability of imminent or life threatening deterioration. I spent greater than 30 minutes of discontinuous time evaluating the patient,delivering critical care at the bedside, discussing and evaluating pertinent data with consultants. Critical care time does not include time spent performing separately billable procedures or teaching. Total time spent performing critical care was 45 minutes. Discharge Plan Discharge Clinical Impression: Pneumonia, Cirrhosis, Hemoptysis Prescriptions: No Action albuterol sulfate [Ventolin HFA] 90 mcg/actuation HFA aerosol inhaler 2 puff inhalation Q4-6H PRN (Reason: for wheezing) 30 Days Qty: 18 3RF fluticasone propion-salmeterol [Advair Diskus] 500-50 mcg/dose blister with device 1 inh inhalation BID 30 Days Qty: 60 5RF ondansetron HCl 4 mg tablet 4 mg PO Q8H PRN (Reason: for nausea/vomiting) 30 Days Qty: 90 0RF famotidine 20 mg tablet 20 mg PO BEDTIME Qty: 90 1RF fluticasone propionate 50 mcg/actuation spray,suspension 1 spray intranasal DAILY Qty: 48 1RF levothyroxine 25 mcg tablet 25 mcg PO DAILY Qty: 90 1RF cholecalciferol (vitamin D3) 50 mcg (2,000 unit) capsule 50 mcg PO DAILY Qty: 90 1RF omeprazole 40 mg capsule,delayed release(DR/EC) 40 mg PO DAILY Qty: 90 1RF Ensure High Protein Liquid 1 ea PO BID 30 Days Qty: 41159 1RF polymyxin B sulf-trimethoprim 10,000 unit- 1 mg/mL drops 1 drp ophthalmic (eye) QID 5 Days Qty: 10 0RF Rx Instructions: while awake; do not exceed 6 doses in 24 hours buprenorphine-naloxone [Suboxone] 8-2 mg film 25 mg sublingual DAILY duloxetine 60 mg capsule,delayed release(DR/EC) 60 mg PO DAILY albuterol sulfate 2.5 mg /3 mL (0.083 %) solution for nebulization 2.5 mg inhalation QID PRN (Reason: shortness of breath or wheezing) Qty: 180 2RF hydroxyzine HCl 10 mg tablet 10 mg PO BEDTIME (DME) Oxygen Home Use Kit See Rx Instructions .Route Rx Instructions: As directed nicotine 14 mg/24 hr patch 24 hour 1 patch transdermal DAILY 28 Days Qty: 28 2RF lactulose [Enulose] 10 gram/15 mL solution PO acamprosate 333 mg tablet,delayed release (DR/EC) 666 mg PO TID Print Language: [place]
--- NOTE | 2023-09-05 15:56 | ECG_ITS ---
Test Reason : SOB Blood Pressure : / mmHG Vent. Rate : 066 BPM Atrial Rate : 066 BPM P-R Int : 132 ms QRS Dur : 078 ms QT Int : 438 ms P-R-T Axes : 058 002 039 degrees QTc Int : 459 ms Normal sinus rhythm with sinus arrhythmia Possible Left atrial enlargement Borderline ECG When compared with ECG of 23-OCT-2020 18:50, No significant change was found Referred By: Rogelio Nagy Electronically Signed By:OH ELY MD
[2023-09-05 16:38] LABS: Appearance Urine Clear; Color Urine Yellow; Glucose Urine UA Negative (Negative); Leukocyte Esterase Urine Negative (Negative); Nitrite Urine Negative (Negative); PH 6.5 (5.0-9.0); Specific Gravity - Urine <= 1.005 (1.005-1.025); Urine Blood Negative (Negative); Urine Ketones Negative (Negative); Urine Protein Negative (Neg-Trace)
[2023-09-05] MEDS: LORazepam 2 MG/ML VIAL 1 MG IVPUSH (16:38)
[2023-09-05] MEDS: 0.9 % Sodium Chloride 1,000 ML 999 ML IV (16:38)
[2023-09-05 16:39] LABS: VBG Base Excess 2.6 mmol/L; VBG HCO3 27 mmol/L (22-26); VBG pCO2 43 mmHg; VBG pO2 93 mmHg
[2023-09-05 16:43] LABS: Imm Gran Abs Auto 0.02 X10*3/uL (0.00-0.03); PLT CLUMP 1; SCAN SMEAR FLAG 1
[2023-09-05 16:44] LABS: Venous Blood Gas Refer to POC result
[2023-09-05 16:45] LABS: Basophils Percent Auto 0.5 % (0-2); Eosinophils Absolute Auto 0.2 X10*3/uL (0.0-0.4); Eosinophils Percent Auto 3.6 % (0-4); Hematocrit 35.5 % (37.0-47.0); Imm Gran Pct Auto 0.5 % (0.0-0.4); Lymphocytes Absolute Auto 0.9 X10*3/uL (1.2-4.9); Lymphocytes Percent Auto 19.6 % (20-40); MANUAL DIFF FLAG SCAN; Mean Corpuscular HGB Conc 33.8 g/dl (31.0-35.0); Mean Corpuscular Hemoglobin 31.1 pg (27.0-33.0); Mean Platelet Volume 11.4 fL (9.4-12.3); Monocytes Absolute Auto 0.5 X10*3/uL (0.1-1.2); Monocytes Percent Auto 11.5 % (2-11); Neutrophils Absolute Auto 2.9 x10*3/uL (2.0-8.3); Neutrophils Percent Auto 64.3 % (45-73); Red Blood Count 3.86 X10*6/uL (4.20-5.50); Red Cell Distribution Width 15.1 % (11.0-16.0)
[2023-09-05 16:50] LABS: Lactic Acid 1.1 mmol/L (0.5-2.0)
[2023-09-05 16:50] LABS: Amphetamine Screen Urine Not Detected (Not Detect); Barbiturates, Urine Not Detected (Not Detect); Benzodiazepines Screen Urine Not Detected (Not Detect); Buprenorphine Scr Positive (Not Detect); Cannabinoid Screen Urine Not Detected (Not Detect); Cocaine Screen Urine POSITIVE (Not Detect); Methadone Screen, Urine Not Detected (Not Detect); Opiate Screen Urine Not Detected (Not Detect); Oxycodone Screen Urine Not Detected (Not Detect); Phencyclidine Screen Urine Not Detected (Not Detect)
[2023-09-05 16:55] LABS: Platelet Count 97 X10*3/uL (160-400); White Blood Count 4.4 X10*3/uL (4.8-10.8)
[2023-09-05 17:00] LABS: Troponin-I High Sensitivity < 2.7 ng/L (<3.5-17.0)
[2023-09-05 17:02] LABS: D Dimer High Sensitivity < 150 NG/ML
[2023-09-05 17:13] LABS: INTERNATIONAL NORM RATIO 1.1 (0.9-1.1); Prothrombin Time 13.4 SEC (11.1-13.3)
[2023-09-05 17:15] LABS: Alanine Aminotransferase 20 U/L (0-31); Albumin Level 3.4 g/dL (3.5-5.0); Alkaline Phosphatase 79 U/L (39-117); Anion Gap 12 (12-20); Aspartate Amino Transferase 25 U/L (5-31); Bilirubin Total 0.6 mg/dL (0.0-1.0); Blood Urea Nitrogen 8 mg/dL (9-16); Calcium 8.5 mg/dL (8.4-10.2); Carbon Dioxide 25 mmol/L (22-29); Chloride 109 mmol/L (96-108); Estimated Glomerular Filt Rate > 60; Ethanol 121 mg/dL; Glucose Random 118 mg/dL (60-115); Lipase 16 U/L (8-78); Potassium 3.6 mmol/L (3.3-5.1); Sodium 142 mmol/L (135-145)
[2023-09-05 17:22] LABS: Influenza A PCR NEGATIVE (Negative); Influenza B PCR NEGATIVE (Negative); Resp Syncy Virus RNA Qual PCR NEGATIVE (Negative); SARS COV2 PCR INHOUSE NEGATIVE (Negative)
[2023-09-05 17:27] LABS: Fentanyl, urine Not Detected (Not Detect)
[2023-09-05 17:37] LABS: SLIDE REVIEW VERIFIED
[2023-09-05] MEDS: iohexoL 350 MG/ML 100 ML INFUS..BTL 65 ML IV (18:35)
[2023-09-05 18:43] VITALS: BP 119/62; PULSE 66; RESP 14; TEMP 36.7; O2SAT 95
[2023-09-05 21:20] VITALS: BP 142/55; PULSE 82; RESP 14; O2SAT 96
[2023-09-05] MEDS: Piperacillin Sodium/Tazobactam 4.5 GM in 0.9 % Sodium Chloride 100 ML IV (21:20)
--- NOTE | 2023-09-05 22:31 | PC.NURSE ---
Patient to be admitted to hospital, resting quietly on hospital bed at this time.
--- NOTE | 2023-09-05 23:18 | P.HPHOSP_ITS ---
History of Present Illness Date of Service: 09/05/23 Attending physician on admission: Raffy Regalado Chief Complaint: Shortness on breath Amelia Tran is a 62 years old woman with past medical history significant for COPD (noncompliant with home O2), sleep apnea, obesity, HFpEF, illicit drug use, alcohol abuse, anxiety, depression and GERD presents to the emergency department complaining of shortness on breath associated with productive cough tinged with smoked quantity of blood since yesterday. She denied chest pain, palpitations, headache or dizziness. She denied vomiting blood. Denies abdominal pain, nausea, vomiting or diarrhea. She admits using cocaine (crack cocaine over the last 2 day) and smoking tobacco. She also drinks alcohol 2-3 alcoholic beverages daily. In the ED, she was found to have normal vital signs. Oxygen saturation is 97 on room air. Blood workup showed no leukocytosis (mild neutropenia which seems to be at baseline). Hemoglobin is normal. There is mild thrombocytopenia, at baseline. There are no significant electrolyte imbalances. Renal function is normal. LFTs and lipase are normal. Urine drug screen is positive for cocaine, bupropion and alcohol 121. Urinalysis normal. Chest CT scan showed no evidence of pulmonary embolism. It showed new consolidative airspace opacity in the left lower lobe concerning for infectious or inflammatory process, increased bronchial wall thickening, increased side lymphadenopathy likely reactive, possible esophagitis and cirrhotic liver with mild splenomegaly. ED tx: Ativan 1 mg IV, Zosyn 4.5 mg IV and NS 1 L bolus Review of Systems 2 Review of Systems: All 12 systems were reviewed and normal except as noted in HPI. [facility] Medical History Nicotine dependence, cigarettes, uncomplicated Nocturnal hypoxemia Tubular adenoma of colon (~2006) Personal history of nicotine dependence History of substance abuse History of acute respiratory failure (~03/2018) Allergic rhinitis Alcohol abuse GERD (gastroesophageal reflux disease) Chronic lower back pain CHF (congestive heart failure) HTN (hypertension) Myofascial pain syndrome Obstructive sleep apnea (~2003) Hepatitis C Depression Anxiety Hypothyroidism Obesity (BMI 30-39.9) COPD (chronic obstructive pulmonary disease) Family History Father CVD (cardiovascular disease) Mother Lung cancer Surgical History History of myringotomy History of colonoscopy History of esophagogastroduodenoscopy (EGD) Social History Household Members: None Household Members Other:: lives alone Housing: House Do you presently have visiting nurse or other home services: No Alcohol intake: current Alcohol intake frequency: 0-2 drinks per day Alcohol type: beer Comment: pt refusing bed alarm Patient Tobacco Use Status: Current everyday Tobacco user Cigarette Packs Per Day: 0.5 Cigarettes Per Day: 5 Years Smoked: 50 Smoked in Last 30 Days: Yes e-Cigarette/Vaping Use: Never Used Second Hand Smoke Exposure: Yes Use of substances other than those prescribed or required for medical reasons: Yes Substance Use Type: Crack/Cocaine Substance Use Frequency: Chronic Longstanding Advance Directives: Yes Advance Directives Information Provided: No Advance Directives on File: No Do you have a plan to hurt others: No Plan service: No Current occupational status: disabled Current occupation: rt handed Cognitive needs: No Hearing needs: No Vision needs: No Meds Allergies Allergy/AdvReac Type Severity Reaction Status Date / Time doxycycline [Doxycycline] Allergy Intermediate RASH, Verified 09/05/23 15:20 vomiting Active Medications: Current Medications Levothyroxine Sodium (Levothyroxine Sodium 25 Mcg Tablet) 25 mcg PO DAILY SERG Montelukast Sodium (Montelukast Sodium 10 Mg Tablet) 10 mg PO DAILY [facility] Sodium Chloride (0.9 % Sodium Chloride Flush 3 Ml Syringe) [facility] Medications ?Medication ?Instructions ?Recorded ?Confirmed ?Last Taken ?Type buprenorphine 8 mg-naloxone 2 mg 25 mg sublingual DAILY 04/13/21 09/05/23 Unknown History sublingual film (Suboxone) duloxetine 60 mg capsule,delayed 60 mg PO DAILY 07/28/22 08/01/23 Unknown History release Oxygen Home Use 02/07/23 08/01/23 Unknown History hydroxyzine HCl 10 mg tablet 10 mg PO BEDTIME 02/07/23 08/01/23 Unknown History lactulose 10 gram/15 mL oral PO 05/18/23 08/01/23 Unknown History solution (Enulose) acamprosate 333 mg tablet,delayed 666 mg PO TID 08/21/23 Unknown History release levothyroxine 25 mcg tablet 25 mcg PO DAILY 09/05/23 09/05/23 Unknown History montelukast 10 mg tablet 10 mg PO DAILY 09/05/23 09/05/23 Unknown History Physical Exam 2 Vital Signs and Narrative: Vital Signs: Last Vital Signs Temp 98.1 F 09/05/23 18:43 Pulse 82 09/05/23 21:20 Resp 14 09/05/23 21:20 BP 142/55 H 09/05/23 21:20 Pulse Ox 96 09/05/23 21:20 O2 Del Method Room Air 09/05/23 21:20 BMI result Body Mass Index 29.3 Constitutional - Awake and Alert, No apparent distress. Cooperative. Pleasant. HEENT - Pupils equally round. Normal sclerae. Dry oral mucosa. Heart - RRR. (+) murmur. Lungs - Normal lung expansion, Normal respiratory effort, No respiratory distress. Tachypnea. Wheezing. Abdomen - NT / ND; +BS; No rebound or guarding Extremities - no calf tenderness bilaterally, no swelling Skin - Warm/Dry Neurological - Alert & oriented x3. No focal weakness. Normal speech. Psychological - Depressed affect Results Labs 09/05/23 16:24 09/05/23 16:26 Labs: Laboratory Results - last 24 hr 09/05/23 09/05/23 09/05/23 16:23 16:24 16:26 MCV 92.0 MCH 31.1 MCHC 33.8 RDW 15.1 Plt Count 97 L MPV 11.4 Immature Gran % (Auto) 0.5 H Neut % (Auto) 64.3 Lymph % (Auto) 19.6 L [place] % (Auto) 11.5 H Eos % (Auto) 3.6 Baso % (Auto) 0.5 Lymph # (Auto) 0.9 L [place] # (Auto) 0.5 Eos # (Auto) 0.2 Baso # (Auto) 0.0 Abs Immat Gran (auto) 0.02 Absolute Neuts (auto) 2.9 Absolute Nucleated RBC 0.000 Nucleated RBC % (auto) 0.0 Smear Tech's Comments VERIFIED PT INR APTT D-Dimer High Sensitivty < 150 VBG pH VBG pCO2 VBG pO2 VBG HCO3 VBG O2 Saturation VBG Base Excess Anion Gap 12 Estim Creat Clear Calc 88.0 Estimated GFR > 60 Random Glucose 118 H Lactic Acid 1.1 Calcium 8.5 D Total Bilirubin 0.6 AST 25 ALT 20 Alkaline Phosphatase 79 Troponin I High Sens < 2.7 Total Protein 7.0 Albumin 3.4 L Lipase 16 Urine Color Urine Appearance Urine pH Ur Specific [place] Urine Protein Urine Glucose (UA) Urine Ketones Urine Blood Urine Nitrite Ur Leukocyte Esterase Urine Opiates Screen Ur Buprenorphine Scrn Ur Oxycodone Screen Urine Methadone Screen Urine Fentanyl Screen Ur Barbiturates Screen Ur Phencyclidine Scrn Ur Amphetamines Screen U Benzodiazepines Scrn Urine Cocaine Screen U Marijuana (THC) Screen Ethyl Alcohol 121 Influenza Type A (PCR) Influenza Type B (PCR) RSV RNA Qual (PCR) SARS-CoV-2 RNA (RT-PCR) Blood Type Antibody Screen 09/05/23 09/05/23 09/05/23 16:27 16:29 16:34 MCV MCH MCHC RDW Plt Count MPV Immature Gran % (Auto) Neut % (Auto) Lymph % (Auto) [place] % (Auto) Eos % (Auto) Baso % (Auto) Lymph # (Auto) [place] # (Auto) Eos # (Auto) Baso # (Auto) Abs Immat Gran (auto) Absolute Neuts (auto) Absolute Nucleated RBC Nucleated RBC % (auto) Smear Tech's Comments PT INR APTT D-Dimer High Sensitivty VBG pH 7.40 VBG pCO2 43 VBG pO2 93 VBG HCO3 27 H VBG O2 Saturation 98.0 VBG Base Excess 2.6 Anion Gap Estim Creat Clear Calc Estimated GFR Random Glucose Lactic Acid Calcium Total Bilirubin AST ALT Alkaline Phosphatase Troponin I High Sens Total Protein Albumin Lipase Urine Color Yellow Urine Appearance Clear Urine pH 6.5 Ur Specific [place] <= 1.005 Urine Protein Negative Urine Glucose (UA) Negative Urine Ketones Negative Urine Blood Negative Urine Nitrite Negative Ur Leukocyte Esterase Negative Urine Opiates Screen Not Detected Ur Buprenorphine Scrn Positive Ur Oxycodone Screen Not Detected Urine Methadone Screen Not Detected Urine Fentanyl Screen Not Detected Ur Barbiturates Screen Not Detected Ur Phencyclidine Scrn Not Detected Ur Amphetamines Screen Not Detected U Benzodiazepines Scrn Not Detected Urine Cocaine Screen POSITIVE H U Marijuana (THC) Screen Not Detected Ethyl Alcohol Influenza Type A (PCR) NEGATIVE Influenza Type B (PCR) NEGATIVE RSV RNA Qual (PCR) NEGATIVE SARS-CoV-2 RNA (RT-PCR) NEGATIVE Blood Type Antibody Screen 09/05/23 09/05/23 16:50 16:55 MCV MCH MCHC RDW Plt Count MPV Immature Gran % (Auto) Neut % (Auto) Lymph % (Auto) [place] % (Auto) Eos % (Auto) Baso % (Auto) Lymph # (Auto) [place] # (Auto) Eos # (Auto) Baso # (Auto) Abs Immat Gran (auto) Absolute Neuts (auto) Absolute Nucleated RBC Nucleated RBC % (auto) Smear Tech's Comments PT 13.4 H INR 1.1 APTT 35.0 D-Dimer High Sensitivty VBG pH VBG pCO2 VBG pO2 VBG HCO3 VBG O2 Saturation VBG Base Excess Anion Gap Estim Creat Clear Calc Estimated GFR Random Glucose Lactic Acid Calcium Total Bilirubin AST ALT Alkaline Phosphatase Troponin I High Sens Total Protein Albumin Lipase Urine Color Urine Appearance Urine pH Ur Specific [place] Urine Protein Urine Glucose (UA) Urine Ketones Urine Blood Urine Nitrite Ur Leukocyte Esterase Urine Opiates Screen Ur Buprenorphine Scrn Ur Oxycodone Screen Urine Methadone Screen Urine Fentanyl Screen Ur Barbiturates Screen Ur Phencyclidine Scrn Ur Amphetamines Screen U Benzodiazepines Scrn Urine Cocaine Screen U Marijuana (THC) Screen Ethyl Alcohol Influenza Type A (PCR) Influenza Type B (PCR) RSV RNA Qual (PCR) SARS-CoV-2 RNA (RT-PCR) Blood Type A Positive Antibody Screen NEGATIVE Imaging Radiologist's Impressions: Impressions Chest CTA 09/05/23 18:41 IMPRESSION: 1. No evidence of pulmonary embolism or increased right-sided heart pressures. 2. New consolidative airspace opacities in the left lower lobe, concerning for an infectious or inflammatory process. Recommend short-term follow-up CT chest in 3-6 months. 3. Increased bronchial wall thickening with mild mosaic attenuation of lung parenchyma, which could be related with an infectious or inflammatory process of the small airways. 4. Increased size of mediastinal lymphadenopathy, possibly reactive. Recommend attention on follow-up in future examinations. 5. Diffuse circumferential esophageal wall thickening, correlate clinically for esophagitis. 6. Cirrhotic liver morphology with mild splenomegaly and periportal lymphadenopathy. VTE: negative. Assessment and Plan (1) Hemoptysis: Status: Acute (2) Pneumonia: Qualifiers: Laterality: left Lung location: lower lobe of lung Pneumonia type: due to unspecified organism Qualified Code(s): J18.9 - Pneumonia, unspecified organism Status: Acute (3) Acute exacerbation of COPD with asthma: Status: Acute Plan Amelia Tran is a 62 years old woman admitted with: * Acute exacerbation of chronic obstructive pulmonary disease secondary to pneumonia + acute bronchitis. Admit to hospitalist service. Telemetry. Pulse oximetry. Continue supplemental oxygen via nasal cannula to keep O2 sats > 90%. Continue bronchodilator therapy, IV steroids and empiric IV antibiotic therapy with Zosyn. Patient advised to stop cocaine use. * Mild hemoptysis secondary to above/cocaine use. Continue to monitor. * GERD. Continue PPI. * Hypothyroidism. Continue levothyroxine. * Anxiety and depression. Hydroxyzine as needed. * Pancytopenia. Secondary to chronic liver disease. Continue to monitor. * Opiate dependence. Continue Suboxone. * Cocaine use. Patient was advised to stop cocaine use. * Alcohol abuse. [facility] protocol. Thiamine, folic acid and multivitamins. To consider phenobarbital if patient develops withdrawal symptoms. * Nicotine dependence. Tobacco cessation education. * History obstructive sleep apnea. Not using CPAP. * Obesity. BMI 29.3 kg/m2. Weight loss. * HFpEF. No evidence of fluid overload. DVT prophylaxis: SCDs only (thrombocytopenia) GI prophylaxis: Ppi Code status: Full Patient will need hospitalization for at least 2 midnights for acute exacerbation of COPD + pneumonia treatment with supplemental oxygen as needed, bronchodilator therapy, empiric IV antibiotic therapy and IV steroids. Quality Stroke Does the patient have a stroke diagnosis?: No VTE Prior VTE?: No VTE Risk Level:: Medical - moderate - high VTE Device Contraindication: Treatment Not Indicated VTE Drug Contraindication: N/A - Med Ordered
[2023-09-05 23:47] VITALS: BP 119/53; PULSE 63; RESP 12; TEMP 36; O2SAT 95
[2023-09-06] VITALS (12 sets, daily range): BP systolic 124–157; BP diastolic 58–78; PULSE 53–85; RESP 12–20; TEMP 36.1–36.9; O2SAT 95–100
[2023-09-06] MEDS: Thiamine HCL 100 MG in 0.9 % Sodium Chloride 100 ML 202 MG IV ×2 (00:20→08:33)
[2023-09-06] MEDS: 0.9 % Sodium Chloride Flush 3 ML SYRINGE IVFLUSH ×2 (00:22→14:52)
--- NOTE | 2023-09-06 00:26 | PC.NURSE ---
Pt ca&ox4, no signs of distress. Pt sitting up in bed eating chips. Pt medicated per jul. Bilateral IV access flushed. Pt requested breathing tx. RT Kristopher made aware Plan of care ongoing.
[2023-09-06] MEDS: Albuterol/Iprat 2.5/0.5MG 3 ML AMPUL.NEB INHALE ×5 (00:33→19:27)
--- NOTE | 2023-09-06 02:56 | PC.NURSE ---
Pt ambulated to restroom and back into bed. Pt requested and given drink. Plan of care ongoing.
[2023-09-06] MEDS: Piperacillin Sodium/Tazobactam 3.375 GM in 0.9 % Sodium Chloride 50 ML IV ×4 (04:13→21:22)
--- NOTE | 2023-09-06 04:15 | PC.NURSE ---
Pt medicated per jul. Plan of care ongoing.
[2023-09-06 05:31] LABS: Hemoglobin 10.9 g/dl (12.0-16.0); Mean Corpuscular Hemoglobin 30.9 pg (27.0-33.0); Mean Corpuscular Volume 93.5 fL (80.0-98.0); Mean Platelet Volume 11.8 fL (9.4-12.3); Platelet Count 82 X10*3/uL (160-400); Red Blood Count 3.53 X10*6/uL (4.20-5.50); Red Cell Distribution Width 15.5 % (11.0-16.0); White Blood Count 3.3 X10*3/uL (4.8-10.8)
[2023-09-06 05:52] LABS: Alanine Aminotransferase 19 U/L (0-31); Albumin Level 3.2 g/dL (3.5-5.0); Alkaline Phosphatase 92 U/L (39-117); Anion Gap 9 (12-20); Aspartate Amino Transferase 26 U/L (5-31); Bilirubin Total 0.4 mg/dL (0.0-1.0); Blood Urea Nitrogen 9 mg/dL (9-16); Calcium 8.5 mg/dL (8.4-10.2); Carbon Dioxide 25 mmol/L (22-29); Chloride 109 mmol/L (96-108); Creatinine Clr Calc Pharmacy 83.9; Estimated Glomerular Filt Rate > 60; Glucose Random 142 mg/dL (60-115); Potassium 3.6 mmol/L (3.3-5.1); Sodium 139 mmol/L (135-145); Total Protein 6.7 g/dL (6.5-8.0)
[2023-09-06] MEDS: Omeprazole 20 MG CAPSULE.DR PO (06:02)
[2023-09-06] MEDS: Levothyroxine Sodium 25 MCG TABLET PO (06:02)
--- NOTE | 2023-09-06 06:07 | PC.NURSE ---
Pt medicated per jul. Pt ambulated to the restroom with a steady gait. Plan of care ongoing.
--- NOTE | 2023-09-06 07:13 | HO.PM.IMPN ---
Subjective Subjective Date of Service: 09/06/23 Review of Systems Follow-up COPD, pneumonia Still with dry cough denies chest pain, nausea, vomiting, diarrhea Physical Exam Vital Signs: Vital Signs: Last Vital Signs Temp 97.9 F 09/06/23 07:04 Pulse 57 09/06/23 07:04 Resp 16 09/06/23 07:04 BP 141/71 H 09/06/23 07:04 Pulse Ox 98 09/06/23 07:04 O2 Del Method Room Air 09/06/23 07:04 BMI result Body Mass Index 29.3 Appearing in no acute distress lung sounds rhonchi heart regular rate rhythm, clear S1, S2 positive bowel sounds, abdomen is soft, nontender neuro patient is alert x3, no focal deficits Objective Data Active Medications Albuterol/Ipratropium (Albuterol/Iprat 2.5/0.5mg 3 Ml Ampul.Neb) 3 ml INHALE RQ4H WHILE AWAKE [facility] Last Admin: 09/06/23 00:33 Dose: 3 ml Documented By: RACHELLE Buprenorphine/Naloxone (Buprenorphine/Naloxone 8/2 Mg Film) 1 film SUBLINGUAL BID [facility] Folic Acid (Folic Acid 1 Mg Tablet) 1 mg PO DAILY [facility] Stop: 09/09/23 08:59 Hydroxyzine HCl (Hydroxyzine Hcl 25 Mg Tablet) 25 mg PO Q6H PRN PRN Reason: anxiety/restlessness Thiamine HCl 100 mg/ Sodium (Chloride) 101 mls @ 202 mls/hr IV DAILY [facility] Stop: 09/08/23 23:49 Last Infusion: 09/06/23 01:15 Dose: Infused Documented By: ELIAZAR Piperacillin Sod/Tazobactam (Sod 3.375 gm/ Sodium Chloride) 50 mls @ 100 mls/hr IV Q6H [facility] Last Infusion: 09/06/23 05:00 Dose: Infused Documented By: ELIAZAR Levothyroxine Sodium (Levothyroxine Sodium 25 Mcg Tablet) 25 mcg PO DAILY@0630 [facility] Last Admin: 09/06/23 06:02 Dose: 25 mcg Documented By: ELIAZAR Methylprednisolone Sodium Succinate (Methylprednisolone Sod Succ 40 Mg/Ml Vial) 40 mg IVPUSH Q12H [facility] Montelukast Sodium (Montelukast Sodium 10 Mg Tablet) 10 mg PO DAILY [facility] Multivitamins/Vitamin C (Multivitamin Tablet) 1 tab PO DAILY [facility] Stop: 09/09/23 08:59 Nicotine (Nicotine 7 Mg Patch.Td24) 7 mg TRANSDERMA ONCE PRN PRN Reason: Nicotine Cravings Omeprazole (Omeprazole 20 Mg Capsule.Dr) 20 mg PO DAILY@0630 [facility] Last Admin: 09/06/23 06:02 Dose: 20 mg Documented By: ELIAZAR Sodium Chloride (0.9 % Sodium Chloride Flush 3 Ml Syringe) 3 ml IVFLUSH QSHIFT [facility] Last Admin: 09/06/23 00:22 Dose: 3 ml Documented By: ELIAZAR Labs 09/06/23 03:58 09/06/23 03:58 Labs: Laboratory Results - last 24 hr 09/05/23 09/05/23 09/05/23 16:23 16:24 16:26 MCV 92.0 MCH 31.1 MCHC 33.8 RDW 15.1 Plt Count 97 L MPV 11.4 Immature Gran % (Auto) 0.5 H Neut % (Auto) 64.3 Lymph % (Auto) 19.6 L [place] % (Auto) 11.5 H Eos % (Auto) 3.6 Baso % (Auto) 0.5 Lymph # (Auto) 0.9 L [place] # (Auto) 0.5 Eos # (Auto) 0.2 Baso # (Auto) 0.0 Abs Immat Gran (auto) 0.02 Absolute Neuts (auto) 2.9 Absolute Nucleated RBC 0.000 Nucleated RBC % (auto) 0.0 Smear Tech's Comments VERIFIED PT INR APTT D-Dimer High Sensitivty < 150 VBG pH VBG pCO2 VBG pO2 VBG HCO3 VBG O2 Saturation VBG Base Excess Anion Gap 12 Estim Creat Clear Calc 88.0 Estimated GFR > 60 Random Glucose 118 H Lactic Acid 1.1 Calcium 8.5 D Total Bilirubin 0.6 AST 25 ALT 20 Alkaline Phosphatase 79 Troponin I High Sens < 2.7 Total Protein 7.0 Albumin 3.4 L Lipase 16 Urine Color Urine Appearance Urine pH Ur Specific [place] Urine Protein Urine Glucose (UA) Urine Ketones Urine Blood Urine Nitrite Ur Leukocyte Esterase Urine Opiates Screen Ur Buprenorphine Scrn Ur Oxycodone Screen Urine Methadone Screen Urine Fentanyl Screen Ur Barbiturates Screen Ur Phencyclidine Scrn Ur Amphetamines Screen U Benzodiazepines Scrn Urine Cocaine Screen U Marijuana (THC) Screen Ethyl Alcohol 121 Influenza Type A (PCR) Influenza Type B (PCR) RSV RNA Qual (PCR) SARS-CoV-2 RNA (RT-PCR) Blood Type Antibody Screen 09/05/23 09/05/23 09/05/23 16:27 16:29 16:34 MCV MCH MCHC RDW Plt Count MPV Immature Gran % (Auto) Neut % (Auto) Lymph % (Auto) [place] % (Auto) Eos % (Auto) Baso % (Auto) Lymph # (Auto) [place] # (Auto) Eos # (Auto) Baso # (Auto) Abs Immat Gran (auto) Absolute Neuts (auto) Absolute Nucleated RBC Nucleated RBC % (auto) Smear Tech's Comments PT INR APTT D-Dimer High Sensitivty VBG pH 7.40 VBG pCO2 43 VBG pO2 93 VBG HCO3 27 H VBG O2 Saturation 98.0 VBG Base Excess 2.6 Anion Gap Estim Creat Clear Calc Estimated GFR Random Glucose Lactic Acid Calcium Total Bilirubin AST ALT Alkaline Phosphatase Troponin I High Sens Total Protein Albumin Lipase Urine Color Yellow Urine Appearance Clear Urine pH 6.5 Ur Specific [place] <= 1.005 Urine Protein Negative Urine Glucose (UA) Negative Urine Ketones Negative Urine Blood Negative Urine Nitrite Negative Ur Leukocyte Esterase Negative Urine Opiates Screen Not Detected Ur Buprenorphine Scrn Positive Ur Oxycodone Screen Not Detected Urine Methadone Screen Not Detected Urine Fentanyl Screen Not Detected Ur Barbiturates Screen Not Detected Ur Phencyclidine Scrn Not Detected Ur Amphetamines Screen Not Detected U Benzodiazepines Scrn Not Detected Urine Cocaine Screen POSITIVE H U Marijuana (THC) Screen Not Detected Ethyl Alcohol Influenza Type A (PCR) NEGATIVE Influenza Type B (PCR) NEGATIVE RSV RNA Qual (PCR) NEGATIVE SARS-CoV-2 RNA (RT-PCR) NEGATIVE Blood Type Antibody Screen 09/05/23 09/05/23 09/06/23 16:50 16:55 03:58 MCV 93.5 MCH 30.9 MCHC 33.0 RDW 15.5 Plt Count 82 L MPV 11.8 Immature Gran % (Auto) Neut % (Auto) Lymph % (Auto) [place] % (Auto) Eos % (Auto) Baso % (Auto) Lymph # (Auto) [place] # (Auto) Eos # (Auto) Baso # (Auto) Abs Immat Gran (auto) Absolute Neuts (auto) Absolute Nucleated RBC 0.000 Nucleated RBC % (auto) 0.0 Smear Tech's Comments PT 13.4 H INR 1.1 APTT 35.0 D-Dimer High Sensitivty VBG pH VBG pCO2 VBG pO2 VBG HCO3 VBG O2 Saturation VBG Base Excess Anion Gap 9 L Estim Creat Clear Calc 83.9 Estimated GFR > 60 Random Glucose 142 H Lactic Acid Calcium 8.5 Total Bilirubin 0.4 AST 26 ALT 19 Alkaline Phosphatase 92 Troponin I High Sens Total Protein 6.7 Albumin 3.2 L Lipase Urine Color Urine Appearance Urine pH Ur Specific [place] Urine Protein Urine Glucose (UA) Urine Ketones Urine Blood Urine Nitrite Ur Leukocyte Esterase Urine Opiates Screen Ur Buprenorphine Scrn Ur Oxycodone Screen Urine Methadone Screen Urine Fentanyl Screen Ur Barbiturates Screen Ur Phencyclidine Scrn Ur Amphetamines Screen U Benzodiazepines Scrn Urine Cocaine Screen U Marijuana (THC) Screen Ethyl Alcohol Influenza Type A (PCR) Influenza Type B (PCR) RSV RNA Qual (PCR) SARS-CoV-2 RNA (RT-PCR) Blood Type A Positive Antibody Screen NEGATIVE Assessment and Plan (1) Acute exacerbation of COPD with asthma: Status: Acute Plan 62-year-old woman admitted with acute exacerbation of COPD, pneumonia and bronchitis Acute COPD exacerbation, pneumonia and acute bronchitis Continue bronchodilator therapy scheduled and IV steroids Will treat with IV Zosyn Continue oxygen to keep oxygen saturations greater than 90% May use cough suppressant as needed Mild hemoptysis Likely secondary to cocaine use Stable H&H Opiate dependence Continue Suboxone Discussed importance of stopping cocaine History of alcohol abuse No obvious withdrawal symptoms at this time Monitor on CIWA Continue thiamine, folic acid and multivitamin Tobacco use Tobacco cessation education and nicotine replacement therapy Obesity. BMI 29.3 Discussed importance of weight management as this may be contributing to worsening of other comorbidities Heart failure with preserved ejection fraction No exacerbation at this time Hypothyroidism Continue levothyroxine Mental health Continue hydroxyzine DVT prophylaxis with pneumatic compression boots Attending Dr. Cunningham Full code Continue hospitalization for treatment of acute COPD exacerbation, pneumonia, requiring IV antibiotics and IV steroids and oxygen therapy. Quality Stroke Does the patient have a stroke diagnosis?: No VTE Prior VTE?: No VTE Risk Level:: Medical - moderate - high VTE Device Contraindication: Treatment Not Indicated VTE Drug Contraindication: N/A - Med Ordered
--- NOTE | 2023-09-06 07:16 | PC.NURSE ---
norman appears to be sleeping off and on in bed, respirations equal and unlabored, skin dry and intact. patient VSS. awaiting transport upstairs to admission room
--- NOTE | 2023-09-06 07:22 | PC.NURSE ---
patient is sitting up eating breakfast
[2023-09-06 07:39] LABS: Glucose, Whole Blood 127 mg/dL (60-115)
[2023-09-06] MEDS: methylPREDNISolone Sod Succ 40 MG/ML VIAL IVPUSH ×2 (08:33→21:22)
[2023-09-06] MEDS: Montelukast Sodium 10 MG TABLET PO (08:34)
[2023-09-06] MEDS: Multivitamin TABLET 1 TAB PO (08:34)
[2023-09-06] MEDS: Buprenorphine/Naloxone 8/2 mg FILM 1 FILM SUBLINGUAL ×2 (08:34→14:52)
[2023-09-06] MEDS: Folic Acid 1 MG TABLET PO (08:34)
[2023-09-06] MEDS: Nicotine 7 MG PATCH.TD24 TRANSDERMA (08:34)
--- NOTE | 2023-09-06 09:04 | PHA.MEDREC ---
Pharmacy Consult ? Medication Reconciliation Pharmacy has completed the medication reconciliation. Spoke to patient at bedside, reports taking lactulose BID and vitamin D that she says gets delivered by [facility]. Also states she gets protein drinks but let her know we do not carry those here. All meds taken yesterday AM. Takes her Suboxone in the morning and afternoon.
--- NOTE | 2023-09-06 14:55 | MHC.CM.PN ---
IMM 09/06/23, Pt is independent, no home health services, for medical equipment she has O2 and a nebulizer. Her PCP is James Pompa. She said her brother is her HCP, no form found, CM will provide form and add to chart. She gets her suboxone from [facility] in [place]. DC plan is home, self care. CM to follow and assist with DC plan.
[2023-09-06] MEDS: Lactulose 20 GM/30 ML SOLUTION 10 GM PO (21:22)
[2023-09-06] MEDS: hydrOXYzine HCL 25 MG TABLET PO (21:22)
[2023-09-07] MEDS: 0.9 % Sodium Chloride Flush 3 ML SYRINGE IVFLUSH ×2 (01:27→08:57)
[2023-09-07] MEDS: Acetaminophen 325 MG TABLET 975 MG PO (01:27)
[2023-09-07 03:52] VITALS: BP 146/65; PULSE 69; RESP 20; TEMP 36.2; O2SAT 97
[2023-09-07] MEDS: Piperacillin Sodium/Tazobactam 3.375 GM in 0.9 % Sodium Chloride 50 ML IV ×2 (03:58→10:10)
[2023-09-07] MEDS: Levothyroxine Sodium 25 MCG TABLET PO (05:12)
[2023-09-07] MEDS: hydrOXYzine HCL 25 MG TABLET PO (05:12)
[2023-09-07] MEDS: Omeprazole 40 MG CAPSULE.DR PO (05:12)
[2023-09-07 07:22] LABS: Thyroid Stimulating Hormone 0.25 uIU/mL (0.32-4.0)
[2023-09-07 07:24] VITALS: BP 150/72; PULSE 72; RESP 18; TEMP 36.1; O2SAT 97
[2023-09-07] MEDS: Albuterol/Iprat 2.5/0.5MG 3 ML AMPUL.NEB INHALE ×2 (07:40→11:29)
[2023-09-07 07:41] VITALS: PULSE 65; RESP 18; O2SAT 98
[2023-09-07] MEDS: Buprenorphine/Naloxone 8/2 mg FILM 1 FILM SUBLINGUAL ×2 (08:55→13:58)
[2023-09-07] MEDS: Thiamine HCL 100 MG in 0.9 % Sodium Chloride 100 ML 202 MG IV (08:56)
[2023-09-07] MEDS: methylPREDNISolone Sod Succ 40 MG/ML VIAL IVPUSH (08:56)
[2023-09-07] MEDS: Folic Acid 1 MG TABLET PO (08:56)
[2023-09-07] MEDS: Lactulose 20 GM/30 ML SOLUTION 10 GM PO (08:56)
[2023-09-07] MEDS: Multivitamin TABLET 1 TAB PO (08:56)
[2023-09-07] MEDS: Nicotine 14 MG PATCH.TD24 TRANSDERMA (10:10)
--- NOTE | 2023-09-07 10:39 | PM.DS ---
DS: Providers Provider Date of Service: 09/07/23 Date of admission: 09/05/23 23:00 Date of discharge: 09/07/23 Primary care physician: James Pompa [facility] Attending physician on discharge: John Cunningham Discharging clinician: Lissa Gomez DS: Diagnosis Discharge Diagnosis (1) Acute exacerbation of COPD with asthma: Status: Acute DS: Summary Hospital Course Hospital Course: From H&P on the day of admission Amelia Tran is a 62 years old woman with past medical history significant for COPD (noncompliant with home O2), sleep apnea, obesity, HFpEF, illicit drug use, alcohol abuse, anxiety, depression and GERD presents to the emergency department complaining of shortness on breath associated with productive cough tinged with smoked quantity of blood since yesterday. She denied chest pain, palpitations, headache or dizziness. She denied vomiting blood. Denies abdominal pain, nausea, vomiting or diarrhea. She admits using cocaine (crack cocaine over the last 2 day) and smoking tobacco. She also drinks alcohol 2-3 alcoholic beverages daily. In the ED, she was found to have normal vital signs. Oxygen saturation is 97 on room air. Blood workup showed no leukocytosis (mild neutropenia which seems to be at baseline). Hemoglobin is normal. There is mild thrombocytopenia, at baseline. There are no significant electrolyte imbalances. Renal function is normal. LFTs and lipase are normal. Urine drug screen is positive for cocaine, bupropion and alcohol 121. Urinalysis normal. Chest CT scan showed no evidence of pulmonary embolism. It showed new consolidative airspace opacity in the left lower lobe concerning for infectious or inflammatory process, increased bronchial wall thickening, increased side lymphadenopathy likely reactive, possible esophagitis and cirrhotic liver with mild splenomegaly. Acute COPD exacerbation, pneumonia with hemoptysis Was treated with bronchodilator therapy scheduled and IV steroids as well as IV Zosyn. She has remained on, her respiratory symptoms have improved and her hemoptysis has resolved. Initial CTA - recommended a short-term follow-up chest CT in 3-6 months. We will be discharged to complete course steroids and antibiotics. Opiate dependence Continue Suboxone Discussed importance of stopping cocaine History of alcohol abuse No obvious withdrawal symptoms at this time. CIWA score remained low Tobacco use Tobacco cessation education and nicotine replacement therapy Question esophagitis noted on CTA. No active acid reflux symptoms. Discussed with GI, recommend outpatient follow-up and continue current dose of PPI. Time Attestation Discharge Coordination Time (in mins): 35 Quality: Safe Use of Opioids Does Pt have an Active Cancer Diagnosis on the Problem List?: No Quality: Stroke Does the patient have a stroke diagnosis?: No Physical Exam Vital Signs: Vital Signs: Last Vital Signs Temp 97.0 F 09/07/23 07:24 Pulse 65 09/07/23 07:41 Resp 18 09/07/23 07:41 BP 150/72 H 09/07/23 07:24 Pulse Ox 97 09/07/23 07:24 O2 Del Method Room Air 09/07/23 07:24 BMI result Body Mass Index 29.3 Const: General: cooperative, comfortable, no acute distress, alert and awake Nutritional Appearance: average body habitus Orientation/consciousness: patient oriented x3 Resp: Effort & Inspection: normal respiratory effort, able to speak in complete sentences, no respiratory distress and no use of accessory muscles Auscultation: clear to auscultation bilaterally Cardio: Rate: regular rate GI: Inspection: No distended Palpation (GI): Soft to palpation and nontender Neuro: General: patient oriented x3, moves all extremities and CN's II-XI intact bilaterally Extrem: General: Yes no pedal edema DS: Data Data Completed and Pending Labs on day of discharge: Laboratory Results - last 24 hr 09/07/23 06:03 TSH 0.25 L Preliminary micro results at discharge 09/05/23 16:50 Blood Culture - Preliminary Blood - Venous No growth after 24 hours. 09/05/23 16:23 Blood Culture - Preliminary Blood - Venous No growth after 24 hours. Discharge Plan Discharge Anticipated Discharge Date/Time: 09/07/23 10:46 Patient Disposition: Home, Self-Care Discharge Diagnosis: pneumonia Referrals: James Pompa [employer] [Primary Care Provider] - 1 Week Discharge Medications: New prednisone 20 mg tablet 40 mg PO DAILY Qty: 10 0RF amoxicillin-pot clavulanate 875-125 mg tablet 1 tab PO Q12H 5 Days Qty: 10 0RF Continued omeprazole 40 mg capsule,delayed release(DR/EC) 40 mg PO DAILY@0630 levothyroxine 25 mcg tablet 25 mcg PO DAILY@0600 famotidine 20 mg tablet 20 mg PO DAILY montelukast 10 mg tablet 10 mg PO BEDTIME fluticasone propionate 50 mcg/actuation spray,suspension 1 spray intranasal DAILY buprenorphine-naloxone [Suboxone] 8-2 mg film 1 film sublingual BID@0900,1400 lactulose 10 gram/15 mL Solution 15 ml PO BID cholecalciferol (vitamin D3) 25 mcg (1,000 unit) Tablet 25 mcg PO DAILY Discharge Orders: Discharge Order (Routine); Ordered 09/07/23 Ordered By: Lissa Gomez Activity on Discharge: As tolerated Stand Alone Forms: Patient Portal Discharge page Print Language: Chinese Care Plan Goals: see below Health Concerns: pneumonia COPD exacerbation ?esophagitis on imaging Plan of Treatment: Complete course of antibiotics as prescribed Complete course of steroids as prescribed Imaging showing question of esophagitis, continue home dose of omeprazole and Call to schedule a 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
[2023-09-07 11:17] VITALS: BP 155/74; PULSE 78; RESP 18; TEMP 36.6; O2SAT 96
[2023-09-07 11:31] VITALS: PULSE 78; RESP 18; O2SAT 98
--- NOTE | 2023-09-07 12:02 | MHC.CM.PN ---
Patient has been medically cleared for dc to home today, self care. Last IMM addressed yesterday.
--- NOTE | 2023-09-07 13:54 | MHC.CM.PN ---
Patient will dc to home via [facility] at 2:15 PM.
== END 2023-09-07 14:07 | disposition home or self-care (01) | DRG 190 ==
LOC: HO.ED 15:51 → HO.EDOVER 23:29 → HO.IMC 09-06 07:08
PROVIDERS: Admitting Provider Internal Medicine; Emergency Provider Emergency Medicine Emergency Medical Services; PCP Nurse Practitioner Family; Visit Provider Physician Assistant Medical
DX: J44.0 Chronic obstructive pulmonary disease with (acute) lower respiratory infection (principal); J18.9 Pneumonia, unspecified organism; D61.818 Other pancytopenia; F11.20 Opioid dependence, uncomplicated; I50.32 Chronic diastolic (congestive) heart failure; R04.2 Hemoptysis; J44.1 Chronic obstructive pulmonary disease with (acute) exacerbation; K74.60 Unspecified cirrhosis of liver; E66.9 Obesity, unspecified; F10.129 Alcohol abuse with intoxication, unspecified; E03.9 Hypothyroidism, unspecified; I11.0 Hypertensive heart disease with heart failure; J20.9 Acute bronchitis, unspecified; Y90.6 Blood alcohol level of 120-199 mg/100 ml; F17.210 Nicotine dependence, cigarettes, uncomplicated; F14.90 Cocaine use, unspecified, uncomplicated; Z68.29 Body mass index [BMI] 29.0-29.9, adult; F41.9 Anxiety disorder, unspecified; F32.A Depression, unspecified; G47.33 Obstructive sleep apnea (adult) (pediatric); Z20.822 Contact with and (suspected) exposure to COVID-19; Z71.6 Tobacco abuse counseling; Z99.81 Dependence on supplemental oxygen; Z79.890 Hormone replacement therapy; Z79.899 Other long term (current) drug therapy
CPT/HCPCS: 0241U; 36415; 71275; 80053; 80307; 81003; 82803; 82947; 83605; 83690; 84443; 84484; 85025; 85027; 85379; 85610; 85730; 86850; 86900; 86901; 87040; 93005; 94640; 99285; J2060; J2543; J2919; J3411; Q9967

== ENCOUNTER → 2023-09-05 15:56 | Outpatient (BNV) | payer MEDICARE, MEDICAID, SELFPAY | PROVIDERS: Admitting Provider Internal Medicine; Emergency Provider Emergency Medicine Emergency Medical Services; PCP Nurse Practitioner Family; Visit Provider Internal Medicine Cardiovascular Disease | DX: R06.02 Shortness of breath (principal); R94.31 Abnormal electrocardiogram [ECG] [EKG] | CPT/HCPCS: 93010 ==

== ENCOUNTER → 2023-09-05 23:00 | Outpatient (BNV) | payer MEDICARE, MEDICAID, SELFPAY | PROVIDERS: Admitting Provider Internal Medicine; Emergency Provider Emergency Medicine Emergency Medical Services; PCP Nurse Practitioner Family; Visit Provider Internal Medicine | DX: J44.1 Chronic obstructive pulmonary disease with (acute) exacerbation (principal); J45.901 Unspecified asthma with (acute) exacerbation | CPT/HCPCS: 99223; 99232; 99239 ==

== ENCOUNTER 2023-09-12 08:45 | Outpatient (REF) | payer MEDICARE, MEDICAID, SELFPAY ==
--- NOTE | ~2023-09-12 | US_ITS ---
EXAMINATION: US ABDOMEN COMPLETE CLINICAL INFORMATION: Unspecified cirrhosis of the liver. COMPARISON: Ultrasound abdomen complete 02/10/2023. CT abdomen and pelvis 08/01/2020. TECHNIQUE: Real-time imaging of the abdominal viscera. FINDINGS: PANCREAS: The head and body appear normal. The details are by bowel gas. ABDOMINAL AORTA: The proximal, mid, and distal segments are normal in caliber. INFERIOR VENA CAVA: Visualized portions are normal. LIVER: Cirrhotic appearing liver without discrete liver mass. No biliary ductal dilatation. No visible ascites. GALLBLADDER: The gallbladder wall is diffusely thickened at 6 mm which is nonspecific in the setting of cirrhosis. No discrete mass or cholelithiasis. COMMON BILE DUCT: Normal in caliber measuring 0.7 cm in diameter. RIGHT KIDNEY: Normal. No hydronephrosis. No renal calculi or focal parenchymal lesions. The kidney measures 12.1 cm in maximum dimension. LEFT KIDNEY: Normal. No hydronephrosis. No renal calculi or focal parenchymal lesions. The kidney measures 12.9 cm in maximum dimension. SPLEEN: Mildly enlarged spleen measuring 13.7 cm. FREE FLUID: None. US/US abdomen complete IMPRESSION: Cirrhotic appearing liver without discrete liver mass. Diffuse thickened gallbladder wall without cholelithiasis. Gallbladder wall thickening is likely related to underlying cirrhosis. Mild splenomegaly.
== END 2023-09-12 08:46 | disposition home or self-care (01) ==
LOC: HO.HMGCX 08:45
PROVIDERS: PCP Nurse Practitioner Family; Visit Provider Internal Medicine
DX: K74.60 Unspecified cirrhosis of liver (principal)
CPT/HCPCS: 76700

== ENCOUNTER 2023-09-13 14:51 | Outpatient (REF) | payer MEDICARE, MEDICAID, SELFPAY ==
--- NOTE | ~2023-09-13 | CT_ITS ---
EXAMINATION: CT CHEST SCREENING CLINICAL INFORMATION: Nicotine dependence, cigarettes, uncomplicated. The patient is a current smoker with a 50 pack-year history of smoking. COMPARISON: CT chest 09/05/2023: New consolidative airspace opacities in the left lower lobe, concerning for an infectious or inflammatory process. Recommend short-term follow-up CT chest in 3-6 months. X-ray chest 08/01/2020. TECHNIQUE: Multidetector volumetric CT imaging of the chest is performed on a Siemens SOMATOM Perspective scanner without contrast using low dose technique. Additional 2D coronal and sagittal reformatted images and axial 3D maximum intensity projection (MIP) images are generated on the CT workstation. This CT examination was performed using dose optimization techniques as appropriate, variously including the following: *Automated exposure control *Adjustment of mA and/or kV according to patient size (this includes techniques or standardized protocols for targeted exams where dose is matched to indication/reason for exam; i.e. extremities or head) *Use of iterative reconstruction technique DLP: 88 mGy-cm FINDINGS: LUNGS: Please note that this follow-up exam is only 8 days after the prior chest CT. At the time of the prior CT scan, new consolidative opacities were present in the left lower lobe which have significantly improved since the prior but a number of opacities remain with the largest tubular in shape measuring 1.9 x 0.6 x 0.5 cm (5:291 and britt images). An adjacent opacity measures 1.5 x 0.4 x 0.8 cm (5:286 and britt images). Some nonspecific scattered ground-glass changes are present. Emphysematous changes are seen along with bronchial wall thickening. MEDIASTINUM: Prominent mediastinal lymph nodes are unchanged, the largest 1.5 cm in the pretracheal/precarinal region, most likely reactive (3:15). CORONARY ARTERY CALCIFICATION: Minimal. PLEURA: There is no pleural effusion. No pleural mass or thickening. AXILLA: No lymphadenopathy. UPPER ABDOMEN: The liver appears cirrhotic with a nodular border and hypertrophy of the caudate lobe with associated splenomegaly. OSSEOUS STRUCTURES: Unremarkable. CT/CT lung screening IMPRESSION: Improving left lower lobe opacities with some residual opacities as described above. As recommended 8 days ago, a follow-up CT scan is recommended in 3-6 months. ASSESSMENT: Lung-RADS category 3: Probably Benign RECOMMENDATION: Short interval 3 month follow up low-dose CT chest.
== END 2023-09-13 14:52 | disposition home or self-care (01) ==
LOC: HO.CT 14:51
PROVIDERS: PCP Nurse Practitioner Family; Visit Provider Nurse Practitioner Family
DX: Z12.2 Encounter for screening for malignant neoplasm of respiratory organs (principal); F17.210 Nicotine dependence, cigarettes, uncomplicated
CPT/HCPCS: 71271

== ENCOUNTER 2023-09-21 08:53 | Outpatient (REF) | payer MEDICARE, MEDICAID, SELFPAY ==
--- NOTE | ~2023-09-21 | XR_ITS ---
EXAMINATION: XR HIP, RIGHT CLINICAL INFORMATION: Pain in right hip. COMPARISON: None available. TECHNIQUE: Two views of the right hip. FINDINGS: Advanced degenerative changes in the partially imaged lower lumbar spine. Coarse calcification overlying the pelvis is characteristic of a uterine fibroid. Bones are diffusely demineralized. [id number] degenerative changes in the right hip with joint space narrowing, hypertrophic change and subtle sclerotic/lucent areas in the femoral head. XR/XR hip RT min 2V IMPRESSION: [id number] degenerative changes right hip. The bones are diffusely demineralized. MRI recommended for further evaluation if there is clinical concern for fracture or other underlying pathology.
== END 2023-09-21 08:54 | disposition home or self-care (01) ==
LOC: HO.HOSX 08:53
PROVIDERS: Visit Provider Physician Assistant
DX: M16.11 Unilateral primary osteoarthritis, right hip (principal)
CPT/HCPCS: 73502; 99212

== ENCOUNTER 2023-09-21 10:46 | Outpatient (AMB) | payer MEDICARE, MEDICAID, SELFPAY ==
--- NOTE | 2023-09-21 10:49 | A.OFFVIS_ITS ---
Vital Signs 09/21/23 10:59 Height 5 ft 2 in Weight 170 lb BMI 31.1 Intake Visit Reasons: New Prob - Right Hip Pain Intake Note: Amelia a 62 year old female who presents today for an evaluation of right hip pain. Patient reports her pain has been present for about 6 months, denies any injury. States difficulty with getting up out of bed and walking. She has a constant dull pain as well as an intermittent sharp pain in her groin area. No numbness or tingling. Hx of back problems. No previous tx. Finds no relief with ibuprofen. Allergies doxycycline [Doxycycline] Allergy (Intermediate, Verified 09/21/23 11:01) RASH, vomiting HPI HPI New Prob - Right Hip Pain: Details: 62-year-old female who presents to the office today for evaluation of right hip pain for 6 months. She states she has constant dull pain as well as intermittent sharp pain in her hip which radiates to her groin area. Her pain makes it difficult to getting out of bed and walking. She denies any numbness, tingling or previous injury and has not had any treatment in the past. She finds no relief with ibuprofen. [facility] Medical History Nicotine dependence, cigarettes, uncomplicated Nocturnal hypoxemia Tubular adenoma of colon (~2006) Personal history of nicotine dependence History of substance abuse History of acute respiratory failure (~03/2018) Allergic rhinitis Alcohol abuse GERD (gastroesophageal reflux disease) Chronic lower back pain CHF (congestive heart failure) HTN (hypertension) Myofascial pain syndrome Obstructive sleep apnea (~2003) Hepatitis C Depression Anxiety Hypothyroidism Obesity (BMI 30-39.9) COPD (chronic obstructive pulmonary disease) Surgical History History of myringotomy History of colonoscopy History of esophagogastroduodenoscopy (EGD) Family History Father CVD (cardiovascular disease) Mother Lung cancer Social History Household Members: None Household Members Other:: lives alone Housing: House Do you presently have visiting nurse or other home services: No Alcohol intake: current Alcohol intake frequency: 0-2 drinks per day Alcohol type: beer Comment: pt refusing bed alarm Patient Tobacco Use Status: Current everyday Tobacco user Tobacco use type: Cigarette Cigarette Packs Per Day: 0.5 Cigarettes Per Day: 5 Years Smoked: 50 e-Cigarette/Vaping Use: Never Used Second Hand Smoke Exposure: Yes Substance Use Type: Crack/Cocaine service: No Current occupational status: disabled Current occupation: rt handed Cognitive needs: No Hearing needs: No Vision needs: No Review of Systems Const All systems reviewed & are unremarkable except as noted in HPI and below Physical Exam Vital Signs: BMI result Body Mass Index 31.1 Extrem Other: Right hip: Normal to inspection, ambulates with a slight limp. Has mild discomfort with internal and extension rotation of hip. No significant stiffness. Mild discomfort with hip flexion against resistance. Negative SLR and negative SI joint tenderness. NVI. Results Reviewed Results Reviewed: Xrays were obtained in the office today and personally reviewed by me of the rig ht hip show significant oa with osteophyte formation Assessment & Plan Assessment & Plan (1) Osteoarthritis of right hip: Code(s): M16.11 - Unilateral primary osteoarthritis, right hip Category: Medical Plan We discussed options which include physical therapy and intraarticular right hip joint injection both of which were ordered today. this will be performed in the hospital under fluoroscopy. I did explain that she is not a candidate for TKA given her smoking history and history of heart failure. She does understand all this and will see me back as needed. Orders: Orders XR hip RT min 2V Today M25.551 - Pain in right hip PT Evaluation and Treatment Today M16.11 - Unilateral primary osteoarthritis, right hip FL arthrogram hip RT Today M16.11 - Unilateral primary osteoarthritis, right hip Patient Instructions: Scribed for Marissa Barros PA-C, by Osvaldo Martinez medical office asst, on 09/21/2023 at 11:00 AM EST. IMarissa PA-C, have personally reviewed and agree with the information entered by the scribe. Coding Level of Care Code Est Pt Level 3 (33889) Diagnoses Osteoarthritis of right hip M16.11
[2023-09-21 10:59] VITALS: BMI 31.1
== END 2023-09-21 14:26 | disposition home or self-care (01) ==
PROVIDERS: PCP Nurse Practitioner Family; Visit Provider Physician Assistant
DX: M16.11 Unilateral primary osteoarthritis, right hip (principal)
CPT/HCPCS: 99213

== ENCOUNTER 2023-09-28 11:34 | Outpatient (AMB) | payer MEDICARE, MEDICAID, SELFPAY ==
--- NOTE | 2023-09-28 12:06 | MHC.OFFWIV ---
Intake Vital Signs 09/28/23 12:07 Height 5 ft 2 in Weight 170 lb BMI 31.1 BP 140/70 H Blood Pressure Location Rt brachial Position Sitting Pulse 76 Pulse Source Pulse Oximeter Temp 98.2 F Temp Source Temporal Artery Scan Pulse Oximetry (%) 97 Intake Visit Reasons: EST/congestion/trouble breathing (lobby) Intake Note: pt is here for congestion, trouble breathing. recently had pneumonia and wants to see if its getting better Patient Tobacco Use Status: Current everyday Tobacco user Allergies doxycycline [Doxycycline] Allergy (Intermediate, Verified 09/28/23 12:07) RASH, vomiting HPI HPI Comments History of Present Illness Details The patient presents to urgent care for evaluation of left-sided chest wall pain for the past couple of days. She states that couple of days ago she mowed her grass with a push mower and strained her wrist and developed some discomfort in left lung that she reports is associated with deep inspiration. She denies cough fever chills nausea vomiting or worsening shortness of breath. She admits that she was in the hospital several weeks ago with pneumonia and is worried about another episode of pneumonia though she does admit that her symptoms today are unlike previous episodes of pneumonia. [facility] Medical History (Updated 09/22/23 @ 15:50 by James Pompa [facility]) CHF (congestive heart failure) HTN (hypertension) Hepatitis C Cirrhosis Alcohol abuse History of substance abuse History of acute respiratory failure (~03/2018) COPD (chronic obstructive pulmonary disease) Nocturnal hypoxemia Obstructive sleep apnea (~2003) Nicotine dependence, cigarettes, uncomplicated Hypothyroidism Allergic rhinitis Tubular adenoma of colon (~2006) GERD (gastroesophageal reflux disease) Chronic lower back pain Myofascial pain syndrome Depression Anxiety Obesity (BMI 30-39.9) Surgical History History of myringotomy History of colonoscopy History of esophagogastroduodenoscopy (EGD) Family History Father CVD (cardiovascular disease) Mother Lung cancer Social History Household Members: None Household Members Other:: lives alone Housing: House Do you presently have visiting nurse or other home services: No Alcohol intake: current Alcohol intake frequency: 0-2 drinks per day Alcohol type: beer Comment: pt refusing bed alarm Patient Tobacco Use Status: Current everyday Tobacco user Tobacco use type: Cigarette Cigarette Packs Per Day: 0.5 Cigarettes Per Day: 5 Years Smoked: 50 e-Cigarette/Vaping Use: Never Used Second Hand Smoke Exposure: Yes Substance Use Type: Crack/Cocaine service: No Current occupational status: disabled Current occupation: rt handed Cognitive needs: No Hearing needs: No Vision needs: No Physical Exam Vital Signs: Last Vital Signs Temp 98.2 F 09/28/23 12:07 Pulse 76 09/28/23 12:07 BP 140/70 H 09/28/23 12:07 Pulse Ox 97 09/28/23 12:07 BMI result Body Mass Index 31.1 Const General: healthy appearing and no acute distress Orientation/consciousness: patient oriented x3 Eyes Corneas: corneas normal Pupils: Equal, round and reactive pupils present Chest Chest palpation & inspection: no tenderness Resp Effort & Inspection: normal respiratory effort and able to speak in complete sentences Auscultation: clear to auscultation bilaterally GI Palpation (GI): nontender Neuro General: patient oriented x3 Cranial nerves: Yes Equal, round and reactive pupils present Psych Appearance: grossly normal Attitude: cooperative Assessment & Plan Assessment & Plan (1) Costochondritis: Code(s): M94.0 - Chondrocostal junction syndrome [Tietze] Plan The patient's lungs are clear vital signs stable symptoms inconsistent with pneumonia and I do not feel warrants a repeat chest x-ray at this time. She was mowing the grass and strained several muscle groups during that episode and this may have been a result of that episode. She does have a follow-up scheduled with her PCP. Recommend keeping this appointment. Return to urgent care/ER for any reason Coding Level of Care Code Est Pt Level 3 (25575) Diagnoses Costochondritis M94.0
[2023-09-28 12:07] VITALS: BP 140/70; PULSE 76; TEMP 36.8; O2SAT 97; BMI 31.1
== END 2023-09-28 13:28 | disposition home or self-care (01) ==
PROVIDERS: PCP Nurse Practitioner Family; Visit Provider Emergency Medicine
DX: M94.0 Chondrocostal junction syndrome [Tietze] (principal)
CPT/HCPCS: 99213

== ENCOUNTER 2023-10-06 10:37 | Outpatient (RCR) | payer MEDICARE, MEDICAID, SELFPAY ==
[2023-10-06 10:45] VITALS: PULSE 85; O2SAT 93
--- NOTE | 2023-10-06 11:43 | MHC.PT.EP ---
[facility] [place] Office [place] Office [place] Office [address] Gema Vieyra [address] [phone] F: [phone] F: [phone] F: [phone] F: [phone] Physical Therapy Plan of Care Date of Evaluation: 10/06/23 Date of Surgery: Diagnosis: OA R hip Assessment: 62 y/o female referred to PT with R hip OA. PMH significant for smoking, COPD, HTN, CHF, liver cirrhosis, and OA. S/s consistent with referring dx resulting in pain and difficulty with walking, sit to stands, standing, stairs, riding her bike and chores. Examination shows limited R hip/knee ROM, decreased B hip flexors/ quad/ HS length, decreased B LE and core strength, and impaired balance. Recommend PT 2x/week for 6 weeks to address impairments, implement HEP, and optimize functional mobility. Educated pt on use of heat, ambulation with a cane (she has one at home), HEP, and importance of movement throughout the day. Frequency and Duration: The patient will be seen 2x/week for 6 weeks Short Term Goals: 3 weeks I with hEP Pt will demonstrate R knee extension to 8 degrees (IR 20* lacking) Newcomer Hostess Goals: 6 weeks I with HEP and self management of sx Pt will be able to ambulate > 10 min with pain < 3/10 (IR 8-10/10 pain) Pt will improve LEFS to 40/80 (IR 30/80) Treatment Plan: Modalities to reduce pain, spasms and effusion. Manual therapy to restore motion and function. Therapeutic exercise to improve strength and flexibility. Neuromuscular re-education for posture and balance. Therapeutic activities to return to functional activities of daily living. Electronically signed by: Lroen Epstein PT Please sign and return to therapist. Thank you for your referral.
--- NOTE | 2023-11-03 11:47 | MHC.PT.DC ---
[facility] [place] Office [place] Office [place] Office [address] Gema Vieyra [address] [phone] F: [phone] F: [phone] F: [phone] F: [phone] Physical Therapy Discharge Report Diagnosis: OA R hip Date of Surgery: Date of Evaluation: 10/06/23 Date of Discharge: 11/03/23 Treatments to Date: 1 Cancellations to Date: 4 No Shows to Date: 0 Discharge Status: Patient Elected to Stop Discharge Summary: Pt cancelled several visits following initial evaluation and has now called to state they are feeling better. D/c at this time Electronically signed by: Loren Epstein PT Please sign and return to therapist. Thank you for your referral.
== END 2023-11-03 11:47 | disposition home or self-care (01) ==
LOC: HO.PTCHIC 10:37
PROVIDERS: PCP Nurse Practitioner Family; Visit Provider Physician Assistant
DX: M16.11 Unilateral primary osteoarthritis, right hip (principal)
CPT/HCPCS: 97110; 97162

== ENCOUNTER 2023-10-10 12:25 | Outpatient (AMB) | payer MEDICARE, MEDICAID, SELFPAY ==
[2023-10-10 12:29] VITALS: BP 130/70; PULSE 86; TEMP 36.6; O2SAT 95; BMI 31.5
--- NOTE | 2023-10-10 12:29 | AM.OFFWIN_ITS ---
Intake Vital Signs 10/10/23 12:29 Height 5 ft 2 in Weight 172 lb BMI 31.5 BP 130/70 Blood Pressure Location Lt brachial Position Sitting Pulse 86 Pulse Source Pulse Oximeter Temp 97.8 F Temp Source Temporal Artery Scan Pulse Oximetry (%) 95 Oxygen Delivery Method Room Air Intake Visit Reasons: EP Diff breathing, pain Intake Note: pt is here today for diff breathing pain started 2 weeks ago Patient Tobacco Use Status: Current everyday Tobacco user Allergies doxycycline [Doxycycline] Allergy (Intermediate, Verified 10/10/23 13:03) RASH, vomiting Medication List - Last Reconciled 10/10/23 by GAMAL Jiménez buprenorphine-naloxone 8-2 mg (Suboxone) 1 film sublingual BID@0900,1400 cholecalciferol (vitamin D3) 25 mcg PO DAILY duloxetine 30 mg PO DAILY famotidine 20 mg PO DAILY fluticasone propionate 50 mcg/actuation 1 spray intranasal DAILY hydroxyzine HCl 10 mg PO BEDTIME lactulose 15 mL PO BID levothyroxine 25 mcg PO DAILY@0600 montelukast 10 mg PO BEDTIME omeprazole 40 mg PO DAILY@0630 Do you need a note to return to daycare/school/sports/work: No HPI HPI Comments History of Present Illness Details Patient is a 62-year-old female in today for a sick visit. Patient reports chest tightness and cough times 2 weeks. Denies chest pain or shortness of breath, denies fever chills, denies nausea vomiting diarrhea. Patient reports she frequently gets diagnosed with pneumonia with previous being 6 weeks prior to this appointment. She has a past medical history significant for COPD, alcohol and cigarette use, hypertension, congestive heart failure, KEV, GERD. Patient is currently utilizing Advair b.i.d. [facility] Medical History CHF (congestive heart failure) HTN (hypertension) Hepatitis C Cirrhosis Alcohol abuse History of substance abuse History of acute respiratory failure (~03/2018) COPD (chronic obstructive pulmonary disease) Nocturnal hypoxemia Obstructive sleep apnea (~2003) Nicotine dependence, cigarettes, uncomplicated Hypothyroidism Allergic rhinitis Tubular adenoma of colon (~2006) GERD (gastroesophageal reflux disease) Chronic lower back pain Myofascial pain syndrome Depression Anxiety Obesity (BMI 30-39.9) Surgical History History of myringotomy History of colonoscopy History of esophagogastroduodenoscopy (EGD) Family History Father CVD (cardiovascular disease) Mother Lung cancer Social History Household Members: None Household Members Other:: lives alone Housing: House Do you presently have visiting nurse or other home services: No Alcohol intake: current Alcohol intake frequency: 0-2 drinks per day Alcohol type: beer Comment: pt refusing bed alarm Patient Tobacco Use Status: Current everyday Tobacco user Tobacco use type: Cigarette Cigarette Packs Per Day: 0.5 Cigarettes Per Day: 5 Years Smoked: 50 e-Cigarette/Vaping Use: Never Used Second Hand Smoke Exposure: Yes Substance Use Type: Crack/Cocaine service: No Current occupational status: disabled Current occupation: rt handed Cognitive needs: No Hearing needs: No Vision needs: No Review of Systems Const All systems reviewed & are unremarkable except as noted in HPI and below Denies chills, Denies fever(s) and Denies weakness Card Denies chest pain and Denies dyspnea Resp Reports chest congestion, Reports cough and Denies dyspnea GI Denies diarrhea, Denies nausea and Denies vomiting Neuro Denies weakness Physical Exam Vital Signs: Last Vital Signs Temp 97.8 F 10/10/23 12:29 Pulse 86 10/10/23 12:29 BP 130/70 10/10/23 12:29 Pulse Ox 95 10/10/23 12:29 Oxygen Delivery Method Room Air 10/10/23 12:29 BMI result Body Mass Index 31.5 Const Other: Appearance: Alert.? Oriented X3.? No acute distress.? Head: Normocephalic, atraumatic, Eyes: Pupils equal, round and reactive to light.?Sclera white. ENT: Pharynx normal.?TM intact and pearly montero. Neck: Normal inspection.? Neck supple.? CVS: Normal heart rate and rhythm.? Pulses normal.? Respiratory: No respiratory distress.? Lung sounds diminished left lower lobe. +cough. Neuro: Oriented X 3.? No motor deficit.? No sensory deficit. CN 2-12 intact Assessment & Plan Assessment & Plan (1) Bronchitis: Comment: Could be bronchitis with pneumonia. Waiting x-ray results. Patient will be given Augmentin and prednisone to be taken as directed. Patient has been educated on signs of worsening symptoms and when to report to the office or when to present to the emergency room. Code(s): J40 - Bronchitis, not specified as acute or chronic Plan: Take your medications as prescribed. If you were prescribed antibiotics today, it is important that you take your medication to their entirety, do not skip any doses, do not finish them early. Follow-up with your primary care provider this week. Return to the emergency department with new or worsening symptoms. Such as fevers, chills, chest pain, shortness of breath, nausea, vomiting, dizziness, headache, vision changes, lethargy In case of emergency call 911 Plan Follow-up with PCP. X-ray results reviewed mild congestion. Patient will have BMP drawn, will be given 5 days furosemide 20 mg p.o. daily. Patient has been instructed to follo w-up with PCP and packaging clerk. Orders: Orders XR chest 2V Today R07.89 - Other chest pain B Type Natriuretic Peptide Today I50.9 - Heart failure, unspecified Medications: New amoxicillin-pot clavulanate 875-125 mg 1 tab PO Q12H 14 tabs 0RF furosemide 20 mg PO DAILY 5 tabs 0RF prednisone 40 mg (2 x 20 mg) PO DAILY 10 tabs 0RF Coding Level of Care Code Est Pt Level 3 (09765) Diagnoses Bronchitis J40 Time Spent (min) 28
== END 2023-10-10 13:27 | disposition home or self-care (01) ==
PROVIDERS: PCP Nurse Practitioner Family; Visit Provider Nurse Practitioner Primary Care
DX: J40 Bronchitis, not specified as acute or chronic (principal)
CPT/HCPCS: 99213

== ENCOUNTER 2023-10-10 13:10 | Outpatient (REF) | payer MEDICARE, MEDICAID, SELFPAY ==
--- NOTE | ~2023-10-10 | XR_ITS ---
EXAMINATION: XR CHEST CLINICAL INFORMATION: Chest pain COMPARISON: 09/13/2023 TECHNIQUE: 2 views of the chest were obtained. FINDINGS: Heart size borderline with slight distention of the pulmonary vessels. Bibasilar edema and small effusions. XR/XR chest 2V IMPRESSION: Mild congestive failure.
== END 2023-10-10 13:11 | disposition home or self-care (01) ==
LOC: HO.HMGCX 13:10
PROVIDERS: PCP Nurse Practitioner Family; Visit Provider Nurse Practitioner Primary Care
DX: R07.89 Other chest pain (principal)
CPT/HCPCS: 71046

== ENCOUNTER 2023-10-12 10:50 | Outpatient (REF) | payer MEDICARE, MEDICAID, SELFPAY ==
[2023-10-12 14:14] LABS: B Type Natriuretic Peptide 130 pg/mL (<100)
== END 2023-10-12 10:51 | disposition home or self-care (01) ==
LOC: HO.HMGCLNP 10:50
PROVIDERS: PCP Nurse Practitioner Family; Visit Provider Nurse Practitioner Primary Care
DX: I50.9 Heart failure, unspecified (principal)
CPT/HCPCS: 83880

== ENCOUNTER 2023-10-23 12:32 | Outpatient (AMB) | payer MEDICARE, MEDICAID, SELFPAY ==
[2023-10-23 13:01] VITALS: BP 110/66; PULSE 71; BMI 30.6
--- NOTE | 2023-10-23 13:01 | A.OFFVIS_ITS ---
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/ heart failure Intake Note: New patient CHF just getting over pneumonia Web Solutions Architect Required: No Allergies doxycycline [Doxycycline] Allergy (Intermediate, Verified 10/19/23 14:21) RASH, vomiting Medication List - Last Reconciled 10/23/23 by Iglesia Garces MD albuterol sulfate 90 mcg/actuation (Ventolin HFA) 2 puffs inhalation Q4-6H PRN 30 days buprenorphine-naloxone 8-2 mg (Suboxone) 1 film sublingual BID@0900,1400 cholecalciferol (vitamin D3) 25 mcg PO DAILY duloxetine 30 mg PO DAILY famotidine 20 mg PO DAILY fluticasone propionate 50 mcg/actuation 1 spray intranasal DAILY hydroxyzine HCl 10 mg PO BEDTIME lactulose 15 mL PO BID levothyroxine 25 mcg PO DAILY@0600 montelukast 10 mg PO BEDTIME omeprazole 40 mg PO DAILY@0630 HPI Comments Details: Amelia was asked for follow-up after recent hospitalization with COPD exacerbation at which time she was also noted to be in mild decompensated congestive heart failure. Echocardiogram done at that time showed elevated right atrial pressures and elevated LV filling pressures. She was then started on Lasix and then treated for her COPD exacerbation and pneumonia. She also noted to have on workup cirrhosis of the liver. She continues to be short of breath. However she says she was given a short course of Lasix and this is now discontinued. Now she is starting noticed increasing abdominal distention as well as leg edema. She also has noted to have continued exertional shortness of breath. She unfortunately continues to smoke and is questioning why she has exertional shortness of breath. She is using nebulizers. She also using oxygen at nighttime. [facility] Medical History CHF (congestive heart failure) HTN (hypertension) Hepatitis C Cirrhosis Alcohol abuse History of substance abuse History of acute respiratory failure (~03/2018) COPD (chronic obstructive pulmonary disease) Nocturnal hypoxemia Obstructive sleep apnea (~2003) Nicotine dependence, cigarettes, uncomplicated Hypothyroidism Allergic rhinitis Tubular adenoma of colon (~2006) GERD (gastroesophageal reflux disease) Chronic lower back pain Myofascial pain syndrome Depression Anxiety Obesity (BMI 30-39.9) Surgical History History of myringotomy History of colonoscopy History of esophagogastroduodenoscopy (EGD) Family History Father CVD (cardiovascular disease) Mother Lung cancer Social History Household Members: None Household Members Other:: lives alone Housing: House Do you presently have visiting nurse or other home services: No Alcohol intake: current Alcohol intake frequency: 0-2 drinks per day Alcohol type: beer Comment: pt refusing bed alarm Patient Tobacco Use Status: Current everyday Tobacco user Tobacco use type: Cigarette Cigarette Packs Per Day: 0.5 Cigarettes Per Day: 5 Years Smoked: 50 e-Cigarette/Vaping Use: Never Used Second Hand Smoke Exposure: Yes Substance Use Type: Crack/Cocaine service: No Current occupational status: disabled Current occupation: rt handed Cognitive needs: No Hearing needs: No Vision needs: No Review of Systems Const Denies chills, Denies daytime sleepiness, Denies fatigue, Denies fever(s), Denies frequent falls, Denies poor appetite, Denies snoring, Denies stops breathing during sleep, Denies weakness, Denies weight gain and Denies weight loss Eyes Denies loss of vision ENT Denies dizziness and Denies hearing loss Card Denies chest pain, Denies claudication, Denies leg edema, Denies lightheadedness, Denies palpitations, Denies dyspnea, Denies dyspnea on exertion and Denies orthopnea Resp Denies cough, Denies excessive phlegm production, Denies dyspnea, Denies dyspnea on exertion, Denies snoring and Denies wheezing GI Denies abdominal pain, Denies hematochezia, Denies change in bowel habits, Denies nausea and Denies vomiting Denies urinary frequency and Denies dysuria Musc Denies arthralgias, Denies muscle weakness, Denies numbness and Denies other (frequent falls) Skin/Breast Denies nail changes and Denies rash Neuro Denies Abnormal speech present, Denies dizziness, Denies frequent falls, Denies loss of vision, Denies memory loss, Denies numbness and Denies weakness Psych Denies depression and Denies memory loss Endo Denies fatigue and Denies palpitations Brayden/Lymph Reports easy bruising and Reports other (anemia) Aller/Immun Denies wheezing Physical Exam Vital Signs: Last Vital Signs Pulse 71 10/23/23 13:01 BP 110/66 10/23/23 13:01 BMI result Body Mass Index 30.6 Const General: cooperative, alert and awake Nutritional Appearance: overweight Orientation/consciousness: patient oriented x3 Limitations: no limitations Neck Neck: Yes trachea midline, Yes supple and Yes JVD Resp Effort & Inspection: normal respiratory effort Auscultation: wheezes scattered wheezes and diminished lung sounds Cardio Jugular venous distension: JVD Rate: regular rate Rhythm: regular rhythm Heart sounds: S1 normal heart sound present, S2 normal heart sound present, no click, no gallops, no murmurs and no rubs GI Inspection: Yes distended and Yes obesity Auscultation: normal bowel sounds Skin General skin exam: no rashes or lesions noted Neuro General: patient oriented x3 and no focal motor deficits Speech: No Abnormal speech present Extrem General: No clubbing, No cyanosis and Yes edema Assessment & Plan Assessment & Plan (1) CHF (congestive heart failure): Code(s): I50.9 - Heart failure, unspecified Category: Medical Plan: Congestive heart failure with suggestion of fluid overload on today's exam. I would restart her Lasix 20 mg daily. Advise BMP and BNP to be done today. Also possible that her abdominal distension leg edema also contributed by portal hypertension related to cirrhosis of the liver. Consider GI consultation and workup. However most of her shortness of breath is secondary to her significant COPD and continued smoking. Continue to follow with Pulmonary optimization for pulmonary function. She might require oxygen replacement therapy with activity, follow-up with Pulmonary for oxygen test. Complete smoking cessation was advised. Will set up for follow-up in 4 weeks Orders: Orders B Type Natriuretic Peptide Today I50.9 - Heart failure, unspecified Basic Metabolic Panel Today I50.9 - Heart failure, unspecified Medications: New furosemide (Lasix) 20 mg PO DAILY 30 tabs 5RF Coding Level of Care Code Est Pt Level 4 (76269) Diagnoses CHF (congestive heart failure) I50.9
== END 2023-10-23 13:34 | disposition home or self-care (01) ==
PROVIDERS: PCP Nurse Practitioner Family; Visit Provider Internal Medicine Cardiovascular Disease
DX: I50.9 Heart failure, unspecified (principal)
CPT/HCPCS: 99214

== ENCOUNTER → 2023-10-23 12:32 | Outpatient (BNVA) | payer MEDICARE, MEDICAID, SELFPAY | PROVIDERS: PCP Nurse Practitioner Family; Visit Provider Internal Medicine Cardiovascular Disease | DX: I50.9 Heart failure, unspecified (principal) | CPT/HCPCS: 99212 ==

== ENCOUNTER 2023-10-24 10:42 | Outpatient (REF) | payer MEDICARE, MEDICAID, SELFPAY ==
[2023-10-24 14:02] LABS: Anion Gap 13 (12-20); Blood Urea Nitrogen 5 mg/dL (9-16); Carbon Dioxide 26 mmol/L (22-29); Chloride 102 mmol/L (96-108); Estimated Glomerular Filt Rate > 60; Glucose Random 104 mg/dL (60-115); Potassium 3.9 mmol/L (3.3-5.1); Sodium 137 mmol/L (135-145)
[2023-10-24 14:25] LABS: B Type Natriuretic Peptide 28 pg/mL (<100)
== END 2023-10-24 10:43 | disposition home or self-care (01) ==
LOC: HO.HMGCLDS 10:42
PROVIDERS: PCP Nurse Practitioner Family; Visit Provider Internal Medicine Cardiovascular Disease
DX: I50.9 Heart failure, unspecified (principal)
CPT/HCPCS: 36415; 80048; 83880

== ENCOUNTER 2023-10-31 10:02 | Outpatient (AMB) | payer MEDICARE, MEDICAID, SELFPAY ==
--- NOTE | 2023-10-31 10:25 | A.OFFPC_ITS ---
Vital Signs 10/31/23 10:29 Height 5 ft 2 in Weight 165 lb BMI 30.2 BP 130/80 Blood Pressure Location Rt brachial Position Sitting Pulse 73 Pulse Source Pulse Oximeter Pulse Oximetry (%) 96 Oxygen Delivery Method Room Air Intake Visit Reasons: 4 month follow up Intake Note: Patient here to follow up after recent visit to [place] as she just got some results about liver that she would like to discuss. Allergies doxycycline [Doxycycline] Allergy (Intermediate, Verified 10/31/23 10:31) RASH, vomiting Tobacco use date assessed: 07/03/23 Dental Screening Dental Screen Date: 07/03/23 HPI 4 month follow up HPI Details Pt has a hx of alcohol abuse and cirrhosis. She also has a hx of hepatitis C. She sees GI. Previous abdominal US from August 2023 showed cirrhotic appearing liver without discrete liver mass. Diffuse thickened gallbladder wall without cholelithiasis. Gallbladder wall thickening is likely related to underlying cirrhosis. Mild splenomegaly. Pt reports that her abdomen is more swollen. Will repeat US. Pt reports that she quit drinking alcohol 4 days ago. [facility] Medical History (Updated 10/31/23 @ 10:49 by REGINA Quijano) CHF (congestive heart failure) HTN (hypertension) Hepatitis C (~10/31/23) Cirrhosis Alcohol abuse History of substance abuse History of acute respiratory failure (~03/2018) COPD (chronic obstructive pulmonary disease) Nocturnal hypoxemia Obstructive sleep apnea (~2003) Nicotine dependence, cigarettes, uncomplicated Hypothyroidism Allergic rhinitis Tubular adenoma of colon (~2006) GERD (gastroesophageal reflux disease) Chronic lower back pain Myofascial pain syndrome Depression Anxiety Obesity (BMI 30-39.9) Surgical History History of myringotomy History of colonoscopy History of esophagogastroduodenoscopy (EGD) Family History Father CVD (cardiovascular disease) Mother Lung cancer Social History Household Members: None Household Members Other:: lives alone Housing: House Do you presently have visiting nurse or other home services: No Alcohol intake: current Alcohol intake frequency: 0-2 drinks per day Alcohol type: beer Comment: pt refusing bed alarm Patient Tobacco Use Status: Current everyday Tobacco user Tobacco use type: Cigarette Cigarette Packs Per Day: 0.5 Cigarettes Per Day: 5 Years Smoked: 50 e-Cigarette/Vaping Use: Never Used Second Hand Smoke Exposure: Yes Substance Use Type: Crack/Cocaine service: No Current occupational status: disabled Current occupation: rt handed Cognitive needs: No Hearing needs: No Vision needs: No Questionnaire Thrive Questionnaire Date Thrive assessed: 09/06/23 NAYE-7 AMB Questionnaire NAYE-7 Date NAYE - 7 assessed: 07/03/23 Source: Developed by Drs. Taras Carney, Deyanira Raygoza, Monty Setphens and colleagues, with an educational mitch from [employer]. Review of Systems Const Reports as per HPI Physical exam (Primary Care) Vital Signs: Last Vital Signs Pulse 73 10/31/23 10:29 BP 130/80 10/31/23 10:29 Pulse Ox 96 10/31/23 10:29 Oxygen Delivery Method Room Air 10/31/23 10:29 BMI result Body Mass Index 30.2 Tobacco/Smoking Status: Tobacco use Status Tobacco use date assessed 07/03/23 10/31/23 10:26 Patient Tobacco Use Status Current everyday Tobacco 10/31/23 10:26 Tobacco use type Cigarette 10/31/23 10:26 e-Cigarette/Vaping Use Never Used 10/31/23 10:26 Thrive Assessment: Date of Thrive Assessment Date Thrive assessed 09/06/23 10/31/23 10:26 Const General: cooperative Orientation/consciousness: patient oriented x3 Resp Effort & Inspection: normal respiratory effort Auscultation: clear to auscultation bilaterally Cardio Rate: regular rate Rhythm: regular rhythm Heart sounds: S1 normal heart sound present and S2 normal heart sound present GI Other: does not feel like ascites, abdomen slightly distended Palpation (GI): nontender Neuro General: patient oriented x3 Extrem Right lower extremity: no edema Left lower extremity: no edema Psych Appearance: grossly normal Mental Status: mental status grossly normal Speech and movement: Normal speech and movement present Affect: normal affect Attitude: cooperative Thought process: Normal thought process present Thought content: Normal thought content present Insight: Good insight present (Psych) Judgement: Good judgement present (Psych) Assessment and Plan Assessment & Plan (1) Alcohol abuse: Code(s): F10.10 - Alcohol abuse, uncomplicated Plan: Repeat US ordered (2) Cirrhosis: Comment: Alcohol use, history HCV Code(s): K74.60 - Unspecified cirrhosis of liver Plan: Repeat US ordered (3) Hepatitis C: Onset Date: ~10/31/23 Code(s): B19.20 - Unspecified viral hepatitis C without hepatic coma Plan: Repeat US ordered Plan The patient agreed to the use of a medical collections representative for this encounter. Scribed for REGINA Villalta by Elda Herrera medical collections representative, on 10/31/2023 at 11:00 EST. Orders: Orders US abdomen complete Today B19.20 - Unspecified viral hepatitis C without hepatic coma, F10.10 - Alcohol abuse, uncomplicated, K74.60 - Unspecified cirrhosis of liver Coding Level of Care Code Est Pt Level 3 (15111) Diagnoses Alcohol abuse F10.10 Cirrhosis K74.60 Hepatitis C B19.20
[2023-10-31 10:29] VITALS: BP 130/80; PULSE 73; O2SAT 96; BMI 30.2
== END 2023-10-31 11:09 | disposition home or self-care (01) ==
PROVIDERS: PCP Nurse Practitioner Family; Visit Provider Nurse Practitioner Family
DX: K74.60 Unspecified cirrhosis of liver (principal); F10.10 Alcohol abuse, uncomplicated; B19.20 Unspecified viral hepatitis C without hepatic coma
CPT/HCPCS: 99213

== ENCOUNTER 2023-11-17 09:47 | Outpatient (AMB) | payer MEDICARE, MEDICAID, SELFPAY ==
--- NOTE | 2023-11-17 10:04 | MHC.OFFVIS ---
Vital Signs 11/17/23 10:12 Height 5 ft 2 in Weight 165 lb BMI 30.2 Intake Visit Reasons: O/V RT knee injection 08/11/23 Intake Note: Amelia is a 62 year old female who presents today for a right knee injection. Last injection done on 08/11/23. Patient reports her last injection provided her with 2 months of relief and would like to repeat injection today. Allergies doxycycline [Doxycycline] Allergy (Intermediate, Verified 11/17/23 10:12) RASH, vomiting HPI HPI O/V RT knee injection 08/11/23: Details: 62-year-old female who returns to the office today for a follow-up of right knee pain. She had her last injection on 08/11/23 which provided her relief for about 2 months. She would like to repeat the injection. [facility] Medical History CHF (congestive heart failure) HTN (hypertension) Hepatitis C (~10/31/23) Cirrhosis Alcohol abuse History of substance abuse History of acute respiratory failure (~03/2018) COPD (chronic obstructive pulmonary disease) Nocturnal hypoxemia Obstructive sleep apnea (~2003) Nicotine dependence, cigarettes, uncomplicated Hypothyroidism Allergic rhinitis Tubular adenoma of colon (~2006) GERD (gastroesophageal reflux disease) Chronic lower back pain Myofascial pain syndrome Depression Anxiety Obesity (BMI 30-39.9) Surgical History History of myringotomy History of colonoscopy History of esophagogastroduodenoscopy (EGD) Family History Father CVD (cardiovascular disease) Mother Lung cancer Social History Household Members: None Household Members Other:: lives alone Housing: House Do you presently have visiting nurse or other home services: No Alcohol intake: current Alcohol intake frequency: 0-2 drinks per day Alcohol type: beer Comment: pt refusing bed alarm Patient Tobacco Use Status: Current everyday Tobacco user Tobacco use type: Cigarette Cigarette Packs Per Day: 0.5 Cigarettes Per Day: 5 Years Smoked: 50 e-Cigarette/Vaping Use: Never Used Second Hand Smoke Exposure: Yes Substance Use Type: Crack/Cocaine service: No Current occupational status: disabled Current occupation: rt handed Cognitive needs: No Hearing needs: No Vision needs: No Review of Systems Const All systems reviewed & are unremarkable except as noted in HPI and below Physical Exam Vital Signs: BMI result Body Mass Index 30.2 Extrem Other: Right knee: Skin intact, no erythema or joint effusion. Tenderness along the medial and lateral joint line. Full ROM with crepitus. Negative Shikha?s. No ligamentous laxity. NVI. Office Procedures Joint Injection/Drain Joint Injection/Drain Primary Site: right knee Prep: site was prepped using aseptic technique, ethochloride spray was applied and injection warnings given Injected: 80 mg of, DepoMedrol, with 8 mL of, 1% plain lidocaine and in the joint Approach Used: anterolateral Procedure: The patient tolerated the procedure well and there was some relief with the local anesthesia Coding 33194 - Glenohumeral/Tronchanteric Bursa/Intraarticular Procedure code (CPT) selection complete Assessment & Plan Assessment & Plan (1) Right knee pain: Code(s): M25.561 - Pain in right knee Category: Medical Qualifiers: Chronicity: chronic Qualified Code(s): M25.561 - Pain in right knee; G89.29 - Other chronic pain (2) Osteoarthritis of right knee: Code(s): M17.11 - Unilateral primary osteoarthritis, right knee Category: Medical Qualifiers: Osteoarthritis type: primary Qualified Code(s): M17.11 - Unilateral primary osteoarthritis, right knee Plan We discussed options today, which include steroid injection. The patient did consent to move forward with the right knee injection, which was tolerated well. I recommended rest, ice, and elevation and OTC anti-inflammatories as needed for discomfort. If symptoms persist or worsen over the next 6-8 weeks, patient will contact the office, otherwise follow-up as needed. ? Patient Instructions: Scribed for Marissa Barros PA-C, by Osvaldo Martinez medical office rep, on 11/17/2023 at 10:00 AM EST.? I, Marissa Barros PA-C, have personally reviewed and agree with the information entered by the scribe. Coding Level of Care Code Est Pt Level 3 (54369) Diagnoses Chronic pain of right knee M25.561; G89.29 Chronicity: chronic Primary osteoarthritis of right knee M17.11 Osteoarthritis type: primary CPT Codes Coding - Joint 7: 32916 - Glenohumeral/Tronchanteric Bursa/Intraarticular ([id number])
[2023-11-17 10:12] VITALS: BMI 30.2
== END 2023-11-17 10:26 | disposition home or self-care (01) ==
PROVIDERS: PCP Nurse Practitioner Family; Visit Provider Physician Assistant
DX: M25.561 Pain in right knee (principal); G89.29 Other chronic pain; M17.11 Unilateral primary osteoarthritis, right knee
CPT/HCPCS: 20610

== ENCOUNTER → 2023-11-17 09:47 | Outpatient (BNVA) | payer MEDICARE, MEDICAID, SELFPAY | PROVIDERS: PCP Nurse Practitioner Family; Visit Provider Physician Assistant | DX: M17.11 Unilateral primary osteoarthritis, right knee (principal); G89.29 Other chronic pain; M25.561 Pain in right knee | CPT/HCPCS: 20610; J1010 ==

== ENCOUNTER 2023-11-23 10:46 | Outpatient (REF) | payer MEDICARE, MEDICAID, SELFPAY ==
--- NOTE | ~2023-11-23 | US_ITS ---
EXAMINATION: US ABDOMEN COMPLETE CLINICAL INFORMATION: Alcohol abuse, uncomplicated. Rule out ascites. COMPARISON: Ultrasound abdomen complete 09/12/2023. Ultrasound abdomen limited 07/04/2023. CT abdomen and pelvis 08/01/2020. TECHNIQUE: Real-time imaging of the abdominal viscera. FINDINGS: PANCREAS: The pancreas appears unremarkable, without masses or ductal dilatation, with the exception of the tail which is obscured by bowel gas. ABDOMINAL AORTA: Only the proximal aorta is seen and is of normal caliber. The mid and distal aorta are obscured by bowel gas. INFERIOR VENA CAVA: Visualized portions are normal. LIVER: The liver is normal in size. Liver echogenicity is heterogeneous with a nodular contour consistent with cirrhosis. No focal hepatic lesion. There is no intrahepatic biliary duct dilatation seen. GALLBLADDER: The gallbladder is physiologically distended without evidence of stones, polyps, wall thickening or pericholecystic fluid. COMMON BILE DUCT: Normal in caliber measuring 0.5 cm in diameter. RIGHT KIDNEY: Normal. No hydronephrosis. No renal calculi or focal parenchymal lesions. The kidney measures 12.0 cm in maximum dimension. LEFT KIDNEY: Normal. No hydronephrosis. No renal calculi or focal parenchymal lesions. The kidney measures 12.1 cm in maximum dimension. SPLEEN: The spleen is enlarged measuring 13.9 cm in maximum dimension. FREE FLUID: None. US/US abdomen complete IMPRESSION: Cirrhotic-appearing liver with splenomegaly. No liver mass or ascites is seen.
== END 2023-11-23 10:47 | disposition home or self-care (01) ==
LOC: HO.HMGCX 10:46
PROVIDERS: PCP Nurse Practitioner Family; Visit Provider Nurse Practitioner Family
DX: K74.60 Unspecified cirrhosis of liver (principal); F10.10 Alcohol abuse, uncomplicated; B19.20 Unspecified viral hepatitis C without hepatic coma
CPT/HCPCS: 76700

== ENCOUNTER 2024-01-01 10:21 | Outpatient (AMB) | payer MEDICARE, MEDICAID, SELFPAY ==
[2024-01-01 10:40] VITALS: BP 130/72; PULSE 73; BMI 28.5
--- NOTE | 2024-01-01 10:40 | MHC.OFFVIS ---
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 Required: No Accompanied by: Self / Same As Patient Allergies doxycycline [Doxycycline] Allergy (Intermediate, Verified 11/17/23 10:12) RASH, vomiting Medication List - Last Reconciled 01/01/24 by Iglesia Garces MD albuterol sulfate 90 mcg/actuation (Ventolin HFA) 2 puffs inhalation Q4-6H PRN 30 days buprenorphine-naloxone 8-2 mg (Suboxone) 1 film sublingual BID@0900,1400 cholecalciferol (vitamin D3) 25 mcg PO DAILY duloxetine 30 mg PO DAILY famotidine 20 mg PO DAILY fluticasone propionate 50 mcg/actuation 1 spray intranasal DAILY furosemide (Lasix) 20 mg PO DAILY hydroxyzine HCl 10 mg PO BEDTIME lactulose 15 mL PO BID levothyroxine 25 mcg PO DAILY@0600 montelukast 10 mg PO BEDTIME omeprazole 40 mg PO DAILY@0630 HPI Comments Details: Amelia comes for follow-up of her heart failure. She has improved with Lasix therapy. No significant leg edema or abdominal distension. No other heart failure symptoms. Taking her medications regularly. She has a follow-up endoscopy in January by GI. Unfortunately she continues to smoke. [facility] Medical History CHF (congestive heart failure) HTN (hypertension) Hepatitis C (~10/31/23) Cirrhosis Alcohol abuse History of substance abuse History of acute respiratory failure (~03/2018) COPD (chronic obstructive pulmonary disease) Nocturnal hypoxemia Obstructive sleep apnea (~2003) Nicotine dependence, cigarettes, uncomplicated Hypothyroidism Allergic rhinitis Tubular adenoma of colon (~2006) GERD (gastroesophageal reflux disease) Chronic lower back pain Myofascial pain syndrome Depression Anxiety Obesity (BMI 30-39.9) Surgical History History of myringotomy History of colonoscopy History of esophagogastroduodenoscopy (EGD) Family History Father CVD (cardiovascular disease) Mother Lung cancer Social History Household Members: None Household Members Other:: lives alone Housing: House Do you presently have visiting nurse or other home services: No Alcohol intake: current Alcohol intake frequency: 0-2 drinks per day Alcohol type: beer Comment: pt refusing bed alarm Patient Tobacco Use Status: Current everyday Tobacco user Tobacco use type: Cigarette Cigarette Packs Per Day: 0.5 Cigarettes Per Day: 5 Years Smoked: 50 e-Cigarette/Vaping Use: Never Used Second Hand Smoke Exposure: Yes Substance Use Type: Crack/Cocaine service: No Current occupational status: disabled Current occupation: rt handed Cognitive needs: No Hearing needs: No Vision needs: No Review of Systems Const Denies chills, Denies fatigue, Denies fever(s), Denies frequent falls, Denies weakness, Denies weight gain and Denies weight loss ENT Denies dizziness Card Denies chest pain, Denies leg edema, Denies lightheadedness, Denies palpitations, Denies dyspnea and Denies dyspnea on exertion Resp Denies cough, Denies dyspnea and Denies dyspnea on exertion GI Denies hematochezia Musc Denies abnormal gait, Denies muscle weakness, Denies numbness, Denies radiating pain into limb and Denies tingling Neuro Denies abnormal gait, Denies dizziness, Denies frequent falls, Denies numbness, Denies tingling and Denies weakness Endo Denies fatigue and Denies palpitations Physical Exam Vital Signs: Last Vital Signs Pulse 73 01/01/24 10:40 BP 130/72 01/01/24 10:40 BMI result Body Mass Index 28.5 Neck Neck: Yes trachea midline, Yes supple and Yes no JVD Resp Effort & Inspection: normal respiratory effort Auscultation: clear to auscultation bilaterally and diminished lung sounds Cardio Jugular venous distension: no JVD Palpation: normal PMI Rate: regular rate Rhythm: regular rhythm Heart sounds: S1 normal heart sound present, S2 normal heart sound present, no click, no gallops and no murmurs GI Inspection: Yes distended Auscultation: normal bowel sounds Skin General skin exam: no rashes or lesions noted Extrem General: No clubbing, No cyanosis and Yes edema (Minimal) Assessment & Plan Assessment & Plan (1) CHF (congestive heart failure): Code(s): I50.9 - Heart failure, unspecified Category: Medical Plan: Heart failure preserved ejection fraction, clinically euvolemic and well compensated current diuretic dose. Have provided her with a refill on Lasix. Heart failure management discussed. Daily weight monitoring avoidance of salt loading was discussed. She has multiple other comorbidities including cirrhosis of the liver as well as underlying COPD. Discussed about cessation of alcohol and smoking. She understands agrees. Continue aggressive management of her COPD and being followed by Pulmonary. Daily weight monitoring avoidance of salt loading was discussed additional diuretics as need be. From heart perspective she is optimized to undergo endoscopy in near future on current medications Follow up in the clinic in 1 year's time after an echocardiogram. Thank you for allowing me to partake in the Orders: Orders CA echo transthoracic complete 1 Year I50.9 - Heart failure, unspecified Medications: Refilled furosemide (Lasix) 20 mg PO DAILY 40 tabs 5RF Coding Level of Care Code Est Pt Level 3 (98056) Diagnoses CHF (congestive heart failure) I50.9
== END 2024-01-01 11:05 | disposition home or self-care (01) ==
PROVIDERS: PCP Nurse Practitioner Family; Visit Provider Internal Medicine Cardiovascular Disease
DX: I50.9 Heart failure, unspecified (principal)
CPT/HCPCS: 99213

== ENCOUNTER → 2024-01-01 10:21 | Outpatient (BNVA) | payer MEDICARE, MEDICAID, SELFPAY | PROVIDERS: PCP Nurse Practitioner Family; Visit Provider Internal Medicine Cardiovascular Disease | DX: I50.9 Heart failure, unspecified (principal) | CPT/HCPCS: 99212 ==

== ENCOUNTER 2024-01-03 14:11 | Outpatient (AMB) | payer MEDICARE, MEDICAID, SELFPAY ==
--- NOTE | 2024-01-03 14:15 | A.OFFVIS_ITS ---
Vital Signs 01/03/24 14:16 Height 5 ft 2 in Weight 155 lb 6.814 oz BMI 28.4 BP 110/62 Blood Pressure Location Lt brachial Position Sitting Pulse 81 Pulse Source Pulse Oximeter Pulse Oximetry (%) 96 Oxygen Delivery Method Room Air Intake Visit Reasons: copd Intake Note: pt is here for follow up and states she is feeling okay her breathing is not too bad. pt states she use to have advair disk and does not have it anymore. 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 Allergies doxycycline [Doxycycline] Allergy (Intermediate, Verified 01/03/24 14:22) RASH, vomiting Medication List - Last Reconciled 01/03/24 by Alexandra Thao MD albuterol sulfate 90 mcg/actuation (Ventolin HFA) 2 puffs inhalation Q4-6H PRN 30 days buprenorphine-naloxone 8-2 mg (Suboxone) 1 film sublingual BID@0900,1400 cholecalciferol (vitamin D3) 25 mcg PO DAILY duloxetine 30 mg PO DAILY famotidine 20 mg PO DAILY fluticasone propionate 50 mcg/actuation 1 spray intranasal DAILY furosemide (Lasix) 20 mg PO DAILY hydroxyzine HCl 10 mg PO BEDTIME lactulose 15 mL PO BID levothyroxine 25 mcg PO DAILY@0600 montelukast 10 mg PO BEDTIME omeprazole 40 mg PO DAILY@0630 Do you need a note to return to daycare/school/sports/work: No HPI HPI copd: Details: THIS 63 YEARS OLD FEMALE, A SMOKER, ALSO HISTORY OF SUBSTANCE ABUSE, NOW ON SUBOXONE, HAS HISTORY OF CHRONIC OBSTRUCTIVE PULMONARY DISEASE DUE TO SMOKING. SHE IS HERE AFTER MORE THAN 4 MONTHS. CLAIMS THAT SHE HAS BEEN OUT OF ADVAIR AND THUS HAVING MORE BOUTS OF COUGH AND WHEEZING. SHE HAS ALSO GONE UP ON SMOKING TO 10 CIGARETTES A DAY. SHE HAS BEEN SOMEWHAT DELINQUENT IN COMING FOR ANNUAL LUNG SCREENING . WOULD LIKE TO TRY NICOTINE PATCH TO QUIT SMOKING COMPLETELY. [facility] Medical History CHF (congestive heart failure) HTN (hypertension) Hepatitis C (~10/31/23) Cirrhosis Alcohol abuse History of substance abuse History of acute respiratory failure (~03/2018) COPD (chronic obstructive pulmonary disease) Nocturnal hypoxemia Obstructive sleep apnea (~2003) Nicotine dependence, cigarettes, uncomplicated Hypothyroidism Allergic rhinitis Tubular adenoma of colon (~2006) GERD (gastroesophageal reflux disease) Chronic lower back pain Myofascial pain syndrome Depression Anxiety Obesity (BMI 30-39.9) Surgical History History of myringotomy History of colonoscopy History of esophagogastroduodenoscopy (EGD) Family History Father CVD (cardiovascular disease) Mother Lung cancer Social History Household Members: None Household Members Other:: lives alone Housing: House Do you presently have visiting nurse or other home services: No Alcohol intake: current Alcohol intake frequency: 0-2 drinks per day Alcohol type: beer Comment: pt refusing bed alarm Patient Tobacco Use Status: Current everyday Tobacco user Tobacco use type: Cigarette Cigarette Packs Per Day: 0.5 Cigarettes Per Day: 10 Years Smoked: 50 e-Cigarette/Vaping Use: Never Used Second Hand Smoke Exposure: Yes Substance Use Type: Crack/Cocaine service: No Current occupational status: disabled Current occupation: rt handed Cognitive needs: No Hearing needs: No Vision needs: No Review of Systems Const All systems reviewed & are unremarkable except as noted in HPI and below Eyes Reports no additional complaints ENT Reports nasal congestion (Intermittent) Card Denies chest pain, Denies irregular heart rhythm, Denies leg edema and Reports dyspnea on exertion Resp Reports as per HPI, Reports cough (Frequent) and Reports dyspnea on exertion GI Reports heartburn (Controlled with famotidine) Reports no additional complaints Musc Reports back pain and Reports myalgias Skin/Breast Reports system reviewed and no additional complaints, except as documented Neuro Reports no additional complaints Psych Reports anxiety Endo Reports no additional complaints Physical Exam Vital Signs: Last Vital Signs Pulse 81 01/03/24 14:16 BP 110/62 01/03/24 14:16 Pulse Ox 96 01/03/24 14:16 Oxygen Delivery Method Room Air 01/03/24 14:16 BMI result Body Mass Index 28.4 Const General: comfortable, no acute distress, alert and awake Orientation/consciousness: patient oriented x3 HEENT Head: Yes normal to inspection General nose exam: No nasal polyps present, No nasal discharge present and Other nasal findings present (Mild nasal congestion especially on the right side) Face and sinus: Yes sinuses nontender Mouth: oropharynx normal Throat: Yes posterior oropharynx normal Eyes General: appearance normal, both eyes and all related structures Neck Neck: Yes normal visual inspection, Yes no lymphadenopathy, Yes trachea midline and Yes no JVD Thyroid: Thyroid normal Chest Chest palpation & inspection: normal inspection of the chest, normal palpation of entire chest wall and no tenderness Resp Other: Percussion note is resonant, breath sounds are equal on both sides, distant with prolonged expiratory phase. No wheezes or rhonchi are heard today. But she does get cough on taking deep breath. Cardio Palpation: normal PMI Rate: regular rate Rhythm: regular rhythm Heart sounds: no gallops and no murmurs Peripheral pulses: Peripheral pulses 2+ throughout GI Palpation (GI): Soft to palpation, nontender, No hepatosplenomegaly present and no masses Auscultation: normal bowel sounds Back/Spine/Pelvis Thoracic/Lumbar Spine: thoracic and lumbar spine normal to inspection, thoraco- lumbar ROM limited and thoraco-lumbar spasm Skin General skin exam: no rashes or lesions noted Neuro General: patient oriented x3 and no focal motor deficits Cranial nerves: Yes CN's II-XII intact bilaterally Extrem General: Yes normal to inspection, Yes no clubbing, cyanosis or edema and Yes no calf tenderness Psych Appearance: grossly normal and well kempt Speech and movement: Normal speech and movement present Office Procedures Spirometry Testing Spirometry Comments: In office spirometry completed with results given to Dr Thao. 43799- Spirometry Results Reviewed Results Reviewed: SSSPIROMETRY FVC 89%, FEV1 82% [id number] 61% ( ONLY MILD COPD ) Assessment & Plan Assessment & Plan (1) COPD (chronic obstructive pulmonary disease): Comment: (COPD,MILD stable, secondary to chronic bronchitis and smoking) seems to be stable but she does have chronic intermittent cough which is mainly related to her smoking. Code(s): J44.9 - Chronic obstructive pulmonary disease, unspecified Category: Medical Qualifiers: COPD type: COPD with acute exacerbation Qualified Code(s): J44.1 - Chronic obstructive pulmonary disease with (acute) exacerbation Plan: Advair 250-50 1 inhalation b.i.d. is renewed. albuterol HFA ( V entolin) Q 4-6 hours p.r.n. (2) Nocturnal hypoxemia: Comment: Patient is a known case of nocturnal hypoxemia which is corrected by using oxygen 2 L/minute Code(s): G47.34 - Idiopathic sleep related nonobstructive alveolar hypoventilation Category: Medical Plan: continue O2 2 L/minute at night (3) Nicotine dependence, cigarettes, uncomplicated: Comment: PATIENT HAS HISTORY OF HEAVY SMOKING THROUGHOUT HER ADULT LIFE. HAS USED NICOTINE PATCHES IN THE PAST SMOKING DOWN TO 10 CIGARETTES. A DAY AT PRESENT Code(s): F17.210 - Nicotine dependence, cigarettes, uncomplicated Category: Medical Plan: START NICOTINE PATCH 14 MG 1 DAILY COUNSELED TO QUIT SMOKING COMPLETELY ALSO COUNSELED THAT SHE SHOULD HAVE ANNUAL LUNG SCREENING WITH LOW-DOSE CT SCAN Orders: Orders AMB Spirometry Testing Today J44.1 - Chronic obstructive pulmonary disease with (acute) exacerbation Medications: New fluticasone propion-salmeterol 250-50 mcg/dose (Advair Diskus) 1 inh inhalation BID 30 days 60 ea 5RF COPD nicotine 1 patch transdermal DAILY 28 days 28 ea 3RF SMOKING Coding Level of Care Code Est Pt Level 4 (03762) Diagnoses COPD (chronic obstructive pulmonary disease) J44.1 COPD type: COPD with acute exacerbation Nocturnal hypoxemia G47.34 Nicotine dependence, cigarettes, uncomplicated F17.210 CPT Codes Spirometry - CPT: 26212- Spirometry ([id number])
[2024-01-03 14:16] VITALS: BP 110/62; PULSE 81; O2SAT 96; BMI 28.4
== END 2024-01-03 14:51 | disposition home or self-care (01) ==
PROVIDERS: PCP Nurse Practitioner Family; Referring Provider Nurse Practitioner Family; Visit Provider Internal Medicine
DX: J44.1 Chronic obstructive pulmonary disease with (acute) exacerbation (principal); G47.34 Idiopathic sleep related nonobstructive alveolar hypoventilation; F17.210 Nicotine dependence, cigarettes, uncomplicated
CPT/HCPCS: 94010; 99214

== ENCOUNTER → 2024-01-03 14:11 | Outpatient (BNVA) | payer MEDICARE, MEDICAID, SELFPAY | PROVIDERS: PCP Nurse Practitioner Family; Visit Provider Internal Medicine | DX: J44.1 Chronic obstructive pulmonary disease with (acute) exacerbation (principal); G47.34 Idiopathic sleep related nonobstructive alveolar hypoventilation; F17.210 Nicotine dependence, cigarettes, uncomplicated | CPT/HCPCS: 94010; 99212 ==

== ENCOUNTER 2024-02-12 09:19 | Outpatient (AMB) | payer MEDICARE, MEDICAID, SELFPAY ==
[2024-02-12 09:39] VITALS: BP 148/76; PULSE 90; O2SAT 96; BMI 27.7
--- NOTE | 2024-02-12 09:39 | MHC.PC.OV ---
Vital Signs 02/12/24 09:39 02/12/24 10:06 Height 5 ft 2 in Weight 151 lb 4 oz BMI 27.7 BP 148/76 H 144/72 H Blood Pressure Location Rt brachial Lt brachial Position Sitting Sitting Pulse 90 Pulse Source Pulse Oximeter Pulse Oximetry (%) 96 Oxygen Delivery Method Room Air Intake Visit Reasons: 3 month follow up Intake Note: Pt is here today for 3 month follow up. Also pt mentions concern of vision in LT eye. Allergies doxycycline [Doxycycline] Allergy (Intermediate, Verified 02/12/24 09:40) RASH, vomiting Tobacco use date assessed: 02/12/24 Fall risk assessment: No Falls in past year Last assessed Fall Risk: 02/12/24 Dental Screening Dental Screen Date: 02/12/24 Did you have a dental visit in the last 12 months?: No Did you have a dental problem in the last 6 months where you did not have access to dental care?: No Was dental information given to patient?: No HPI 3 month follow up HPI Details HTN: Pt's blood pressure is elevated today. She is not currently on any medications for this. Will start losartan 25mg. Denies chest pain, shortness of breath, headache, dizziness, and blurred vision. [facility] Medical History CHF (congestive heart failure) HTN (hypertension) Hepatitis C (~10/31/23) Cirrhosis Alcohol abuse History of substance abuse History of acute respiratory failure (~03/2018) COPD (chronic obstructive pulmonary disease) Nocturnal hypoxemia Obstructive sleep apnea (~2003) Nicotine dependence, cigarettes, uncomplicated Hypothyroidism Allergic rhinitis Tubular adenoma of colon (~2006) GERD (gastroesophageal reflux disease) Chronic lower back pain Myofascial pain syndrome Depression Anxiety Obesity (BMI 30-39.9) Surgical History History of myringotomy History of colonoscopy History of esophagogastroduodenoscopy (EGD) Family History Father CVD (cardiovascular disease) Mother Lung cancer Social History Household Members: None Household Members Other:: lives alone Housing: House Do you presently have visiting nurse or other home services: No Alcohol intake: current Alcohol intake frequency: 0-2 drinks per day Alcohol type: beer Comment: pt refusing bed alarm Patient Tobacco Use Status: Current everyday Tobacco user Tobacco use type: Cigarette Cigarette Packs Per Day: 0.5 Cigarettes Per Day: 10 Years Smoked: 50 e-Cigarette/Vaping Use: Never Used Second Hand Smoke Exposure: Yes Substance Use Type: Crack/Cocaine service: No Current occupational status: disabled Current occupation: rt handed Cognitive needs: No Hearing needs: No Vision needs: No Questionnaire PHQ-9 Over the last 2 weeks, how often have you been bothered by any of the following problems? 1. Little interest or pleasure in doing things: several days 2. Feeling down, depressed, or hopeless: several days 3. Trouble falling or staying asleep, or sleeping too much: more than half the days 4. Feeling tired or having little energy: more than half the days 5. Poor appetite or overeating: several days 6. Feeling bad about yourself - or that you are a failure or have let yourself or your family down: several days 7. Trouble concentrating on things, such as reading the newspaper or watching television: not at all 8. Moving or speaking so slowly that other people could have noticed. Or the opposite - being so fidgety or restless that you have been moving around a lot more than usual: not at all 9. Thoughts that you would be better off or of hurting yourself in some way: several days Total score: 9 Depression Screening Interpretation: Negative Depression Screening Done: Yes Source: Developed by Drs. Taras Carney, Deyanira Raygoza, Monty Stephens and colleagues, with an educational mitch from [employer]. Thrive Questionnaire Date Thrive assessed: 02/12/24 I am a: Patient What is your living situation today?: I have a steady place to live Within the past 12 months, did the food you bought not last and you didn't have the money to get more?: Often true Within the past 12 months, did you worry whether your food would run out before you got money to buy more?: Often true Do you have trouble paying for medicines?: No Do you have trouble getting transportation to medical appointments?: No Do you have trouble paying your heating and electricity bill?: Yes Do you have trouble taking care of your child, family member or friend?: No Do you have trouble with day-to-day activities such as bathing, preparing meals, shopping, managing finances, etc.?: No Are you currently unemployed and looking for a job?: No Are you interested in more education?: No Please select the resources that you would like help with: Food and Utilities Currently or been in a relationship where the following occur: I choose not to answer THRIVE Score: 3 AUDIT C Alcohol Use Questionnaire (AUDIT-C) 1. How often do you have a drink containing alcohol?: 2-3 times a week 2. How many drinks containing alcohol do you have on a typical day when you are drinking?: 1 or 2 3. How often do you have six or more drinks on one occasion?: Never Total Score: 3 Score Reviewed/Action Taken: Yes NAYE-7 AMB Questionnaire NAYE-7 Date NAYE - 7 assessed: 02/12/24 Feeling nervous, anxious, or on edge: 1 = Several days Not being able to stop or control worryin = Several days Worrying too much about different things: 1 = Several days Trouble relaxin = Not at all Being so restless that it is hard to sit still: 0 = Not at all Becoming easily annoyed or irritable: 1 = Several days Feeling afraid as if something awful might happen: 1 = Several days Total NAYE-7 score (0-4 normal; 5-9 mild; 10-14 moderate; 15-21 severe): 5 Source: Developed by Drs. Taras Carney, Deyanira Raygoza, Monty Stephens and colleagues, with an educational mitch from [employer]. NAYE-7 Assessment Billing NAYE-7 Assessment Tool: NAYE-7 Assessment 73753 Review of Systems Const Reports as per HPI Physical exam (Primary Care) Vital Signs: Last Vital Signs Pulse 90 02/12/24 09:39 BP 148/76 H 02/12/24 09:39 Pulse Ox 96 02/12/24 09:39 Oxygen Delivery Method Room Air 02/12/24 09:39 BMI result Body Mass Index 27.7 Tobacco/Smoking Status: Tobacco use Status Tobacco use date assessed 02/12/24 02/12/24 09:44 Patient Tobacco Use Status Current everyday Tobacco 02/12/24 09:44 Tobacco use type Cigarette 02/12/24 09:44 e-Cigarette/Vaping Use Never Used 02/12/24 09:44 PHQ-9: PHQ-9 Score PHQ-9: Total score 9 02/12/24 10:03 Depression Screening Interpretation: Negative Thrive Assessment: Date of Thrive Assessment Date Thrive assessed 02/12/24 02/12/24 09:44 Currently or been in a relationship where the following occur: I choose not to answer Const General: cooperative Orientation/consciousness: patient oriented x3 Resp Other: lungs fairly clear Effort & Inspection: normal respiratory effort Cardio Rate: regular rate Rhythm: regular rhythm Heart sounds: S1 normal heart sound present, S2 normal heart sound present and Murmur heart sound present systolic Neuro General: patient oriented x3 Psych Appearance: grossly normal Mental Status: mental status grossly normal Speech and movement: Normal speech and movement present Affect: normal affect Attitude: cooperative Thought process: Normal thought process present Thought content: Normal thought content present Insight: Good insight present (Psych) Judgement: Good judgement present (Psych) Assessment and Plan Assessment & Plan (1) HTN (hypertension): Code(s): I10 - Essential (primary) hypertension Plan: Starting losartan, reenforced importance of monitoring BP at home and dropping off readings Plan The patient agreed to the use of a registered medical assistant for this encounter. Scribed for REGINA Villalta by Elda Herrera registered medical assistant, on 02/12/2024 at 09:55 EST. Medications: New cetirizine (All Day Allergy (cetirizine)) 10 mg PO DAILY PRN 90 caps 0RF allergy symptoms diclofenac sodium 1% (Voltaren Arthritis Pain) apply to single elbow, wrist or hand; for hand includes palm/fingers/back of hand 2 grams topical QID 100 grams 0RF losartan 25 mg PO DAILY 30 tabs 3RF Coding Level of Care Code Est Pt Level 3 (03233) Diagnoses HTN (hypertension) I10 Additional Codes NAYE-7 Assessment Billing - NAYE-7 Assessment Tool: NAYE-7 Assessment 86686 ([id number])
[2024-02-12 10:06] VITALS: BP 144/72
== END 2024-02-12 10:57 | disposition home or self-care (01) ==
PROVIDERS: PCP Nurse Practitioner Family; Visit Provider Nurse Practitioner Family
DX: I10 Essential (primary) hypertension (principal)

== ENCOUNTER → 2024-02-12 09:19 | Outpatient (BNVA) | payer MEDICARE, MEDICAID, SELFPAY | PROVIDERS: PCP Nurse Practitioner Family; Visit Provider Nurse Practitioner Family | DX: I10 Essential (primary) hypertension (principal) | CPT/HCPCS: 96127; 99212 ==

== ENCOUNTER → 2024-02-29 13:23 | Outpatient (BNVA) | payer MEDICARE, MEDICAID, SELFPAY | PROVIDERS: PCP Nurse Practitioner Family ==

== ENCOUNTER → 2024-04-25 11:31 | Outpatient (BNVA) | payer MEDICARE, SELFPAY | PROVIDERS: PCP Nurse Practitioner Family | DX: M17.11 Unilateral primary osteoarthritis, right knee (principal); Z01.89 Encounter for other specified special examinations | CPT/HCPCS: 20610; 99212; J1010; J2003 ==

== ENCOUNTER 2024-04-25 13:56 | Outpatient (AMB) | payer MEDICARE, SELFPAY ==
--- NOTE | 2024-04-25 14:03 | MHC.OFFVIS ---
Vital Signs 04/25/24 14:12 Height 5 ft 2 in Weight 151 lb BMI 27.6 Intake Visit Reasons: Inj-RT knee injection-last inj 11/17/23 Intake Note: a little less than 3 months. Allergies doxycycline [Doxycycline] Allergy (Intermediate, Verified 04/25/24 14:03) RASH, vomiting HPI HPI Inj-RT knee injection-last inj 11/17/23: Details: 63-year-old female returns to the office today for a follow-up of right knee pain. She continues to have pain with daily activities. She had an injection in November of 2023 which helped up until about 2 months ago. [facility] Medical History CHF (congestive heart failure) HTN (hypertension) Hepatitis C (~10/31/23) Cirrhosis Alcohol abuse History of substance abuse History of acute respiratory failure (~03/2018) COPD (chronic obstructive pulmonary disease) Nocturnal hypoxemia Obstructive sleep apnea (~2003) Nicotine dependence, cigarettes, uncomplicated Hypothyroidism Allergic rhinitis Tubular adenoma of colon (~2006) GERD (gastroesophageal reflux disease) Chronic lower back pain Myofascial pain syndrome Depression Anxiety Obesity (BMI 30-39.9) Surgical History History of myringotomy History of colonoscopy History of esophagogastroduodenoscopy (EGD) Family History Father CVD (cardiovascular disease) Mother Lung cancer Social History Household Members: None Household Members Other:: lives alone Housing: House Do you presently have visiting nurse or other home services: No Alcohol intake: current Alcohol intake frequency: 0-2 drinks per day Alcohol type: beer Comment: pt refusing bed alarm Patient Tobacco Use Status: Current everyday Tobacco user Tobacco use type: Cigarette Cigarette Packs Per Day: 0.5 Cigarettes Per Day: 10 Years Smoked: 50 e-Cigarette/Vaping Use: Never Used Second Hand Smoke Exposure: Yes Substance Use Type: Crack/Cocaine service: No Current occupational status: disabled Current occupation: rt handed Cognitive needs: No Hearing needs: No Vision needs: No Review of Systems Const All systems reviewed & are unremarkable except as noted in HPI and below Physical Exam Vital Signs: BMI result Body Mass Index 27.6 Const General: cooperative and no acute distress Orientation/consciousness: patient oriented x3 Resp Effort & Inspection: normal respiratory effort and able to speak in complete sentences Cardio Peripheral pulses: Peripheral pulses 2+ throughout Neuro General: patient oriented x3 Extrem Other: Right knee: Skin intact, no erythema or joint effusion. Tenderness along the medial and lateral joint line. Full ROM with crepitus. Negative Shikha?s. No ligamentous laxity. NVI. Office Procedures AMB Joint Injection/Aspiration Joint Injection/Aspiration Primary Site: right knee Prep: site was prepped using aseptic technique, ethochloride spray was applied and injection warnings given Injected: 80 mg of, DepoMedrol, with 8 mL of, 1% plain lidocaine and in the joint Approach Used: anterolateral Procedure: The patient tolerated the procedure well and there was some relief with the local anesthesia Coding 38879 - Glenohumeral/Tronchanteric Bursa/Intraarticular Procedure code (CPT) selection complete Assessment & Plan Assessment & Plan (1) Osteoarthritis of right knee: Code(s): M17.11 - Unilateral primary osteoarthritis, right knee Category: Medical Qualifiers: Osteoarthritis type: primary Qualified Code(s): M17.11 - Unilateral primary osteoarthritis, right knee Plan: We discussed options today, which include steroid injection. The patient did consent to move forward with the injection, which was tolerated well.? I recommended rest, ice and elevation and OTC antiinflammatories prn for discomfort. If symptoms persist over the next 6-8 weeks, they will contact our office, otherwise, prn Coding Level of Care Code Est Pt Level 3 (92701) Complex EM visit Add On G2211 Diagnoses Primary osteoarthritis of right knee M17.11 Osteoarthritis type: primary CPT Codes Coding - Joint 7: 85518 - Glenohumeral/Tronchanteric Bursa/Intraarticular ([id number])
[2024-04-25 14:12] VITALS: BMI 27.6
== END 2024-04-25 14:22 | disposition home or self-care (01) ==
PROVIDERS: PCP Nurse Practitioner Family; Visit Provider Physician Assistant
DX: M17.11 Unilateral primary osteoarthritis, right knee (principal)
CPT/HCPCS: 20610; 99213

== ENCOUNTER 2024-06-06 11:17 | Outpatient (AMB) | payer MEDICARE, SELFPAY ==
[2024-06-06 11:24] VITALS: BP 130/80; PULSE 78; O2SAT 95; BMI 28.0
--- NOTE | 2024-06-06 11:24 | MHC.OFFVIS ---
Vital Signs 06/06/24 11:24 Height 5 ft 2 in Weight 153 lb 3.54 oz BMI 28.0 BP 130/80 Blood Pressure Location Lt brachial Position Sitting Pulse 78 Pulse Source Pulse Oximeter Pulse Oximetry (%) 95 Oxygen Delivery Method Room Air Intake Visit Reasons: copd Intake Note: pt is here for follow up and is having a lot of short of breath with exertion or any walking, she feels like she is getting pneumonia, coughing, she did have blood tinged sputum for a few days. 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 Allergies doxycycline [Doxycycline] Allergy (Intermediate, Verified 06/06/24 11:55) RASH, vomiting Medication List - Last Reconciled 06/06/24 by Alexandra Thao MD albuterol sulfate 90 mcg/actuation (Ventolin HFA) 2 puffs inhalation Q4-6H PRN 30 days blood pressure test kit-large for htn, daily use buprenorphine-naloxone 8-2 mg (Suboxone) 1 film sublingual BID@0900,1400 cetirizine (All Day Allergy (cetirizine)) 10 mg PO DAILY PRN cholecalciferol (vitamin D3) 50 mcg PO DAILY diclofenac sodium 1% (Voltaren Arthritis Pain) 2 grams topical QID duloxetine 60 mg PO DAILY famotidine 20 mg PO DAILY fluticasone propion-salmeterol 250-50 mcg/dose 1 inh inhalation BID 30 days furosemide (Lasix) 20 mg PO DAILY hydroxyzine HCl 10 mg PO BEDTIME lactulose 30 mL PO BID 90 days levothyroxine 25 mcg PO DAILY@0600 loratadine (Claritin) 10 mg PO DAILY losartan 25 mg PO DAILY montelukast 10 mg PO DAILY nicotine 1 patch transdermal DAILY 28 days omeprazole 40 mg PO DAILY@0630 ondansetron 4 mg PO Q8H PRN 10 days tizanidine 2 mg PO Q8H PRN Do you need a note to return to daycare/school/sports/work: No HPI HPI copd : Details: 63 YEARS OLD FEMALE LONG-TIME SMOKER, IS HERE FOR HER 6 MONTHS FOLLOW-UP FOR ONGOING COPD. SHE STILL SMOKING ABOUT 5 OR 6 CIGARETTES A DAY ( ROLLS HER OWN TOBACCO ) SHE HAS MILD HOARSENESS FOR EVER . SHE HAS MILD TO MODERATE AMOUNT OF COUGH, LATELY HER THROAT IS MORE DRY THAN USUAL. SHE COMPLAINS OF SOME SPECKS OF BLOOD WHEN SHE COUGHS. HER INHALER HAS BEEN USED TO WIXELA 250-50 BUT SHE HAS NOT GOTTEN IT YET, SO COMPLAINS OF INCREASED SHORTNESS OF BREATH. THERE IS NO RECENT INFECTION SHE HAS NO FEVER OR CHILLS. [facility] Medical History CHF (congestive heart failure) HTN (hypertension) Hepatitis C (~10/31/23) Cirrhosis Alcohol abuse History of substance abuse History of acute respiratory failure (~03/2018) COPD (chronic obstructive pulmonary disease) Nocturnal hypoxemia Obstructive sleep apnea (~2003) Nicotine dependence, cigarettes, uncomplicated Hypothyroidism Allergic rhinitis Tubular adenoma of colon (~2006) GERD (gastroesophageal reflux disease) Chronic lower back pain Myofascial pain syndrome Depression Anxiety Obesity (BMI 30-39.9) Surgical History History of myringotomy History of colonoscopy History of esophagogastroduodenoscopy (EGD) Family History Father CVD (cardiovascular disease) Mother Lung cancer Social History Household Members: None Household Members Other:: lives alone Housing: House Do you presently have visiting nurse or other home services: No Alcohol intake: current Alcohol intake frequency: 0-2 drinks per day Alcohol type: beer Comment: pt refusing bed alarm Patient Tobacco Use Status: Current everyday Tobacco user Tobacco use type: Cigarette Cigarette Packs Per Day: 0.5 Cigarettes Per Day: 5 Years Smoked: 50 e-Cigarette/Vaping Use: Never Used Second Hand Smoke Exposure: Yes Substance Use Type: Crack/Cocaine service: No Current occupational status: disabled Current occupation: rt handed Cognitive needs: No Hearing needs: No Vision needs: No Review of Systems Const All systems reviewed & are unremarkable except as noted in HPI and below Eyes Reports no additional complaints ENT Reports nasal congestion (Intermittent) Card Denies chest pain, Denies irregular heart rhythm, Denies leg edema and Reports dyspnea on exertion Resp Reports as per HPI, Reports cough (Frequent) and Reports dyspnea on exertion GI Reports heartburn (Controlled with famotidine) Reports no additional complaints Musc Reports back pain and Reports myalgias Skin/Breast Reports system reviewed and no additional complaints, except as documented Neuro Reports no additional complaints Psych Reports anxiety Endo Reports no additional complaints Physical Exam Vital Signs: Last Vital Signs Pulse 78 06/06/24 11:24 BP 130/80 06/06/24 11:24 Pulse Ox 95 06/06/24 11:24 Oxygen Delivery Method Room Air 06/06/24 11:24 BMI result Body Mass Index 28.0 Const General: comfortable, no acute distress, alert and awake Orientation/consciousness: patient oriented x3 HEENT Head: Yes normal to inspection General nose exam: No nasal polyps present, No nasal discharge present and Other nasal findings present (Mild nasal congestion especially on the right side) Face and sinus: Yes sinuses nontender Mouth: oropharynx normal Throat: Yes posterior oropharynx normal Eyes General: appearance normal, both eyes and all related structures Neck Neck: Yes normal visual inspection, Yes no lymphadenopathy, Yes trachea midline and Yes no JVD Thyroid: Thyroid normal Chest Chest palpation & inspection: normal inspection of the chest, normal palpation of entire chest wall and no tenderness Resp Other: Percussion note is resonant, breath sounds are equal on both sides, distant with prolonged expiratory phase. No wheezes or rhonchi are heard today. But she does get cough on taking deep breath. Cardio Palpation: normal PMI Rate: regular rate Rhythm: regular rhythm Heart sounds: no gallops and no murmurs Peripheral pulses: Peripheral pulses 2+ throughout GI Palpation (GI): Soft to palpation, nontender, No hepatosplenomegaly present and no masses Auscultation: normal bowel sounds Back/Spine/Pelvis Thoracic/Lumbar Spine: thoracic and lumbar spine normal to inspection, thoraco-lumbar ROM limited and thoraco-lumbar spasm Skin General skin exam: no rashes or lesions noted Neuro General: patient oriented x3 and no focal motor deficits Cranial nerves: Yes CN's II-XII intact bilaterally Extrem General: Yes normal to inspection, Yes no clubbing, cyanosis or edema and Yes no calf tenderness Psych Appearance: grossly normal and well kempt Speech and movement: Normal speech and movement present Assessment & Plan Assessment & Plan (1) COPD (chronic obstructive pulmonary disease): Comment: (COPD, MILD TO moderate stable, secondary to chronic bronchitis and smoking) seems to be stable but she does have chronic intermittent cough which is mainly related to her smoking. COMPLAINS OF SLIGHT INCREASE IN HER SHORTNESS OF BREATH AND COUGH BECAUSE SHE DOES NOT HAVE MAINTENANCE INHALER. Code(s): J44.9 - Chronic obstructive pulmonary disease, unspecified Category: Medical Qualifiers: COPD type: COPD with acute exacerbation Qualified Code(s): J44.1 - Chronic obstructive pulmonary disease with (acute) exacerbation Plan: WIXELA 250-51 INHALATION B.I.D. IS ORDERED. ALBUTEROL HFA 2 PUFFS Q 4-6 HOURS P.R.N. (2) Nocturnal hypoxemia: Comment: Patient is a known case of nocturnal hypoxemia which is corrected by using oxygen 2 L/minute Code(s): G47.34 - Idiopathic sleep related nonobstructive alveolar hypoventilation Category: Medical Plan: CONTINUE TO USE O2 2 L/MINUTE AT NIGHT. MAY USE P.R.N. DURING. THE DAYTIME WELL (3) Nicotine dependence, cigarettes, uncomplicated: Comment: PATIENT HAS HISTORY OF HEAVY SMOKING THROUGHOUT HER ADULT LIFE. SHE IS USING NICOTINE PATCH BUT NOT ON A REGULAR BASIS. CLAIMS THAT SHE SMOKES ABOUT 6 CIGARETTES A DAY. Code(s): F17.210 - Nicotine dependence, cigarettes, uncomplicated Category: Medical Plan: I ADVISED HER TO USE NICOTINE PATCH ON A DAILY BASIS. TRY TO CUT DOWN THE NUMBER OF CIGARETTES TO 2 AND THEN 1 AND THEN STOP COMPLETELY. (4) Allergic rhinitis: Comment: Mild, intermittent, well controlled with the use of current meds : Code(s): J30.9 - Allergic rhinitis, unspecified Category: Medical Plan: CONTINUE USING FLONASE - 50 1 SPRAY IN EACH NOSTRIL DAILY USE CLARITIN 10 MG ONCE A DAY P.R.N. Medications: New fluticasone propion-salmeterol 250-50 mcg/dose (Wixela Inhub) 1 inh inhalation BID 30 days 60 ea 0RF COPD Refilled fluticasone propion-salmeterol 250-50 mcg/dose 1 inh inhalation BID 30 days 60 ea 5RF COPD Coding Level of Care Code Est Pt Level 3 (20042) Diagnoses COPD (chronic obstructive pulmonary disease) J44.1 COPD type: COPD with acute exacerbation Nocturnal hypoxemia G47.34 Nicotine dependence, cigarettes, uncomplicated F17.210 Allergic rhinitis J30.9
== END 2024-06-06 16:05 | disposition home or self-care (01) ==
PROVIDERS: PCP Nurse Practitioner Family; Visit Provider Internal Medicine
DX: J44.1 Chronic obstructive pulmonary disease with (acute) exacerbation (principal); G47.34 Idiopathic sleep related nonobstructive alveolar hypoventilation; F17.210 Nicotine dependence, cigarettes, uncomplicated; J30.9 Allergic rhinitis, unspecified
CPT/HCPCS: 99213

== ENCOUNTER → 2024-06-06 11:17 | Outpatient (BNVA) | payer MEDICARE, SELFPAY | PROVIDERS: PCP Nurse Practitioner Family; Visit Provider Internal Medicine | DX: J44.1 Chronic obstructive pulmonary disease with (acute) exacerbation (principal); J30.9 Allergic rhinitis, unspecified; G47.34 Idiopathic sleep related nonobstructive alveolar hypoventilation; F17.210 Nicotine dependence, cigarettes, uncomplicated | CPT/HCPCS: 99212 ==

== ENCOUNTER 2024-06-10 10:16 | Outpatient (REF) | payer MEDICARE, SELFPAY ==
--- NOTE | ~2024-06-10 | US_ITS ---
CLINICAL HISTORY: K74.60 - Unspecified cirrhosis of liver US abdomen complete with duplex and color Doppler Comparison: None Findings: The visualized pancreas, aorta, and inferior vena cava are unremarkable. Liver normal size and diffusely echogenic. Right lobe 14.0 cm length. No focal hepatic masses. Common duct 9.0 mm diameter. Physiologic distention of the gallbladder. No gallstones or sludge. No gallbladder wall thickening. No pericholecystic fluid. No sonographic Ballard sign. Main portal vein antegrade. Right kidney normal size, 11.1 cm in length. Normal cortical width and echotexture. No solid or cystic renal masses. No nephrolithiasis or hydronephrosis. Left kidney normal, 12.0 cm in length. Normal cortical width and echotexture. No solid or cystic renal masses. No nephrolithiasis or hydronephrosis. Spleen measures 14.0 cm. No splenic masses. No ascites. No lymphadenopathy. Impression: 1. Coarse hepatic echotexture reflecting hepatic steatosis or diffuse hepatocellular disease. No focal hepatic lesions. Hepatopetal flow portal vein. 2. Mild splenomegaly. 3. No ascites demonstrated This document has been electronically signed by: Evert Fierro MD on 06/10/2024 11:44:10
== END 2024-06-10 10:17 | disposition home or self-care (01) ==
LOC: HO.HMGCX 10:16
PROVIDERS: PCP Nurse Practitioner Family; Visit Provider Internal Medicine
DX: K74.60 Unspecified cirrhosis of liver (principal)
CPT/HCPCS: 76700

== ENCOUNTER → 2024-06-10 10:37 | Outpatient (BNV) | payer MEDICARE, SELFPAY | PROVIDERS: PCP Nurse Practitioner Family; Visit Provider Radiology Diagnostic Radiology | DX: K74.60 Unspecified cirrhosis of liver (principal) | CPT/HCPCS: 76700 ==

== ENCOUNTER 2024-06-25 12:53 | Outpatient (REF) | payer MEDICARE, SELFPAY ==
--- NOTE | ~2024-06-25 | FL_ITS ---
FLUOROSCOPIC RIGHT HIP STEROID INJECTION INDICATIONS: Right hip pain. Orthopedic surgery requests intra-articular hip steroid injection. PROCEDURE: Risks and benefits and possible complications were discussed with the patient and the consent form was signed. The patient was placed hip on the fluoroscopy table. The right hip was prepped and draped in normal sterile fashion. 1% buffered lidocaine was used for anesthesia. A 22-gauge spinal needle was used to access the hip joint. Intra-articular position of the needle within the hip joint was verified using 3 cc of Omnipaque 300. A total of 1% lidocaine and 80 mg Depo-Medrol was then injected into the hip joint. The needle was then removed and a Band-Aid was applied to the injection site. The patient tolerated the procedure. There were no immediate complications. FL/FL Guided Asp Inj Major Jt RT IMPRESSION: Successful fluoroscopic right hip intra-articular steroid injection. The procedure was performed by Will Maddox PA-C, and directly supervised by Dr. Galvin. Electronically signed by: Connor Galvin MD 06/26/2024 10:36 AM [facility]
[2024-06-25] MEDS: iohexoL 300 MG/ML 50 ML INFUS..BTL INTRAARTIC (13:46)
[2024-06-25] MEDS: methylPREDNISolone acetate 80 MG VIAL INTRAARTIC (13:48)
[2024-06-25] MEDS: Lidocaine HCl 1 % MPF 30 ML VIAL 5 ML INTRAARTIC (13:49)
== END 2024-06-25 12:54 | disposition home or self-care (01) ==
LOC: HO.XRAY 12:53
PROVIDERS: PCP Nurse Practitioner Family; Visit Provider Physician Assistant
DX: M16.11 Unilateral primary osteoarthritis, right hip (principal)
CPT/HCPCS: 20610; 77002; J1010; J2003; Q9967

== ENCOUNTER → 2024-06-25 12:55 | Outpatient (BNV) | payer MEDICARE, SELFPAY | PROVIDERS: PCP Nurse Practitioner Family; Visit Provider Physician Assistant Surgical | DX: M25.551 Pain in right hip (principal) | CPT/HCPCS: 20610; 77002 ==

== ENCOUNTER 2024-07-10 07:59 | Outpatient (REF) | payer MEDICARE, MEDICAID, SELFPAY ==
--- NOTE | ~2024-07-10 | CT_ITS ---
CLINICAL HISTORY: F17.210 - Nicotine dependence, cigarettes, uncomplicated CT lung cancer screening (LDCT) Comparison: CT/[place]/SR - CT LUNG SCREENING - 09/13/23 15:30 EDT Technique: Axial CT images of the chest using low-dose technique. Effective radiation dose total: DLP 39.1 mGycm, CTDIvol 1.3 mGy. Findings: No discrete pulmonary nodular area of consolidation identified. There are improved areas of ground-glass density within the lungs with areas of mild thickening of the interlobular septa. Likely scarring or atelectasis is seen within the lingula and right middle lobe as before. No pleural effusion or pneumothorax. Mild coronary artery calcification. No enlarged lymph nodes. Nodularity along the periphery of the liver. Visualized portion of the spleen appears to be borderline enlarged. No free fluid or free air within the upper abdomen. No acute bony abnormality. Impression: Findings suggestive of interstitial lung disease without concerning infiltrates or pulmonary nodule. Category 2: Benign appearance or behavior. Continued annual lung cancer screening chest CT suggested. Category 1: Normal; continue annual screening Category 2: Benign appearance or behavior, continue annual screening Category 3: Probably benign, [address] recommended Category 4A: Suspicious, [address] recommended; may consider PET/CT Category 4B: Suspicious, Additional diagnostics and/or tissue sampling recommended Category 4X: Suspicious, Additional diagnostics and/or tissue sampling recommended Category 0: Recalls (incomplete screen due to Incomplete coverage, Noise, Respiratory motion, Expiration, Obscured by acute abnormality) This document has been electronically signed by: Waqas Prieto MD on 07/10/2024 10:18:37
== END 2024-07-10 08:00 | disposition home or self-care (01) ==
LOC: HO.CT 07:59
PROVIDERS: PCP Nurse Practitioner Family; Visit Provider Physician Assistant Medical
DX: R91.8 Other nonspecific abnormal finding of lung field (principal); F17.210 Nicotine dependence, cigarettes, uncomplicated
CPT/HCPCS: 71250; 96127; 99396

== ENCOUNTER → 2024-07-10 08:01 | Outpatient (BNV) | payer MEDICARE, MEDICAID, SELFPAY | PROVIDERS: PCP Nurse Practitioner Family; Visit Provider Radiology Diagnostic Radiology | DX: M79.641 Pain in right hand (principal); M15.1 Heberden's nodes (with arthropathy); M15.2 Bouchard's nodes (with arthropathy) | CPT/HCPCS: 71250; 73100; 73130 ==

== ENCOUNTER 2024-07-10 13:44 | Outpatient (AMB) | payer MEDICARE, MEDICAID, SELFPAY ==
--- NOTE | 2024-07-10 13:51 | A.OFFPC_ITS ---
Vital Signs 07/10/24 13:57 Height 5 ft 2 in Weight 151 lb BMI 27.6 BP 136/70 Blood Pressure Location Lt brachial Position Sitting Respiration 20 Pulse 91 Pulse Source Pulse Oximeter Temp 98.3 F Temp Source Oral Pulse Oximetry (%) 95 Oxygen Delivery Method Room Air Intake Visit Reasons: PE Intake Note: Pt is here today for PE. Pt states that she fell yesterday and injured her R wrist. Allergies doxycycline [Doxycycline] Allergy (Intermediate, Verified 07/10/24 14:01) RASH, vomiting Tobacco use date assessed: 07/10/24 Fall risk assessment: 2 + Falls in past year Last assessed Fall Risk: 07/10/24 Dental Screening Dental Screen Date: 07/10/24 Did you have a dental visit in the last 12 months?: Yes Did you have a dental problem in the last 6 months where you did not have access to dental care?: No Was dental information given to patient?: Patient has dentist HPI PE HPI Details History of Present Illness The patient is a 63-year-old female presenting for a routine physical examination with a focus on a musculoskeletal injury following a recent fall. She has a chronic diagnosis of Chronic Obstructive Pulmonary Disease (COPD) and continues to smoke, necessitating annual low-dose CT scans for lung monitoring. She reports experiencing a fall two days prior, resulting in right wrist pain and faint swelling in her right MCP joint. Despite this, she can form a fist without difficulty and has minor discomfort upon ulnar and radial deviation of the wrist. In terms of health maintenance, the patient reports that her colon cancer screening is up to date, though she requires referrals for a gynecological examination and a mammogram. 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 Reported symptoms include occasional shortness of breath and an unclear history of gastrointestinal bleeding, though she denies any recent gastrointestinal symptoms like constipation or diarrhea. Health Maintenance - Colon cancer screening is current - Referral required for gynecological ex amination - Referral required for mammogram - Annual low-dose CT scans for lung canc er screening due to history of smoking Social History - Continues to smoke Review of Systems - Pulmonary: Reports occasional shortnes s of breath - Gastrointestinal: Denies constipation and diarrhea; Reports blood in stool -denies any cp, denies any urinary issue s, denies any SI or HI Physical Exam General: Cooperative, healthy appearing, comfortable, no acute distress and well developed Orientation: Patient oriented x3 Limitations: No limitations Head: Normal to inspection Ears: Hearing grossly normal bilaterally Nose: Normal external nose present Face and sinus: Normal facial exam Eyes: Appearance normal, both eyes and all related structures Neck: Normal visual inspection and Yes full ROM Respiratory: Diminished moving air bilaterally Cardiovascular: Regular rate and rhythm. Normal S1 and S2. Systolic murmur present GI: Normal to inspection. Soft to palpation and nontender Skin: No rashes or lesions noted Neuro: Patient oriented x3 Extremities: Faint swelling to right hand MCP joint region. Able to make a complete fist without difficulties. Ulnar and radial deviation with slight discomfort. Positive radial pulse. Normal to inspection Results Plan Evaluation for musculoskeletal injury prompted an impending X-ray of the patient?s hand and wrist to assess potential structures impacted by her recent fall. Referrals for pending gynecological and mammographic screenings are necessary due to prior negligence of these routine checks. COPD management continues with current pulmonary follow-ups and annual low-dose CT imaging, given her ongoing tobacco use, which requires cessation discussions. Current cardiac and pulmonary evaluation frameworks remain intact in collaboration with respective specialists. A clearer gastrointestinal assessment may follow if symptomatic evidence substantiates the need beyond current colon screenings. Discussion Notes During today's visit, I discussed with the patient the necessity of X-ray imaging for her injured wrist, the importance of following up on overdue mammogram and gynecological screenings, and the continued monitoring of her COPD with annual CT scans. Smoking cessation was encouraged due to its significant impact on her respiratory condition. We agreed on obtaining referrals for the necessary screenings, and I emphasized the importance of consistent follow-ups with her pie filler and manager order for comprehensive care management. Patient Instructions - Follow up with referrals for gynecolog ical exam and mammogram. - Attend scheduled low-dose CT scans and maintain cardiology and pulmonary follow-ups. - Undergo X-ray for wrist to evaluate in jury. - Consider cessation programs to stop sm oking. - Return to clinic if wrist pain intensi fies or for any new symptoms. [facility] Medical History CHF (congestive heart failure) HTN (hypertension) Hepatitis C (~10/31/23) Cirrhosis Alcohol abuse History of substance abuse History of acute respiratory failure (~03/2018) COPD (chronic obstructive pulmonary disease) Nocturnal hypoxemia Obstructive sleep apnea (~2003) Nicotine dependence, cigarettes, uncomplicated Hypothyroidism Allergic rhinitis Tubular adenoma of colon (~2006) GERD (gastroesophageal reflux disease) Chronic lower back pain Myofascial pain syndrome Depression Anxiety Obesity (BMI 30-39.9) Surgical History History of myringotomy History of colonoscopy History of esophagogastroduodenoscopy (EGD) Family History Father CVD (cardiovascular disease) Mother Lung cancer Social History Household Members: None Household Members Other:: lives alone Housing: House Do you presently have visiting nurse or other home services: No Alcohol intake: current Alcohol intake frequency: 0-2 drinks per day Alcohol type: beer Comment: pt refusing bed alarm Patient Tobacco Use Status: Current everyday Tobacco user Tobacco use type: Cigarette Cigarette Packs Per Day: 0.5 Cigarettes Per Day: 5 Years Smoked: 50 e-Cigarette/Vaping Use: Never Used Second Hand Smoke Exposure: Yes Substance Use Type: Crack/Cocaine service: No Current occupational status: disabled Current occupation: rt handed Cognitive needs: No Hearing needs: No Vision needs: No Questionnaire PHQ-9 Over the last 2 weeks, how often have you been bothered by any of the following problems? 1. Little interest or pleasure in doing things: more than half the days 2. Feeling down, depressed, or hopeless: several days 3. Trouble falling or staying asleep, or sleeping too much: more than half the days 4. Feeling tired or having little energy: nearly every day 5. Poor appetite or overeating: several days 6. Feeling bad about yourself - or that you are a failure or have let yourself or your family down: more than half the days 7. Trouble concentrating on things, such as reading the newspaper or watching television: not at all 8. Moving or speaking so slowly that other people could have noticed. Or the opposite - being so fidgety or restless that you have been moving around a lot more than usual: several days 9. Thoughts that you would be better off or of hurting yourself in some way: not at all Total score: 12 Depression Screening Interpretation: Positive (has a therapist and a psychiatrist, denies any si or hi) Depression Screening Follow-up: Existing condition and In treatment Depression Screening Done: Yes 10455 - PHQ-9 Billing: Yes Source: Developed by Drs. Taras Carney, Deyanira Raygoza, Monty Stephens and colleagues, with an educational mitch from [employer]. Thrive Questionnaire Date Thrive assessed: 07/10/24 I am a: Patient What is your living situation today?: I have a steady place to live Within the past 12 months, did the food you bought not last and you didn't have the money to get more?: Often true Within the past 12 months, did you worry whether your food would run out before you got money to buy more?: Often true Do you have trouble paying for medicines?: No Do you have trouble getting transportation to medical appointments?: No Do you have trouble paying your heating and electricity bill?: No Do you have trouble taking care of your child, family member or friend?: No Do you have trouble with day-to-day activities such as bathing, preparing meals, shopping, managing finances, etc.?: Yes Are you currently unemployed and looking for a job?: No Are you interested in more education?: No Please select the resources that you would like help with: Food, Transportation and Utilities Currently or been in a relationship where the following occur: No concerns reported THRIVE Score: 2 AUDIT C Alcohol Use Questionnaire (AUDIT-C) 1. How often do you have a drink containing alcohol?: 2-3 times a week 2. How many drinks containing alcohol do you have on a typical day when you are drinking?: 1 or 2 3. How often do you have six or more drinks on one occasion?: Never Total Score: 3 NAYE-7 AMB Questionnaire NAYE-7 Date NAYE - 7 assessed: 07/10/24 Feeling nervous, anxious, or on edge: 1 = Several days Not being able to stop or control worryin = Several days Worrying too much about different things: 1 = Several days Trouble relaxin = Several days Being so restless that it is hard to sit still: 0 = Not at all Becoming easily annoyed or irritable: 1 = Several days Feeling afraid as if something awful might happen: 1 = Several days Total NAYE-7 score (0-4 normal; 5-9 mild; 10-14 moderate; 15-21 severe): 6 Source: Developed by Drs. Taras Carney, Deyanira Raygoza, Monty Stephens and colleagues, with an educational mitch from [employer]. NAYE-7 Assessment Billing NAYE-7 Assessment Tool: NAYE-7 Assessment 98883 Physical exam (Primary Care) Vital Signs: Last Vital Signs Temp 98.3 F 07/10/24 13:57 Pulse 91 07/10/24 13:57 Resp 20 07/10/24 13:57 BP 136/70 07/10/24 13:57 Pulse Ox 95 07/10/24 13:57 Oxygen Delivery Method Room Air 07/10/24 13:57 BMI result Body Mass Index 27.6 Tobacco/Smoking Status: Tobacco use Status Tobacco use date assessed 07/10/24 07/10/24 14:03 Patient Tobacco Use Status Current everyday Tobacco 07/10/24 13:52 Tobacco use type Cigarette 07/10/24 13:52 e-Cigarette/Vaping Use Never Used 07/10/24 13:52 PHQ-9: PHQ-9 Score PHQ-9: Total score 12 07/10/24 14:03 Depression Screening Interpretation: Positive (has a therapist and a psychiatrist, denies any si or hi) Depression Screening Follow-up: Existing condition and In treatment Thrive Assessment: Date of Thrive Assessment Date Thrive assessed 07/10/24 07/10/24 14:03 Currently or been in a relationship where the following occur: No concerns reported Coding Level of Care Code Est Pt Prev Care 40-64y(78836) Diagnoses Right wrist pain M25.531 Right hand pain M79.641 Encounter for routine adult physical exam with abnormal findings Z00.01 Screening for cervical cancer Z12.4 Additional Codes NAYE-7 Assessment Billing - NAYE-7 Assessment Tool: NAYE-7 Assessment [id number] ([id number]) PHQ-9 - 68326 - PHQ-9 Billing: Yes ([id number]) Assessment & Plan Assessment & Plan (1) Right wrist pain: Code(s): M25.531 - Pain in right wrist Category: Medical (2) Right hand pain: Code(s): M79.641 - Pain in right hand Category: Medical (3) Encounter for routine adult physical exam with abnormal findings: Code(s): Z00.01 - Encounter for general adult medical examination with abnormal findings Category: Medical (4) Screening for cervical cancer: Code(s): Z12.4 - Encounter for screening for malignant neoplasm of cervix Category: Medical Plan . Orders: Orders Comprehensive [place]. Panel Fast Today Z00.01 - Encounter for general adult medical examination with abnormal findings UA CC w/rflx Micro + Cult Today Z00.01 - Encounter for general adult medical examination with abnormal findings XR hand RT 2V Today M79.641 - Pain in right hand XR wrist RT 2V Today M25.531 - Pain in right wrist, M79.641 - Pain in right hand Complete Blood Count Auto Diff Today Z00.01 - Encounter for general adult medical examination with abnormal findings TSH reflex Free T4 Today Z00.01 - Encounter for general adult medical examination with abnormal findings Lipid Panel Today Z00.01 - Encounter for general adult medical examination with abnormal findings MM screening mammo BI Today Z12.31 - Encounter for screening mammogram for malignant neoplasm of breast Referrals [facility] Referral Z12.4 - Encounter for screening for malignant neoplasm of cervix
[2024-07-10 13:57] VITALS: BP 136/70; PULSE 91; RESP 20; TEMP 36.8; O2SAT 95; BMI 27.6
== END 2024-07-10 14:59 | disposition home or self-care (01) ==
PROVIDERS: PCP Nurse Practitioner Family; Visit Provider Nurse Practitioner Family
DX: M25.531 Pain in right wrist (principal); M79.641 Pain in right hand; Z00.01 Encounter for general adult medical examination with abnormal findings; Z12.4 Encounter for screening for malignant neoplasm of cervix

== ENCOUNTER 2024-07-10 14:41 | Outpatient (REF) | payer OTHER, SELFPAY ==
--- NOTE | ~2024-07-10 | XR_ITS ---
EXAMINATION: XR WRIST, RIGHT CLINICAL INFORMATION: M79.641 - Pain in right hand COMPARISON: No priors TECHNIQUE: Single PA view of the right wrist. FINDINGS: Limited examination. The carpal bones are intact. Distal radius and ulna are intact. No lytic or blastic lesions. XR/XR wrist RT 2V IMPRESSION: Limited examination demonstrated no acute fracture. Electronically signed by: Chaz Montgomery MD 07/11/2024 08:05 AM [facility]
--- NOTE | ~2024-07-10 | XR_ITS ---
EXAMINATION: XR HAND, RIGHT CLINICAL INFORMATION: M79.641 - Pain in right hand COMPARISON: Correlated to single view right wrist same day. TECHNIQUE: PA, lateral, and oblique views of the right hand. FINDINGS: The carpal bones are intact. Carpal bones are intact. The calyces are intact. There is joint space narrowing involving proximal and interphalangeal joints of the digits. No acute cortical disruption or malalignment. No lytic or blastic lesions. No subcutaneous emphysema. XR/XR hand RT min 3V IMPRESSION: Osteoarthrosis, proximal and distal interphalangeal joints of the digits. Electronically signed by: Chaz Montgomery MD 07/11/2024 08:06 AM TYLER BUTLER
== END 2024-07-10 14:42 | disposition home or self-care (01) ==
LOC: HO.HMGCX 14:41
PROVIDERS: PCP Nurse Practitioner Family; Visit Provider Nurse Practitioner Family
DX: M79.641 Pain in right hand (principal); M25.531 Pain in right wrist
CPT/HCPCS: 73100; 73130

== ENCOUNTER 2024-07-15 10:45 | Outpatient (AMB) | payer MEDICARE, SELFPAY ==
--- NOTE | 2024-07-15 10:47 | A.OFFVIS_ITS ---
Vital Signs 07/15/24 10:53 Height 5 ft 2 in Weight 151 lb BMI 27.6 Intake Visit Reasons: Inj-RT knee injection-last inj 11/17/23 Intake Note: Amelia is a 63 year old female who presents today for a right knee injection, last injection 11/17/23. Patient reports her last injection gave her relief and she would like to repeat. Allergies doxycycline [Doxycycline] Allergy (Intermediate, Verified 07/15/24 10:52) RASH, vomiting Medication List - Last Reconciled 07/15/24 by Marissa Barros PA-C albuterol sulfate 2.5 mg (3 mL) inhalation Q4-6H PRN albuterol sulfate 90 mcg/actuation (Ventolin HFA) 2 puffs inhalation Q4-6H PRN 30 days blood pressure test kit-large for htn, daily use buprenorphine-naloxone 8-2 mg (Suboxone) 1 film sublingual BID@0900,1400 cetirizine (All Day Allergy (cetirizine)) 10 mg PO DAILY PRN cholecalciferol (vitamin D3) 50 mcg PO DAILY diclofenac sodium 1% (Voltaren Arthritis Pain) 2 grams topical QID duloxetine 60 mg PO DAILY famotidine 20 mg PO DAILY fluticasone propion-salmeterol 250-50 mcg/dose (Wixela Inhub) 1 inh inhalation BID 30 days fluticasone propion-salmeterol 250-50 mcg/dose 1 inh inhalation BID 30 days furosemide (Lasix) 20 mg PO DAILY hydroxyzine HCl 10 mg PO BEDTIME lactulose 30 mL PO BID 90 days levothyroxine 25 mcg PO DAILY@0600 loratadine (Claritin) 10 mg PO DAILY losartan 25 mg PO DAILY montelukast 10 mg PO DAILY nicotine 1 patch transdermal DAILY 28 days omeprazole 40 mg PO DAILY@0630 ondansetron 4 mg PO Q8H PRN 10 days ramelteon 8 mg PO BEDTIME PRN [Rollator walker with seat/brakes As directed] tizanidine 2 mg PO Q8H PRN HPI HPI Inj-RT knee injection-last inj 11/17/23: Details: 63-year-old female returns to the office today for a follow-up of right knee pain. She continues to have pain with daily activities. She states she fell at the end of june and has pain in the right wrist. She was seen by her PCP who did xrays, no mention of fracture. [facility] Medical History CHF (congestive heart failure) HTN (hypertension) Hepatitis C (~10/31/23) Cirrhosis Alcohol abuse History of substance abuse History of acute respiratory failure (~03/2018) COPD (chronic obstructive pulmonary disease) Nocturnal hypoxemia Obstructive sleep apnea (~2003) Nicotine dependence, cigarettes, uncomplicated Hypothyroidism Allergic rhinitis Tubular adenoma of colon (~2006) GERD (gastroesophageal reflux disease) Chronic lower back pain Myofascial pain syndrome Depression Anxiety Obesity (BMI 30-39.9) Surgical History History of myringotomy History of colonoscopy History of esophagogastroduodenoscopy (EGD) Family History Father CVD (cardiovascular disease) Mother Lung cancer Social History Household Members: None Household Members Other:: lives alone Housing: House Do you presently have visiting nurse or other home services: No Alcohol intake: current Alcohol intake frequency: 0-2 drinks per day Alcohol type: beer Comment: pt refusing bed alarm Patient Tobacco Use Status: Current everyday Tobacco user Tobacco use type: Cigarette Cigarette Packs Per Day: 0.5 Cigarettes Per Day: 5 Years Smoked: 50 e-Cigarette/Vaping Use: Never Used Second Hand Smoke Exposure: Yes Substance Use Type: Crack/Cocaine service: No Current occupational status: disabled Current occupation: rt handed Cognitive needs: No Hearing needs: No Vision needs: No Review of Systems Const All systems reviewed & are unremarkable except as noted in HPI and below Physical Exam Vital Signs: BMI result Body Mass Index 27.6 Const General: cooperative and no acute distress Orientation/consciousness: patient oriented x3 Resp Effort & Inspection: normal respiratory effort and able to speak in complete sentences Cardio Peripheral pulses: Peripheral pulses 2+ throughout Neuro General: patient oriented x3 Extrem Other: Right knee: Skin intact, no erythema or joint effusion. Tenderness along the medial and lateral joint line. Full ROM with crepitus. Negative Shikha?s. No ligamentous laxity. NVI. Office Procedures AMB Joint Injection/Aspiration Joint Injection/Aspiration Primary Site: right knee Prep: site was prepped using aseptic technique, ethochloride spray was applied and injection warnings given Injected: 80 mg of, DepoMedrol, with 8 mL of, 1% plain lidocaine and in the joint Approach Used: anterolateral Procedure: The patient tolerated the procedure well and there was some relief with the local anesthesia Coding 62960 - Glenohumeral/Tronchanteric Bursa/Intraarticular Procedure code (CPT) selection complete Results Reviewed Results Reviewed: /XR wrist RT 2V IMPRESSION: Limited examination demonstrated no acute fracture. Assessment & Plan Assessment & Plan (1) Osteoarthritis of right knee: Code(s): M17.11 - Unilateral primary osteoarthritis, right knee Category: Medical Qualifiers: Osteoarthritis type: primary Qualified Code(s): M17.11 - Unilateral p rimary osteoarthritis, right knee Plan: We discussed options today, which include steroid injection. The patient did consent to move forward with the injection, which was tolerated well.? I recommended rest, ice and elevation and OTC antiinflammatories prn for discomfort. If symptoms persist over the next 6-8 weeks, they will contact our office, otherwise, prn (2) Right wrist sprain: Code(s): S63.501A - Unspecified sprain of right wrist, initial encounter Category: Medical Plan: Patient was fit for a Velcro wrist splint in the office today which she will wear for 1-2 weeks to allow for resting of the wrist and immobilization as needed. She can discontinue as tolerated. Coding Level of Care Code Est Pt Level 3 (23706) Complex EM visit Add On G2211 Diagnoses Primary osteoarthritis of right knee M17.11 Osteoarthritis type: primary Right wrist sprain S63.501A CPT Codes Coding - Joint 7: 65690 - Glenohumeral/Tronchanteric Bursa/Intraarticular ([id number])
[2024-07-15 10:53] VITALS: BMI 27.6
== END 2024-07-15 11:17 | disposition home or self-care (01) ==
PROVIDERS: PCP Nurse Practitioner Family; Visit Provider Physician Assistant
DX: M17.11 Unilateral primary osteoarthritis, right knee (principal); S63.501A Unspecified sprain of right wrist, initial encounter
CPT/HCPCS: 20610; 99213

== ENCOUNTER → 2024-07-15 10:45 | Outpatient (BNVA) | payer MEDICARE, SELFPAY | PROVIDERS: PCP Nurse Practitioner Family; Visit Provider Physician Assistant | DX: M17.11 Unilateral primary osteoarthritis, right knee (principal); S63.501A Unspecified sprain of right wrist, initial encounter | CPT/HCPCS: 20610; 99212; J1010; J2003 ==

== ENCOUNTER → 2024-08-28 15:14 | Outpatient (BNVA) | payer OTHER, SELFPAY | PROVIDERS: PCP Nurse Practitioner Family ==

== ENCOUNTER 2024-10-15 15:34 | Outpatient (AMB) | payer OTHER, SELFPAY ==
--- NOTE | 2024-10-15 15:37 | AM.OFFWIN_ITS ---
Intake Vital Signs 10/15/24 15:39 Weight 151 lb BP 130/80 Blood Pressure Location Rt brachial Position Sitting Pulse 80 Pulse Source Pulse Oximeter Pulse Oximetry (%) 94 Oxygen Delivery Method Room Air Intake Visit Reasons: EP Hip/thigh pain Intake Note: Patient here for right eye puffiness, discharge and wakes up with eyelid closed. Patient Tobacco Use Status: Current everyday Tobacco user Allergies doxycycline [Doxycycline] Allergy (Intermediate, Verified 10/15/24 15:39) RASH, vomiting Do you need a note to return to daycare/school/sports/work: No HPI HPI Comments History of Present Illness Details History of Present Illness - The patient is a 63-year-old female pr esenting with itchy, watery eyes. - She has experienced symptoms for appro ximately three weeks, with occurrences becoming more problematic earlier this month. - She describes clear drainage from her eyes during episodes occurring around seven times, predominantly affecting the right eye with some swelling that is better today. - There drainage is clear, and she denie s any yellow or colored discharge. - She recognizes probable allergies, emp hasizing nasal itching. - She also admits to skin picking connec nancy to anxiety. Anxiety about self- inflicted skin damage upon stress is mentioned. - The patient has been taking a daily al lergy pill without significant resolution of symptoms and reports newly developed allergies potentially linked to environmental factors. 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 - Family history includes sinus problems among siblings, contrasting with no prior allergy issues for the patient herself. Physical Exam General: Cooperative, healthy appearing, comfortable, no acute distress and well developed Orientation: Patient oriented x3 Limitations: No limitations Head: Normal to inspection Ears: Hearing grossly normal bilaterally Nose: Normal External nose present Face and sinus: Normal facial exam Eyes: no injections, slight periorbital edema on right eye, with clear discharge noted bilaterally, otherwise normal appearance bilat Neck: Normal visual inspection and Yes full ROM Respiratory: Normal respiratory effort and able to speak in complete sentences. Skin: Evidence of skin picking noted Neuro: Patient oriented x3 Extremities: Normal to inspection [facility] Medical History (Updated 10/15/24 @ 15:49 by Kayla Pizarro PA-C) Arthralgia CHF (congestive heart failure) HTN (hypertension) Hepatitis C (~10/31/23) Cirrhosis Alcohol abuse History of substance abuse History of acute respiratory failure (~03/2018) COPD (chronic obstructive pulmonary disease) Nocturnal hypoxemia Obstructive sleep apnea (~2003) Nicotine dependence, cigarettes, uncomplicated Hypothyroidism Allergic rhinitis Tubular adenoma of colon (~2006) GERD (gastroesophageal reflux disease) Chronic lower back pain Myofascial pain syndrome Depression Anxiety Obesity (BMI 30-39.9) Surgical History History of myringotomy History of colonoscopy History of esophagogastroduodenoscopy (EGD) Family History Father CVD (cardiovascular disease) Mother Lung cancer Social History Household Members: None Household Members Other:: lives alone Housing: House Do you presently have visiting nurse or other home services: No Alcohol intake: current Alcohol intake frequency: 0-2 drinks per day Alcohol type: beer Comment: pt refusing bed alarm Patient Tobacco Use Status: Current everyday Tobacco user Tobacco use type: Cigarette Cigarette Packs Per Day: 0.5 Cigarettes Per Day: 5 Years Smoked: 50 e-Cigarette/Vaping Use: Never Used Second Hand Smoke Exposure: Yes Substance Use Type: Crack/Cocaine service: No Current occupational status: disabled Current occupation: rt handed Cognitive needs: No Hearing needs: No Vision needs: No Review of Systems Const All systems reviewed & are unremarkable except as noted in HPI and below Physical Exam Vital Signs: Last Vital Signs Pulse 80 10/15/24 15:39 BP 130/80 10/15/24 15:39 Pulse Ox 94 10/15/24 15:39 Oxygen Delivery Method Room Air 10/15/24 15:39 Assessment & Plan Assessment & Plan (1) Allergic conjunctivitis of both eyes: Code(s): H10.13 - Acute atopic conjunctivitis, bilateral Plan: The diagnosis of allergic conjunctivitis was established, and Pataday eye drops were prescribed for symptomatic relief, with instructions to use one drop daily in each eye. The patient was informed about the seasonal nature of the symptoms and advised to use medication throughout the allergy season or as needed if symptoms persist. Insurance coverage for the medication may vary, so financial considerations were outlined. The patient was educated on refraining from skin picking to promote healing, and monitoring for signs of any secondary infection. Further allergy management consists of avoiding known allergens where possible. Recommendations were communicated clearly, emphasizing compliance with the prescribed eye drops for best results. Patient was informed and verbally consented to the use of an ambient scribe for clinic note documentation during this visit. Medications: New olopatadine 0.7% (Pataday Once Daily Relief) 1 drp ophthalmic (eye) Q24H 4 weeks PRN 5 mL 0RF itching Coding Level of Care Code Est Pt Level 3 (62136) Diagnoses Allergic conjunctivitis of both eyes H10.13
[2024-10-15 15:39] VITALS: BP 130/80; PULSE 80; O2SAT 94
== END 2024-10-15 16:02 | disposition home or self-care (01) ==
PROVIDERS: PCP Nurse Practitioner Family; Visit Provider Physician Assistant
DX: H10.13 Acute atopic conjunctivitis, bilateral (principal)

== ENCOUNTER → 2024-10-15 15:34 | Outpatient (BNVA) | payer OTHER, SELFPAY | PROVIDERS: PCP Nurse Practitioner Family; Visit Provider Physician Assistant | DX: H10.13 Acute atopic conjunctivitis, bilateral (principal) | CPT/HCPCS: 99212 ==

== ENCOUNTER 2024-11-01 10:35 | Outpatient (AMB) | payer OTHER, SELFPAY ==
[2024-11-01 10:38] VITALS: BMI 27.6
--- NOTE | 2024-11-01 10:38 | A.OFFVIS_ITS ---
Vital Signs 11/01/24 10:38 Height 5 ft 2 in Weight 151 lb BMI 27.6 Intake Visit Reasons: ov-RT knee OA-last inj 07/15/24 Intake Note: Amelia is a 63 year old female who presents today for a follow up of right knee pain, last injection on 07/15/24. Patient reports last injection provided her relief for about a month. She complains of constant paint in her right knee and hip. She would like to discuss if she is a candidate for knee surgery. Finds very little relief with ibuprofen and Tylenol, however she is concerned about taking these medication due to cirrhosis of liver. Allergies doxycycline (Doxycycline) Allergy (Intermediate, Verified 11/01/24 10:39) RASH, vomiting Medication List - Last Reconciled 11/01/24 by Marissa Barros PA-C albuterol sulfate 2.5 mg (3 mL) inhalation Q4-6H PRN albuterol sulfate 90 mcg/actuation (Ventolin HFA) 2 puffs inhalation Q4-6H PRN 30 days blood pressure test kit-large for htn, daily use buprenorphine-naloxone 8-2 mg (Suboxone) 1 film sublingual BID@0900,1400 cetirizine (All Day Allergy (cetirizine)) 10 mg PO DAILY PRN cholecalciferol (vitamin D3) 50 mcg PO DAILY diclofenac sodium 1% (Voltaren Arthritis Pain) 2 grams topical QID duloxetine 60 mg PO DAILY famotidine 20 mg PO DAILY fluticasone propion-salmeterol 250-50 mcg/dose (Wixela Inhub) 1 inh inhalation BID 30 days fluticasone propion-salmeterol 250-50 mcg/dose 1 inh inhalation BID 30 days furosemide (Lasix) 20 mg PO DAILY hydroxyzine HCl 10 mg PO BEDTIME ketorolac 0.5% 1 drp ophthalmic (eye) DAILY lactulose 30 mL PO BID 90 days levothyroxine 25 mcg PO DAILY@0600 loratadine (Claritin) 10 mg PO DAILY losartan 25 mg PO DAILY montelukast 10 mg PO DAILY nicotine 1 patch transdermal DAILY 28 days omeprazole 40 mg PO DAILY@0630 90 days ondansetron 4 mg PO Q8H PRN 10 days ramelteon 8 mg PO BEDTIME PRN [Rollator walker with seat/brakes As directed] tizanidine 2 mg PO Q8H PRN HPI HPI ov-RT knee OA-last inj 07/15/24: Details: 63 yo male returns to the office today f/u right knee oa. Previous injection was somewhat helpful. Patient states she is trying to quit smoking and also abstain from alcohol use. She was recently discharged from a 21 day detox. [facility] Medical History (Updated 10/15/24 @ 15:49 by Kayla Pizarro PA-C) Arthralgia CHF (congestive heart failure) HTN (hypertension) Hepatitis C (~10/31/23) Cirrhosis Alcohol abuse History of substance abuse History of acute respiratory failure (~03/2018) COPD (chronic obstructive pulmonary disease) Nocturnal hypoxemia Obstructive sleep apnea (~2003) Nicotine dependence, cigarettes, uncomplicated Hypothyroidism Allergic rhinitis Tubular adenoma of colon (~2006) GERD (gastroesophageal reflux disease) Chronic lower back pain Myofascial pain syndrome Depression Anxiety Obesity (BMI 30-39.9) Surgical History (Reviewed 07/10/24 @ 14:41 by G[facility]AL [facility]) History of myringotomy History of colonoscopy History of esophagogastroduodenoscopy (EGD) Family History Father CVD (cardiovascular disease) Mother Lung cancer Social History Household Members: None Household Members Other:: lives alone Housing: House Do you presently have visiting nurse or other home services: No Alcohol intake: current Alcohol intake frequency: 0-2 drinks per day Alcohol type: beer Comment: pt refusing bed alarm Patient Tobacco Use Status: Current everyday Tobacco user Tobacco use type: Cigarette Cigarette Packs Per Day: 0.5 Cigarettes Per Day: 5 Years Smoked: 50 e-Cigarette/Vaping Use: Never Used Second Hand Smoke Exposure: Yes Substance Use Type: Crack/Cocaine service: No Current occupational status: disabled Current occupation: rt handed Cognitive needs: No Hearing needs: No Vision needs: No Review of Systems Const All systems reviewed & are unremarkable except as noted in HPI and below Physical Exam Vital Signs: BMI result Body Mass Index 27.6 Const General: cooperative and no acute distress Orientation/consciousness: patient oriented x3 Resp Effort & Inspection: normal respiratory effort and able to speak in complete se ntences Cardio Peripheral pulses: Peripheral pulses 2+ throughout Neuro General: patient oriented x3 Extrem Other: Right knee: Skin intact, no erythema or joint effusion. Tenderness along the medial and lateral joint line. Full ROM with crepitus. Negative Shikha?s. No ligamentous laxity. NVI. Office Procedures AMB Joint Injection/Aspiration Joint Injection/Aspiration Primary Site: right knee Prep: site was prepped using aseptic technique, ethochloride spray was applied and injection warnings given Injected: 80 mg of, DepoMedrol, with 8 mL of, 1% plain lidocaine and in the joint Approach Used: anterolateral Procedure: The patient tolerated the procedure well and there was some relief with the local anesthesia Coding 37429 - Glenohumeral/Tronchanteric Bursa/Intraarticular Procedure code (CPT) selection complete Assessment & Plan Assessment & Plan (1) Osteoarthritis of right knee: Code(s): M17.11 - Unilateral primary osteoarthritis, right knee Category: Medical Qualifiers: Osteoarthritis type: primary Qualified Code(s): M17.11 - Unilateral primary osteoarthritis, right knee Plan: We discussed options today, which include steroid injection. The patient did consent to move forward with the injection, which was tolerated well.? I recommended rest, ice and elevation and OTC antiinflammatories prn for discomfort. If symptoms persist over the next 6-8 weeks, they will contact our office, otherwise, prn Coding Level of Care Code Est Pt Level 3 (20282) Complex EM visit Add On G2211 Diagnoses Primary osteoarthritis of right knee M17.11 Osteoarthritis type: primary CPT Codes Coding - Joint 7: 39948 - Glenohumeral/Tronchanteric Bursa/Intraarticular ([id number])
== END 2024-11-01 14:54 | disposition home or self-care (01) ==
LOC: HO.HOS 10:35
PROVIDERS: PCP Nurse Practitioner Family; Visit Provider Physician Assistant
DX: M17.11 Unilateral primary osteoarthritis, right knee (principal)
CPT/HCPCS: 20610; 99213

== ENCOUNTER → 2024-11-01 10:35 | Outpatient (BNVA) | payer OTHER, SELFPAY | PROVIDERS: PCP Nurse Practitioner Family; Visit Provider Physician Assistant | DX: M17.11 Unilateral primary osteoarthritis, right knee (principal) | CPT/HCPCS: 20610; 99212; J1010; J2003 ==

== ENCOUNTER 2024-11-08 10:07 | Outpatient (REF) | payer OTHER, SELFPAY ==
--- NOTE | ~2024-11-08 | US_ITS ---
CLINICAL HISTORY: K74.60 - Unspecified cirrhosis of liver US abdomen complete Comparison: None provided Findings: Generalized increased echotexture throughout the liver. Liver is diminutive in size measuring 12 cm in long axis. Slight nodularity along the periphery of the liver. No discrete liver masses seen. Mild intrahepatic biliary ductal dilatation. Common bile duct is dilated to 10 mm without discrete intraluminal filling defect. Echogenic layering sludge or stones are seen within the gallbladder. Gallbladder wall is mildly thickened and 4.6 mm. No pericholecystic fluid. Gallbladder is moderately distended. Pancreas is not visualized due to overlying bowel gas. Spleen is mildly enlarged measuring 14 cm in long axis. No focal splenic lesion. Kidneys are of normal echotexture without focal lesion, nephrolithiasis, hydronephrosis. No free fluid. Aorta and inferior vena cava are patent. Impression: 1. Cirrhotic appearance of the liver without discrete hepatic mass lesion. 2. Intrahepatic and extrahepatic biliary dilation with either echogenic sludge or stones within the gallbladder. Choledocholithiasis should be considered. Correlation with the patient's bilirubin level suggested. MRCP could further evaluate. 3. Splenomegaly. This document has been electronically signed by: Waqas Prieto MD on 11/09/2024 12:39:21
--- OUTSIDE RECORDS SUMMARY | 2024-11-08 10:43 | XMS_ITS | Patient Health Record ---
Author Organization [facility] Address [address] [place] [id number] Care Team Providers Care Executive Officer Special Warfare Team Name Role Phone Raj iWse M.D. Primary Care Provider Shelbie Silverio Carter Jr Unavailable [phone] Allergies Allergen (clinical drug ingredient) Drug/Non Drug Allergy documented on EMR Reaction Allergy Type Onset Date Status doxycycline Doxycycline Unknown Drug Allergy Act viviana Reason For Referral No Information Medications Medication SIG (Take, Route, Frequency, Duration) Notes Start Date End Date Status Fluconazole 100 MG 1 tablet Orally once a day Active Fluticasone Propionate 50mcg 1 spray in each nostril Nasally Once a day Active DULoxetine HCl 60 MG 1 capsule Orally On ce a day for 30 day(s) Active Suboxone 8/2mg 1 tablet under the tongue and allow to dissolve Sublingual Once a day Active amLODIPine Besylate 5 MG 1 tablet Orally Once a day for 30 day(s) Active Zantac Active Ranitidine HCl 300 MG 1 tablet Orally On ce a day for 30 day(s) Active Xopenex HFA 45 MCG/ACT 1 puff as needed Inhalation every 4 hrs Active ProAir HFA 90mcg Act viviana Benzonatate 100 MG Oral for 6 Active Levothyroxine Sodium 25 MCG 1 tablet in the morning on an empty stomach Orally Once a day Active predniSONE 20 MG TK 2 TS PO QD FOR 4 DAYS THEN TK 1 T PO QD FOR 2 DAYS Oral for 6 Active Cymbalta 90mg Active Tamsulosin HCl 0.4 MG TK 1 C PO Q NIGHT Oral for 30 Active Ibuprofen 800 MG 1 tablet with food o r milk as needed Orally Three times a day Active Mirtazapine 7.5 MG 2 tablets at bedtime Orally Once a day for 30 day(s) Active Omeprazole 20 MG 1 capsule Orally twi ce a day Active Baclofen Active Advair Diskus 100-50 Active Clotrimazole 10 MG DIS 1 RENATO PO SLOWLY BID Mouth/Throat for 15 Active Social History Tobacco Use: Social History Observation Description Date Details (start date - stop date) Current Smoker NA - NA Tobacco Use/Smoking Question Answer Notes Patient is a current smoker How often do you smoke cigarettes? every day How many cigarettes a day do you smoke? 5 or les s How soon after you wake up d o you smoke your first cigarette? within 5 minutes Are you interested in quitting? Thinking about q uitting Section Notes: Tobacco use is one half to o ne pack per day. Alcohol use is 2 drinks 3 times per week. Tobacco use is one half to o ne pack per day. Alcohol use is 2 drinks 3 times per week. Tobacco use is one half to o ne pack per day. Alcohol use is 2 drinks 3 times per week. Problems Problem Type SNOMED Code ICD Code Onset Dates Problem Status W/U Status Risk Notes Problem [id number] Gastroesophageal reflux disease without esophagitis (K21.9) Active confirmed Plan Of Treatment Future Test Test Name Order Date UPPER GI ENDOSCOPY 08/11/2011 COLONOSCOPY 08/11/2011 Insurance Providers Payer Name Payer Address Payer Phone Subscriber Number Group Number Insured Name Patient Relationship to Insured Coverage Start Date Coverage End Date MEDICARE OF [place] [address] [place] [address] [id number] [place] Self - patient is the insured MEDICAID OF [facility] [address] [place] [address] [id number] [place] Self - patient is the insured Medical (General) History Medical History History ICD Code egd and colonoscopy 01/19/17, superficial gastritis, hiatal hernia, mild reflux, normal colonoscopy. gerd colon polyps sleep apnea hypothyroidism opioid dependence elevated cholesterol anxiety back problems depression hx of pneumonia -2018, respiratory failu re requiring intubation cyst on kidney Surgical History Surgery Date(Month/Year)
== END 2024-11-08 10:08 | disposition home or self-care (01) ==
LOC: HO.HMGCX 10:07
PROVIDERS: PCP Nurse Practitioner Family; Visit Provider Internal Medicine
DX: K74.60 Unspecified cirrhosis of liver (principal)
CPT/HCPCS: 76700

== ENCOUNTER → 2024-11-08 10:23 | Outpatient (BNV) | payer OTHER, SELFPAY | PROVIDERS: PCP Nurse Practitioner Family; Visit Provider Radiology Diagnostic Radiology | DX: K74.60 Unspecified cirrhosis of liver (principal) | CPT/HCPCS: 76700 ==

== ENCOUNTER 2024-11-21 08:53 | Outpatient (REF) | payer OTHER, SELFPAY ==
--- OUTSIDE RECORDS SUMMARY | 2024-11-21 09:14 | XMS_ITS | Patient Health Record ---
Author Organization [facility] Address [address] [place] [address] Care Team Providers Care Integrated Circuit Ic Layout Designer Name Role Phone Raj Wise M.D. Primary Care Provider Shelbie Silverio Carter Jr Unavailable [phone] Allergies Allergen (clinical drug ingredient) Drug/Non Drug [...] Problem Status W/U Status Risk Notes Problem [id number] Gastroesophageal reflux disease without esophagitis (K21.9) Active confirmed Plan Of Treatment Future Test Test Name Order Date UPPER GI ENDOSCOPY 08/11/2011 COLONOSCOPY 08/11/2011 Insurance Providers Payer Name Payer Address Payer Phone Subscriber Number Group Number Insured Name Patient Relationship to Insured Coverage Start Date Coverage End Date MEDICARE OF [place] [address] [place] [address] [id number] [place] Self - patient is the insured MEDICAID OF [facility] [address] [place] [address] [id number] [place] Self - patient is the [...]
[2024-11-21 10:22] LABS: MANUAL DIFF FLAG NO
[2024-11-21 10:43] LABS: Hematocrit 37.1 % (37.0-47.0); Hemoglobin 12.2 g/dl (12.0-16.0); Imm Gran Abs Auto 0.01 X10*3/uL (0.00-0.03); Imm Gran Pct Auto 0.3 % (0.0-0.4); Lymphocytes Absolute Auto 1.1 X10*3/uL (1.2-4.9); Mean Corpuscular HGB Conc 32.9 g/dl (31.0-35.0); Mean Corpuscular Hemoglobin 30.2 pg (27.0-33.0); Mean Corpuscular Volume 91.8 fL (80.0-98.0); NRBC Abs Auto 0.000 X10*3/uL (0.0-0.012); NRBC Pct Auto 0.0 /100WBC (0.0-0.2); Platelet Count 102 X10*3/uL (160-400); Red Blood Count 4.04 X10*6/uL (4.20-5.50); White Blood Count 3.3 X10*3/uL (4.8-10.8)
[2024-11-21 11:33] LABS: Alanine Aminotransferase 23 U/L (0-31); Albumin Level 3.6 g/dL (3.5-5.0); Alkaline Phosphatase 110 U/L (39-117); Anion Gap 11 (12-20); Aspartate Amino Transferase 38 U/L (5-31); Blood Urea Nitrogen 8 mg/dL (9-16); Calcium 8.6 mg/dL (8.4-10.2); Carbon Dioxide 27 mmol/L (22-29); Chloride 105 mmol/L (96-108); Estimated Glomerular Filt Rate > 60; Potassium 3.9 mmol/L (3.3-5.1); Sodium 139 mmol/L (135-145); Total Protein 7.2 g/dL (6.5-8.0)
== END 2024-11-21 08:54 | disposition home or self-care (01) ==
LOC: HO.HMGCLDS 08:53
PROVIDERS: Internal Medicine Medical Oncology; PCP Nurse Practitioner Family; Visit Provider Internal Medicine
DX: D61.818 Other pancytopenia (principal)
CPT/HCPCS: 36415; 80053; 85025

== ENCOUNTER 2024-12-18 11:15 | Outpatient (AMB) | payer OTHER, SELFPAY ==
--- NOTE | 2024-12-18 11:18 | MHC.PC.OV ---
Vital Signs 12/18/24 11:19 Height 5 ft 2 in Weight 146 lb BMI 26.7 BP 138/78 Blood Pressure Location Lt brachial Position Sitting Respiration 16 Pulse 72 Pulse Source Pulse Oximeter Pulse Oximetry (%) 97 Oxygen Delivery Method Room Air Intake Visit Reasons: 6 month f/u Frame Runner Required: No Accompanied by: Self / Same As Patient Allergies doxycycline (Doxycycline) Allergy (Intermediate, Verified 11/01/24 10:39) RASH, vomiting Medication List - Last Reconciled 12/18/24 by [facility] albuterol sulfate 2.5 mg (3 mL) inhalation Q4-6H PRN albuterol sulfate 90 mcg/actuation (Ventolin HFA) 2 puffs inhalation Q4-6H PRN 30 days blood pressure test kit-large for htn, daily use buprenorphine-naloxone 8-2 mg (Suboxone) 1 film sublingual BID@0900,1400 cetirizine (All Day Allergy (cetirizine)) 10 mg PO DAILY PRN cholecalciferol (vitamin D3) 50 mcg PO DAILY diclofenac sodium 1% (Voltaren Arthritis Pain) 2 grams topical QID duloxetine 60 mg PO DAILY famotidine 20 mg PO DAILY fluticasone propion-salmeterol 250-50 mcg/dose (Wixela Inhub) 1 inh inhalation BID 30 days fluticasone propion-salmeterol 250-50 mcg/dose 1 inh inhalation BID 30 days furosemide (Lasix) 20 mg PO DAILY hydroxyzine HCl 10 mg PO BEDTIME ketorolac 0.5% 1 drp ophthalmic (eye) DAILY lactulose 30 mL PO BID 90 days levothyroxine 25 mcg PO DAILY@0600 loratadine (Claritin) 10 mg PO DAILY losartan 25 mg PO DAILY montelukast 10 mg PO DAILY nicotine 1 patch transdermal DAILY 28 days omeprazole 40 mg PO DAILY@0630 90 days ondansetron 4 mg PO Q8H PRN 10 days ramelteon 8 mg PO BEDTIME PRN [Rollator walker with seat/brakes As directed] tizanidine 2 mg PO Q8H PRN Tobacco use date assessed: 07/10/24 Fall risk assessment: 1 Fall in past year Last assessed Fall Risk: 12/18/24 Dental Screening Dental Screen Date: 07/10/24 HPI 6 month f/u HPI Details Chief Complaint The patient presents for follow-up regarding substance use and associated health concerns. History of Present Illness The patient is a 64-year-old female presenting with ongoing substance use disorder and associated health conditions. She continues to consume alcohol and use crack cocaine regularly, despite having an addiction medicine specialist, psychiatrist, and therapist involved in her care. She denies any suicidal or homicidal ideation. The patient is also under the care of a programming development project manager for cirrhosis, a condition that requires ongoing monitoring and management. She reports experiencing fatigue but denies any chest pain or increased shortness of breath. Her cardiovascular examination revealed a faint systolic murmur, and has a emulsion operator In terms of preventative care, the patient has canceled her mammograms multiple times, although her colonoscopy is up to date. Social History - Substance use: Regular use of alcohol and crack cocaine Health Maintenance - Mammogram: Pending, patient has canceled multiple appointments - Colonoscopy: Up to date Review of Systems - Cardiovascular: Denies chest pain, reports fatigue - Respiratory: Denies increased shortness of breath - Psychiatric: Denies suicidal or homicidal ideation Physical Exam General: Cooperative, healthy appearing, comfortable, no acute distress and well developed Orientation: Patient oriented x3 Limitations: No limitations Head: Normal to inspection Ears: Hearing grossly normal bilaterally Nose: Normal external nose present Face and sinus: Normal facial exam Eyes: Appearance normal, both eyes and all related structures Neck: Normal visual inspection and Yes full ROM Respiratory: Normal respiratory effort and able to speak in complete sentences (horse voice). Clear to auscultation bilaterally Cardiovascular: Regular rate and rhythm. Normal S1 and S2, faint systolic murmur noted GI: Normal to inspection. Soft to palpation and nontender Skin: healing scab/abrasions to left knee, no signs of infection noted Neuro: Patient oriented x3 Extremities: Normal to inspection Results - Echocardiogram: Last performed in 2023, approximately a year ago Plan The patient will continue to be managed by her addiction medicine specialist, psychiatrist, and therapist for her substance use disorder. She is advised to maintain regular follow-ups with her programming development project manager for cirrhosis management. It is recommended that she reschedule her mammogram to ensure appropriate breast cancer screening. Her cardiovascular status will be monitored, and the significance of the systolic murmur will be evaluated in future visits. recommended following up with pulmonary and cardiology as well (as scheduled). recommended labs to be drawn [facility] Medical History (Updated 12/18/24 @ 11:52 by REGINA Quijano) Arthralgia CHF (congestive heart failure) HTN (hypertension) Hepatitis C (~10/31/23) Cirrhosis Alcohol abuse History of substance abuse History of acute respiratory failure (~03/2018) COPD (chronic obstructive pulmonary disease) Nocturnal hypoxemia Obstructive sleep apnea (~2003) Nicotine dependence, cigarettes, uncomplicated Hypothyroidism Allergic rhinitis Tubular adenoma of colon (~2006) GERD (gastroesophageal reflux disease) Chronic lower back pain Myofascial pain syndrome Depression Anxiety Obesity (BMI 30-39.9) Surgical History History of myringotomy History of colonoscopy History of esophagogastroduodenoscopy (EGD) Family History Father CVD (cardiovascular disease) Mother Lung cancer Social History Household Members: None Household Members Other:: lives alone Housing: House Do you presently have visiting nurse or other home services: No Alcohol intake: current Alcohol intake frequency: 0-2 drinks per day Alcohol type: beer Comment: pt refusing bed alarm Patient Tobacco Use Status: Current everyday Tobacco user Tobacco use type: Cigarette Cigarette Packs Per Day: 0.5 Cigarettes Per Day: 5 Years Smoked: 50 Packs Per Year: 25 Packs per year/per ci.50 e-Cigarette/Vaping Use: Never Used Second Hand Smoke Exposure: Yes Substance Use Type: Crack/Cocaine service: No Current occupational status: disabled Current occupation: rt handed Cognitive needs: No Hearing needs: No Vision needs: No Questionnaire PHQ-9 Over the last 2 weeks, how often have you been bothered by any of the following problems? 1. Little interest or pleasure in doing things: more than half the days 2. Feeling down, depressed, or hopeless: several days 3. Trouble falling or staying asleep, or sleeping too much: more than half the days 4. Feeling tired or having little energy: nearly every day 5. Poor appetite or overeating: several days 6. Feeling bad about yourself - or that you are a failure or have let yourself or your family down: more than half the days 7. Trouble concentrating on things, such as reading the newspaper or watching television: not at all 8. Moving or speaking so slowly that other people could have noticed. Or the opposite - being so fidgety or restless that you have been moving around a lot more than usual: several days 9. Thoughts that you would be better off or of hurting yourself in some way: not at all Total score: 12 Depression Screening Interpretation: Positive (has a therapist and a psychiatrist, denies any si or hielsi () speaking with pt today) Depression Screening Follow-up: Existing condition and In treatment Depression Screening Done: Yes 65910 - PHQ-9 Billing: Yes Source: Developed by Drs. Taras Craney, Deyanira Raygoza, Monty Stephens and colleagues, with an educational mitch from [employer]. Thrive Questionnaire Date Thrive assessed: 07/10/24 I am a: Patient What is your living situation today?: I have a steady place to live Within the past 12 months, did the food you bought not last and you didn't have the money to get more?: Often true Within the past 12 months, did you worry whether your food would run out before you got money to buy more?: Often true Do you have trouble paying for medicines?: No Do you have trouble getting transportation to medical appointments?: No Do you have trouble paying your heating and electricity bill?: No Do you have trouble taking care of your child, family member or friend?: No Do you have trouble with day-to-day activities such as bathing, preparing meals, shopping, managing finances, etc.?: Yes Are you currently unemployed and looking for a job?: No Are you interested in more education?: No Currently or been in a relationship where the following occur: No concerns reported THRIVE Score: 2 NAYE-7 AMB Questionnaire NAYE-7 Date NAYE - 7 assessed: 07/10/24 Feeling nervous, anxious, or on edge: 1 = Several days Not being able to stop or control worryin = Several days Worrying too much about different things: 1 = Several days Trouble relaxin = Several days Being so restless that it is hard to sit still: 0 = Not at all Becoming easily annoyed or irritable: 1 = Several days Feeling afraid as if something awful might happen: 1 = Several days Total NAYE-7 score (0-4 normal; 5-9 mild; 10-14 moderate; 15-21 severe): 6 Source: Developed by Drs. Taras Carney, Deyanira Raygoza, Monty Stephens and colleagues, with an educational mitch from [employer]. NAYE-7 Assessment Billing NAYE-7 Assessment Tool: NAYE-7 Assessment 37779 (denies any si or hi) Physical exam (Primary Care) Vital Signs: Last Vital Signs Pulse 72 12/18/24 11:19 Resp 16 12/18/24 11:19 BP 138/78 12/18/24 11:19 Pulse Ox 97 12/18/24 11:19 Oxygen Delivery Method Room Air 12/18/24 11:19 BMI result Body Mass Index 26.7 Tobacco/Smoking Status: Tobacco use Status Tobacco use date assessed 07/10/24 12/18/24 11:25 Patient Tobacco Use Status Current everyday Tobacco 12/18/24 11:25 Tobacco use type Cigarette 12/18/24 11:25 e-Cigarette/Vaping Use Never Used 12/18/24 11:25 PHQ-9: PHQ-9 Score PHQ-9: Total score 12 12/18/24 11:46 Depression Screening Interpretation: Positive (has a therapist and a psychiatrist, denies any si or hi, elsi () speaking with pt today) Depression Screening Follow-up: Existing condition and In treatment Thrive Assessment: Date of Thrive Assessment Date Thrive assessed 07/10/24 12/18/24 11:25 Currently or been in a relationship where the following occur: No concerns reported Coding Level of Care Code Est Pt Level 3 (71992) Diagnoses Alcohol abuse F10.10 Cirrhosis K74.60 History of substance abuse F19.11 HTN (hypertension) I10 Additional Codes NAYE-7 Assessment Billing - NAYE-7 Assessment Tool: NAYE-7 Assessment 12037 ([id number]) PHQ-9 - 68233 - PHQ-9 Billing: Yes ([id number]) Assessment & Plan Assessment & Plan (1) Alcohol abuse: Code(s): F10.10 - Alcohol abuse, uncomplicated Category: Social Hx (2) Cirrhosis: Comment: Alcohol use, history HCV Code(s): K74.60 - Unspecified cirrhosis of liver Category: Medical (3) History of substance abuse: Code(s): F19.11 - Other psychoactive substance abuse, in remission Category: Medical (4) HTN (hypertension): Code(s): I10 - Essential (primary) hypertension Category: Medical Plan . Orders: Orders MM screening mammo BI Today Z12.31 - Encounter for screening mammogram for malignant neoplasm of breast
[2024-12-18 11:19] VITALS: BP 138/78; PULSE 72; RESP 16; O2SAT 97; BMI 26.7
--- OUTSIDE RECORDS SUMMARY | 2024-12-18 12:03 | XMS_ITS | Patient Health Record ---
Author Organization [facility] Address [address] [place] [phone] Care Team Providers Care Cigar Making Supervisor Name Role Phone Raj Wise M.D. Primary Care Provider Shelbie Silverio Carter Jr Unavailable Allergies Allergen (clinical drug ingredient) Drug/Non Drug [...] Problem Status W/U Status Risk Notes Problem [id number] Gastroesophageal reflux disease without esophagitis (K21.9) Active confirmed Plan Of Treatment Future Test Test Name Order Date UPPER GI ENDOSCOPY 08/11/2011 COLONOSCOPY 08/11/2011 Insurance Providers Payer Name Payer Address Payer Phone Subscriber Number Group Number Insured Name Patient Relationship to Insured Coverage Start Date Coverage End Date MED[place]ARE OF [place] [address] [place] [address] [id number] [place] Self - patient is the insured MEDICAID OF [facility] [address] [place] [phone] [id number] [place] Self - patient is the [...]
== END 2024-12-18 12:26 | disposition home or self-care (01) ==
LOC: HO.HMCC 11:16
PROVIDERS: PCP Nurse Practitioner Family; Visit Provider Nurse Practitioner Family
DX: F10.10 Alcohol abuse, uncomplicated (principal); K74.60 Unspecified cirrhosis of liver; F19.11 Other psychoactive substance abuse, in remission; I10 Essential (primary) hypertension; Z23 Encounter for immunization

== ENCOUNTER → 2024-12-18 11:15 | Outpatient (BNVA) | payer OTHER, SELFPAY | PROVIDERS: PCP Nurse Practitioner Family; Visit Provider Nurse Practitioner Family | DX: Z23 Encounter for immunization (principal); F10.10 Alcohol abuse, uncomplicated; K74.60 Unspecified cirrhosis of liver; F19.11 Other psychoactive substance abuse, in remission; I10 Essential (primary) hypertension | CPT/HCPCS: 90471; 90677; 96127; 99212 ==

== ENCOUNTER 2025-02-14 08:46 | Outpatient (REF) | payer OTHER, SELFPAY ==
--- OUTSIDE RECORDS SUMMARY | 2025-02-14 09:15 | XMS_ITS | Patient Health Record ---
Author Organization [facility] Address [address] [place] [phone] Care Team Providers Care Ground Intelligence Officer Name Role Phone Raj Wise M.D. Primary [...] Problem Status W/U Status Risk Notes Problem [id number] Gastroesophageal reflux disease without esophagitis (K21.9) Active confirmed Plan Of Treatment Future Test Test Name Order Date UPPER GI ENDOSCOPY 08/11/2011 COLONOSCOPY 08/11/2011 Insurance Providers Payer Name Payer Address Payer Phone Subscriber Number Group Number Insured Name Patient Relationship to Insured Coverage Start Date Coverage End Date [place]ARE OF [place] [address] [place] [address] [id number] [place] Self - patient is the insured MEDICAID OF [facility] [address] [place] [address] [id number] [place] Self - patient is the [...]
== END 2025-02-14 08:47 | disposition home or self-care (01) ==
LOC: HO.HOSX 08:46
PROVIDERS: Visit Provider Physician Assistant
DX: Z13.89 Encounter for screening for other disorder (principal)

== ENCOUNTER 2025-04-04 14:18 | Outpatient (AMB) | payer MEDICARE, MEDICAID, SELFPAY ==
--- OUTSIDE RECORDS SUMMARY | 2025-03-12 05:30 | XMS_ITS ---
Author Organization [facility] Address [address] [facility] [place] [address] Care Team Providers Care Refrigeration Supervisor Name Role Phone James Loco Primary Care Provider Unav Rosalinda Vidales Unavailable [phone] Allergies Allergen (clinical drug ingredient) Drug/Non Drug Allergy documented on EMR Reaction Allergy Type Onset Date Status doxycycline Doxycycline Unknown Drug Allergy Act viviana Medications Medication SIG (Take, Route, Frequency, Duration) Notes Start Date End Date Status DULoxetine HCl 60 MG 1 capsule Orally On ce a day 02/19/2025 Active Famotidine 20 MG 1 tablet at bedtime as needed Orally Once a day 02/19/2025 Active Furosemide 20 MG 1 tablet Orally Once a day 02/19/2025 Active hydrOXYzine HCl 10 MG 1 tablet as needed Orally Once a day 02/19/2025 Active Levothyroxine Sodium 25 MCG 1 tablet in the morning on an empty stomach Orally Once a day Active Ondansetron 4 MG 1 tablet on the tong ue and allow to dissolve Orally Once a day 02/19/2025 Active Losartan Potassium 25 MG 1 tablet Orally Once a day 02/19/2025 Active Ramelteon 8 MG 1 tablet at bedtime as needed Orally Once a day 02/19/2025 Active Acamprosate Calcium 333 MG 2 tablets Ora lly Twice a day 02/19/2025 Active Montelukast Sodium 10 MG 1 tablet Orally Once a day 02/19/2025 Active Folic Acid 1 MG 1 tablet Orally Once a day Active Cetirizine HCl 10 MG 1 tablet Orally Onc e a day 02/19/2025 Active Vitamin B1 100 MG 1 tablet Orally Once a day 02/19/2025 Active Vitamin D3 Active Social History Tobacco Use: Social History Observation Description Date Details (start date - stop date) Never Smoker NA - NA Tobacco Control (Standard) Question Answer Notes Tobacco use: Nonsmoker Additional Findings: Tobacco non-user Current no nsmoker AUDIT-C (Standard) Question Answer Notes Did you have a drink containing alcohol in the p ast year? No Points 0 Interpretation Negative Encounters Encounter Location Date Provider Diagnosis [facility] [address] [phone] 03/12/2025 Rosalinda Del Real Plan Of Treatment Next Appt Details Provider Name:Rosalinda cordero, 06/10/2025 01:00:00 PM, [address] [place] [address], [phone], Progress Notes * BRIDGET RennyaDOB:1960 (64 yo F)Acc No.[id number]:03/12/2025 Progress Notes Patient: Renny COONa Provider: Fermin Del Real DPM :1960 A ge:64 Y S ex:Female Date:03/12/2025 Address:[address] [place], [place] [id number] Pcp:MONA Villalta Subjective: * Chief Complaints: * * ROS: G eneral/Constitutional: Nausea a dmits. V omiting d enies. H vera Thirst a dmits. L oss appetite d enies. C hills d enies. F atigue a dmits.?Fever d enies. N ight Sweats a dmits. U nexplained weight loss d enies. U nexplained weight gain d enies. H EENTM: Dentures a dmits. D izziness a dmits. G lasses/contacts a dmits. R etinopathy d enies. B lurred/double vision a dmits. T MJ?denies. D ischarge/drainage d enies. I mplants d enies. S ore throat a dmits. D ental implants d enies. H olivier of hearing d enies. D ifficulty chewing/swallowing/speaking a dmits. N ose bleeds d enies. S ore mouth a dmits. ? R espiratory: On Oxygen a dmits. P neumonia/pleurisy a dmits.?Bronchitis d enies. E mphysema d enies. C oughing a dmits. C ough blood?admits. S hortness of breath a dmits. W heezing a dmits. C ardiovascular: Pacemaker d enies. M SOCIAL SERVICE WORKER d enies. W PW d enies. C HF d enies. H eart attack d enies. S eptal defect d enies. R apid beat a dmits. C hest pain a dmits. A trial Fib. d enies. M urmur/Palpitations d enies. G astrointestinal: Hemorrhoids d enies. S tomach/Abdominal pain a dmits. D ark blood stool d enies. I rritable bowel d enies. C onstipation a dmits. D iarrhea d enies. H ematology: Swelling d enies. C lots d enies. V aricose Veins a dmits. B ruising d enies. B leeding problem d enies. G enitourinary: Blood urine d enies. F requent/Painfu/urination/bladder control a dmits. K idney stones d enies. I nfection (UTI) d enies. N ephropathy d enies. s ex trans dis (STD) d enies. P rostate d enies. M usculoskeletal: Hammertoes d enies. B unions a dmits. B ack Pain a dmits. M uscle Cramps/ Resting a dmits. M uscle cramps / walking a dmits.?Generalized aches and pains a dmits. W eakness a dmits. I nteg.: Young d enies. S cars a dmits. C orns/calluses?admits. I ngrown nails a dmits. P ainful nails a dmits. O pen Sores d enies. R ashes d enies. N eurologic: Difficulty sleeping a dmits. B rain disorder d enies. N umbness d enies. B alance trouble a dmits. C onfusion d enies. F ainting/blackouts d enies. T ingling d enies. T remors d enies. * Medical History: A ngina, Anxiety, Arthritis, Asthma, Back,Hip,and Knee pain, Depression, Headaches/Migraines, Hepatitis, High Blood Pressure, Liver disease, Poor circulation, Psoriasis/eczema, Psychiatric disorder, Reflux ( GERD), Sciatica, Thyroid, Chicken pox, Mumps, Measles. * Surgical History: D enies Past Surgical History. * Hospitalization/Major Diagno stic Procedure: D enies Past Hospitalization. * Family History: M other: , diagnosed with Other malignant neoplasm of unspecified site. F ather: , diagnosed with Other malignant neoplasm of unspecified site. P aternal Grand Mother: poor circulation. P aternal Grand Father: poor circulation, diagnosed with Family history of arthritis. M aternal Grand Mother: poor circulation, diagnosed with Unspecified essential hypertension, Diabetic - NIDDM. M aternal Grand Father: Foot problems, poor circulation. * Social History: T obacco Use: T obacco Control (Standard) T obacco use: N onsmoker A dditional Findings: Tobacco non-user C urrent nonsmoker D rugs/Alcohol: D rugs H ave you used drugs other than those for medical reasons in the past 12 months? N o M iscellaneous: C affeine: no. Exercise: no. D rug/Alcohol: A ARMEN-C (Standard) D id you have a drink containing alcohol in the past year? N o P oints 0 I nterpretation N egative * Medications: T aking Cetirizine HCl 10 MG Tablet 1 tablet Orally Once a day , Taking Vitamin D3 , Taking Vitamin B1 100 MG Tablet 1 tablet Orally Once a day , Taking Folic Acid 1 MG Tablet 1 tablet Orally Once a day , Taking Losartan Potassium 25 MG Tablet 1 tablet Orally Once a day , Taking Ondansetron 4 MG Tablet Disintegrating 1 tablet on the tongue and allow to dissolve Orally Once a day , Taking Acamprosate Calcium 333 MG Tablet Delayed Release 2 tablets Orally Twice a day , Taking Ramelteon 8 MG Tablet 1 tablet at bedtime as needed Orally Once a day , Taking Montelukast Sodium 10 MG Tablet 1 tablet Orally Once a day , Taking DULoxetine HCl 60 MG Capsule Delayed Release Particles 1 capsule Orally Once a day , Taking Furosemide 20 MG Tablet 1 tablet Orally Once a day , Taking Famotidine 20 MG Tablet 1 tablet at bedtime as needed Orally Once a day , Taking Levothyroxine Sodium 25 MCG Tablet 1 tablet in the morning on an empty stomach Orally Once a day , Taking hydrOXYzine HCl 10 MG Tablet 1 tablet as needed Orally Once a day , Medication List reviewed and reconciled with the patient * Allergies: D oxycycline. Objective: * Vitals: Assessment: Plan: * Treatment: * Images: * The named appointment provid er may or may not be the originator of this progress note, and it is not deemed complete until electronically signed by the appointment provider. Sign off status: Pending * Provider: Fermin Del Real DPM Date: Generated for Shannon sandoval/Leon/Lakia on: 06/04/2024 02:36 PM EST
--- NOTE | 2025-04-04 14:25 | MHC.OFFVIS ---
Intake Visit Reasons: Inj- Right knee injection-RT knee last 11/01/24 Intake Note: Amelia is a 64 year old female who presents today for an steroid injection in her right knee, last injection 11/01/24. Patient reports injection helped, she wishes to repeat injeciton today. She also complains of pain in her groin area on her right side. Allergies doxycycline (Doxycycline) Allergy (Intermediate, Verified 04/04/25 14:42) RASH, vomiting Medication List - Last Reconciled 04/04/25 by Marissa Barros PA-C albuterol sulfate 2.5 mg (3 mL) inhalation Q4-6H PRN albuterol sulfate 90 mcg/actuation (Ventolin HFA) 2 puffs inhalation Q4-6H PRN 30 days blood pressure test kit-large for htn, daily use buprenorphine-naloxone 8-2 mg (Suboxone) 1 film sublingual BID@0900,1400 cetirizine (All Day Allergy (cetirizine)) 10 mg PO DAILY PRN cholecalciferol (vitamin D3) (Vitamin D3) 25 mcg PO DAILY diclofenac sodium 1% (Voltaren Arthritis Pain) 2 grams topical QID duloxetine 60 mg PO DAILY famotidine 20 mg PO DAILY fluticasone propion-salmeterol 250-50 mcg/dose 1 inh inhalation BID 30 days fluticasone propion-salmeterol 250-50 mcg/dose (Wixela Inhub) 1 inh inhalation BID 30 days fluticasone propionate 50 mcg/actuation (Allergy Relief (fluticasone)) 1 spray intranasal DAILY furosemide 20 mg PO DAILY 90 days hydroxyzine HCl 10 mg PO BEDTIME ketorolac 0.5% 1 drp ophthalmic (eye) DAILY lactulose 30 mL PO BID 90 days levothyroxine 25 mcg PO DAILY@0600 loratadine (Claritin) 10 mg PO DAILY losartan 25 mg PO DAILY montelukast 10 mg PO DAILY nicotine 1 patch transdermal DAILY 28 days omeprazole 40 mg PO DAILY@0630 90 days ondansetron 4 mg PO Q8H PRN 10 days ramelteon 8 mg PO BEDTIME PRN [Rollator walker with seat/brakes As directed] tizanidine 2 mg PO Q8H PRN HPI HPI Inj- Right knee injection-RT knee last 11/01/24: Details: 63 yo male returns to the office today f/u right knee oa. Previous injection was somewhat helpful from October 2024. Patient states continues to try to quit smoking and also abstain from alcohol use. She also c/o right hip pain down into the thigh. She received intra-articular injections in the hip under fluoroscopy which are helpful. [facility] Medical History (Updated 12/18/24 @ 11:52 by [facility]) Arthralgia CHF (congestive heart failure) HTN (hypertension) Hepatitis C (~10/31/23) Cirrhosis Alcohol abuse History of substance abuse History of acute respiratory failure (~03/2018) COPD (chronic obstructive pulmonary disease) Nocturnal hypoxemia Obstructive sleep apnea (~2003) Nicotine dependence, cigarettes, uncomplicated Hypothyroidism Allergic rhinitis Tubular adenoma of colon (~2006) GERD (gastroesophageal reflux disease) Chronic lower back pain Myofascial pain syndrome Depression Anxiety Obesity (BMI 30-39.9) Surgical History History of myringotomy History of colonoscopy History of esophagogastroduodenoscopy (EGD) Family History Father CVD (cardiovascular disease) Mother Lung cancer Social History Household Members: None Household Members Other:: lives alone Housing: House Do you presently have visiting nurse or other home services: No Alcohol intake: current Alcohol intake frequency: 0-2 drinks per day Alcohol type: beer Comment: pt refusing bed alarm Patient Tobacco Use Status: Current everyday Tobacco user Tobacco use type: Cigarette Cigarette Packs Per Day: 0.5 Cigarettes Per Day: 5 Years Smoked: 50 e-Cigarette/Vaping Use: Never Used Second Hand Smoke Exposure: Yes Substance Use Type: Crack/Cocaine service: No Current occupational status: disabled Current occupation: rt handed Cognitive needs: No Hearing needs: No Vision needs: No Review of Systems Const All systems reviewed & are unremarkable except as noted in HPI and below Physical Exam Const General: cooperative and no acute distress Orientation/consciousness: patient oriented x3 Resp Effort & Inspection: normal respiratory effort and able to speak in complete sentences Cardio Peripheral pulses: Peripheral pulses 2+ throughout Neuro General: patient oriented x3 Extrem Other: Right knee: Skin intact, no erythema or joint effusion. Tenderness along the medial and lateral joint line. Full ROM with crepitus. Negative Shikha?s. No ligamentous laxity. NVI. Office Procedures AMB Joint Injection/Aspiration Joint Injection/Aspiration Primary Site: Right Knee Prep: site was prepped using aseptic technique, ethochloride spray was applied and injection warnings given Injected: 40 mg of, Decadron, with 3 mL of, 1% plain Lidocaine, 0.25% Bupivacaine and in the joint Approach Used: anterolateral Procedure: The patient tolerated the procedure well and there was some relief with the local anesthesia Coding - Glenohumeral/Tronchanteric Bursa/Intraarticular Procedure code (CPT) selection complete Assessment & Plan Assessment & Plan (1) Osteoarthritis of right knee: Code(s): M17.11 - Unilateral primary osteoarthritis, right knee Category: Medical Qualifiers: Osteoarthritis type: primary Qualified Code(s): M17.11 - Unilateral primary osteoarthritis, right knee Plan: We discussed options today, which include steroid injection. The patient did consent to move forward with the right knee injection, which was tolerated well.? I recommended rest, ice and elevation and OTC antiinflammatories prn for discomfort. If symptoms persist over the next 6-8 weeks, they will contact our office, otherwise, prn (2) Osteoarthritis of right hip: Code(s): M16.11 - Unilateral primary osteoarthritis, right hip Category: Medical Plan: An order for right hip intra-articular injection was placed to be done under fluro at the hospital. I explained they will call her to book appt. Plan I also placed an order for pain mgmnt to discuss alternative options to help with her pain ie: geniculate vs spinal stimulators. Patient expressed understanding and will see me back prn. Orders: Orders FL Guided Asp Inj Major Jt RT Today M16.11 - Unilateral primary osteoarthritis, right hip Referrals Pain Management Referral M16.11 - Unilateral primary osteoarthritis, right hip, M17.11 - Unilateral primary osteoarthritis, right knee Coding Level of Care Code Complex visit Add On G2211 Diagnoses Primary osteoarthritis of right knee M17.11 Osteoarthritis type: primary Osteoarthritis of right hip M16.11 CPT Codes Coding - Joint 7: - Glenohumeral/Tronchanteric Bursa/Intraarticular ([id number])
--- OUTSIDE RECORDS SUMMARY | 2025-04-04 14:37 | XMS_ITS | Patient Health Record ---
Author Organization [facility] Address [address] [place] [address] Care Team Providers Care Cell Attendant Name Role Phone Raj Wise M.D. Primary Care Provider Shelbie Silverio Carter Jr Unavailable Allergies Allergen (clinical drug ingredient) Drug/Non Drug Allergy documented on EMR Reaction Allergy Type Onset Date Status doxycycline Doxycycline Unknown Drug Allergy Act viviana Reason For Referral No Information Medications Medication SIG (Take, Route, Frequency, Duration) Notes Start Date End Date Status Fluconazole 100 MG Tablet 1 tablet Orall y once a day Active Fluticasone Propionate 50mcg 1 spray in each nostril Nasally Once a day Active DULoxetine HCl 60 MG Capsule Delayed Release Particles 1 capsule Orally Once a day; Duration: 30 day(s) Active Suboxone 8/2mg 1 tablet under the tongue and allow to dissolve Sublingual Once a day Active amLODIPine Besylate 5 MG Tablet 1 tablet Orally Once a day; Duration: 30 day(s) Active Zantac Active Ranitidine HCl 300 MG Tablet 1 tablet Or ally Once a day; Duration: 30 day(s) Active Xopenex HFA 45 MCG/ACT Aerosol 1 puff as needed Inhalation every 4 hrs Active ProAir HFA 90mcg Act viviana Benzonatate 100 MG Capsule Oral; Duration: 6 Active Levothyroxine Sodium 25 MCG Tablet 1 tablet in the morning on an empty stomach Orally Once a day Active predniSONE 20 MG Tablet TK 2 TS PO QD FO R 4 DAYS THEN TK 1 T PO QD FOR 2 DAYS Oral; Duration: 6 Active Cymbalta 90mg Active Tamsulosin HCl 0.4 MG Capsule TK 1 C PO Q NIGHT Oral; Duration: 30 Active Ibuprofen 800 MG Tablet 1 tablet with fo od or milk as needed Orally Three times a day Active Mirtazapine 7.5 MG Tablet 2 tablets at b edtime Orally Once a day; Duration: 30 day(s) Active Omeprazole 20 MG Capsule Delayed Release 1 capsule Orally twice a day Active Baclofen Active Advair Diskus 100-50 Active Clotrimazole 10 MG Lozenge DIS 1 RENATO PO SLOWLY BID Mouth/Throat; Duration: 15 Active Social History Tobacco Use: Social History Observation Description Date Details (start date - stop date) Current Smoker NA - NA Social History Tobacco Use: Social Info Question Answer Notes Tobacco Use/Smoking Patient is a current smoker How often do you smoke cigarettes? every day How many cigarettes a day do you smoke? 5 or less How soon after you wake up do you smoke your first cigarette? within 5 minutes Are you interested in quitting? Thinking about quitting Additional Details Category Social Info Options Details Miscellaneous: Marital status: Occupation: unemployed Section Notes: Tobacco use is one half [...] Problem Status W/U Status Risk Notes Problem Gastroesophageal reflux disease without esophagitis (013010870) Gastroesophageal reflux disease without esophagitis (K21.9) Active confirmed Plan Of Treatment Future Test Test Name Order Date UPPER GI ENDOSCOPY 08/11/2011 COLONOSCOPY 08/11/2011 Insurance Providers Payer Name Payer Address Payer Phone Subscriber Number Group Number Insured Name Patient Relationship to Insured Coverage Start Date Coverage End Date MEDICARE OF [place] [address] BRAYAN ANSARIANDERJOSE [id number] [phone] [id number] H[place]Y GILL Self - patient is the insured MEDICAID OF [facility] [address] [place] [address] [id number] HONEY GILL Self - patient is the [...]
--- OUTSIDE RECORDS SUMMARY | 2025-04-04 14:37 | XMS_ITS | Patient Health Record ---
Author Organization [facility] Address [address] [facility] [place] [address] Care Team Providers Care Trash Hauler Name Role Phone James Loco Primary Care Provider Unav Rosalinda Vidales Unavailable [phone] Allergies Allergen (clinical drug ingredient) Drug/Non Drug Allergy documented on EMR Reaction Allergy Type Onset Date Status doxycycline Doxycycline Unknown Drug Allergy Act viviana Reason For Referral No Information Medications Medication SIG (Take, Route, Frequency, Duration) Notes Start Date End Date Status Cetirizine HCl 10 MG 1 tablet Orally Onc e a day 02/19/2025 Active Famotidine 20 MG 1 tablet at bedtime as needed Orally Once a day 02/19/2025 Active Furosemide 20 MG 1 tablet Orally Once a day 02/19/2025 Active Vitamin B1 100 MG 1 tablet Orally Once a day 02/19/2025 Active hydrOXYzine HCl 10 MG 1 tablet as needed Orally Once a day 02/19/2025 Active Vitamin D3 Active Levothyroxine Sodium 25 MCG 1 tablet in the morning on an empty stomach Orally Once a day Active Folic Acid 1 MG 1 tablet Orally Once a day Active Ondansetron 4 [...] Ora lly Twice a day 02/19/2025 Active DULoxetine HCl 60 MG 1 capsule Orally On ce a day 02/19/2025 Active Montelukast Sodium 10 MG 1 tablet Orally Once a day 02/19/2025 Active Social History Tobacco Use: Social History [...] Negative Encounters Encounter Location Date Provider Diagnosis [facility] [place] [address] [place] [address] 03/12/2025 Rosalinda Del Real [facility] [place] [address] [place] [address] 03/13/2025 Rosalinda Del Real Plan Of Treatment Next Appt Details Provider Name:Rosalinda cordero, 06/10/2025 01:00:00 PM, [address] [place] [address], [phone], Insurance Providers Payer Name Payer Address Payer Phone Subscriber Number Group Number Insured Name Patient Relationship to Insured Coverage Start Date Coverage End Date Medicare National Govt Svcs Inc [address] [place] [address] [id number] Amelia Tran Self - patient is the insured [facility] -[id number] [address] [address] [place] [phone] [id number] Amelia Tran Self - patient is the insured Medical (General) History Medical History History ICD Code Angina Anxiety Arthritis asthma Back,Hip,and Knee pain Depression Headaches/Migraines Hepatitis High Blood Pressure Liver disease Poor circulation Psoriasis/eczema Psychiatric disorder Reflux ( GERD) Sciatica thyroid Chicken pox Mumps Measles
== END 2025-04-04 15:05 | disposition home or self-care (01) ==
LOC: HO.HOS 14:19
PROVIDERS: PCP Nurse Practitioner Family; Visit Provider Physician Assistant
DX: M17.11 Unilateral primary osteoarthritis, right knee (principal); M16.11 Unilateral primary osteoarthritis, right hip
CPT/HCPCS: 20610

== ENCOUNTER → 2025-04-04 14:18 | Outpatient (BNVA) | payer MEDICARE, MEDICAID, SELFPAY | PROVIDERS: PCP Nurse Practitioner Family; Visit Provider Physician Assistant | DX: M17.11 Unilateral primary osteoarthritis, right knee (principal); M16.11 Unilateral primary osteoarthritis, right hip | CPT/HCPCS: 20610; J0665; J1100; J2003 ==

== ENCOUNTER 2025-04-29 10:57 | Outpatient (AMB) | payer OTHER, SELFPAY ==
--- OUTSIDE RECORDS SUMMARY | 2025-03-12 05:30 | XMS_ITS ---
Author Organization [facility] Address [address] [facility] [place] [address] Care Team Providers Care Head Of Transport Logistics Name Role Phone James Loco Primary Care Provider Unav Rosalinda Vidales Unavailable [phone] Allergies Allergen (clinical drug ingredient) Drug/Non Drug [...] Negative Encounters Encounter Location Date Provider Diagnosis [facility] [address] [address] 03/12/2025 Rosalinda Del Real Plan Of Treatment Next Appt Details Provider Name:Rosalinda cordero, 06/10/2025 01:00:00 PM, [address] [place] [address], [phone], Progress Notes * BRIDGET RennyaDOB:1960 (64 yo F)Acc No.[id number]:03/12/2025 Progress Notes Patient: Renny COONa Provider: Fermin Del Real DPM :1960 A ge:64 Y S ex:Female Date:03/12/2025 Address:[address] [place], [place] [id number] Pcp:MONA Villalta Subjective: * Chief Complaints: * [...] dmits. C ardiovascular: Pacemaker d enies. M LICENSED CLINICIAN d enies. W PW d enies. C [...] DPM Date: Generated for Shannon sandoval/Leon/Lakia on: 06/30/2024 02:22 PM EST
[2025-04-29 10:59] VITALS: BP 150/78; PULSE 93; RESP 16; O2SAT 97; BMI 24.7
--- NOTE | 2025-04-29 10:59 | A.OFFPC_ITS ---
Vital Signs 04/29/25 10:59 04/29/25 11:25 Height 5 ft 2 in Weight 135 lb BMI 24.7 BP 150/78 H 142/84 H Blood Pressure Location Lt brachial Lt brachial Position Sitting Sitting Respiration 16 Pulse 93 Pulse Source Pulse Oximeter Pulse Oximetry (%) 97 Oxygen Delivery Method Room Air Intake Visit Reasons: 4m follow up Shoe Designer Required: No Accompanied by: Self / Same As Patient Allergies doxycycline (Doxycycline) Allergy (Intermediate, Verified 04/29/25 11:03) RASH, vomiting Tobacco use date assessed: 04/29/25 Fall risk assessment: 1 Fall in past year Last assessed Fall Risk: 04/29/25 Dental Screening Dental Screen Date: 04/29/25 Did you have a dental visit in the last 12 months?: Yes Did you have a dental problem in the last 6 months where you did not have access to dental care?: No Was dental information given to patient?: Patient has dentist HPI 4m follow up HPI Details Chief Complaint The patient presents with a complaint of left second toe pain. History of Present Illness The patient is a 64 year old female presenting with left toe pain. She reports that approximately two months ago, she developed swelling in her left second toe after picking at what she believed to be a corn. Social History Health Maintenance Review of Systems - Musculoskeletal: Reports pain and swel ling in the left second toe for the past two months. Physical Exam General: Cooperative, healthy appearing, comfortable, no acute distress and well developed Orientation: Patient oriented x3 Limitations: No limitations Head: Normal to inspection Ears: Hearing grossly normal bilaterally Nose: Normal external nose present Face and sinus: Normal facial exam Eyes: Appearance normal, both eyes and all related structures Neck: Normal visual inspection and Yes full ROM Respiratory: Diminished somewhat coarse, able to speak in complete sentences. Clear to auscultation bilaterally Cardiovascular: Regular rate and rhythm. Normal S1 and S2. Systolic murmur faint GI: Normal to inspection. Soft to palpation and nontender Skin: No rashes or lesions noted Neuro: Patient oriented x3 Extremities: Normal to inspection except for left second toe with faint redness, no tenderness or warmth to touch Results Plan 1. Left Toe Pain The patient presents with left second toe pain and swelling for two months, which she attributes to picking a corn, though no corn is evident on examination. Physical exam reveals faint redness but no tenderness or warmth, making an infectious process unlikely. The patient will follow up with podiatry for further evaluation. Discussion Notes I discussed my physical exam findings with the patient regarding her left second toe. I noted the absence of tenderness or warmth to touch, which makes an active infection less likely. I advised her that she will be following up with a assurance analyst for this issue. Encouraged pt to get her labs drawn soon. Patient Instructions - You will be following up with a foot s pecialist (assurance analyst) soon for your toe pain. [facility] Medical History Arthralgia CHF (congestive heart failure) HTN (hypertension) Hepatitis C (~10/31/23) Cirrhosis Alcohol abuse History of substance abuse History of acute respiratory failure (~03/2018) COPD (chronic obstructive pulmonary disease) Nocturnal hypoxemia Obstructive sleep apnea (~2003) Nicotine dependence, cigarettes, uncomplicated Hypothyroidism Allergic rhinitis Tubular adenoma of colon (~2006) GERD (gastroesophageal reflux disease) Chronic lower back pain Myofascial pain syndrome Depression Anxiety Obesity (BMI 30-39.9) Surgical History History of myringotomy History of colonoscopy History of esophagogastroduodenoscopy (EGD) Family History Father CVD (cardiovascular disease) Mother Lung cancer Social History Household Members: None Household Members Other:: lives alone Housing: House Do you presently have visiting nurse or other home services: No Alcohol intake: current Alcohol intake frequency: 0-2 drinks per day Alcohol type: beer Comment: pt refusing bed alarm Patient Tobacco Use Status: Current everyday Tobacco user Tobacco use type: Cigarette Cigarette Packs Per Day: 0.5 Cigarettes Per Day: 5 Years Smoked: 50 e-Cigarette/Vaping Use: Never Used Second Hand Smoke Exposure: Yes Substance Use Type: Crack/Cocaine service: No Current occupational status: disabled Current occupation: rt handed Cognitive needs: No Hearing needs: No Vision needs: No Questionnaire Thrive Questionnaire Date Thrive assessed: 07/10/24 I am a: Patient What is your living situation today?: I have a steady place to live Within the past 12 months, did the food you bought not last and you didn't have the money to get more?: Often true Within the past 12 months, did you worry whether your food would run out before you got money to buy more?: Often true Do you have trouble paying for medicines?: No Do you have trouble getting transportation to medical appointments?: No Do you have trouble paying your heating and electricity bill?: No Do you have trouble taking care of your child, family member or friend?: No Do you have trouble with day-to-day activities such as bathing, preparing meals, shopping, managing finances, etc.?: Yes Are you currently unemployed and looking for a job?: No Are you interested in more education?: No Currently or been in a relationship where the following occur: No concerns reported THRIVE Score: 2 NAYE-7 AMB Questionnaire NAYE-7 Date NAYE - 7 assessed: 07/10/24 Source: Developed by Drs. Taras Carney, Deyanira Raygoza, Monty Stephens and colleagues, with an educational mitch from [employer]. Physical exam (Primary Care) Vital Signs: Last Vital Signs Pulse 93 04/29/25 10:59 Resp 16 04/29/25 10:59 BP 150/78 H 04/29/25 10:59 Pulse Ox 97 04/29/25 10:59 Oxygen Delivery Method Room Air 04/29/25 10:59 BMI result Body Mass Index 24.7 Tobacco/Smoking Status: Tobacco use Status Tobacco use date assessed 04/29/25 04/29/25 11:05 Patient Tobacco Use Status Current everyday Tobacco 04/29/25 11:05 Tobacco use type Cigarette 04/29/25 11:05 e-Cigarette/Vaping Use Never Used 04/29/25 11:05 Thrive Assessment: Date of Thrive Assessment Date Thrive assessed 07/10/24 04/29/25 11:05 Currently or been in a relationship where the following occur: No concerns reported Coding Level of Care Code Est Pt Level 3 (59418) Diagnoses Toe swelling M79.89 Assessment & Plan Assessment & Plan (1) Toe swelling: Code(s): M79.89 - Other specified soft tissue disorders Category: Medical Plan . Orders: Orders XR toe LT min 2V Today M79.89 - Other specified soft tissue disorders
[2025-04-29 11:25] VITALS: BP 142/84
--- OUTSIDE RECORDS SUMMARY | 2025-04-29 14:22 | XMS_ITS | Patient Health Record ---
Author Organization [facility] Address [address] [place] [address] Care Team Providers Care Information Operator Name Role Phone Raj Wise M.D. Primary [...] Notes Problem Gastroesophageal reflux disease without esophagitis (648473967) Gastroesophageal reflux disease without esophagitis (K21.9) Active confirmed Plan Of Treatment Future Test Test Name Order Date UPPER GI ENDOSCOPY 08/11/2011 COLONOSCOPY 08/11/2011 Insurance Providers Payer Name Payer Address Payer Phone Subscriber Number Group Number Insured Name Patient Relationship to Insured Coverage Start Date Coverage End Date [place]ARE OF [place] [address] BRAYAN ANSARIANDERJOSE [id number] H[place]Y [place]ILL Self - patient is the insured MEDICAID OF [facility] [address] [place] [address] [id number] HONEY GILL Self - patient is the [...]
--- OUTSIDE RECORDS SUMMARY | 2025-04-29 14:22 | XMS_ITS | Patient Health Record ---
Author [facility] Address [address] [facility] [place] [address] Care Team Providers Care Rehabilitation Manager Name Role Phone James Loco Primary Care Provider Unav Rosalinda Vidales Unavailable [phone] Allergies Allergen (clinical drug ingredient) Drug/Non Drug [...] Negative Encounters Encounter Location Date Provider Diagnosis [facility] [place] [address] [place] [address] 03/12/2025 Rosalinda Del Real [facility] [address] [place] [address] 03/13/2025 Rosalinda Del Real Plan Of Treatment Next Appt Details Provider Name:Rosalinda cordero, 06/10/2025 01:00:00 PM, [address] [place] [address], [phone], Insurance Providers Payer Name Payer Address Payer Phone Subscriber Number Group Number Insured Name Patient Relationship to Insured Coverage Start Date Coverage End Date Medicare National Govt Svcs Inc [address] [place] [address] [id number] Amelia Tran Self - patient is the insured [facility] -[id number] [address] [address] [place] [phone] [id number] Amelia Tran Self - patient is the insured Medical (General) History Medical History History ICD Code Angina Anxiety Arthritis asthma Back,Hip,and Knee pain Depression Headaches/Migraines Hepatitis High Blood Pressure Liver disease Poor circulation Psoriasis/eczema Psychiatric disorder Reflux ( GERD) Sciatica thyroid Chicken pox Mumps Measles
== END 2025-04-29 12:09 | disposition home or self-care (01) ==
LOC: HO.HMCC 10:58
PROVIDERS: PCP Nurse Practitioner Family; Visit Provider Nurse Practitioner Family
DX: M79.89 Other specified soft tissue disorders (principal)

== ENCOUNTER → 2025-04-29 10:57 | Outpatient (BNVA) | payer OTHER, SELFPAY | PROVIDERS: PCP Nurse Practitioner Family; Visit Provider Nurse Practitioner Family | DX: M79.675 Pain in left toe(s) (principal); M79.89 Other specified soft tissue disorders | CPT/HCPCS: 99212 ==

== ENCOUNTER 2025-05-12 10:58 | Outpatient (REF) | payer OTHER, SELFPAY ==
--- OUTSIDE RECORDS SUMMARY | 2025-03-12 05:30 | XMS_ITS ---
Author Organization [facility] Address [address] [facility] [place] [address] Care Team Providers Care Bank Vault Attendant Name Role Phone James Loco Primary Care Provider Unav Rosalinda Vidales Unavailable [phone] Allergies Allergen (clinical drug ingredient) Drug/Non Drug [...] Negative Encounters Encounter Location Date Provider Diagnosis [facility] [address] [address] 03/12/2025 Rosalinda Del Real Plan Of Treatment Next Appt Details Provider Name:Rosalinda cordero, 06/10/2025 01:00:00 PM, [address] [place] [address], [phone], Progress Notes * BRIDGET RennyaDOB:1960 (64 yo F)Acc No.[id number]:03/12/2025 Progress Notes Patient: Renny COONa Provider: Fermin Del Real DPM :1960 A ge:64 Y S ex:Female Date:03/12/2025 Address:[address] [place], [place] [id number] Pcp:MONA Villalta Subjective: * Chief Complaints: * [...] dmits. C ardiovascular: Pacemaker d enies. M REFRIGERATION SERVICE TECHNICIAN d enies. W PW d enies. C [...] DPM Date: Generated for Shannon sandoval/Leon/Lakia on: 12:46 PM EST
--- OUTSIDE RECORDS SUMMARY | 2025-05-12 12:46 | XMS_ITS | Patient Health Record ---
Author Organization [facility] Address [address] [place] [id number] Care Team Providers Care Pharmacy Innovation Assistant Name Role Phone Raj Wise M.D. Primary [...] day; Duration: 30 day(s) Active Zantac Active raNITIdine HCl 300 MG Tablet 1 tablet Or [...] Notes Problem Gastroesophageal reflux disease without esophagitis (435199090) Gastroesophageal reflux disease without esophagitis (K21.9) Active confirmed Plan Of Treatment Future Test Test Name Order Date UPPER GI ENDOSCOPY 08/11/2011 COLONOSCOPY 08/11/2011 Insurance Providers Payer Name Payer Address Payer Phone Subscriber Number Group Number Insured Name Patient Relationship to Insured Coverage Start Date Coverage End Date MEDICARE OF [place] [address] [place]SARI[place]ERJOSE [id number] [place] Self - patient is the insured MEDICAID OF [facility] [address] [place] [phone] [id number] [place] Self - patient is the [...]
--- OUTSIDE RECORDS SUMMARY | 2025-05-12 12:46 | XMS_ITS | Patient Health Record ---
Author Organization [facility] Address [address] [place] [address] Care Team Providers Care Learning Technologist Name Role Phone James Loco Primary Care Provider Unav Rosalinda Vidales Unavailable [phone] Allergies Allergen (clinical drug ingredient) Drug/Non Drug [...] Negative Encounters Encounter Location Date Provider Diagnosis [facility] [place] [address] [place] [address] 03/12/2025 Rosalinda Del Real [facility] [place] [address] [place] [address] 03/13/2025 Rosalinda Del Real Plan Of Treatment Next Appt Details Provider Name:Rosalinda cordeor, 06/10/2025 01:00:00 PM, [address] [place] [address], [phone], Insurance Providers Payer Name Payer Address Payer Phone Subscriber Number Group Number Insured Name Patient Relationship to Insured Coverage Start Date Coverage End Date Medicare [employer] [address] [facility] [place] [address] [id number] Amelia Tran Self - patient is the insured [place] -[id number] [address] [address] [place] [id number] Amelia Tran Self - patient is the insured Medical (General) History Medical History History ICD Code Angina Anxiety Arthritis asthma Back,Hip,and Knee pain Depression Headaches/Migraines Hepatitis High Blood Pressure Liver disease Poor circulation Psoriasis/eczema Psychiatric disorder Reflux ( GERD) Sciatica thyroid Chicken pox Mumps Measles
[2025-05-12 14:05] LABS: Appearance Urine Cloudy; Glucose Urine UA Negative (Negative); PH 8.5 (5.0-9.0); Specific Gravity - Urine 1.010 (1.005-1.025); UMIC TRIGGER UACC YES
[2025-05-12 14:22] LABS: Hematocrit 37.9 % (37.0-47.0); Hemoglobin 12.8 g/dl (12.0-16.0); Imm Gran Abs Auto 0.00 X10*3/uL (0.00-0.03); Imm Gran Pct Auto 0.0 % (0.0-0.4); Lymphocytes Absolute Auto 0.7 X10*3/uL (1.2-4.9); MANUAL DIFF FLAG SCAN; Mean Corpuscular HGB Conc 33.8 g/dl (31.0-35.0); Mean Corpuscular Hemoglobin 30.7 pg (27.0-33.0); Mean Corpuscular Volume 90.9 fL (80.0-98.0); NRBC Abs Auto 0.000 X10*3/uL (0.0-0.012); NRBC Pct Auto 0.0 /100WBC (0.0-0.2); Platelet Count 103 X10*3/uL (160-400); Red Blood Count 4.17 X10*6/uL (4.20-5.50); SCAN SMEAR FLAG 1; White Blood Count 2.5 X10*3/uL (4.8-10.8)
[2025-05-12 14:26] LABS: INTERNATIONAL NORM RATIO 1.0 (0.9-1.1); Prothrombin Time 12.7 SEC (11.2-13.5)
[2025-05-12 14:53] LABS: Alanine Aminotransferase 28 U/L (0-31); Albumin Level 3.8 g/dL (3.5-5.0); Alkaline Phosphatase 115 U/L (39-117); Anion Gap 9 (12-20); Aspartate Amino Transferase 46 U/L (5-31); Blood Urea Nitrogen 10 mg/dL (9-16); Calcium 8.9 mg/dL (8.4-10.2); Carbon Dioxide 29 mmol/L (22-29); Chloride 106 mmol/L (96-108); Cholesterol 148 mg/dL (<200); Estimated Glomerular Filt Rate > 60; HDL Cholesterol 72 mg/dL (>40); Potassium 3.9 mmol/L (3.3-5.1); Sodium 140 mmol/L (135-145); Total Protein 7.2 g/dL (6.5-8.0); Triglycerides 60 mg/dL (<150)
== END 2025-05-12 10:59 | disposition home or self-care (01) ==
LOC: HO.HMGCLDS 10:58
PROVIDERS: Internal Medicine; PCP Nurse Practitioner Family; Visit Provider Nurse Practitioner Family
DX: Z00.01 Encounter for general adult medical examination with abnormal findings (principal); K74.60 Unspecified cirrhosis of liver; Z13.6 Encounter for screening for cardiovascular disorders; Z13.29 Encounter for screening for other suspected endocrine disorder
CPT/HCPCS: 36415; 80053; 80061; 81001; 81003; 84443; 85025; 85610